=== PATIENT | female | born 1945 | race Caucasian/White ===

== ENCOUNTER → 2023-01-20 | Outpatient (CLI) | payer MEDICARE, OTHER, SELFPAY ==
--- NOTE | 2023-01-20 16:30 | RAD_ITS ---
STUDY: X-RAY - ABDOMEN/PELVIS REASON FOR EXAM: Female, 77 years old. ABD PAIN TECHNIQUE: 3 views COMPARISON: None. FINDINGS: Normal visualized lung bases. There is an unremarkable bowel gas pattern. There is no demonstrated free abdominal air. The visualized liver, spleen and kidneys are grossly normal in size and morphology. Postop changes in the right upper quadrant. Lumbar spine demonstrates minor levoscoliosis and degenerative change. Right hip prosthesis noted in situ. RAD/Abd Inc Decub and/or Erect IMPRESSION: Nonspecific examination of the abdomen and pelvis. Electronically Signed: León Christianson MD at 18:34 EDT ,
[2023-01-20 17:02] LABS: Absolute Lymphocyte Count 1.27 X10^3/uL (0.83-4.51); Absolute Neutrophil Count 4.9 X10^3/uL (2.0-7.7); Basophil# 0.03 X10^3/uL; Basophil% 0.4 % (0-1); Eosinophil# 0.17 X10^3/uL; Eosinophils% 2.4 % (0-5); Hematocrit 46.4 % (37-47); Hemoglobin 14.3 g/dL (12.0-15.0); Lymphocyte # 1.27 X10^3/ul (0.83-4.51); Lymphocyte % 18.2 % (19-41); Mean Corp Hgb Conc 30.8 g/dL (32-36); Mean Corpuscular Hgb 29.1 pg (27.0-32.0); Mean Corpuscular Volume 94.3 fL (81-99); Mean Platelet Vol. 10.7 fl (6.2-12.0); Monocyte# 0.63 X10^3/uL; NRBC Flagged by Analyzer 0 % (0-5); Neutrophil # 4.87 X10^3/uL (2.7-7.7); Neutrophil % 69.7 % (47-70); Platelet Count 255 K/mm3 (150-450); RBC Distribution Width CV 13.2 % (11.6-14.6); RBC Distribution Width SD 46.3 fl (35.1-43.9); Red Blood Count 4.92 M/mm3 (4.2-5.4)
[2023-01-20 17:26] LABS: ALB/GLOB Ratio 0.9 RATIO (0.9-2.4); AST(SGOT) 20 U/L (15-37); Alanine Aminotransfer ALT/SGPT 30 U/L (13-56); Albumin, Serum 3.5 g/dL (3.2-5.0); Alkaline Phosphatase 84 U/L (45-117); Anion Gap 3 (5-15); BUN 16 mg/dL (7-18); BUN/Creat Ratio 26.1 RATIO (10-20); Calcium,Total 9.9 mg/dL (8.5-10.1); Chloride 105 mmol/L (98-107); Creatinine, Serum 0.61 mg/dL (0.55-1.02); EST Glomerular Filtration Rate 100 mL/min (>60); Est Glom Filt Rate - Afr Amer 122 mL/min (>60); Globulin 3.7 g/dL (2.2-4.2); Glucose 98 mg/dL (74-106); Potassium 4.2 mmol/L (3.5-5.1); Protein, Total 7.2 g/dL (6.4-8.2); Sodium Level 138 mmol/L (136-145); Thyroid Stim Hormone (TSH) 1.81 uIU/mL (0.358-3.74)
[2023-01-20 17:55] LABS: Hepatitis C Antibody Non-Reactive (Nonreactive); Vitamin D,25 Hydroxy 51.9 ng/mL
== END | disposition home or self-care (01) ==
PROVIDERS: PCP Family Medicine Geriatric Medicine; Visit Provider Family Medicine Geriatric Medicine
DX: Z00.00 Encounter for general adult medical examination without abnormal findings (principal); I10 Essential (primary) hypertension; E78.5 Hyperlipidemia, unspecified; E55.9 Vitamin D deficiency, unspecified; Z13.89 Encounter for screening for other disorder
CPT/HCPCS: 36415; 74019; 80053; 82306; 84443; 85025; 86803

== ENCOUNTER → 2023-02-10 | Outpatient (CLI) | payer MEDICARE, OTHER, SELFPAY ==
[2023-02-10 13:12] VITALS: PULSE 104; PULSE 106; PULSE 107; PULSE 110; PULSE 96; PULSE 98; O2SAT 95; O2SAT 96; O2SAT 97; O2SAT 98
--- NOTE | 2023-02-11 05:46 | PCM.PSN.6M ---
PSN 6 Minute Walk Test 6 Minute Walk Test 6 Minute Walk Test: 6 Minute Walk Test PSN:6-Minute Walk Test Start: 02/10/23 13:12 Freq: Status: Active Protocol: [id number].6MINW Document 02/10/23 13:12 [facility] (Rec: 02/10/23 13:14 [facility] Desktop) 6 Minute Walk Test Date Performed 02/10/23 Time Performed 12:30 Height 5 ft 6 in Weight: 71.668 kg Weight in Pounds 158.[address]: Colten Vizcaino Assistive device used: None Pre-test Oxygen Delivery Method Room Air Pulse Ox 96 Pulse Rate (60-100) 98 Dyspnea Nano Scale (0-10) 0 Exertion Nano Scale (6-20) 6 1st minute Oxygen Delivery Method Room Air Pulse Ox 96 Pulse Rate (60-100) 104 H 2nd minute Oxygen Delivery Method Room Air Pulse Ox 96 Pulse Rate (60-100) 106 H 3rd minute Oxygen Delivery Method Room Air Pulse Ox 95 Pulse Rate (60-100) 107 H 4th minute Oxygen Delivery Method Room Air Pulse Ox 96 Pulse Rate (60-100) 110 H 5th minute Oxygen Delivery Method Room Air Pulse Ox 97 Pulse Rate (60-100) 110 H 6th minute Oxygen Delivery Method Room Air Pulse Ox 98 Pulse Rate (60-100) 110 H Dyspnea Nano Scale (0-10) 2 Exertion Nano Scale (6-20) 13 Post-test Oxygen Delivery Method Room Air Pulse Ox 98 Pulse Rate (60-100) 96 Full Laps Walked 18 Partial Lap, Number of Tiles Walked 32 Total Distance Walked (ft) 1094 Interpretation Interpretation: The patient was able to ambulate 1094 feet over the course of 6 minutes on room air with no assist devices or breaks. The patient experienced no significant desaturation, but did have tachycardia as high as 110 bpm. These findings are consistent with a cardiovascular limitation exercise tolerance. Recommendations Recommendations: No supplemental oxygen is indicated at this time.
== END | disposition home or self-care (01) ==
LOC: PSN 12:15
PROVIDERS: PCP Family Medicine Geriatric Medicine; Referring Provider Internal Medicine Critical Care Medicine; Visit Provider Internal Medicine Critical Care Medicine
DX: R06.02 Shortness of breath (principal)
CPT/HCPCS: 94618

== ENCOUNTER → 2023-02-11 | Outpatient (CLI) | payer MEDICARE, OTHER, SELFPAY ==
--- NOTE | 2023-02-12 05:32 | PFTCOMP ---
COMPLETE PULMONARY FUNCTION TEST INTERPRETATION Brief HPI: Patient is a 77-year-old female, currently under the care of Dr. Vizcaino, who presents to [facility] for complete pulmonary function tests secondary to diagnosis of dyspnea. Respiratory therapist reports good effort and reproducible results. Interpretation: Forced expiration spirometry shows no large airways obstructive ventilatory defect with an FEV1 of 120% predicted. There is some improvement in FEV1 by 260 cc (11%), but technically no significant bronchodilator response by strict ATS criteria. Spirograms are of good quality and plateau slowly, indicating slowly emptying areas of the lungs. The respiratory flow volume loop shows decreased expiratory flow rates at high lung volumes consistent with small airways obstruction. Lung volumes by body plethysmography show a normal total lung capacity at 5.2 L, 99% predicted. All other lung volumes are within normal limits. Diffusion capacity by carbon monoxide is normal at 86% predicted. The airway resistance is normal. No previous pulmonary function tests were available for review. Impression: These pulmonary function tests are technically within normal limits, but there is a possibility that bronchodilators may be helpful
== END | disposition home or self-care (01) ==
LOC: PSN 12:39
PROVIDERS: PCP Family Medicine Geriatric Medicine; Referring Provider Internal Medicine Critical Care Medicine; Visit Provider Internal Medicine Critical Care Medicine
DX: R06.02 Shortness of breath (principal)
CPT/HCPCS: 94060; 94726; 94729

== ENCOUNTER → 2023-02-12 | Outpatient (CLI) | payer MEDICARE, OTHER, SELFPAY ==
--- NOTE | 2023-02-12 11:06 | MRI_ITS ---
STUDY: BILATERAL BREAST MR WITHOUT AND WITH CONTRAST REASON FOR EXAM: Female, 77 years old. History of right breast cancer inferiorly. Follow-up. TECHNIQUE: Multi-sequence multi-echo imaging of both breasts was performed with a dedicated breast coil. T1-weighted and T2-weighted images were performed before the administration of contrast. T1-weighted images were also performed after the intravenous administration of 15ml o Clariscan. COMPARISON: Bilateral mammogram dated November 21, 2021, prior MRI with contrast dated January 24, 2022. FINDINGS: RIGHT BREAST: Scattered fibroglandular densities with minimal background enhancement. Decreased size of the breast with postsurgical changes. No abnormal enhancing masses or areas of non-mass enhancement in the right breast. LEFT BREAST: Scattered fibroglandular densities with minimal background enhancement. Decreased size of the breast with postsurgical changes. No abnormal enhancing masses or areas of non-mass enhancement in the right breast. No enlarged or abnormal lymph nodes. No abnormality in the visualized regions of the chest or liver. MRI/Breast Bilateral W/O and W IMPRESSION: Postsurgical changes of the right breast. No other abnormality present. Follow-up screening mammogram in one year recommended. CATEGORY: BIRADS Category 2: Benign. A letter regarding these results will be sent to the patient by the facility within 30 days. Electronically Signed: Giacomo Vanessa MD at 12:45 EDT ,
== END | disposition home or self-care (01) ==
LOC: MRI 10:55
PROVIDERS: PCP Family Medicine Geriatric Medicine; Referring Provider Student in an Organized Health Care Education/Training Program; Visit Provider Student in an Organized Health Care Education/Training Program
DX: C50.911 Malignant neoplasm of unspecified site of right female breast (principal)
CPT/HCPCS: 77049; A9575; A4216; C8908

== ENCOUNTER → 2023-02-16 | Outpatient (CLI) | payer MEDICARE, OTHER, SELFPAY ==
--- NOTE | 2023-02-16 07:28 | ECHOD_ITS ---
Reason For Study: CHEST PAIN Procedure This was a 2D Doppler, Color Flow transthoracic echocardiogram. Myocardial strain analysis was performed in this exam to aid in the assessment of cardiac function. Exam performed in department. Left Ventricle Normal LV size. Left ventricular systolic function is normal. The estimated ejection fraction is 60 %. Stage 1 diastolic dysfunction. No regional wall motion abnormalities noted. Right Ventricle Normal RV size. Normal systolic function. Atria Normal left atrium. Normal right atrium. Mitral Valve Normal mitral valve. Tricuspid Valve Normal tricuspid valve. Mild tricuspid valve insufficiency. Pulmonary artery systolic pressure is 24 mmHg. Aortic Valve Trisinus/trileaflet aortic valve. Pulmonic Valve Normal pulmonic valve. Great Vessels Normal aortic root. Pericardium/Pleural No pericardial effusion. MMode/2D Measurements & Calculations LVIDd: 4.7 cm IVSd: 1.0 cm Ao root diam: 3.7 cm LVIDs: 3.4 cm LVPWd: 0.84 cm RVDd: 2.4 cm FS: 26.4 % LAV(MOD-bp): 47.7 ml LA A4 area: 16.7 cm2 LA dimension(2D): 3.8 cm LAV(MOD-bp) Indexed: 26.5 ml/m2 LAV(MOD-sp2): 47.5 ml LAV(MOD-sp4): 47.5 ml TAPSE: 2.0 cm RA A4 area: 11.6 cm2 Time Measurements MV dec time: 0.25 sec Doppler Measurements & Calculations MV E max aurelio: 61.3 cm/sec Lat Peak E' Aurelio: 7.3 cm/sec Med Peak E' Aurelio: 7.0 cm/sec MV A max aurelio: 91.4 cm/sec E/E' lat: 8.4 E/E' med: 8.7 MV E/A: 0.67 MV V2 max: 106.2 cm/sec MV dec slope: 246.8 cm/sec2 Ao V2 max: 134.6 cm/sec MV max P.5 mmHg Ao max P.3 mmHg MV V2 mean: 55.8 cm/sec Ao V2 mean: 96.3 cm/sec MV mean P.4 mmHg Ao mean P.3 mmHg MV V2 VTI: 19.0 cm Ao V2 VTI: 33.4 cm AV (velocity ratio): 0.72 LV V1 max: 114.2 cm/sec MR max aurelio: 596.8 cm/sec PA V2 max: 87.5 cm/sec LV V1 max P.2 mmHg MR max P.5 mmHg PA V2 mean: 61.4 cm/sec LV V1 mean P.0 mmHg MR mean aurelio: 496.7 cm/sec LV V1 mean: 82.0 cm/sec MR mean P.5 mmHg LV V1 VTI: 24.1 cm MR VTI: 201.2 cm TR max aurelio: 220.5 cm/sec TR max P.5 mmHg ECHO/Echo Complete Interpretation Summary Normal LV size. Left ventricular systolic function is normal. The estimated ejection fraction is 60 %. Stage 1 diastolic dysfunction. The global longitudinal strain is mildly abnormal. The global longitudinal stra in = -15.6% (abnormal). Ordering Physician: Brandon Meza Referring Physician: Craig Ventura Chi Performed By: Joyce Baeza, RDCS, RVT
--- NOTE | 2023-02-16 14:06 | STRESSREP ---
Stress Test Report Exercise myocardial perfusion stress test. 77-year-old lady with a history of chest pain Stress protocol: Resting EKG demonstrates normal sinus rhythm with a rate of 71 bpm resting blood pressure is 132/80 mmHg. The patient exercised according to the regular Dean protocol for a total duration of 4 minutes and 25 seconds attaining a maximum heart rate of 141 bpm which was 98% of maximum predicted heart rate; the maximum workload was 7 metabolic equivalents. At rest there were no ST or T wave changes noted to suggest ischemia and at peak exercise upsloping ST changes only were noted which did not meet the criteria for ischemia. No clinical angina was noted the test was terminated due to the target heart rate being achieved/fatigue. The peak blood pressure was 198/100 mmHg. Rate-pressure product was 17,500. Myocardial perfusion protocol. 10.0 mCi of technetium 99m sestamibi was injected at rest. The patient exercised according to regular Dean protocol for total duration of 4 minutes and 25 seconds and at peak exercise 35 mCi of technetium 99m sestamibi was injected stress images were obtained stress and rest images were reconstructed in comparing the short axis vertical long and horizontal long axis. Gated images were also obtained. Perfusion SPECT analysis: Review of the stress images demonstrate normal uptake of tracer noted in all areas of the myocardium. The resting images similarly demonstrate normal uptake of tracer noted in all areas of the myocardium. No areas of reversibility are noted to suggest ischemia no previous infarct was noted. Gated SPECT analysis: The gated ejection fraction is 71%. Conclusion: Normal exercise myocardial perfusion stress test at a moderate workload Preserved ejection fraction.
== END | disposition home or self-care (01) ==
LOC: CVS 07:27
PROVIDERS: PCP Family Medicine Geriatric Medicine; Referring Provider Internal Medicine Cardiovascular Disease; Visit Provider Internal Medicine Cardiovascular Disease
DX: R07.9 Chest pain, unspecified (principal)
CPT/HCPCS: 78452; 93017; 93306; A9500; A4216

== ENCOUNTER → 2023-06-02 | Outpatient (CLI) | payer MEDICARE, SELFPAY ==
[2023-06-02 14:42] LABS: Absolute Lymphocyte Count 0.93 X10^3/uL (0.83-4.51); Absolute Neutrophil Count 5.5 X10^3/uL (2.0-7.7); Basophil# 0.03 X10^3/uL; Basophil% 0.4 % (0-1); Eosinophil# 0.09 X10^3/uL; Eosinophils% 1.3 % (0-5); Hematocrit 45.7 % (37-47); Hemoglobin 13.9 g/dL (12.0-15.0); Lymphocyte # 0.93 X10^3/ul (0.83-4.51); Lymphocyte % 13.2 % (19-41); Mean Corp Hgb Conc 30.4 g/dL (32-36); Mean Corpuscular Hgb 28.3 pg (27.0-32.0); Mean Corpuscular Volume 92.9 fL (81-99); Mean Platelet Vol. 10.7 fl (6.2-12.0); Monocyte# 0.47 X10^3/uL; Monocyte% 6.7 % (0-10); NRBC Flagged by Analyzer 0 % (0-5); Neutrophil # 5.49 X10^3/uL (2.7-7.7); Neutrophil % 78.3 % (47-70); Platelet Count 223 K/mm3 (150-450); Red Blood Count 4.92 M/mm3 (4.2-5.4)
[2023-06-02 14:56] LABS: Vitamin D,25 Hydroxy 33.6 ng/mL
[2023-06-02 14:57] LABS: AST(SGOT) 20 U/L (15-37); Alanine Aminotransfer ALT/SGPT 12 U/L (13-56); Albumin, Serum 3.4 g/dL (3.2-5.0); Alkaline Phosphatase 77 U/L (45-117); Anion Gap 3 (5-15); BUN 20 mg/dL (7-18); BUN/Creat Ratio 29.9 RATIO (10-20); Calcium,Total 10.1 mg/dL (8.5-10.1); Chloride 110 mmol/L (98-107); Creatinine, Serum 0.67 mg/dL (0.55-1.02); EST Glomerular Filtration Rate 91 mL/min (>60); Est Glom Filt Rate - Afr Amer 110 mL/min (>60); Globulin 3.5 g/dL (2.2-4.2); Glucose 115 mg/dL (74-106); Potassium 4.3 mmol/L (3.5-5.1); Protein, Total 6.9 g/dL (6.4-8.2); Sodium Level 144 mmol/L (136-145); Thyroid Stim Hormone (TSH) 1.25 uIU/mL (0.358-3.74)
--- OUTSIDE RECORDS SUMMARY | 2023-06-02 17:27 | XMS RPT_ITS | CCD ---
Author Name Unknown Address [address] [place] [address] Organization [facility] Care Team Providers Care Bolt Cutter Name Role Phone Antoine Nichols Unavailable Ciara Nava Admitting Unavailable Ciara Nava Attending Unavailable Antoine Nichols Primary Care Provider [phone] CIARA NAVA Admitting Unavaila ble MITCHELL ALCALA Attending Unavailable CIARA NAVA Referring Unavaila ble ANTOINE NICHOLS Primary Care Unavailable CIARA NAVA Admitting Unavaila ble LINDA JORGE Attending Unavailable CIARA NAVA Referring Unavaila ble ANTOINE NICHOLS Primary Care Unavailable CIARA NAVA Admitting Unavaila ble LINDA JORGE Attending Unavailable CIARA NAVA Referring Unavaila ble ANTOINE NICHOLS Primary Care Unavailable CIARA NAVA Admitting Unavaila ble NITHYA PEREZ Attending Unavailable CIARA NAVA Referring Unavaila ble ANTOINE NICHOLS Primary Care Unavailable AUDI LUEVANO Attending Unavailable ANTOIEN NICHOLS Primary Care Unavailable AUDI LUEVANO Attending Unavailable ANTOINE NICHOLS Primary Care Unavailable AUDI LUEVANO Admitting Unavailable AUDI LUEVANO Referring Unavailable ANTOINE NICHOLS Primary Care Unavailable AUDI LUEVANO Attending Unavailable AUDI LUEVANO Referring Unavailable AUDI LUEVANO Admitting Unavailable ANTOINE NICHOLS Primary Care Unavailable NICOLE YANG Attending Unavailable ANTOINE NICHOLS Primary Care Unavailable AUDI LUEVANO Attending Unavailable ANTOINE NICHOLS Primary Care Unavailable NicholsAntoine baxter Unavailable Unavailable Nichols, Antoine O Unavailable Unavailable Becerra, Aasef G Unavailable Unavailable NicholsKp baxterer Unavailable Unavailable Jennifer Garduno Unavailable Unavailable Antoine Nichols Unavailable Unavailable Antoine Nichols Primary Care Provider Laureen MIMS, Jennifer Unavailable UnavailAntoine Oro MD Unavailable Unavailable Nichols, Antoine O Unavailable Unavailable Becerra, Aasef G Unavailable Unavailable NicholsKp ortizer O Unavailable Unavailable Unavailable Altagracia Torres Attending UnavailAltagracia Johnson Referring Unavailabl e Jessica, Dr. Antoine Tijerina Primary Care Unavailab Altagracia Miles Attending Unavailabl e Jessica, Dr. Antoine Tijerina Primary Care Unavailab Altagracia Miles Attending Unavailabl e Jessica, Dr. Antoine Tijerina Primary Care Unavailab Altagracia Miles Attending Unavailabl e Jessica, Dr. Antoine Tijerina Primary Care Unavailab le Jessica, Dr. Antoine Tijerina Attending Unavailab le Jessica, Dr. Antoine Tijerina Referring Unavailab le Jessica, Dr. Antoine Tijerina Primary Care Unavailab le Vasko, Dr. Berta Cassidy Attending Unavaila ble Jessica, Dr. Antoine Tijerina Primary Care Unavailab le Jessica, Dr. Antoine Tijerina Primary Care Unavailab le Hamad, Dr. Butler Admitting Unavailable Hamad, Dr. Butler Attending Unavailable Sheryl Fabian Referring Unavailable Antoine Nichols Primary Care Unavailable Altagracia Torres Attending UnavailAntoine Oro Referring Unavailable Antoine Nichols Primary Care Unavailable Antoine Nichols Referring Unavailable Antoine Nichols Primary Care Unavailable Antoine Nichols Attending Unavailable Antoine Nichols Primary Care Unavailable Antoine Nichols Attending Unavailable Antoine Nichols Referring Unavailable Antoine Nichols Primary Care Unavailable Antoine Nichols Attending Unavailable Antoine Nichols Referring Unavailable Antoine Nichols Primary Care Unavailable Altagracia Torres Attending Unavailabl Antoine Booth Referring Unavailable Dr. Antoine iNchols Primary Care Unavailab Sheryl Valdez Attending Unavailable Sheryl Fabian Attending Unavailable Dr. Antoine Nichols Primary Care Unavailab Sheryl Valdez Admitting Unavailable Sheryl Fabian Attending Unavailable Sheryl Fabian Referring Unavailable Dr. Antoine Nichols Primary Care Unavailab trenton Nichols, Dr. Antoine Tijerina Primary Care Unavailab Sheryl Valdez Attending Unavailable Allergies Allergy Classification Reported Allergen(s) Allergy Type Date of Onset Reaction(s) Facility Serotonin Reuptake Inhibitors (SSRIs) (3 sources) Escitalopram; Translations: [Lexapro] Drug Allergy [id number] Work Phone: (20 sources) escitalopram; Translations: [ESCITALOPRAM] Drug Allergy 6 Other (See Comments) [facility] Work Phone: (4 sources) Escitalopram Drug Allergy [facility] Work Phone: Medications Current Medications Medication Drug Class(es) Dates Sig (Normalized) Sig (Original) calcium carbonate 1500 mg / cholecalciferol 200 unt oral tablet (7 sources) Vitamin D take 1 tablet by mouth once daily calcium carbonate-vitamin D3 600 mg(1,500mg) -200 unit per tablet Take 1 tablet by mouth daily. 0 Active gabapentin 300 mg oral capsule (2 sources) Anti-epileptic Agent Start: 12-30-2018 take 1 capsule by mouth twice daily gabapentin (NEURONTIN) 300 MG capsule Take 300 mg by mouth 2 (two) times a day . 1 12/30/2018 Active Lactobacillus Combination No.11 15 Billion Cell Sprinkle Capsule (1 source) take 1 capsule by mouth once daily lactobacillus combo no.11 15 billion cell CpSP Take 1 capsule by mouth daily. Active lactobacillus combo no.11 15 billion cell CpSP (6 sources) take 1 capsule by mouth once daily lactobacillus combo no.11 15 billion cell CpSP Take 1 capsule by mouth daily. 0 Active tamoxifen 20 mg oral tablet (7 sources) Estrogen Agonist/Antagon ist Start: 02-09-2017 tamoxifen (NOLVADEX) 20 MG tablet therapeutic multivitamin (THERAGRAN) tablet (6 sources) take 1 tablet by mouth once daily therapeutic multivitamin (THERAGRAN) tablet Take 1 tablet by mouth daily. 0 Active Therapeutic Multivitamin Tablet (1 source) take 1 tablet by mouth once daily therapeutic multivitamin (THERAGRAN) tablet Take 1 tablet by mouth daily. Active Completed/Discontinued Medications Medication Drug Class(es) Dates Sig (Normalized) Sig (Original) acetaminophen 500 mg oral tablet (20 sources) Start: 06-27-2019 take 2 tablets by mouth three times daily as needed Acetaminophen 500 MG Oral Tablet TAKE 2 TABLET 3 times daily Quantity: 0 Refills: 0 Ordered: 27-Jun-2019 DO Start : 27-Jun-2019 Active PRN acetaminophen 325 mg / oxyCODONE hydrochloride 5 mg oral tablet (1 source) Opioid Agonist Start: 10-11-2015 End: 03-26-2017 take 1-2 tablets by mouth every four hours as needed for pain oxyCODONE-acetamino phen (ROXICET) 5-325 mg per tablet Take 1-2 tablets by mouth every four hours as needed for pain. 50 tablet 0 10/11/2015 03/26/2017 Discontinued [id number] 200 actuat albuterol 0.09 mg/actuat metered dose inhaler (2 sources) beta2-Adrenergic Agonist Start: 03-24-2022 take 2 puff(s) by inhalation four times daily as needed for wheezing Albuterol Sulfate HFA 108 (90 Base) MCG/ACT Inhalation Aerosol Solution INHALE 2 PUFFS 4 times daily as needed for wheezing or shortness of brath Quantity: 1 Refills: 2 Ordered: 24-Mar-2022 Antoine Nichols MD Start : 24-Mar-2022 Active whtever brand or generic covered One Daily Multivitamin Women TABS (2 sources) Vitamin C One Daily Multivitamin Women TABS Refills: 0 Active Problems Active Problems Problem Classification Problem Date Documented Date Episodic/Chronic Anxiety disorders (20 sources) Anxiety state; Translations: [Anxiety state, unspecified] Onset: 09-25-2015 09-25-2015 Chronic Cancer of breast (20 sources) Malignant tumor of breast ; 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] Onset: 01-29-2022 Chronic Cancer of breast (20 sources) History of malignant neoplasm of breast; Translations: [Personal history of malignant neoplasm of breast] Episodic Nonmalignant breast conditions (2 sources) Unspecified lump in the right breast, lower inner quadrant; Translations: [Unspecified benign mammary dysplasia of right breast] Onset: 01-24-2022 Episodic Osteoarthritis (14 sources) Osteoarthritis of hip; Translations: [Osteoarthritis of knee] Onset: 03-02-2015 03-02-2015 Chronic Osteoarthritis (5 sources) Osteoarthritis of right hip joint; Translations: [Osteoarthritis of right knee joint] Onset: 03-02-2015 03-02-2015 Osteoporosis (20 sources) Senile osteoporosis; Translations: [Primary osteoporosis] Onset: 01-22-2012 07-27-2015 Chronic Other aftercare (20 sources) Patient encounter status; Translations: [Long-term (current) use of other medications] Episodic Other and ill-defined heart disease (10 sources) Left ventricular hypertrophy; Translations: [Cardiomegaly] Onset: 06-25-2015 06-25-2015 Chronic Other and ill-defined heart disease (20 sources) Cardiomegaly; Translations: [Cardiomegaly] Onset: 09-25-2015 09-25-2015 Chronic Other complications of ; puerperium affecting management of mother (20 sources) Deliveries by ; Translations: [ delivery, without mention of indication, unspecified as to episode of care or not applicable] Episodic Past or Other Problems Problem Classification Problem Date Documented Da te Episodic/Chronic Diverticulosis and diverticulitis (20 sources) Diverticulitis of large intestine; Translations: [Diverticulitis of colon (without mention of hemorrhage)] Onset: 6 Resolved: 2 07-27-2015 Chronic Genitourinary symptoms and ill-defined conditions (20 sources) Urinary incontinence; Translations: [Urge incontinence of urine] Resolved: 2 Chronic Nonspecific chest pain (20 sources) Central chest pain; Translations: [Chest pain, unspecified] Resolved: 1 Episodic Other aftercare (20 sources) Follow-up status; Translations: [Unspecified follow-up examination] Resolved: 2 Episodic Other aftercare (1 source) Other alf (current) drug therapy; Translations: [Other alf (current) drug therapy] Onset: 2 Episodic Other bone disease and musculoskeletal deformities (1 source) Other specified disorders of bone density and structure, left ankle and foot; Translations: [Oth disrd of bone density and structure, left ankle and foot] Onset: 2 Episodic Other connective tissue disease (20 sources) Calcaneal spur; Translations: [Calcaneal spur] Resolved: 2 Episodic Other connective tissue disease (20 sources) Plantar fasciitis; Translations: [Plantar fascial fibromatosis] Resolved: 2 Episodic Other connective tissue disease (1 source) Pain in left foot; Translations: [Pain in left foot] Onset: 2 Episodic Other connective tissue disease (4 sources) Tendinitis of left rotator cuff; Translations: [Tendinitis of left rotator cuff] Other gastrointestinal disorders (17 sources) H/O: gastrointestinal disease; Translations: [Personal history of other diseases of digestive system] Resolved: 2 Episodic Other lower respiratory disease (9 sources) Dyspnea; Translations: [Dyspnea] Onset: 6 06-25-2015 Episodic Other nutritional; endocrine; and metabolic disorders (10 sources) Body mass index 25-29 - overweight; Translations: [Body Mass Index 27.0-27.9, adult] Resolved: 1 Episodic Other screening for suspected conditions (not mental disorders or infectious disease) (20 sources) Cancer cervix - screening done; Translations: [Patient encounter status] Onset: 2 Episodic Residual codes; unclassified (20 sources) Chronic pain; Translations: [Other chronic pain] Resolved: 2 Chronic Residual codes; unclassified (20 sources) Abnormal radionuclide scan; Translations: [Nonspecific abnormal results of other specified function study] Resolved: 0 Episodic Residual codes; unclassified (17 sources) H/O: urinary disease; Translations: [Personal history of other specified urinary system disorders] Resolved: 2 Episodic Residual codes; unclassified (2 sources) Estrogen receptor positive status [ER+]; Translations: [ESTROGEN RECEPTOR POSITIVE STATUS] Onset: 2 Episodic Unclassified (6 sources) Patient encounter status; Translations: [Medication management] Unclassified (4 sources) 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; Translations: [Chronic hip pain after total replacement of right hip joint] Unclassified (1 source) History of clinical finding in subject; Translations: [History of menopause] Unclassified (1 source) Cough, unspecified; Translations: [Cough, unspecified] Onset: 2 NEGATED: Highlighted row has not occurred!Residual codes; unclassified (20 sources) Disease Episodic Results Test Name Value Interpretation Reference Range Facil ity Vital Signs Date Time Vital Sign Value Performing Clinician Faci lity 03-24-2022 13:34-0500 Body height 167.64 cm Antoine Nan Babcocker Work Phone: [facility] [employer] Work Phone: 03-24-2022 13:34-0500 Body mass index (BMI) [Ratio] 26.31 kg/m2 Antoine Babcocker Work Phone: [facility] Work Phone: 03-24-2022 13:34-0500 Body surface area Derived from formula 1.83 m2 Antoine Nan Nichols Work Phone: [facility] [employer] Work Phone: 03-24-2022 13:34-0500 Body weight 73.94 kg Antoine Babcocker Work Phone: [facility] Work Phone: 03-24-2022 13:34-0500 Diastolic blood pressure 86 mm[Hg] Antoine Babcocker Work Phone: [facility] Work Phone: 03-24-2022 13:34-0500 Heart rate 80 /min Antoine Nan GalindoNichols Work Phone: [facility] [employer] Work Phone: 03-24-2022 13:34-0500 SaO2% (BldA) [Mass fraction] 92 % Antoine Nan GalindoNichols Work Phone: [facility] Work Phone: 03-24-2022 13:34-0500 Systolic blood pressure 128 mm[Hg] Antoine O Nichols Work Phone: [facility] Work Phone: 02-11-2022 13:21-0400 Body height 167.64 cm Antoine O Nichols Work Phone: [facility] Work Phone: 02-11-2022 13:21-0400 Body mass index (BMI) [Ratio] 25.66 kg/m2 Antoine O Nichols Work Phone: [facility] Work Phone: 02-11-2022 13:21-0400 Body surface area Derived from formula 1.81 m2 Antoine O Nichols Work Phone: [facility] Work Phone: 02-11-2022 13:21-0400 Body weight 72.12 kg Antoine O Nichols Work Phone: [facility] Work Phone: 02-11-2022 13:21-0400 Diastolic blood pressure 86 mm[Hg] Antoine O Nichols Work Phone: [facility] Work Phone: 02-11-2022 13:21-0400 Heart rate 77 /min Antoine O Nichols Work Phone: [facility] Work Phone: 02-11-2022 13:21-0400 Systolic blood pressure 138 mm[Hg] Antoine O Nichols Work Phone: [facility] Work Phone: 11-29-2021 10:55-0400 Body height 167.64 cm Antoine O Nichols Work Phone: [facility] Work Phone: 11-29-2021 10:55-0400 Body mass index (BMI) [Ratio] 25.72 kg/m2 Antoine O Nichols Work Phone: [facility] Work Phone: 11-29-2021 10:55-0400 Body surface area Derived from formula 1.82 m2 Antoine O Nichols Work Phone: -[facility] Work Phone: 11-29-2021 10:55-0400 Body weight 72.29 kg Antoine O Nichols Work Phone: -[facility] Work Phone: 11-29-2021 10:55-0400 Diastolic blood pressure 92 mm[Hg] Antoine O Nichols Work Phone: -[facility] Work Phone: 11-29-2021 10:55-0400 Heart rate 68 /min Antoine O Nichols Work Phone: -[facility] Work Phone: 11-29-2021 10:55-0400 Systolic blood pressure 142 mm[Hg] Antoine O Nichols Work Phone: -[facility] Work Phone: 11-21-2021 13:19-0400 Body height 165.1 cm Antoine O Nichols Work Phone: -[facility] Work Phone: 11-21-2021 13:19-0400 Body mass index (BMI) [Ratio] 27.21 kg/m2 Antoine O Nichols Work Phone: -[facility] Work Phone: 11-21-2021 13:19-0400 Body surface area Derived from formula 1.82 m2 Antoine O Nichols Work Phone: -[facility] Work Phone: 11-21-2021 13:19-0400 Body weight 74.16 kg Antoine O Nichols Work Phone: [facility] Work Phone: 11-21-2021 13:19-0400 Diastolic blood pressure 80 mm[Hg] Antoine O Nichols Work Phone: [facility] Work Phone: 11-21-2021 13:19-0400 Heart rate 57 /min Antoine O Nichols Work Phone: [facility] Work Phone: 11-21-2021 13:19-0400 Systolic blood pressure 122 mm[Hg] Antoine O Nichols Work Phone: [facility] Work Phone: 08-21-2021 08:28-0400 Body height 165.1 cm Antoine O Nichols Work Phone: [facility] Work Phone: 08-21-2021 08:28-0400 Body mass index (BMI) [Ratio] 26.46 kg/m2 Antoine O Nichols Work Phone: [facility] Work Phone: 08-21-2021 08:28-0400 Body surface area Derived from formula 1.79 m2 Antoine O Nichols Work Phone: [facility] Work Phone: 08-21-2021 08:28-0400 Body weight 72.12 kg Antoine O Nichols Work Phone: [facility] Work Phone: 08-21-2021 08:28-0400 Diastolic blood pressure 78 mm[Hg] Antoine O Nichols Work Phone: [facility] Work Phone: 08-21-2021 08:28-0400 Heart rate 68 /min Antoine O Nichols Work Phone: [facility] Work Phone: 08-21-2021 08:28-0400 Systolic blood pressure 122 mm[Hg] Antoine O Nichols Work Phone: [facility] Work Phone: 05-21-2021 13:15-0500 Body height 165.1 cm Antoine O Nichols Work Phone: [facility] Work Phone: 05-21-2021 13:15-0500 Body mass index (BMI) [Ratio] 26.79 kg/m2 Antoine O Nichols Work Phone: [facility] Work Phone: 05-21-2021 13:15-0500 Body surface area Derived from formula 1.8 m2 Antoine O Nichols Work Phone: [facility] Work Phone: 05-21-2021 13:15-0500 Body weight 73.03 kg Antoine O Nichols Work Phone: [facility] Work Phone: 05-21-2021 13:15-0500 Diastolic blood pressure 72 mm[Hg] Antoine O Nichols Work Phone: [facility] Work Phone: 05-21-2021 13:15-0500 Heart rate 72 /min Antoine O Nichols Work Phone: [facility] Work Phone: 05-21-2021 13:15-0500 Systolic blood pressure 128 mm[Hg] Antoine O Nichols Work Phone: [facility] Work Phone: 12-21-2020 11:59-0400 Diastolic blood pressure 89 mm[Hg] Antoine O Nichols Work Phone: [facility] Work Phone: 12-21-2020 11:59-0400 Systolic blood pressure 127 mm[Hg] Antoine O Nichols Work Phone: [facility] Work Phone: 12-21-2020 11:40-0400 Body height 165.1 cm Antoine O Nichols Work Phone: [facility] Work Phone: 12-21-2020 11:40-0400 Body mass index (BMI) [Ratio] 26.46 kg/m2 Antoine O Nichols Work Phone: [email or web address] Work Phone: 12-21-2020 11:40-0400 Body surface area Derived from formula 1.79 m2 Antoine O Nichols Work Phone: [facility] Work Phone: 12-21-2020 11:40-0400 Body weight 72.12 kg Anotine O Nichols Work Phone: [facility] Work Phone: 12-21-2020 11:40-0400 Diastolic blood pressure 82 mm[Hg] Antoine O Nichols Work Phone: [facility] Work Phone: 12-21-2020 11:40-0400 Heart rate 68 /min Antoine O Nichols Work Phone: [facility] Work Phone: 12-21-2020 11:40-0400 Systolic blood pressure 131 mm[Hg] Antoine O Nichols Work Phone: [facility] Work Phone: 11-12-2020 13:12-0400 Body height 165.1 cm Antoine O Nichols Work Phone: [facility] Work Phone: 11-12-2020 13:12-0400 Body mass index (BMI) [Ratio] 26.79 kg/m2 Antoine Babcocker Work Phone: [facility] Work Phone: 11-12-2020 13:12-0400 Body surface area Derived from formula 1.8 m2 Antoine Babcocker Work Phone: [facility] Work Phone: 11-12-2020 13:12-0400 Body weight 73.03 kg Antoine Babcocker Work Phone: [facility] Work Phone: 11-12-2020 13:12-0400 Diastolic blood pressure 76 mm[Hg] Antoine Galindoyder Work Phone: [facility] Work Phone: 11-12-2020 13:12-0400 Heart rate 74 /min Antoine Babcocker Work Phone: [facility] Work Phone: 11-12-2020 13:12-0400 SaO2% (BldA) [Mass fraction] 96 % Antoine Babcocker Work Phone: [facility] Work Phone: 11-12-2020 13:12-0400 Systolic blood pressure 106 mm[Hg] Antoine Babcocker Work Phone: [facility] Work Phone: 05-14-2020 17:41-0500 BMI (Body Mass Index) 26.96 kg/m2 Jennifer Garduno [facility] Work Phone: 05-14-2020 17:41-0500 Body weight 73.48 kg Jennifer Garduno [facility] Work Phone: 05-14-2020 17:41-0500 BP Diastolic 80 mm[Hg] Jennifer Garduno [facility] Work Phone: Encounters Encounter Date Encounter Type Care Provider Facility Start: 04-03-[address] Antoine Nichols Facility:[id number] Start: 03-27-2022 Postop follow up vis it related to original px Antoine Nichols Work Phone: [facility] Work Phone: Start: 03-27-2022 ambulatory Sheryl Fabian Facility :[id number] Start: 03-25-2022 PFT, Provider: FLORIDALMA MCFARLANE PFT ROOM,[place] [address], Status: Pen, Time: 12:00 PM Antoine Nichols Work Phone: [facility] Work Phone: Start: 03-25-[address] Antoine Nichols Facility:[id number] Start: 03-24-2022 Office outpatient vi sit 15 minutes Antoine Nichols Work Phone: [facility] Work Phone: Start: 03-24-2022 ambulatory Antoine Nichols Facil ity:[id number] Start: 03-20-2022 Chart Update Antoine Nichols Work Phone: [facility] Work Phone: Start: 03-05-2022 End: 03-05-2022 ambulatory Sheryl Fabian Facility:[id number] Start: 02-21-[address] Antoine Nichols Facility:[id number] Start: 02-21-2022 Encounter for preprocedural cardiovascular examination [facility] Start: 02-21-2022 Encounter for preprocedural laboratory examination [facility] Start: 02-18-2022 AUDIT Antoine Nichols Work Phone: [facility] Work Phone: Start: 02-13-2022 NPV, Provider: Sheryl Fabian, Status: Pen, Time: 3:00 PM Antoine Nichols Work Phone: [facility] Work Phone: Start: 02-13-[address] Antoine Nichols Facility:[id number] Start: 02-13-2022 Office consultation new/estab patient 80 min Antoine Nichols [facility] Work Phone: Start: 02-12-2022 ambulatory Altagracia Lim cility:[id number] Start: 02-11-2022 ambulatory Antoine Nichols Facil ity:[id number] Start: 02-11-2022 Office outpatient vi sit 15 minutes Antoine Nichols Work Phone: [facility] Work Phone: Start: 02-04-2022 ambulatory Antoine Nichols Facil ity:[id number] Start: 01-29-2022 ambulatory Altagracia Lim cility:[id number] Start: 01-24-2022 Chart Update Antoine Nichols Work Phone: [facility] Work Phone: Start: 01-24-2022 ambulatory Altagracia Lim cility:[id number] Start: 12-12-2021 AUDIT Antoine Nichols Work Phone: [facility] Work Phone: Start: 11-29-2021 Office outpatient vi sit 15 minutes Antoine Nichols Work Phone: [facility] Work Phone: Start: 11-29-2021 Patient encounter procedure Antoine Nichols Work Phone: [facility] Work Phone: Start: 11-29-2021 ambulatory Antoine Nichols Facil ity:[id number] Start: 11-24-2021 Chart Update Antoine Nichols Work Phone: [facility] Work Phone: Start: 11-21-2021 ambulatory Antoine Nichols Facil ity:[id number] Start: 11-21-2021 ambulatory Altagracia Lim cility:[id number] Start: 11-18-2021 Chart Update Antoine Nichols Work Phone: [facility] Work Phone: Start: 08-21-2021 Office outpatient vi sit 25 minutes Antoine Nan Nichols Work Phone: [facility] Work Phone: Start: 08-21-2021 ambulatory Antoine Nichols Facil ity:[id number] Start: 05-27-[address] Berta Hunter Facility:[id number] Start: 05-21-2021 Office outpatient vi sit 25 minutes Antoine Nan Nichols Work Phone: [facility] Work Phone: Start: 12-21-2020 Patient encounter procedure Antoine Nichols Work Phone: [facility] Work Phone: Start: 11-21-2020 Chart Update Antoine Nan Nichols Work Phone: [facility] Work Phone: Start: 11-12-2020 Office outpatient vi sit 25 minutes Antoine Nichols Work Phone: [facility] Work Phone: Start: 05-26-2020 End: 05-26-2020 Orders Only Mitchell Calzada Work Phone: [facility] Start: 05-14-2020 Patient encounter procedure Jennifer Garduno [facility] Work Phone: Start: 01-19-2020 Patient encounter procedure Jennifer Garduno [facility] Work Phone: Start: 12-15-2019 Patient encounter procedure Jennifer Garduno [facility] Work Phone: Start: 12-12-2019 Patient encounter procedure Jennifer Garduno [facility] Work Phone: Start: 12-07-2019 Patient encounter procedure Jennifer Garduno [facility] Work Phone: Start: 11-25-2019 Patient encounter procedure Jennifer Garduno [facility] Work Phone: Start: 11-17-2019 Patient encounter procedure Jennifer Garduno [facility] Work Phone: Start: 11-08-2019 Patient encounter procedure Jennifer Garduno [facility] Work Phone: Start: 11-02-2019 Patient encounter procedure Jennifer Garduno [facility] Work Phone: Start: 10-20-2019 Patient encounter procedure Jennifer Garduno [facility] Work Phone: Start: 06-27-2019 Patient encounter procedure Antoine Babcocker [facility] Work Phone: Start: 05-10-2019 Patient encounter procedure Antoine Nichols [facility] Work Phone: Start: 03-30-2019 Patient encounter procedure Antoine Nichols [facility] Work Phone: Start: 02-07-2019 Patient encounter procedure Antoine Nichols [facility] Work Phone: Start: 01-26-2019 End: 01-26-2019 Patient encounter procedure AUDI LUEVANO [facility] Start: 01-26-2019 End: 01-26-2019 Office outpatient visit 10 minutes Audi Luevano Work Phone: [facility] Procedures Date Procedure Procedure Detail Performing Clinician Start: 03-05-2022 Partial mastectomy Thanh r Nan Nichols Work Phone: Plan of Treatment Date Care Activity Detail Author Start: 11-28-2022 FUV, Provider: Altagracia Torres, Status: Pen, Time: 10:00 AM FUV, Provider: Altagracia Torres, Status: Pen, Time: 10:00 AM [facility] Work Phone: Start: 05-27-2022 EPV, Provider: Antoine Nichols, Status: Pen, Time: 1:00 PM EPV, Provider: Antoine Nichols, Status: Pen, Time: 1:00 PM [facility] Work Phone: Start: 03-27-2022 FUV, Provider: Sheryl Fabian, Status: Pen, Time: 1:30 PM FUV, Provider: Sheryl Fabian, Status: Pen, Time: 1:30 PM [facility] Work Phone: Start: 03-24-2022 EPVSICK, Provider: Antoine Nichols, Status: Pen, Time: 1:30 PM EPVSICK, Provider: Antoine Nichols, Status: Pen, Time: 1:30 PM [facility] Work Phone: Start: 03-20-2022 FUV, Provider: Sheryl Fabian, Status: Pen, Time: 1:00 PM FUV, Provider: Sheryl Fabian, Status: Pen, Time: 1:00 PM [facility] Work Phone: Start: 03-05-2022 [facility], Provider: Sheryl Fabian, Status: Pen, Time: 9:30 AM [facility], Provider: Sheryl Fabian, Status: Pen, Time: 9:30 AM [facility] Work Phone: Start: 03-05-2022 [facility], Provider: Sheryl Fabian, Status: Pen, Time: 7:30 AM [facility], Provider: Sheryl Fabian, Status: Pen, Time: 7:30 AM [facility] Work Phone: Start: 11-29-2021 FUV, Provider: Altagracia Torres, Status: Pen, Time: 10:30 AM FUV, Provider: Altagracia Torres, Status: Pen, Time: 10:30 AM [facility] Work Phone: Start: 11-21-2021 EPV, Provider: Antoine Nichols, Status: Pen, Time: 1:00 PM EPV, Provider: Antoine Nichols, Status: Pen, Time: 1:00 PM [facility] Work Phone: Start: 05-21-2021 EPV, Provider: Antoine Nichols, Status: Pen, Time: 1:00 PM EPV, Provider: Antoine Nichols, Status: Pen, Time: 1:00 PM [facility] Work Phone: Start: 03-12-2021 FUV, Provider: Altagracia Torres, Status: Pen, Time: 10:00 AM FUV, Provider: Altagracia Torres, Status: Pen, Time: 10:00 AM [facility] Work Phone: Start: 11-27-2020 FUV, Provider: Altagracia Torres, Status: Pen, Time: 1:30 PM FUV, Provider: Altagracia Torres, Status: Pen, Time: 1:30 PM [facility] Work Phone: Start: 12-20-2019 Influenza vaccinatio n given Sequential Influenza Vaccine (#1) [facility] Start: 12-19-2018 Influenza vaccinatio n given SEQUENTIAL INFLUENZA VACCINE (#1) [facility] Start: 07-09-2018 End: 07-09-2018 Treatment 07/09/2018 Treatment Rehabilitation Caira Nava DPM [address] [place] [address] [phone] Nithya Perez [facility] Start: 07-07-2018 End: 07-07-2018 Treatment 07/07/2018 Treatment Rehabilitation Ciara Nava DPM [address] [place] [address] [phone] Nithya Perez [facility] Start: 07-05-2018 End: 07-05-2018 Treatment 07/05/2018 Treatment Rehabilitation Ciara Nava DPM [address] [place] [address] [phone] Linda Jorge, PT [facility] Start: 07-02-2018 End: 07-02-2018 Treatment 07/02/2018 Treatment Rehabilitation Ciara Nava, DPM [address] [place] [address] [phone] Mitchell Alcala PTA [facility] Start: 06-29-2018 End: 06-29-2018 Treatment 06/29/2018 Treatment Rehabilitation Ciara Nava, DPM [address] [place] [place] [address] [phone] Linda Jorge, PT [facility] Start: 06-28-2018 End: 06-28-2018 Treatment 06/28/2018 Treatment Rehabilitation Ciara Nava, DPM [address] [place] [address] [phone] Mitchell Alcala PTA [facility] Start: 12-19-2017 Influenza vaccinatio n given SEQUENTIAL INFLUENZA VACCINE (#1) [facility] Start: 12-30-2016 Pneumococcal vaccination PNEUMOCOCCAL VACCINE AGE 65+ (2 of 2 - PPSV23) [facility] Work Phone: Start: 12-19-2016 Influenza vaccination SEQUENTI AL INFLUENZA VACCINE (#1) [facility] Work Phone: Start: 2010 Fall risk assessment Nemesio Lim ll Risk Assessment [facility] Start: 2010 Pneumococcal vaccination PNEUMOCOCCAL VACCINE AGE 65+ (1 of 2 - PCV13) [facility] Start: 2005 Zoster vaccine hzv l zaheer for subcutaneous use ZOSTER VACCINE [facility] Work Phone: Start: 08-30-1995 Administration of herpes zoster vaccine ZOSTER VACCINES (1 of 2) [facility] Start: 08-30-1995 Screening for malign ant neoplasm of colon [facility] Start: 08-30-1963 Hepatitis C antibody , confirmatory test Hepatitis C Screening [facility] Start: 1961 COVID-19 Vaccine (1 of 2) COVID-19 Vaccine (1 of 2) [facility] Start: 1957 Adolescent depressio n screening assessment Depression Screening (PHQ9) [facility] Start: 1948 History and physical examination, annual for health maintenance Wellness Visit [facility] Start: 1945 Depression screening using PHQ-9 (Patient Health Questionnaire 9) score DEPRESSION SCREENING (PHQ9) [facility] Start: 1945 Fall risk assessment Falls Risk Asse ssment [facility] Start: 1945 Hepatitis C antibody , confirmatory test HEPATITIS C SCREENING [facility] Start: 1945 Physical therapy management PT Plan of Care [facility] Start: 1945 Protein mass conc [facility] Start: 1945 Screening for malign ant neoplasm of colon Colorectal Cancer Screening: Colonoscopy [facility] Start: 1945 Screening mammography Mammogram O [facility] Start: 1945 HEPATITIS C SCREENING HEPATITIS C SC REENING [facility] Work Phone: Start: 1945 Screening colonoscopy COLONOSCOPY O [facility] Work Phone: Start: 1945 End: 1945 Screening for osteoporosis DEXA SCAN [facility] Work Phone: Start: 1945 End: 1945 Tetanus vaccination [facility] Work Phone: XR Hip Right 2-3 Vie ws (Routine) [facility] Work Phone: NEGATED: Highlighted row has been ruled out! Planned Goals not documented [facility] Work Phone: Immunizations Immunization Date Immunization Notes Care Provider [facility] 01-27-2022 Fluzone High-Dose Quadrivalent 0.7 ML Intramuscular Suspension Prefilled Syringe Antoine Nichols Work Phone: [facility] Work Phone: Payers Date Payer Category Payer Unknown [id number] 2014 Unknown [employer] [place] [place] [employer] xxxxxxx 2014-Present xxxxxxx [id number] 2014 Unknown [employer] [employer] [place] [id number] 2014-Present [id number] 2010 Medicare [id number] 2010 Medicare MEDICARE MEDICAR E PART A & B xxxxxxxxxxx 2010-Present [place] xxxxxxxxxxx [id number] 2010 Medicare [id number] 2010 Medicare MEDICARE MEDICAR E PART A & [place] [id number] 2010-Present [place] [id number] 1945 Unknown [id number] 2.16.840.1.112758.3.579.2. 1945 Unknown [id number] 2.16.840.1.791263.3.579.2. 1945 Unknown [id number] 2.16.840.1.559590.3.579.2. 1945 Unknown [id number] 2.16.840.1.022021.3.579.2. 1945 Unknown [id number] 2.16.840.1.597789.3.579.2. 1945 Unknown [id number] 2.16.840.1.791647.3.579.2. 1945 Unknown [id number] 2.16.840.1.803277.3.579.2. 1945 Unknown [id number] 2.16.840.1.298668.3.579.2.903 1945 Unknown [id number] 2.16.840.1.352603.3.579.2.903 1945 Unknown [id number] 2.16.840.1.093523.3.579.2.903 1945 Unknown [id number] 2.16.840.1.388217.3.579.2.106 9 1945 Unknown [id number] 2.16.840.1.660940.3.579.2.106 9 1945 Unknown [id number] 2.16.840.1.417413.3.579.2.106 9 1945 Unknown [id number] 2.16840.1.344060.3.579.2.106 9 1945 Unknown [id number] 2.16.840.1.833076.3.579.2.106 9 1945 Unknown [id number] 2.16.840.1.055702.3.579.2.106 9 1945 Unknown [id number] 2.16840.1.002195.3.579.2.106 9 1945 Unknown [id number] 2.16840.1.993900.3.579.2.356 1945 Unknown [id number] 2.16.840.1.561150.3.579.2.356 1945 Unknown [id number] 2.16.840.1.603941.3.579.2.356 1945 Unknown [id number] 2.16.840.1.236753.3.579.2.356 1945 Unknown [id number] 2.16.840.1.341059.3.579.2.356 1945 Unknown [id number] 2.16.840.1.908295.3.579.2.356 1945 Unknown [id number] 2.16.840.1.856613.3.579.2.106 9 1945 Unknown [id number] 2.16.840.1.399691.3.579.2.106 9 1945 Unknown [id number] 2.16.840.1.762516.3.579.2.106 9 1945 Unknown [id number] 2.16.840.1.320398.3.579.2.106 9 Unknown Social History Date Type Detail Facility Start: 03-26-2017 End: 01-26-2019 Tobacco smoking status WYIS Never smoker [facility] Work Phone: Sex Assigned At Not on file [facility] Work Phone: Start: 01-26-2019 Tobacco use and exposure Never used [facility] Start: 01-26-2019 Alcohol intake Current drinke r of alcohol (finding) [facility] Drinks beer Drinks beer [facility] Work Phone: NEGATED: Highlighted row - - [facility] Work Phone: Functional Status Date Assessment Result Facility NEGATED: Highlighted row Functional performance Functional status health issues are not documented [facility] Work Phone: Mental Status Date Assessment Result Facility NEGATED: Highlighted row Cognitive function [Interpretation] Cognitive status health issues are not documented [facility] Work Phone: Clinical Notes 11-14-2019 to 04-03-2022 Note Date & Type Note Facility 04-03-2022 Note Clinic Note: Education Assessment: Learning BarriersNo barriers TaughtPatient Nursing Note: Nursing Notept set up for a dexa scan 04/11 at [facility]- instructed on prep. referral to Radiation at [facility]- they will call pt to schedule. rtc for f/u after radiation is complete 05/16 at 10am Electronic Signatures: Yaquelin Morrison (UMANG) (Signed 03-Apr-2022 15:30) Authored: Education Assessment, Nursing Note Last Updated: 03-Apr-2022 15:30 by Yaquelin Morrison (RN) [facility] 03-31-2022 Note CHELA quan presented at Breast Tumor Board Conference Conference date: 27-Mar-2022 Presenting Provider(s): Dr. Sheryl Fabian Present at Conference: Medical Oncology, Radiation Oncology, Surgical Oncology and Pathology Reviewed Conference Review Type: Treatment Planning Impression Right breast biopsy (grade 1-2) Jan 2022. Mammaprint low risk luminal type A. S/p right breast partial mastectomy. 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 Path stage: pT1c pNX cM0. Recommendations Hormonal: Aromatase Inhibitor Radiation therapy: Postop Radiation (consider) Referrals Med Onc (Dr. Luis) Cancer Staging: Breast AJCC Edition: 7th (AJCC), Diagnosis Date: 27-Dec-2015, 0- RIGHT LCIS, Tis N0 M0 Disclaimer [facility] tumor board recommendations represent the consensus opinion of physicians present at a weekly patient care conference. The treating SCC physician is not always present, and many of the physicians formulating the recommendation have not personally seen or examined the patient under discussion. It is understood that the treating SCC physician considers the expertise of the Tumor Board Recommendation in formulating his/her plan for the patient. However, in many situations, based on individualized patient considerations, a different plan is determined by the treating physician to be the optimal medical management. Electronic Signatures: Queenie Howard (PT REG) (Signed 31-Mar-2022 13:28) Authored: Impression, Recommendations, Note, Cancer Staging, Disclaimer Last Updated: 31-Mar-2022 13:28 by Queenie Howard (PT REG) [facility] 03-24-2022 History of Present illness Narrative 1 year of shortness of breathReported to Dr Torres and breast cancer doctor when she had surgeryNoted wheezing and given a nebulizer treatment.Clifford better even the next morning.Was also given an incentive spirometerShe is noting wheezingGets coughing spells.Has no SN, RN, PND.Some thickness in the throat.She has not had a recent breathing testShe had CBC a couple years ago with normal differentialAnxiety is doing better as she gets over the shock of the cancer. She is needing another RX for now.I have personally reviewed the patients OARRS report. This report is filed in the EHR. I have considered the risks of abuse, addiction and diversion. I believe it is clinically appropriate to continue to prescribe this medication. -[facility] Work Phone: 03-05-2022 Note PROCEDURE DETAILS Preoperative Diagnosis: Malignant neoplasm of lower-inner quadrant of right female breast, C50.311 Postoperative Diagnosis: Malignant neoplasm of lower-inner quadrant of right female breast, C50.311 Surgeon: Sheryl Fabian Resident/Fellow/Other Sorting Grapple Operator: Mitchell Alfaro Procedure: 1. PARTIAL MASTECTOMY: RIGHT BREAST Anesthesia: No anesthesiologist associated with this case Estimated Blood Loss: 2ml Findings: 1. mass and biopsy clip present on specimen xray Operative Report: The patient was identified by name and date and transported to the operative suite and placed supine on the OR table. A sign-in was performed verifying patient identity, procedure and laterality. One dose of preoperative antibiotics was given. After induction of anesthesia, the right breast and axilla were prepped and draped in the usual sterile fashion. The mass was palpated along the medial IMF and the skin was marked. Just prior to incision, a time-out was performed confirming patient identity, procedure and laterality. An elliptical incision encompassing overlying skin was made, and flaps were raised in the direction of the targeted lesion. The target lesion was then circumferentially dissected using electrocautery. Once the specimen was completely excised, it was marked for orientation using a silk suture- short suture superior, long lateral and passed off the field. Specimen radiograph was performed confirming the presence of the targeted lesion and biopsy clip. Four additional cavity margins were taken: superior, inferior, medial, lateral with black ink denoting the new margin. The posterior extent of dissection did include pectoralis fascia. Clips were placed to denote the area of resection. Next, meticulous hemostasis was achieved. Deeper breast tissue reapproximated with 2-0 vicyrl. The dermis was closed with 3-0 Vicryl suture and the skin was closed with a running 4-0 Monocryl. Benzoin and steri-strips were used as dressing. The patient was then awoken from anesthesia and transported to the PACU in satisfactory condition. SPECIMENS: 1. Right partial mastectomy: short suture superior, long lateral 2. New superior margin: ink alberto new margin 3. New inferior margin: ink alberto new margin 4. New medial margin: ink alberto new margin 5. New lateral margin: ink alberto new margin Attestation: Note Completion: Attending AttestationI performed the procedure without a resident Electronic Signatures: Sheryl Fabian DO (Signed 05-Mar-2022 10:56) Authored: Post-Operative Note, Chart Review, Note Completion Last Updated: 05-Mar-2022 10:56 by Sheryl Fabian () [facility] 03-05-2022 Note History & Physical R eviewed: I have reviewed the History and Physical dated: 13-Feb-2022 History and Physical reviewed and relevant findings noted. Patient examined to review pertinent physical findings.: No significant changes Home Medications Reviewed: no changes noted Allergies Reviewed: no changes noted ERAS (Enhanced Recovery After Surgery): ERAS Patient: no Consent: COVID-19 Consent: COVID-19 Risk ConsentSurgeon has reviewed lyn risks related to the risk of ashly COVID-19 and if they contract COVID-19 what the risks are. Electronic Signatures: Sheryl Fabian) (Signed 05-Mar-2022 09:13) Authored: History & Physical Reviewed, ERAS, Consent, Note Completion Last Updated: 05-Mar-2022 09:13 by Sheryl Fabian () [facility] 11-18-2021 History of Present illness Narrative CHELA ROJAS is a 76 year female who presents today at the request of Altagracia Torres for newly diagnosed right breast cancer.Family history of breast cancer, personal history of biopsy with atypia being followed with enhanced screening.Mammogram in November. MRI breast 01/24/2022 with a suspicious right breast mass inferior medial measuring 1.5cm. no axillary adenopathy. 2nd look U/S and biopsy recommended. right U/S biopsy 5:00 7cmFN IDC g1-2 ER 95% MD 95% HER2-. Of note, biopsy clip and mass not visualized on post biopsy mammogram due to location of mass along IMF.She denies any additional breast masses, skin thickening, erythema, nipple retraction or nipple discharge.Prior breast history includes:- breast biopsy: prior right breast excisional biopsy with atypia- breast surgery: right breast exicisonal biopsy- breast cancer: noLast mammogram: November 2021 benignMenarche: 11AFLB: 27Menopause: 51HRT: noFamily history: mother with breast cancer at 75. sister with breast cancer at 79. No genetics. [facility] [employer] Work Phone: 11-18-2021 History of Present illness Narrative CHELA ROJAS is a 76 year female who presents today at the request of Altagracia Torres for newly diagnosed right breast cancer.Family history of breast cancer, personal history of biopsy with atypia being followed with enhanced screening.Mammogram in November. MRI breast 01/24/2022 with a suspicious right breast mass inferior medial measuring 1.5cm. no axillary adenopathy. 2nd look U/S and biopsy recommended. right U/S biopsy 5:00 7cmFN IDC g1-2 ER 95% MD 95% HER2-. Of note, biopsy clip and mass not visualized on post biopsy mammogram due to location of mass along IMF.She denies any additional breast masses, skin thickening, erythema, nipple retraction or nipple discharge.Prior breast history includes:- breast biopsy: prior right breast excisional biopsy with atypia- breast surgery: right breast exicisonal biopsy- breast cancer: noLast mammogram: November 2021 benignMenarche: 11AFLB: 27Menopause: 51HRT: noFamily history: mother with breast cancer at 75. sister with breast cancer at 79. No genetics. [facility] [employer] Work Phone: 11-18-2021 History of Present illness Narrative CHELA ROJAS is a 76 year female who presents today at the request of Altagracia Torres for newly diagnosed right breast cancer.Family history of breast cancer, personal history of biopsy with atypia being followed with enhanced screening.Mammogram in November. MRI breast 01/24/2022 with a suspicious right breast mass inferior medial measuring 1.5cm. no axillary adenopathy. 2nd look U/S and biopsy recommended. right U/S biopsy 5:00 7cmFN IDC g1-2 ER 95% MD 95% HER2-. Of note, biopsy clip and mass not visualized on post biopsy mammogram due to location of mass along IMF.She denies any additional breast masses, skin thickening, erythema, nipple retraction or nipple discharge.Prior breast history includes:- breast biopsy: prior right breast excisional biopsy with atypia- breast surgery: right breast exicisonal biopsy- breast cancer: noLast mammogram: November 2021 benignMenarche: 11AFLB: 27Menopause: 51HRT: noFamily history: mother with breast cancer at 75. sister with breast cancer at 79. No genetics. [employer] Work Phone: 11-18-2021 History of Present illness Narrative CHELA ROJAS is a 76 year female who presents today at the request of Altagracia Torres for newly diagnosed right breast cancer.Family history of breast cancer, personal history of biopsy with atypia being followed with enhanced screening.Mammogram in November. MRI breast 01/24/2022 with a suspicious right breast mass inferior medial measuring 1.5cm. no axillary adenopathy. 2nd look U/S and biopsy recommended. right U/S biopsy 5:00 7cmFN IDC g1-2 ER 95% MD 95% HER2-. Of note, biopsy clip and mass not visualized on post biopsy mammogram due to location of mass along IMF.03/05/2022 right partial mastectomy tumor 1.6cm, margins negative (>2mm).She denies any additional breast masses, skin thickening, erythema, nipple retraction or nipple discharge.Prior breast history includes:- breast biopsy: prior right breast excisional biopsy with atypia- breast surgery: right breast exicisonal biopsy- breast cancer: noLast mammogram: November 2021 benignMenarche: 11AFLB: 27Menopause: 51HRT: noFamily history: mother with breast cancer at 75. sister with breast cancer at 79. No genetics. [employer] Work Phone: 11-19-2019 History of Present illness Narrative Age-related osteoporosis - she is on vitamin D in winter with calcium , BD in November, was a bit worse and FRAX was 18 and 6%. Declined BonivaAnxiety state - some marital issues last year settled. Trazodone helps with rest, sadness and lack of motivation she had last year[facility]. Clifford actually to be precancer. Mammogram in 11/19/20 was good. No hormonal therapy at present. No lumpsCardiac hypertrophy - she is on metoprolol for this at 25 tid. Tried off of it in 2019. Some fluttering so went to tid. To ER on October 2019 with chest pain, sweating and nausea. Subsequent stress test normal. Since that spell no recurrence. Still has the fluttering.Essential tremor - She was recommended to go back on primidone but had the bad dreams. Discussed Botox. Not really planning to do that. She would prefer to just live with it for now. No change with Toprol tid. OK to write and eat. Has voice tremor.Heel spur and plantar fasciitis and cervical spondylosis. Heel is resolved. That is better but has the pain in distal foot so had an injection by Dr Reardon. Has had PT for this which helped the ankle tightness. Getting burning in the legs Getting puffy ankles. No sweaty feet. Has low back pain into the thighs. Keeps awake at hs. Uses Biofreeze and Hemp. She is holding on further injections in the feet or back. XRay of neck with arthritis. Stretching. Has been to Dr Nava. Will send to [place].Irritable bowel syndrome - has been managed with diet and stress reduction. This may be the pain that she felt was diverticulitisRight hip pain - has had Bone scan suggesting possible loosening. But Dr Luevano felt tendonitis. That is doing better but flares at times.CRPS/ Peripheral neuropathy/lumbar spondylosis - feels like it is related to her low back burning and pinching. Stretching helps. Tingling in left arm for about 3 weeks and still better today. Feet burn all the time. Walking barefoot feels goodStenosis of cervix - needed pap in OR and fine. No bleeding so no further paps needed.Swallowing disorder - about the same. Takes small fiber and water. No better with expectorant. Sips water. A lot of thick mucus.Thyroid nodule - no temp intolerance, constipation, hair loss, fatigue TSH 4.26 last yearBladder spasms - saw Dr Delonte Shukla. Considered a medication and just observing. Did not feel a cystocele. Occasional leakageMammogram 11/19/20DEXA 11/17/19 -Colonoscopy 07/01/18 [facility] Work Phone: 11-19-2019 History of Present illness Narrative Age-related osteoporosis - she is on vitamin D in winter with calcium , BD in November, was a bit worse and FRAX was 18 and 6%. Declined BonivaAnxiety state - some marital issues last year settled. Trazodone helps with rest, sadness and lack of motivation she had last year. Effexor at bid. but feels like she tries to control the tremor and will lock up, drop things. The two issues seem to feed each other. Has done some Yoga. Will work on progressive relaxation.Breast cancer - has been JOSE RAMON since 2015. Clifford actually to be precancer. Mammogram in 11/19/20 was good. No hormonal therapy at present. No lumpsCardiac hypertrophy - she is on metoprolol for this at 25 tid. Tried off of it in 2019. Some fluttering so went to tid. To ER on October 2019 with chest pain, sweating and nausea. Subsequent stress test normal. Since that spell no recurrence. Still has the fluttering on occasionEssential tremor - She was recommended to go back on primidone but had the bad dreams. Discussed Botox. Not really planning to do that. She would prefer to just live with it for now. No change with Toprol tid. OK to write and eat. Has voice tremor. See discussion above about locking up. Has to work to talk clearly.Heel spur and plantar fasciitis and cervical spondylosis. Heel is resolved. That is better but has the pain in distal foot so had an injection by Dr Reardon. Has had PT for this which helped the ankle tightness. Getting burning in the left leg. Getting puffy ankles less. No sweaty feet. Has low back pain into the thighs. Keeps awake at hs. Uses Biofreeze and Hemp. She is holding on further injections in the feet or back. XRay of neck with arthritis. Stretching. Has been to Dr. Keys and wearing inserts.Irritable bowel syndrome - has been managed with diet and stress reduction. This may be the pain that she felt was diverticulitisRight hip pain - has had Bone scan suggesting possible loosening. But Dr Luevano felt tendonitis. That is doing better but flares at times.CRPS/ Peripheral neuropathy/lumbar spondylosis - feels like it is related to her low back burning and pinching. Stretching helps. Tingling in left arm for about 3 weeks and still better today. Feet burn all the time. Walking barefoot feels goodStenosis of cervix - needed pap in OR and fine. No bleeding so no further paps needed.Swallowing disorder - about the same. Takes small fiber and water. No better with expectorant. Sips water. A lot of thick mucus.Thyroid nodule - no temp intolerance, constipation, hair loss, fatigue TSH 4.26 last yearBladder spasms - saw Dr Delonte Shukla. Considered a medication and just observing. Did not feel a cystocele. Occasional leakageMammogram 11/19/20DEXA 11/17/19 -Colonoscopy 07/01/18 [facility] Work Phone: 11-14-2019 History of Present illness Narrative Age-related osteoporosis - she is on vitamin D in winter with calcium , BD in 2019 was a bit worse and FRAX was 18 and 6%. Declined BonivaAnxiety state - some marital issues last year settled. Trazodone helps with rest, sadness and lack of motivation she had last year. [facility]. Clifford actually to be precancer. Mammogram in October 2019 and due in November. . 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 Tried off of it last year. Some fluttering so went to tid. To ER on October 2019 with chest pain, sweating and nausea. Subsequent stress test normal. Since that spell no recurrence. Still has the fluttering.Diverticulitis large intestine - intermittent RLQ pain. No blood or melena. Scope in June 2018.Essential tremor - She was recommended to go back on primidone but had the bad dreams. Discussed Botox. Not really planning to do that. She would prefer to just live with it for now. No change with Toprol tid. OK to write and eat. Has voice tremor.Heel spur and plantar fasciitis and cervical spondylosis. That is better but has the pain in distal foot so had an injection by Dr Reardon. Has had PT for this which helped the ankle tightness. Getting burning in the legs .Getting puffy ankles. No sweaty feet. Has low back pain into the thighs. Keeps awake at hs. Uses Biofreeze. She is holding on further injections in the feet or back. XRay of neck with arthritis. StretchingIrritable bowel syndrome - has been managed with diet and stress reduction. This may be the pain that she felt was diverticulitisRight hip pain - has had Bone scan suggesting possible loosening. But Dr Luevano felt tendonitis. That is doing betterCRPS/ Peripheral neuropathy - feels like it is related to her low back burning and pinching. Stretching helps. Tingling in left arm for about 3 weeks and some better today. Feet burn all the time. Walking barefoot feels goodStenosis of cervix - needed pap in OR and fineSwallowing disorder - about the same. Takes small fiber and water. No better with expectorant. Sips water. A lot of thick mucus.Thyroid nodule - no temp intolerance, constipation, hair loss, fatigue TSH 4.26 last yearBladder spasms - saw Dr Delonte Shukla. Considered a medication and just observing. Did not feel a cystocele.Had visceral hemorrhage in left eye a couple weeks ago.Mammogram 11/17/19 - orderedDEXA 11/17/19 -Colonoscopy 07/01/18 -[facility] Work Phone: History of Present illness Narrative The patient is being seen for the subsequent annual wellness visit.Past Medical, Surgical and Family History: reviewed and updated in chart.Medications and Supplements: Medications and supplements, including calcium and vitamins reviewed and updated in chart.No, the patient is not using opioids.Patient Self Assessment of Health Status: excellent.Tobacco use: Non-User The patient has never smoked cigarettes.Alcohol use: The patient reports drinking 2 drinks per month.Illicit drug use: Non-UserCurrent diet: well balanced diet, Heart Healthy Diet, does consume adequate fluids and does consume caffeine.Exercise Frequency: infrequently.Depression/Suicide Screening: .During the past 2 weeks, the patient has not felt down, depressed or hopeless.During the past 2 weeks, the patient has not felt little interest or pleasure in doing things.Hearing Impairment: none.Cognitive Impairment: No cognitive impairment observed.Bathing: performs independently.Dressing: performs independently.Walking: performs independently.Toileting: performs independently.Feeding: performs independently.Personal Hygiene: performs independently.Managing Finances: performs independently.Shopping: performs independently.Managing Medications: performs independently.Housework / Basic Home Maintenance: performs independently.Handling Transportation: performs independently.Preparing Meals: performs independently.Using the Telephone/ Communication Devices: performs independently.Falls Risk Screening:. CHELA has not fallen in the last 6 months.Home safety risk factors: none.Patient presents to the clinic today for Annual Medicare Wellness Visit and has the following concern(s): None.She is feeling well in her usual state health. Denies recent illnesses. No change in interval history since last office visit. She reports eating healthy well-balanced diet and doing strengthening exercises. She takes her medications as prescribed. She is independent in her IADLs and ADLs. -[facility] Work Phone: [facility] Work Phone: Assessments Diagnosis Status post total hip replac ement, right - Primary Diagnosis Plantar fasciitis of left foot Diagnosis Plantar fasciitis of left foot Diagnosis Plantar fasciitis of left foot Diagnosis Plantar fasciitis of left foot Diagnosis Pain of right hip joint- Primary Advance Directives No Advanced Directives Records FoundDocuments on File Type Date Recorded Patient Microstrategy Developer Expl anation Advance Directives and Patricia Schaeffer 06/22/2018 1:23 PM Summary Purpose Family History No Family History Records Found aunt Name Dates Details Family history of malignant neoplasm of female breast(V16.3, Z80.3) Status:Active Mother Name Dates Details Family history of malignant neoplasm of female breast(V16.3, Z80.3) Status:Active Father Name Dates Details Family history of depression (V17.0, Z81.8) Status:Active Sister Name Dates Details Family history of malignant neoplasm of breast(V16.3, Z80.3) Status:Active Family history of malignant neoplasm of female breast(V16.3, Z80.3) Status:Active aunt Name Dates Details Family history of malignant neoplasm of female breast(V16.3, Z80.3) Status:Active Mother Name Dates Details Family history of malignant neoplasm of female breast(V16.3, Z80.3) Status:Active Father Name Dates Details Family history of depression (V17.0, Z81.8) Status:Active Sister Name Dates Details Family history of malignant neoplasm of female breast(V16.3, Z80.3) Status:Active Family history of malignant neoplasm of breast(V16.3, Z80.3) Status:Active aunt Name Dates Details Family history of malignant neoplasm of female breast(V16.3, Z80.3) Status:Active Mother Name Dates Details Family history of malignant neoplasm of female breast(V16.3, Z80.3) Status:Active Father Name Dates Details Family history of depression (V17.0, Z81.8) Status:Active Sister Name Dates Details Family history of malignant neoplasm of female breast(V16.3, Z80.3) Status:Active Family history of malignant neoplasm of breast(V16.3, Z80.3) Status:Active aunt Name Dates Details Family history of malignant neoplasm of female breast(V16.3, Z80.3) Status:Active Mother Name Dates Details Family history of malignant neoplasm of female breast(V16.3, Z80.3) Status:Active Father Name Dates Details Family history of depression (V17.0, Z81.8) Status:Active Sister Name Dates Details Family history of malignant neoplasm of female breast(V16.3, Z80.3) Status:Active Family history of malignant neoplasm of breast(V16.3, Z80.3) Status:Active aunt Name Dates Details Family history of malignant neoplasm of female breast(V16.3, Z80.3) Status:Active Mother Name Dates Details Family history of malignant neoplasm of female breast(V16.3, Z80.3) Status:Active Father Name Dates Details Family history of depression (V17.0, Z81.8) Status:Active Sister Name Dates Details Family history of malignant neoplasm of female breast(V16.3, Z80.3) Status:Active Family history of malignant neoplasm of breast(V16.3, Z80.3) Status:Active Unknown Family Member Name Dates Details Family history of malignant neoplasm of female breast: Mother, Sister, Aunt(V16.3, Z80.3) Status:Active Family history of depression : Father(V17.0, Z81.8) Status:Active Family history of malignant neoplasm of breast: Sister(V16.3, Z80.3) Status:Active Unknown Family Member Name Dates Details Family history of malignant neoplasm of female breast: Mother, Sister, Aunt(V16.3, Z80.3) Status:Active Family history of depression : Father(V17.0, Z81.8) Status:Active Family history of malignant neoplasm of breast: Sister(V16.3, Z80.3) Status:Active Unknown Family Member Name Dates Details Family history of malignant neoplasm of female breast: Mother, Sister, Aunt(V16.3, Z80.3) Status:Active Family history of depression : Father(V17.0, Z81.8) Status:Active Family history of malignant neoplasm of breast: Sister(V16.3, Z80.3) Status:Active Unknown Family Member Name Dates Details Family history of malignant neoplasm of female breast: Mother, Sister, Aunt(V16.3, Z80.3) Status:Active Family history of depression : Father(V17.0, Z81.8) Status:Active Family history of malignant neoplasm of breast: Sister(V16.3, Z80.3) Status:Active Unknown Family Member Name Dates Details Family history of depression : Father(V17.0, Z81.8) Status:Active Family history of malignant neoplasm of breast: Sister(V16.3, Z80.3) Status:Active Family history of malignant neoplasm of female breast: Mother, Sister, Aunt(V16.3, Z80.3) Status:Active Unknown Family Member Name Dates Details Family history of malignant neoplasm of female breast: Mother, Sister, Aunt(V16.3, Z80.3) Status:Active Family history of depression : Father(V17.0, Z81.8) Status:Active Family history of malignant neoplasm of breast: Sister(V16.3, Z80.3) Status:Active Unknown Family Member Name Dates Details Family history of malignant neoplasm of female breast: Mother, Sister, Aunt(V16.3, Z80.3) Status:Active Family history of depression : Father(V17.0, Z81.8) Status:Active Family history of malignant neoplasm of breast: Sister(V16.3, Z80.3) Status:Active Unknown Family Member Name Dates Details Family history of malignant neoplasm of female breast: Mother, Sister, Aunt(V16.3, Z80.3) Status:Active Family history of depression : Father(V17.0, Z81.8) Status:Active Family history of malignant neoplasm of breast: Sister(V16.3, Z80.3) Status:Active Unknown Family Member Name Dates Details Family history of malignant neoplasm of breast: Sister(V16.3, Z80.3) Status:Active Family history of depression : Father(V17.0, Z81.8) Status:Active Family history of malignant neoplasm of female breast: Mother, Sister, Aunt(V16.3, Z80.3) Status:Active Unknown Family Member Name Dates Details Family history of malignant neoplasm of female breast: Mother, Sister, Aunt(V16.3, Z80.3) Status:Active Family history of depression : Father(V17.0, Z81.8) Status:Active Family history of malignant neoplasm of breast: Sister(V16.3, Z80.3) Status:Active Unknown Family Member Name Dates Details Family history of malignant neoplasm of female breast: Mother, Sister, Aunt(V16.3, Z80.3) Status:Active Family history of depression : Father(V17.0, Z81.8) Status:Active Family history of malignant neoplasm of breast: Sister(V16.3, Z80.3) Status:Active Unknown Family Member Name Dates Details Family history of malignant neoplasm of breast: Sister(V16.3, Z80.3) Status:Active Family history of depression : Father(V17.0, Z81.8) Status:Active Family history of malignant neoplasm of female breast: Mother, Sister, Aunt(V16.3, Z80.3) Status:Active Unknown Family Member Name Dates Details Family history of malignant neoplasm of female breast: Mother, Sister, Aunt(V16.3, Z80.3) Status:Active Family history of depression : Father(V17.0, Z81.8) Status:Active Family history of malignant neoplasm of breast: Sister(V16.3, Z80.3) Status:Active Unknown Family Member Name Dates Details Family history of malignant neoplasm of female breast: Mother, Sister, Aunt(V16.3, Z80.3) Status:Active Family history of depression : Father(V17.0, Z81.8) Status:Active Family history of malignant neoplasm of breast: Sister(V16.3, Z80.3) Status:Active Unknown Family Member Name Dates Details Family history of malignant neoplasm of female breast: Mother, Sister, Aunt(V16.3, Z80.3) Status:Active Family history of depression : Father(V17.0, Z81.8) Status:Active Family history of malignant neoplasm of breast: Sister(V16.3, Z80.3) Status:Active Unknown Family Member Name Dates Details Family history of malignant neoplasm of female breast: Mother, Sister, Aunt(V16.3, Z80.3) Status:Active Family history of depression : Father(V17.0, Z81.8) Status:Active Family history of malignant neoplasm of breast: Sister(V16.3, Z80.3) Status:Active Unknown Family Member Name Dates Details Family history of malignant neoplasm of female breast: Mother, Sister, Aunt(V16.3, Z80.3) Status:Active Family history of depression : Father(V17.0, Z81.8) Status:Active Family history of malignant neoplasm of breast: Sister(V16.3, Z80.3) Status:Active Unknown Family Member Name Dates Details Family history of malignant neoplasm of female breast: Mother, Sister, Aunt(V16.3, Z80.3) Status:Active Family history of depression : Father(V17.0, Z81.8) Status:Active Family history of malignant neoplasm of breast: Sister(V16.3, Z80.3) Status:Active Unknown Family Member Name Dates Details Family history of malignant neoplasm of breast: Sister(V16.3, Z80.3) Status:Active Family history of depression : Father(V17.0, Z81.8) Status:Active Family history of malignant neoplasm of female breast: Mother, Sister, Aunt(V16.3, Z80.3) Status:Active Unknown Family Member Name Dates Details Family history of malignant neoplasm of female breast: Mother, Sister, Aunt(V16.3, Z80.3) Status:Active Family history of depression : Father(V17.0, Z81.8) Status:Active Family history of malignant neoplasm of breast: Sister(V16.3, Z80.3) Status:Active History of Present Illness * Linda Jorge, PT - 06/28/2018 9:20 AM EDT Goals added from evaluation. in this encounter* Mitchell Alcala, MODESTA - 06/28/2018 1:00 PM EDT [facility] OUTPATIENT REHABILITATION DAILY TREATMENT NOTE Today's Date 06/28/2018 Patient Name: Chela Rojas Date of : 1945 Current Visit #: 4 Authorized Visits: 9 Case Name: Therapy Plantar Fasciitis of L Foot History: Pre-Treatment Pain Scale: 0 Symptoms: stabilized Functional Diagnosis: SNOMED CT(R) 1. Plantar fasciitis of left foot PLANTAR FASCIITIS OF LEFT FOOT Clinical Information: Subjective: Pt reports not a lot of changes to pain and ROM, states she feels she hit the wall . Pt requested Ultra sound per M.D. Order, Objective Pt completed ex log, non-pitting edema noted to lateral foot . Added US to decrease inflammation and increase ROM. Treatments: Physical Therapy Exercise Log - 06/28/18 1308 Therapeutic Exercise (27455) Intervention Towel stretch - sitting Parameters 3' Intervention [place] grain picker Parameters x1 (entire bowl) Intervention towel scrunches Parameters x20 Intervention Doming Parameters 2x10 Intervention Leans - standing- incline board - 3 way Parameters 10 x6 ea direction Intervention STM to Heel and Gastroc region Additional Exercises Add more exercises? Yes Ultrasound Intervention US to Lateral Heel / Dorsal and side of 5th metatarsals Parameter 1mhz, 100% , 1.0 w/cm2 PT Treatment Times Therex Total Time 32 Modalities Total Time 8 Direct Treatment Time 40 Total Treatment Time 43 Goals: Physical Therapy Ortho Goals: 1. Patient reports their primary goal is to be able to get her ankle back to normal. 2. Patient will safely, correctly, and independently demonstrate the ability to perform a progressive HEP to achieve maximal rehabilitation potential and prevent this condition from recurring. 3. Patient will demonstrate .5cm decrease in swelling in order to be able to put on her shoes and walk around the house with 0-3/10 pain. 4. Patient will demonstrate 5/5 hip flexion strength in order to be able to walk for 1 hour with minimal pain. 5. Patient will demonstrate 5/5 ankle DF ROM in order to be able to negotiate a flight of stairs. Patient Education: Verbal HEP with patient demonstrated understanding. Post-Treatment Pain Scale: 0 Assessment: Patient had an expected response to treatment. Skilled Intervention demonstrated by modifications of treatment per exercise log including decreased load and safety interventions per exercise log. Progress towards goals as expected. Plan for Next Visit: Treatment Visit with focus on degreesed inflammation and stretching for improved Passive and AROM Mitchell Alcala PTA STATE LICENSE, [id number] in this encounter* Linda Jorge, PT - 06/29/2018 1:00 PM EDT [facility] OUTPATIENT REHABILITATION DAILY TREATMENT NOTE Today's Date 06/29/2018 Patient Name: Chela Rojas Date of : 1945 Current Visit #: 2 Authorized Visits: 9 Case Name: Therapy Plantar Fasciitis of L Foot History: Pre-Treatment Pain Scale: 4 Symptoms: gradually improved Functional Diagnosis: No diagnosis found. Clinical Information: Subjective: Patient reports she has decreased swelling this morning after having US completed yesterday. Patient reports she feels like she actually has an ankle. Patient reports her ankle is feelinga little more limber and loose overall today. Objective Treatments: Physical Therapy Exercise Log - 06/29/18 1306 Therapeutic Exercise (94193) Intervention Towel stretch - sitting Parameters 4x30 Intervention [place] grain picker Parameters x1 (entire bowl) Intervention towel scrunches Parameters x20 Intervention Doming Parameters 2x10 Intervention Incline Board Stretch Parameters 10 x6 Intervention Standing Leans Forward Parameters x12 Additional Exercises Add more exercises? Yes Ultrasound Intervention US to Lateral Heel / Dorsal and side of 5th metatarsals Parameter 1mhz, 100% , 1.0 w/cm2 8' ; 4' on plantar fascia with same parameters PT Treatment Times Therex Total Time 33 Modalities Total Time 12 Direct Treatment Time 45 Total Treatment Time 45 Goals: Physical Therapy Ortho Goals: 1. Patient reports their primary goal is to be able to get her ankle back to normal. 2. Patient will safely, correctly, and independently demonstrate the ability to perform a progressive HEP to achieve maximal rehabilitation potential and prevent this condition from recurring. 3. Patient will demonstrate .5cm decrease in swelling in order to be able to put on her shoes and walk around the house with 0-3/10 pain. 4. Patient will demonstrate 5/5 hip flexion strength in order to be able to walk for 1 hour with minimal pain. 5. Patient will demonstrate 5/5 ankle DF ROM in order to be able to negotiate a flight of stairs. Patient Education: Quality of movement and Community [employer] with patient verbalized understanding. Post-Treatment Pain Scale: 3 Assessment: Patient had an expected response to treatment. Patient demonstrates decreased R ankle swelling that is contributing to increased ankle mobility and improved gait. Skilled Intervention demonstrated by modifications of treatment per exercise log including increased load, increased mobility, assessment of patient's response and modalities as indicated and safety interventions per exercise log. Progress towards goals as expected. Plan for Next Visit: Treatment Visit with focus on increasing ankle ROM and strength as able. Linda Jorge PT State License, [id number] in this encounter* Linda Jorge, DELORIS - 07/05/2018 1:00 PM EDT [facility] OUTPATIENT REHABILITATION DAILY TREATMENT NOTE Today's Date 07/05/2018 Patient Name: Chela Rojas Date of : 1945 Current Visit #: 6 Authorized Visits: 9 Case Name: Therapy Plantar Fasciitis of L Foot History: Pre-Treatment Pain Scale: 1 Symptoms: rapidly improved Functional Diagnosis: No diagnosis found. Clinical Information: Subjective: Patient reports she had a very good weekend and made it through most of the weekend without noticing her foot or having any pain. Patient reports she has been able to move her foot arounda little more and has noticed less stiffness overall. Patient reports she is able to walk without agimp now. Objective Treatments: Physical Therapy Exercise Log - 07/05/18 1797 Therapeutic Exercise (07963) Intervention [place] grain picker x1 (entire bowl) Parameters Incline Board Stretch 10 x 10 Additional Exercises Add more exercises? Yes Ultrasound Intervention US to Lateral Heel / Dorsal and side of 5th metatarsals Parameter 1mhz, 100% , 1.0 w/cm2 8' ; 6' on plantar fascia with same parameters PT Treatment Times Therex Total Time 15 Modalities Total Time 14 Direct Treatment Time 29 Total Treatment Time 35 Goals: Physical Therapy Ortho Goals: 1. Patient reports their primary goal is to be able to get her ankle back to normal. 2. Patient will safely, correctly, and independently demonstrate the ability to perform a progressive HEP to achieve maximal rehabilitation potential and prevent this condition from recurring. 3. Patient will demonstrate .5cm decrease in swelling in order to be able to put on her shoes and walk around the house with 0-3/10 pain. 4. Patient will demonstrate 5/5 hip flexion strength in order to be able to walk for 1 hour with minimal pain. 5. Patient will demonstrate 5/5 ankle DF ROM in order to be able to negotiate a flight of stairs. IE date: 06/22/2018 Progress report due: 07-19-18 Recert due: visit # 9 Patient Education: Quality of movement and Verbal HEP with patient verbalized understanding. Post-Treatment Pain Scale: 0 Assessment: Patient had an expected response to treatment. Patient continues to demonstrate increased plantar fascia mobility That is contributing to her decreased pain and improved normalization of gait. Skilled Intervention demonstrated by modifications of treatment per exercise log including increased load, assessment of patient's response and modalities as indicated and safety interventions per exercise log. Progress towards goals as expected. Plan for Next Visit: Treatment Visit with focus on ankle stabilization and strength. Linda Jorge PT State License, [id number] in this encounter* Nithya Perez, DEPUTY COURT CLERK - 07/09/2018 1:00 PM EDT [facility] OUTPATIENT REHABILITATION DAILY TREATMENT NOTE Today's Date 07/09/2018 Patient Name: Chela Rojas Date of : 1945 Current Visit #: 5 Authorized Visits: 9 Case Name: Therapy Plantar Fasciitis of L Foot History: Pre-Treatment Pain Scale: 2 Symptoms: gradually improved Functional Diagnosis: SNOMED CT(R) 1. Plantar fasciitis of left foot PLANTAR FASCIITIS OF LEFT FOOT Clinical Information: Subjective: Reports she walked around [place] yesterday and had some discomfort after that but rolled it out after she got home and the pain went away. Objective Reviewed HEP and goals. Pt. Met all goals. Treatments: Physical Therapy Exercise Log - 07/09/18 1428 Therapeutic Exercise (22651) Intervention Towel stretch - sitting Parameters 4x30 Intervention [place] grain picker x1 (entire bowl) Intervention towel scrunches Parameters x20 Intervention Doming Parameters 2x10 Parameters supine clamshells GTB 2 x 10 Intervention mini ssquats 2 x 10 Parameters tandem balance 30 x 2 each Intervention single leg balance 30 x 2 each Parameters supine bridges with GTB 2 x 10 PT Treatment Times Therex Total Time 35 Direct Treatment Time 35 Total Treatment Time 35 Goals: Physical Therapy Ortho Goals: 1. Patient reports their primary goal is to be able to get her ankle back to normal. 2. Patient will safely, correctly, and independently demonstrate the ability to perform a progressive HEP to achieve maximal rehabilitation potential and prevent this condition from recurring. 3. Patient will demonstrate .5cm decrease in swelling in order to be able to put on her shoes and walk around the house with 0-3/10 pain. 4. Patient will demonstrate 5/5 hip flexion strength in order to be able to walk for 1 hour with minimal pain. 5. Patient will demonstrate 5/5 ankle DF ROM in order to be able to negotiate a flight of stairs. IE date: 06/22/2018 Progress report due: 07-19-18 Recert due: visit # 9 Patient Education: Quality of movement and Written HEP with patient demonstrated understanding. Post-Treatment Pain Scale: 0 Assessment: Patient had an expected response to treatment. Skilled Intervention demonstrated by modifications of treatment per exercise log including increased load and safety interventions per exercise log. Progress towards goals exceeding expectations. Plan for Next Visit: Discharge Nithya Perez PTA STATE LICENSE, [id number] in this encounter* Audi Luevano MD - 01/26/2019 1:40 PM EDT Dictation on: 01/26/2019 1:43 PM by: AUDI LUEVANO [[id number]] documented in this encounter Reason for Referral Status Reason Specialty Diagnoses / Procedures Referred By Contact Referred To Contact Authorized Physical Therapy / Rehabilitation Diagnoses Plantar fasciitis of left foot Ciara Nava, GRACIELA [address] [place] [address] Chief Complaint medckMedicare wellness annual exam subsequentmedckmedcknewly diagnosed right breast cancernewly diagnosed right breast cancernewly diagnosed right breast cancerbreathing issuepost op Additional Source Comments INFORMATION SOURCE (unrecogn ized section and content) DATE CREATED AUTHOR AUTHOR'S ORGANIZ ATION 07/15/2018 [facility] DATE CREATED AUTHOR AUTHOR'S ORGANIZ ATION 01/19/2019 [facility] DATE CREATED AUTHOR AUTHOR'S ORGANIZ ATION 01/26/2019 [facility] DATE CREATED AUTHOR AUTHOR'S ORGANIZ ATION 03/28/2022 [facility] DATE CREATED AUTHOR AUTHOR'S ORGANIZ ATION 04/10/2022 [facility] DATE CREATED AUTHOR AUTHOR'S ORGANIZ ATION 05/27/2022 [facility] DATE CREATED AUTHOR AUTHOR'S ORGANIZ ATION 07/23/2022 [facility] [place] Reason for Visit (unrecogniz ed section and content) Status Reason Specialty Diagnoses / Procedures Referred By Contact Referred To Contact Authorized Physical Therapy / Rehabilitation Diagnoses Plantar fasciitis of left foot Ciara Nava, GRACIELA [address] [place] [address] Reason Comments Physical Therapy Status Reason Specialty Diagnoses / Procedures Referred By Contact Referred To Contact Authorized Physical Therapy / Rehabilitation Diagnoses Plantar fasciitis of left foot Ciara Nava, GRACIELA [address] [place] [address] Reason Comments Results review labs & bone s can FOR RECORDS PERTAINING TO PATIENTS WHO ARE OR HAVE BEEN ENROLLED IN A CHEMICAL DEPENDENCY/SUBSTANCEABUSE PROGRAM, SOME INFORMATION MAY BE OMITTED. This clinical summary was aggregated from multiple sources. Caution should be exercised in using it in the provision of clinical care. This summary normalizes information from multiple sources, and as a consequence, information in this document may materially change the coding, format and clinical context of patient data. In addition, data may be omitted in some cases. CLINICAL DECISIONS SHOULD BE BASED ON THE PRIMARY CLINICAL RECORDS. [facility]. provides no warranty or guarantee of the accuracy or completeness of information in this document.
== END | disposition home or self-care (01) ==
LOC: LAB.FUTURE 13:37 → POLAB3 13:38
PROVIDERS: PCP Family Medicine Geriatric Medicine; Visit Provider Family Medicine Geriatric Medicine
DX: I10 Essential (primary) hypertension (principal); E55.9 Vitamin D deficiency, unspecified
CPT/HCPCS: 36415; 80053; 82306; 84443; 85025

== ENCOUNTER → 2023-07-20 | Outpatient (CLI) | payer MEDICARE, SELFPAY ==
--- NOTE | 2023-07-20 12:52 | BI_ITS ---
MAMMOGRAPHY - BILATERAL SCREENING REASON FOR EXAM: Female, 77 years old. Routine annual screening examination. PERTINENT HISTORY: Personal history of breast cancer. Prior right lumpectomy with radiation treatment. Remote right excisional breast biopsies. Sister with breast cancer. Mother with breast cancer. TECHNIQUE: Digital bilateral breast meghann (3D mammographic acquisition) in the CC and MLO projections. 2-D mediolateral oblique (MLO) and craniocaudad (CC) views of both breasts were obtained. CAD: Full Field Digital Mammography with Computer Added Detection was performed. COMPARISON: Comparison is made with prior study dated November 21, 2021. FINDINGS: Breast Composition: There are scattered areas of fibroglandular density. There are no dominant masses or suspicious calcifications. The patient is status post lumpectomy in the deep upper central portion of the right breast with resultant breast deformity. This is unchanged. No other significant abnormalities are identified. There has been no significant change since the prior study. BI/SCRN MAMM (CAD)W/MEGHANN BILAT IMPRESSION: Stable bilateral screening mammogram. Yearly follow-up mammogram recommended. (A) ASSESSMENT CATEGORY: BIRADS Category 2: Benign. A letter regarding these results will be sent to the patient by the facility within 30 days. Approximately 10% of breast cancers are not detected by mammography. A normal mammogram should not delay biopsy of a clinically suspicious abnormality. [id number] Electronically Signed: Reid Chu MD at 9:44 EDT ,
== END | disposition home or self-care (01) ==
LOC: OPBI 12:52
PROVIDERS: PCP Family Medicine Geriatric Medicine; Referring Provider Internal Medicine Hematology & Oncology; Visit Provider Internal Medicine Hematology & Oncology
DX: Z12.31 Encounter for screening mammogram for malignant neoplasm of breast (principal); Z85.3 Personal history of malignant neoplasm of breast; Z80.3 Family history of malignant neoplasm of breast
CPT/HCPCS: 77063; 77067

== ENCOUNTER → 2023-08-25 | Outpatient (CLI) | payer MEDICARE, SELFPAY ==
[2023-08-25 15:13] LABS: Absolute Lymphocyte Count 1.19 X10^3/uL (0.83-4.51); Absolute Neutrophil Count 4.6 X10^3/uL (2.0-7.7); Basophil# 0.03 X10^3/uL; Basophil% 0.5 % (0-1); Eosinophil# 0.22 X10^3/uL; Eosinophils% 3.3 % (0-5); Hematocrit 47.2 % (37-47); Hemoglobin 14.8 g/dL (12.0-15.0); Lymphocyte # 1.19 X10^3/ul (0.83-4.51); Lymphocyte % 17.9 % (19-41); Mean Corp Hgb Conc 31.4 g/dL (32-36); Mean Corpuscular Hgb 28.7 pg (27.0-32.0); Mean Corpuscular Volume 91.7 fL (81-99); Mean Platelet Vol. 10.8 fl (6.2-12.0); Monocyte# 0.61 X10^3/uL; Monocyte% 9.2 % (0-10); NRBC Flagged by Analyzer 0 % (0-5); Neutrophil # 4.56 X10^3/uL (2.7-7.7); Neutrophil % 68.8 % (47-70); Platelet Count 240 K/mm3 (150-450); RBC Distribution Width CV 13.3 % (11.6-14.6); RBC Distribution Width SD 45.2 fl (35.1-43.9); Red Blood Count 5.15 M/mm3 (4.2-5.4); White Blood Count 6.6 K/mm3 (4.4-11.0)
[2023-08-25 15:34] LABS: Vitamin D,25 Hydroxy 35.9 ng/mL
[2023-08-25 15:43] LABS: AST(SGOT) 23 U/L (15-37); Alanine Aminotransfer ALT/SGPT 16 U/L (13-56); Albumin, Serum 3.5 g/dL (3.2-5.0); Alkaline Phosphatase 82 U/L (45-117); Anion Gap 5 (5-15); BUN 16 mg/dL (7-18); BUN/Creat Ratio 21.5 RATIO (10-20); Calcium,Total 9.9 mg/dL (8.5-10.1); Chloride 108 mmol/L (98-107); Creatinine, Serum 0.74 mg/dL (0.55-1.02); EST Glomerular Filtration Rate 80 mL/min (>60); Est Glom Filt Rate - Afr Amer 97 mL/min (>60); Globulin 3.5 g/dL (2.2-4.2); Glucose 120 mg/dL (74-106); Potassium 4.2 mmol/L (3.5-5.1); Sodium Level 140 mmol/L (136-145); Thyroid Stim Hormone (TSH) 2.34 uIU/mL (0.358-3.74)
== END | disposition home or self-care (01) ==
PROVIDERS: PCP Family Medicine Geriatric Medicine; Referring Provider Family Medicine Geriatric Medicine; Visit Provider Family Medicine Geriatric Medicine
DX: I10 Essential (primary) hypertension (principal); E55.9 Vitamin D deficiency, unspecified
CPT/HCPCS: 36415; 80053; 82306; 84443; 85025

== ENCOUNTER → 2023-11-16 | Outpatient (CLI) | payer MEDICARE, SELFPAY ==
[2023-11-16 14:15] LABS: Absolute Lymphocyte Count 1.24 X10^3/uL (0.83-4.51); Absolute Neutrophil Count 3.6 X10^3/uL (2.0-7.7); Basophil# 0.03 X10^3/uL; Basophil% 0.5 % (0-1); Eosinophil# 0.12 X10^3/uL; Eosinophils% 2.2 % (0-5); Hemoglobin 14.8 g/dL (12.0-15.0); Lymphocyte # 1.24 X10^3/ul (0.83-4.51); Lymphocyte % 22.3 % (19-41); Mean Corp Hgb Conc 31.5 g/dL (32-36); Mean Corpuscular Hgb 28.4 pg (27.0-32.0); Mean Corpuscular Volume 90.2 fL (81-99); Mean Platelet Vol. 10.7 fl (6.2-12.0); Monocyte# 0.56 X10^3/uL; Monocyte% 10.1 % (0-10); NRBC Flagged by Analyzer 0 % (0-5); Neutrophil # 3.58 X10^3/uL (2.7-7.7); Neutrophil % 64.5 % (47-70); Platelet Count 244 K/mm3 (150-450); RBC Distribution Width CV 13.4 % (11.6-14.6); RBC Distribution Width SD 44.7 fl (35.1-43.9); Red Blood Count 5.21 M/mm3 (4.2-5.4); White Blood Count 5.6 K/mm3 (4.4-11.0)
[2023-11-16 14:43] LABS: Vitamin D,25 Hydroxy 42.2 ng/mL
[2023-11-16 14:50] LABS: ALB/GLOB Ratio 0.9 RATIO (0.9-2.4); AST(SGOT) 21 U/L (15-37); Alanine Aminotransfer ALT/SGPT 17 U/L (13-56); Albumin, Serum 3.4 g/dL (3.2-5.0); Alkaline Phosphatase 78 U/L (45-117); Anion Gap 3 (5-15); BUN 20 mg/dL (7-18); BUN/Creat Ratio 28.2 RATIO (10-20); Calcium,Total 9.9 mg/dL (8.5-10.1); Chloride 110 mmol/L (98-107); Creatinine, Serum 0.71 mg/dL (0.55-1.02); EST Glomerular Filtration Rate 85 mL/min (>60); Est Glom Filt Rate - Afr Amer 102 mL/min (>60); Globulin 3.9 g/dL (2.2-4.2); Glucose 104 mg/dL (74-106); Potassium 4.2 mmol/L (3.5-5.1); Protein, Total 7.3 g/dL (6.4-8.2); Sodium Level 141 mmol/L (136-145); Thyroid Stim Hormone (TSH) 1.95 uIU/mL (0.358-3.74)
== END | disposition home or self-care (01) ==
LOC: POLAB3 12:56
PROVIDERS: PCP Family Medicine Geriatric Medicine; Visit Provider Family Medicine Geriatric Medicine
DX: I10 Essential (primary) hypertension (principal); E55.9 Vitamin D deficiency, unspecified
CPT/HCPCS: 36415; 80053; 82306; 84443; 85025

== ENCOUNTER → 2024-02-02 | Outpatient (CLI) | payer MEDICARE, SELFPAY ==
--- NOTE | 2024-02-02 12:11 | RAD_ITS ---
INDICATION: LOW BACK PAIN EXAMINATION/TECHNIQUE: X-RAY - XR Spine Lumbar Min 4 Views COMPARISON: None. FINDINGS: VERTEBRAE: Preserved vertebral body height. No fracture. No spondylolisthesis. Preservation of the normal lumbar lordosis. Severe multilevel facet arthropathy. DISCS: Severe multilevel degenerative disc disease and spondylosis. INCLUDED ABDOMEN: Included bowel gas pattern is non-obstructive. RAD/L/S Spine Min 4 Views IMPRESSION: No evidence of lumbar spinal fracture or spondylolisthesis. Severe multilevel degenerative disc disease and spondylosis. Electronically Signed: Shawn Johnson MD at 18:20 EDT ,
[2024-02-02 14:02] LABS: Absolute Lymphocyte Count 0.86 X10^3/uL (0.83-4.51); Absolute Neutrophil Count 7.2 X10^3/uL (2.0-7.7); Basophil# 0.03 X10^3/uL; Basophil% 0.3 % (0-1); Eosinophil# 0.07 X10^3/uL; Eosinophils% 0.8 % (0-5); Hematocrit 46.7 % (37-47); Hemoglobin 14.5 g/dL (12.0-15.0); Lymphocyte # 0.86 X10^3/ul (0.83-4.51); Lymphocyte % 9.9 % (19-41); Mean Corpuscular Hgb 28.5 pg (27.0-32.0); Mean Corpuscular Volume 91.7 fL (81-99); Monocyte# 0.48 X10^3/uL; Monocyte% 5.5 % (0-10); NRBC Flagged by Analyzer 0 % (0-5); Neutrophil # 7.22 X10^3/uL (2.7-7.7); Neutrophil % 83.2 % (47-70); Platelet Count 252 K/mm3 (150-450); RBC Distribution Width CV 13.8 % (11.6-14.6); RBC Distribution Width SD 46.6 fl (35.1-43.9); Red Blood Count 5.09 M/mm3 (4.2-5.4); White Blood Count 8.7 K/mm3 (4.4-11.0)
[2024-02-02 14:45] LABS: ALB/GLOB Ratio 1.3 RATIO (0.9-2.4); AST(SGOT) 14 U/L (15-37); Alanine Aminotransfer ALT/SGPT 31 U/L (13-56); Albumin, Serum 3.9 g/dL (3.2-5.0); Alkaline Phosphatase 72 U/L (45-117); Anion Gap 4 (5-15); BUN 20 mg/dL (7-18); BUN/Creat Ratio 29.8 RATIO (10-20); Calcium,Total 10.3 mg/dL (8.5-10.1); Chloride 106 mmol/L (98-107); Creatinine, Serum 0.67 mg/dL (0.55-1.02); EST Glomerular Filtration Rate 90 mL/min (>60); Est Glom Filt Rate - Afr Amer 109 mL/min (>60); Globulin 3.1 g/dL (2.2-4.2); Glucose 125 mg/dL (74-106); Potassium 4.3 mmol/L (3.5-5.1); Sodium Level 140 mmol/L (136-145)
== END | disposition home or self-care (01) ==
PROVIDERS: PCP Family Medicine Geriatric Medicine; Referring Provider Family Medicine Geriatric Medicine; Visit Provider Family Medicine Geriatric Medicine
DX: M54.50 Low back pain, unspecified (principal); I10 Essential (primary) hypertension; E55.9 Vitamin D deficiency, unspecified
CPT/HCPCS: 36415; 72110; 80053; 82306; 84443; 85025

== ENCOUNTER → 2024-02-16 | Outpatient (CLI) | payer MEDICARE, SELFPAY ==
--- NOTE | 2024-02-16 12:47 | MRI_ITS ---
STUDY: BILATERAL BREAST MR WITHOUT AND WITH CONTRAST REASON FOR EXAM: Female, 78 years old. History of right breast cancer status post right lumpectomy with radiation therapy.. Remote right excisional breast biopsies. Sister and mother with a history of breast cancer, therefore high risk. TECHNIQUE: Multi-sequence multi-echo imaging of both breasts was performed with a dedicated breast coil. T1-weighted and T2-weighted images were performed before the administration of contrast. T1-weighted images were also performed after the intravenous administration of 15 cc of Clariscan contrast. COMPARISON: Prior mammograms dated July 20, 2023, bilateral breast MRI without and with contrast dated February 12, 2023 FINDINGS: RIGHT BREAST: Scattered fibroglandular densities with minimal background enhancement. Decreased size of the breast with postsurgical changes. No abnormal enhancing masses or areas of non-mass enhancement in the right breast. LEFT BREAST: Scattered fibroglandular densities with minimal background enhancement. Decreased size of the breast with postsurgical changes. No abnormal enhancing masses or areas of non-mass enhancement in the right breast. No enlarged or abnormal lymph nodes. No abnormality in the visualized regions of the chest or liver. MRI/Breast Bilateral W/O and W IMPRESSION: Postsurgical changes in the right breast. No other abnormalities present. Follow-up mammogram in one year would be appropriate. CATEGORY: BIRADS Category 2: Benign. A letter regarding these results will be sent to the patient by the facility within 30 days. Electronically Signed: Giacomo Vanessa MD at 21:13 EDT ,
--- OUTSIDE RECORDS SUMMARY | 2024-02-16 18:15 | XMS RPT_ITS | CCD ---
Author Organization [facility] ion [facility] Care Team Providers Care [employer] Information Clerk Name Role Phone Raheem Nichols Unavailable [phone] Amos Nava Admitting Unavailable Amos Nava Attending Unavailable Raheem Nichols Primary Care Provider AUDI RENNER Attending Unavailable RAHEEM NICHOLS Primary Care Unavailable AUDI RENNER Attending Unavailable RAHEEM NICHOLS Primary Care Unavailable AUDI RENNER Admitting Unavailable AUDI RENNER Referring Unavailable RAHEEM NICHOLS Primary Care Unavailable AUDI RENNER Attending Unavailable AUDI RENNER Referring Unavailable AUDI RENNER Admitting Unavailable RAHEEM NICHOLS Primary Care Unavailable NICOLE YANG Attending Unavailable RAHEEM NICHOLS Primary Care Unavailable AUDI RENNER Attending Unavailable RAHEEM NICHOLS Primary Care Unavailable Nichols, Raheem Unavailable Unavailable Nichols, Raheem O Unavailable Unavailable Ingrid Becerra G Unavailable Unavailable Nichols, Raheem Unavailable Unavailable Jennifer Garduno Unavailable Unavailable Kp Nicholser Unavailable Unavailable Raheem Nichols Primary Care Provider [phone] Jennifer Garduno PA-C Unavailable UnavailRaheem Oro MD Unavailable Unavailable Nichols, Raheem O Unavailable Unavailable Stephen Becerraef G Unavailable Unavailable Nichols Raheem O Unavailable Unavailable Unavailable Altagracia Arellano Attending UnavailAltagracia Johnson Referring UnavailDr. Raheem Oro Primary Care Unavailab Altagracia Miles Attending Unavailabl e Jessica, Dr. Raheem Tijerina Primary Care Unavailab le ArellanoAltagracia Falk Attending Unavailabl e Nichols, Dr. Raheem Tijerina Primary Care Unavailab le ArellanoAltagracia butt Attending Unavailabl e Jessica, Dr. Raheem Tijerina Primary Care Unavailab le Nichols, Dr. Raheem Tijerina Attending Unavailab le Nichols, Dr. Raheem Tijerina Referring Unavailab le Nichols, Dr. Raheem Tijerina Primary Care Unavailab le Vasko, Dr. Berta Cassidy Attending Unavaila ble Nichols, Dr. Raheem Tijerina Primary Care Unavailab le Nichols, Dr. Raheem Tijerina Primary Care Unavailab le Hamad, Dr. Butler Admitting Unavailable Hamad, Dr. Butler Attending Unavailable Sheryl Ingram Referring Unavailable Raheem Nichols Primary Care Unavailable Altagracia Arellano Attending UnavailRaheem Oro Referring Unavailable Raheem Nichols Primary Care Unavailable Raheem Nichols Referring Unavailable Raheem Nichols Primary Care Unavailable Raheem Nichols Attending Unavailable Rhaeem Nichols Primary Care Unavailable Raheem Nichols Attending Unavailable Raheem Nichols Referring Unavailable Raheem Nichols Primary Care Unavailable Raheem Nichols Attending Unavailable Raheem Nichols Referring Unavailable Raheem Nichols Primary Care Unavailable Altagracia Arellano Attending Unavailbetzaida e Raheem Nichols Referring Unavailable Jessica, Dr. Raheem Tijerina Primary Care Unavailab Sheryl Valdez Attending Unavailable Sheryl Ingram Attending Unavailable Jessica, Dr. Raheem Tijerina Primary Care Unavailab Sheryl Valdez Admitting Unavailable Sheryl Ingram Attending Unavailable Sheryl Ingram Referring Unavailable Jessica, Dr. Raheem Tijerina Primary Care Unavailab trenton Nichols, Dr. Raheem Tijerina Primary Care Unavailab Sheryl Valdez Attending Unavailable AUDI PARIS JR. Attending Unava ilable RAHEEM NICHOLS Primary Care Unavailable Allergies Allergy Classification Reported Allergen(s) Allergy Type Date of Onset Reaction(s) Facility Serotonin Reuptake Inhibitors (SSRIs) (3 sources) Escitalopram; Translations: [Lexapro] Drug Allergy [id number] Work Phone: (20 sources) escitalopram; Translations: [Unknown] Drug Allergy 6 Other (See Comments) [facility] Work Phone: (4 sources) Escitalopram Drug Allergy [facility] Work Phone: Medications Current Medications Medication Drug [...] pain. 50 tablet 0 10/11/2015 03/26/2017 Discontinued [id number] 200 actuat albuterol 0.09 mg/actuat metered dose inhaler (2 sources) beta2-Adrenergic Agonist Start: 03-24-2022 take 2 puff(s) by inhalation four times daily as needed for wheezing Albuterol Sulfate HFA 108 (90 Base) MCG/ACT Inhalation Aerosol Solution INHALE 2 PUFFS 4 times daily as needed for wheezing or shortness of brath Quantity: 1 Refills: 2 Ordered: 24-Mar-2022 Raheem Nichols MD Start : 24-Mar-2022 Active whtever brand or generic covered One Daily Multivitamin Women TABS (2 sources) Vitamin C One Daily Multivitamin Women TABS Refills: 0 Active One Daily Multiv itamin Women TABS Refills: 0 DO Active aspirin 325 mg oral tablet (1 source) Nonsteroidal Anti-inflammatory Drug End: 03-26-2017 take 1 tablet by mouth twice daily aspirin 325 MG buffered tablet Take 325 mg by mouth 2 (two) times a day. 03/26/2017 Discontinued Calcium (20 sources) Phosphate Binder, Calcium Calcium TABS Take 1 tablet daily Quantity: 0 Refills: 0 Ordered: 21-Dec-2020 DO Active Calcium TABS Leon ntity: 0 Refills: 0 Ordered: 07-Dec-2019 DO Active Calcium TABS Ref ills: 0 Active Calcium TABS Ref ills: 0 DO Active cholecalciferol 0.075 mg ora l tablet (20 sources) Vitamin D take 1 tablet by mouth once daily Vitamin D3 75 MCG (3000 UT) Oral Tablet Take 1 tablet daily Quantity: 0 Refills: 0 Ordered: 07-Dec-2019 DO Active take 1 tablet by mouth once lenard y cholecalciferol, vitamin D3, 1,000 unit tablet Take 1,000 Units by mouth daily. 0 Active docosahexaenoic acid 120 mg / eicosapentaenoic acid 180 mg oral capsule (9 sources) take 1 capsule by mo uth once daily Fish Oil 1000 MG Oral Capsule TAKE 1 CAPSULE Daily Quantity: 0 Refills: 0 Ordered: 24-Mar-2022 DO Active Fish Oil 1000 MG Oral Capsule Quantity: 0 Refills: 0 Ordered: 11-Feb-2022 DO Active LORazepam 0.5 mg oral tablet (5 sources) Benzodiazepine Start: 02-18-2022 take 1 tablet by mouth once daily as needed LORazepam 0.5 MG Oral Tablet TAKE 1 TABLET Daily prn Quantity: 30 Refills: 0 Ordered: 24-Mar-2022 Raheem Nichols MD Start : 18-Feb-2022 Active Start: 02-18-2022 take 1 tablet by dahiana th three times daily as needed LORazepam 0.5 MG Oral Tablet TAKE 1 TABLET 3 times daily PRN anxeity Quantity: 20 Refills: 0 Ordered: 18-Feb-2022 Raheem Nichols MD Start : 18-Feb-[address] for 6 hours after taking medication. melatonin 10 mg oral capsule (3 sources) take 1 capsule by mouth at bedtime Melatonin 10 MG Oral Capsule TAKE 1 CAPSULE Bedtime Refills: 0 DO Active meloxicam 15 mg oral tablet (1 source) Nonsteroidal Anti-inflammatory Drug Start: 06-27-2019 take 1 tablet by mouth once daily Meloxicam 15 MG Oral Tablet Take 1 tablet daily Quantity: 15 Refills: 1 Raheem Nichols Start : 27-Jun-2019 Active Start: 06-27-2019 take 1 tablet by dahiana th once daily Meloxicam 15 MG Oral Tablet Take 1 tablet daily Quantity: 15 Refills: 1 Raheem Nichols Start : 27-Jun-2019 Active 24 hr metoprolol succinate 25 mg extended release oral tablet (20 sources) beta-Adrenergic Josefa Start: 02-09-2015 take 1 tablet by mouth three times daily Metoprolol Succinate ER 25 MG Oral Tablet Extended Release 24 Hour TAKE 1 TABLET 3 times daily Quantity: 270 Refills: 3 Ordered: 21-May-2021 Raheem Nichols MD Start : 27-Apr-2018 Active One Daily Multivitamin Women TABS (20 sources) One Daily Multivitamin Women TABS TAKE 1 TABLET DAILY. Quantity: 0 Refills: 0 Ordered: 21-Dec-2020 DO Active One Daily Multiv itamin Women TABS Quantity: 0 Refills: 0 Ordered: 07-Dec-2019 DO Active tiZANidine 4 mg oral tablet (3 sources) Central alpha-2 Adrenergic Agonist Start: 01-19-2020 End: 11-12-2020 take 0.5-1 tablets by mouth every eight hours as needed for muscle spasms tiZANidine HCl - 4 MG Oral Tablet Take 0.5-1 tabs Q8 hrs PRN muscle spasms Quantity: 30 Refills: 0 Ordered: 19-Jan-2020 Jennifer Garduno PA-C Start : 19-Jan-2020 End : 12-Nov-2020 Complete traMADol hydrochloride 50 mg oral tablet (1 source) Opioid Agonist Start: 10-03-2015 End: 03-26-2017 take 2 tablets by mouth every six hours as needed for pain traMADol (ULTRAM) 50 mg tablet 2 TABLETS BY MOUTH EVERY 6 HOURS NEEDED FOR MILD TO MODERATE PAIN 0 10/03/2015 03/26/2017 Discontinued traZODone hydrochloride 50 mg oral tablet (20 sources) Serotonin Reuptake Inhibitor Start: 07-18-2019 take 1 tablet by mouth at bedtime traZODone HCl - 50 MG Oral Tablet TAKE 1 TABLET Bedtime Quantity: 90 Refills: 3 Ordered: 21-Nov-2021 Raheem Nichols MD Start : 18-Jul-2019 Active 24 hr venlafaxine 75 mg extended release oral capsule (20 sources) Serotonin and Norepinephrine Reuptake Inhibitor Start: 04-27-2018 take 1 capsule by mouth twice daily Venlafaxine HCl ER 75 MG Oral Capsule Extended Release 24 Hour Take 1 capsule twice daily Quantity: 180 Refills: 3 Ordered: 21-May-2021 Raheem Nichols MD Start : 27-Apr-2018 Active Start: 01-30-2015 take 1 capsule by mo [facility] once daily at mealtime Venlafaxine HCl ER 75 MG Oral Capsule Extended Release 24 Hour TAKE 1 CAPSULE ONCE DAILY WITH FOOD. Quantity: 90 Refills: 1 Raheem Nichols Start : 27-Apr-2018 Active Problems Active Problems Problem Classification Problem Date Documented Da te Episodic/Chronic Anxiety disorders (20 sources) Anxiety state; [...] episode of care or not applicable] Episodic Comment on above: 06/1973; 40 WEEKS; MA LE; 8LBS8; 39 WEEKS; MALE; 8LBS4/1978; 39 WEEKS; 8LBS; Other connective tissue disease (10 sources) History of total hip arthroplasty; Translations: [Status post total hip replacement, right] Onset: 11-13-2015 11-13-2015 Chronic Other connective tissue disease (1 source) Presence of unspecified artificial hip joint; Translations: [Presence of unspecified artificial hip joint] Onset: 03-05-2022 Chronic Other connective tissue disease (3 sources) Plantar fascial fibromatosis; Translations: [Plantar fasciitis of left foot] Episodic Other connective tissue disease (20 sources) Tendinitis of left rotator cuff; Translations: [Disorders of bursae and tendons in shoulder region, unspecified] Episodic Other connective tissue disease (4 sources) Plantar fasciitis of left foot; Translations: [Plantar fasciitis of left foot] Onset: 07-09-2018 07-09-2018 Other diseases of bladder and urethra (20 sources) Overactive bladder; Translations: [Overactive bladder] Onset: 03-05-2022 Chronic Other endocrine disorders (1 source) Menarche; Translations: [History of Menarche] Chronic Other female genital disorders (20 sources) Stenosis of cervix; Translations: [Stricture and stenosis of cervix] Episodic Other gastrointestinal disorders (20 sources) Irritable bowel syndrome; Translations: [Irritable bowel syndrome] Chronic Other gastrointestinal disorders (1 source) Irritable bowel syndrome without diarrhea; Translations: [Irritable bowel syndrome without diarrhea] Onset: 02-21-2022 Chronic Other gastrointestinal disorders (20 sources) Dysphagia; Translations: [Dysphagia, unspecified] Onset: 07-27-2015 07-27-2015 Episodic Other gastrointestinal disorders (20 sources) Personal history of other diseases of the digestive system; Translations: [History of irritable bowel syndrome] Episodic Other gastrointestinal disorders (5 sources) Chronic constipation; Translations: [Constipation, unspecified] Episodic Other hereditary and degenerative nervous system conditions (20 sources) Essential tremor; Translations: [Essential and other specified forms of tremor] Chronic Other hereditary and degenerative nervous system conditions (1 source) Essential tremor; Translations: [Essential tremor] Onset: 02-21-2022 Chronic Other lower respiratory disease (9 sources) Cough; Translations: [Cough] Episodic Other lower respiratory disease (2 sources) Wheezing; Translations: [Wheezing] Episodic Other lower respiratory disease (1 source) Wheezing; Translations: [Wheezing] Onset: 03-25-2022 Episodic Other nervous system disorders (11 sources) Complex regional pain syndrome; Translations: [Mononeuritis of unspecified site] Chronic Other nervous system disorders (20 sources) Peripheral nerve disease ; Translations: [Unspecified hereditary and idiopathic peripheral neuropathy] Chronic Other nervous system disorders (20 sources) Entrapment neuropathy of lower limb; Translations: [Lesion of lateral popliteal nerve] Chronic Other nervous system disorders (1 source) Chronic pain syndrome; Translations: [Chronic pain syndrome] Onset: 02-21-2022 Chronic Other non-traumatic joint disorders (20 sources) Shoulder pain; Translations: [Pain in joint, shoulder region] Episodic Other non-traumatic joint disorders (9 sources) Chronic ankle pain; Translations: [Pain in joint, ankle and foot] Episodic Other non-traumatic joint disorders (20 sources) 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; Translations: [Pain in joint, pelvic region and thigh] Episodic Other non-traumatic joint disorders (1 source) Pain in right hip joint; Translations: [Pain of right hip joint] Other nutritional; endocrine; and metabolic disorders (4 sources) Body mass index 25-29 - overweight; Translations: [Body mass index (BMI) of 27.0 to 27.9 in adult] Chronic Other nutritional; endocrine; and metabolic disorders (20 sources) Overweight in adulthood with body mass index of 25 or more but less than 30; Translations: [Overweight] Resolved: 11-12-2020 Episodic Other skin disorders (20 sources) H/O: skin disorder; Translations: [Personal history of diseases of skin and subcutaneous tissue] Episodic Residual codes; unclassified (20 sources) Past history of procedure; Translations: [Other specified personal history presenting hazards to health] Resolved: 10-13-2019 Episodic Comment on above: 11/11/2017; ; Residual codes; unclassified (20 sources) History of clinical finding in subject; Translations: [Asymptomatic postmenopausal status (age-related) (natural)] Episodic Comment on above: 1996; Residual codes; unclassified (13 sources) At risk of breast cancer; Translations: [Other specified conditions influencing health status] Episodic Residual codes; unclassified (3 sources) Other specified personal risk factors, not elsewhere classified; Translations: [Oth personal risk factors, not elsewhere classified] Onset: 01-24-2022 Episodic Spondylosis; intervertebral disc disorders; other back problems (20 sources) Cervical spondylosis without myelopathy; Translations: [Lumbar spondylosis] Onset: 03-05-2022 Chronic Thyroid disorders (20 sources) Thyroid nodule; Translations: [Nontoxic uninodular goiter] Onset: 07-27-2015 07-27-2015 Chronic Unclassified (3 sources) Cough, unspecified; Translations: [Cough, unspecified] Onset: 02-12-2022 Unclassified (1 source) [place] [facility] Physician Contact Required; Translations: [[place] LAB Physician Contact Required] Onset: 12-31-2023 Past or Other Problems Problem Classification Problem [...] 2 Episodic Other aftercare (1 source) Other termite control representative (current) drug therapy; Translations: [Other termite control representative (current) drug therapy] Onset: 2 Episodic Other [...] Cough, unspecified; Translations: [Cough, unspecified] Onset: 2 Unclassified (1 source) [place] [facility] Physician Contact Required; Translations: [[place] [facility] Physician Contact Required] Onset: 4 NEGATED: Highlighted row has not occurred!Residual codes; unclassified (20 sources) Disease Episodic Results Test Name Value Interpretation Reference Range Facility TISSUE EXAMon 12-30-2023 TISSUE EXAM Surgical Pathology R eport Case: [id number] Authorizing Provider: Audi Paris Collected: 12/30/2023 01:45 PM MD Lizeth Ordering Location: [facility] Received: 12/31/2023 09:30 AM Pathologist: Miah Perera DO Specimen: Hand, Right, Excision right palm A. Skin, Right Palm, excision: Lobular capillary hemangioma (Pyogenic granuloma). ? Pyogenic granuloma; throbbing and stinging A. Received in formalin, designated R palm , is 1 white-jay fragment(s) of skin measuring 1.5 x 1.0 x 0.6 cm. Margins inked black. The skin contains a brown, slightly indented, bumpy, ulcerated lesion measuring 0.7 cm in greatest dimension. Serially sectioned and totally submitted in 1 cassette(s). KD Gross examination performed at: [facility] - [address] [place] [address] Microscopic examination is performed. Normal [facility] Comment on above: Performed By: #### [id number] #### LAB [address] [place], [place] [address] Ismael Preciado M.D. [id number] Phone Note - Heme Onc-TRANSF ER OF CAREon 05-26-2022 Phone Note - Heme Onc-TRANSFER OF CARE Phone Call Information: Patient Demographics: Name: CHELA ROJAS Date: 1945 Address: [address] [place] [address] Date and Time: 26-May-2022 Caller Information: call from Call From: patient Primary Phone Number: [phone] Reason for Call: Reason for CallTRANSFER OF CARE Team Communication: Team Communications: Pt called to cancel her upcoming appt with dr luis. pt wants to keep all her care in one place. She is getting radiation at [facility] will continue her f/u's there. Dr Luis notified Yaquelin Morrison 05/26/2022 15:44 Outpatient Medication Profile: * Patient Currently Takes Medications as of 03-Apr-2022 14:38 documented in Structured Notes Metoprolol Succinate ER 25 mg oral tablet, extended release: 1 tab(s) orally 3 times a day venlafaxine 75 mg oral capsule, extended release: 1 cap(s) orally 2 times a day traZODone 50 mg oral tablet: orally once a day (at bedtime) Daily Multi oral tablet: 1 tab(s) orally once a day Fish Oil 1000 mg oral capsule: 1 cap(s) orally once a day Vitamin D2 50 mcg (2000 intl units) oral capsule: 1 cap(s) orally once a day Allergies: Lexapro: Unknown Lab Results: Results CBC date/time WBC HGB HCT PLT Neut 21-Feb-2022 14:22 7.2 14.9 48.2(H) 229 N/A BMP date/time NA K CL CO2 BUN CREAT 21-Feb-2022 14:22 140 4.4 103 N/A 15 0.71 LDH date/time LDH 24-Oct-2019 11:35 N/A Electronic Signatures: Yaquelin Morrison (RN) (Signed 26-May-2022 15:44) Authored: Phone Call Information, Outpatient Medication Profile, Allergies, Results Last Updated: 26-May-2022 15:44 by Yaquelin Morrison (RN) [facility] AMB - Narrative Note-Distres s Screen Follow Upon 04-04-2022 AMB - Narrative Note-Distress Screen Follow Up Discipline and Description: Discipline: Distress Screen Follow Up Description: Social Work Note 04/04/2022 SW left a vm for patient to explain social work services to her. She was encouraged to contact this database report writer so resources can be discussed. RN made a referral to [facility]. TIARA will remain available to assist patient. Rhoda Nguyễn MSW, SNOW FENCE ERECTOR doc halo/vocera Electronic Signatures: Rhoda Nguyễn (TIARA) (Signed 04-Apr-2022 15:56) Authored: Discipline and Description Last Updated: 04-Apr-2022 15:56 by Rhoda Nguyễn) [facility] AMB - Narrative Note-Distres s Screen Follow Upon 04-03-2022 AMB - Narrative Note-Distress Screen Follow Up Discipline and Description: Discipline: Distress Screen Follow Up Topic: scored a 8 Description: pts concerns were discussed with dr luis at todays visit. referral to [facility] Send Note Using Auto Fax: Note Recipients: Electronic Signatures: Yaquelin Morrison) (Signed 03-Apr-2022 15:03) Authored: Discipline and Description, To Send Document via Auto Fax Last Updated: 03-Apr-2022 15:03 by Yaquelin Morrison (UMANG) [facility] Note - Heme Onc-New V shivam 04-03-2022 Clinic Note - Heme Onc-New Visit Patient Visit Information: Visit Type: New Visit Cancer History: Breast AJCC Edition: 7th (AJCC), Diagnosis Date: 27-Dec-2015, 0- RIGHT LCIS, Tis N0 M0 Breast AJCC Edition: 8th (AJCC), Diagnosis Date: Feb 2022, Stage(no match), pT1c pNX cM0 G2 History of Present Illness: ID Statement: CHELA ROJAS is a 76 year old Female Chief Complaint: Evaluation for breast cancer Interval History: Referred by Dr. Ingram Reason for referral: Evaluation for breast cancer HPI 76 year old woman with hx of high risk breast lesion of the right breast (LCIS) diagnosed via biopsy in 2016 s/p 3 years of chemopreventative Tamoxifen stopped at the end of 2017 secondary to endometrial changes that was biopsy negative, referred to evaluate for newly diagnosed IDC of the right breast she had her screening MMG on 11/21/21 which was read as benign cat 2 but because of high risk history Dr. Arellano ordered an MRI done on 01/24/22 that showed a 1.5 x 1.1 cm rim enhancing mass in the infero medial aspect at post depth this lead to a second look US and biopsy done on 01/29/22 that showed IDC , grade 1-2 , ER positive (>95%), FL positive (>95%) and Her 2 negative she had surgery with right partial mastectomy on 03/05/[address] Ingram, axillary staging omitted, final pathology came back at pT1cNx (1.6 cm mass, IDC, grade 2) she did not feel any lumps or masses she has good energy and is active no problems with eating or drinking good bowel movements now, but at times has diarrhea from IBS bone density scan October 2017 had osteoporosis but she never took pills or injections to treat healed well from surgery and no redness or discharge she has palpitations for which she takes metoprolol she is on Effexor 75 mg twice a day for anxiety age of menarche: 12 yo age of menopause 52 yo PAST MEDICAL HISTORY: Anxiety LCIS IBS peripheral neuropathy 3 Sections Tonsillectomy, tubal ligation, hip replacement benign breast lesion removed 45 yrs ago SOCIAL HISTORY: no smoking hx moderate alcohol, once a week approximately she has 3 children, 2 sons and one daughter 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 REVIEW OF SYSTEMS: Pertinent finding as per the history above. There are no additional specific symptoms pertaining to eyes, ENT, hematologic, lymphatic, neurological, psychiatric, cardiac, pulmonary, GI, , endocrine, rheumatic, dermatological, or musculoskeletal systems. All other systems have been reviewed and generally negative and noncontributory. PHYSICAL EXAMINATION: GENERAL: Age-appropriate, in no acute discomfort. VITAL SIGNS: Reviewed in the EMR a HEENT: Normocephalic and atraumatic. Mucous membranes are moist. No oral lesions. NECK: Supple without lymphadenopathy. No thyromegaly or bruits. CHEST: Clear to auscultation bilaterally. HEART: Regular in rate and rhythm. No gallop, rub, or murmur. ABDOMEN: Soft, nontender, and nondistended. No hepatosplenomegaly. EXTREMITIES: No cyanosis, clubbing, or edema. NEUROLOGICAL: Alert, awake, and oriented. No gross focal deficit. LYMPHATICS: No significant lymphadenopathy. BREAST: nipples inverted b/l, right breast s/p lumpectomy , scar on inf aspect clean, no tenderness LAB DATA: Latest labs were reviewed in the EMR and from the outside sources. Allergies and Intolerances: Allergies: Lexapro: Drug, Unknown, Active Outpatient Medication Profile: * No Current Medications as of 05-Mar-2022 10:50 documented in Structured Notes hydrocodone-acetaminophen 5 mg-325 mg oral tablet: 1 tab(s) orally every 6 hours, As Needed -Pain - , Start Date: 05-Mar-2022 Metoprolol Succinate ER 25 mg oral tablet, extended release: 1 tab(s) orally 3 times a day venlafaxine 75 mg oral capsule, extended release: 1 cap(s) orally 2 times a day traZODone 50 mg oral tablet: orally once a day (at bedtime) Daily Multi oral tablet: 1 tab(s) orally once a day Fish Oil 1000 mg oral capsule: 1 cap(s) orally once a day Vitamin D2 50 mcg (2000 intl units) oral capsule: 1 cap(s) orally once a day Medical History: Anxiety: ICD-10: F41.9, Status: Active Thyroid nodule: ICD-10: E04.1, Status: Active Peripheral neuropathy: ICD-10: G62.9, Status: Active OAB (overactive bladder): ICD-10: N32.81, Status: Active Lumbar spondylosis: ICD-10: M47.816, Status: Active Breast cancer: ICD-10: C50.919, Status: Active Tremor: ICD-10: R25.1, Status: Active Encounter for medication management: ICD-10: Z79.899, Status: Active Cardiac hypertrophy: ICD-10: I51.7, Status: Active History of thyroid nodule: ICD-10: Z86.39, Status: Active Osteoarthritis of multiple joints, unspecified osteoarthritis type: ICD-10: M15.9, Status: Active Osteopor (more content not included)... Normal [facility] Note - Intakeon 04-03 Clinic Note - Intake Patient Visit Information: Visit TypeNew Visit, malignant neoplasm of lower-inner quadrant of right female breast Source of Informationpatient Accompanied byspouse Vital Signs: Temp (degrees C)36.3 degrees C Temperatureskin Heart Rate (beats/min)81 beats per minute Respiration (breaths/min)16 breath per minute BP Systolic (mm Hg)Image has been removed. 169 mmHg BP Diastolic (mm Hg)89 mmHg BP Mean (mm Hg)Image has been removed. 115 mmHg Height in cm167.8 centimeter(s) Heightstanding Weight in kg73.6 kilogram(s) Weightstanding BMI (kg/m2)26.1 kg/M2 BSA (m2)1.85 M2 SpO2 (%)93 % SpO2 Patient Onroom air Pain Screening: Patient States Painno (0) Allergies: Lexapro: Drug, Unknown, Active Outpatient Medication Profile: * Patient Currently Takes Medications as of 03-Apr-2022 14:38 documented in Structured Notes Metoprolol Succinate ER 25 mg oral tablet, extended release: Last Dose Taken: , 1 tab(s) orally 3 times a day venlafaxine 75 mg oral capsule, extended release: Last Dose Taken: , 1 cap(s) orally 2 times a day traZODone 50 mg oral tablet: Last Dose Taken: , orally once a day (at bedtime) Daily Multi oral tablet: Last Dose Taken: , 1 tab(s) orally once a day Fish Oil 1000 mg oral capsule: Last Dose Taken: , 1 cap(s) orally once a day Vitamin D2 50 mcg (2000 intl units) oral capsule: Last Dose Taken: , 1 cap(s) orally once a day Notification: NotificationsAnnual Screens Due Dates Advanced Directives: Mar 05, 2023 Has Living Will: did not bring Has POA: did not bring Family Violence: Mar 05, 2023 Depression (Due every 6 months for ONC only; all others use Annual date): September 01, 2022 Substance Use - Alcohol: Mar 05, 2023 Substance Use - Drugs: Mar 05, 2023 Nutrition: Mar 05, 2023 Learning: Mar 05, 2023 Travel History: COVID-19 Screening Completedno exposure or symptoms Travel or ExposureNO travel to International locations in the past 30 days Falls: Have you fallen in the last 6 monthsno Do you have a fear of fallingno Do you feel you need assistanceno Is the patient using an assistive deviceno Not a falls riskimplement environmental risk factors interventions Electronic Signatures: Ana Cristina Prasad (REBEKA II) (Signed 03-Apr-2022 14:39) Authored: Patient Visit Information, Vital Signs, Allergies, Outpatient Medication Profile, Notification, Travel History, Falls Last Updated: 03-Apr-2022 14:39 by Ana Cristina Prasad (REBEKA II) [facility] Post Op (Breast Surgery)on 05-28-2021 Post Op (Breast Surgery) *Diagnoses/Problems Assessed Malignant neoplasm of lower-inner quadrant of right breast of female, estrogen receptor positive (174.3,V86.0) (C50.311,Z17.0) *Orders Malignant neoplasm of lower-inner quadrant of right breast of female, estrogen receptor positive Medical Oncology Referral Evaluation and Treatment Evaluate AND Treat adjuvant endocrine tx pT1cN0 right breast cancer ER/FL + Her2- low risk luminal A Status: Hold For - Scheduling,Retrospective Authorization Requested for: [id number] Ordered;For: Malignant neoplasm of lower-inner quadrant of right breast of female, estrogen receptor positive; Ordered By: Sheryl Ingram Performed: Due: 25Jun2022; Last Updated By: Sarahi Babin; 03/27/2022 1:19:41 PM *Patient Discussion/Summary We reviewed the pathology results from surgery. The cancer has been excised to negative margins with negative lymph nodes. Her surgical treatment is complete. I will refer to med/onc and rad/onc for recommendations for adjuvant treatment. Chlea lives in the [facility] and will see Dr. Luis. Will be due for mammogram in November. She can follow with me for same day imaging or in [place] with Dr. Luis whichever she prefers. given location of her tumor and difficulty to visualize on mammogram she will need clinical breast exams in addition to imaging as part of surveillance. Provider Impressions 1. right breast IDC g1-2 ER 95% FL 95% HER2- at 5:00 7cmFN measuring 1.6cm on final pathology s/p right partial mastectomy -[id number] stage Ia *Chief Complaint post op History of Present IllnessCHELA ROJAS is a 76 year female who presents today at the request of Altagracia Arellano for newly diagnosed right breast cancer. Family history of breast cancer, personal history of biopsy with atypia being followed with enhanced screening. Mammogram in November. MRI breast 01/24/2022 with a suspicious right breast mass inferior medial measuring 1.5cm. no axillary adenopathy. 2nd look U/S and biopsy recommended. right U/S biopsy 5:00 7cmFN IDC g1-2 ER 95% FL 95% HER2-. Of note, biopsy clip and mass not visualized on post biopsy mammogram due to location of mass along IMF. 03/05/2022 right partial mastectomy tumor 1.6cm, margins negative (>2mm). She denies any additional breast masses, skin thickening, erythema, nipple retraction or nipple discharge. Prior breast history includes: - breast biopsy: prior right breast excisional biopsy with atypia - breast surgery: right breast exicisonal biopsy - breast cancer: no Last mammogram: November 2021 benign Menarche: 11 AFLB: 27 Menopause: 51 HRT: no Family history: mother with breast cancer at 75. sister with breast cancer at 79. No genetics. Review of Systems Constitutional symptoms: Denies generalized fatigue. Denies weight change, fevers/chills, difficulty sleeping Eyes: Denies double vision, glaucoma, cataracts. Ear/nose/throat/mouth: Denies hearing changes, sore throat, sinus problems. Cardiovascular: No chest pain. Denies irregular heartbeat. Denies ankle swelling. Respiratory: No wheezing, cough, or shortness of breath. Gastrointestinal: No abdominal pain, No nausea/vomiting. No indigestion/heartburn. No change in bowel habits. No constipation or diarrhea. Genitourinary: No urinary incontinence. No urinary frequency. No painful urination. Musculoskeletal: No bone pain, no muscle pain, no joint pain. Integumentary: No rash. No masses. No changes in moles. No easy bruising. Neurological: No headaches. No tremors. No numbness/tingling. Psychiatric: No anxiety. No depression. Endocrine: No excessive thirst. Not too hot or too cold. Not tired or fatigued. Hematological/lymphatic: No swollen glands or blood clotting problems. No bruising. 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) Essential tremor (333.1) (G25.0) Irritable bowel syndrome (564.1) (K58.9) Left shoulder pain (719.41) (M25.512) 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 Normal [facility] 12-05-2022 Follow-up visit Diagnoses/Problems Encounter for preventive health examination (V70.0) (Z00.00) Wheezing (786.07) (R06.2) Orders Anxiety state Renew: LORazepam 0.5 MG Oral Tablet (Ativan); TAKE 1 TABLET Daily prn Wheezing Start: Albuterol Sulfate HFA 108 (90 Base) MCG/ACT Inhalation Aerosol Solution; INHALE 2 PUFFS 4 times daily as needed for wheezing or shortness of brath Complete PFT w/o ABG; Status:Hold For - Scheduling; Requested for:[id number]; Patient Discussion/Summary Likely asthma mild persistent Incentive spirometry PFT Albuterol HFA Chief Complaint breathing issue History of Present Illness1 year of shortness of breath Reported to Dr Arellano and breast cancer doctor when she had surgery Noted wheezing and given a nebulizer treatment. [place] better even the next morning. Was also given an incentive spirometer She is noting wheezing Gets coughing spells. Has no SN, RN, PND. Some thickness in the throat. She has not had a recent breathing test She had CBC a couple years ago with normal differential Anxiety is doing better as she gets over the shock of the cancer. She is needing another RX for now. I have personally reviewed the patients OARRS report. This report is filed in the EHR. I have considered the risks of abuse, addiction and diversion. I believe it is clinically appropriate to continue to prescribe this medication. 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) Essential tremor (333.1) (G25.0) Irritable bowel syndrome (564.1) (K58.9) Left shoulder pain (719.41) (M25.512) 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) Lumbar spondylosis (721.3) (M47.816) Malignant neoplasm of lower-inner quadrant of right breast of female, estrogen receptor positive (174.3,V86.0) (C50.311,Z17.0) Medicare annual wellness visit, subsequent (V70.0) (Z00.00) Medication management (V58.69) (Z79.899) Overactive bladder (596.51) (N32.81) Overweight with body mass index (BMI) of 27 to 27.9 in adult (278.02,V85.23) (E66.3,Z68.27) Peripheral neuropathy (356.9) (G62.9) Personal history of breast cancer (V10.3) (Z85.3) 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 myelopathy (721.0) (M47.812) Stenosis of cervix (622.4) (N88.2) Swallowing disorder (787.20) (R13.10) Tendinitis of left rotator cuff (726.10) (M75.82) Thyroid nodule (241.0) (E04.1) Past Medical History History of Abnormal radionuclide bone scan (794.9) (R94.8) Resolved Date: 10 May 2019 History of Body mass index (BMI) of 27.0 to 27.9 in adult (V85.23) (Z68.27) Resolved Date: 12 Nov 2020 History of Chest pain, central (786.50) (R07.9) Resolved Date: 12 Nov 2020 History of Delivery by section (669.70) 06/1973; 40 WEEKS; MALE; 8LBS 11/1975; 39 WEEKS; MALE; 8LBS 07/1978; 39 WEEKS; 8LBS History of Diverticulitis large intestine (562.11) (K57.32) Resolved Date: 21 May 2021 History of Encounter for follow-up examination after completed treatment for conditions other than malignant neoplasm (V67.9) (Z09) Resolved Date: 21 May 2021 History of Heel spur (726.73) (M77.30) Resolved Date: 21 May 2021 History of bone density study (V15.89) (Z92.89) 11/11/2017 History of chronic constipation (V12.79) (Z87.19) Resolved Date: 21 May 2021 History of IBS (V12.79) (Z87.19) 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.2) History of menopause (V49.81) (Z78.0) 1997 History of screening mammography (V15.89) (Z92.89) Resolved Date: 13 Oct 2019 11/17/2019 11/15/2018 History of urinary incontinence (V13.09) (Z87.898) Resolved Date: 21 May 2021 History of Medicare annual wellness visit, initial (V70.0) (Z00.00) Resolved Date: 21 May 2021 History of Menarche (V21.8) AGE 12 History of Other chronic pain (338.29) (G89.29) Resolved Date: 21 May 2021 History of Pap test, as part of routine gynecological examination (V76.2) (Z01.419) 11/02/2017; WNL History of Plantar fasciitis (728.71) (M72.2) Resolved Date: 21 Nov 2021 Stenosis of cervix (622.4) (N88.2) History of DAWSON (stress urinary incontinence, female) (625.6) (N39.3) Resolved Date: 21 May 2021 History of Urge incontinence of urine (788.31) (N39.41) Resolved Date: 21 May 2021 Surgical History History of Appendectomy History of section History of Colonoscopy History of Exploratory laparoscopy History of Hip replacement History of Hysteroscopy History of Incisional biopsy of breast History of Mastectomy partial right ventura (more content not included)... Normal [employer] Tobacco Screening.on 022 Fall risk assessment a) No falls within the last year -[facility] Work Phone: Tobacco use status CP b) No UNI5-[facility] Work Phone: No Panel Informationon 03-05 Normal [facility] Work Phone: [facility] Work Phone: Order Reconciliationon 03-05 Order Reconciliation Page 1 Discharge Reconciliation Document Reconciliation Type: Discharge requested on behalf of Sheryl Ingram (Physician) done by Sheryl Ingram (DO) Discharge - Reconciliation: 05-Mar-2022 10:50 by: Sheryl Ingram (DO) Discharge - Reconciliation: 05-Mar-2022 10:50 by: Sheryl Ingram (DO) Home Medications EnteredHOME MEDICATIONS AT DISCHARGE DateReconciliation Comment/ Additional Information Daily Multi oral tablet 1 tab(s) orally once a day 21-Feb-2022 13:38 Daily Multi oral tablet 1 tab(s) orally once a day 21-Feb-2022 13:38 Daily Multi oral tablet is continued as Daily Multi oral tablet Fish Oil 1000 mg oral capsule 1 cap(s) orally once a day 21-Feb-2022 13:38 Fish Oil 1000 mg oral capsule 1 cap(s) orally once a day 21-Feb-2022 13:38 Fish Oil 1000 mg oral capsule is continued as Fish Oil 1000 mg oral capsule Metoprolol Succinate ER 25 mg oral tablet, extended release 1 tab(s) orally 3 times a day 23-Nov-2019 07:48 Metoprolol Succinate ER 25 mg oral tablet, extended release 1 tab(s) orally 3 times a day 23-Nov-2019 07:48 Metoprolol Succinate ER 25 mg oral tablet, extended release is continued as Metoprolol Succinate ER 25 mg oral tablet, extended release traZODone 50 mg oral tablet orally once a day (at bedtime) 21-Feb-2022 13:37 traZODone 50 mg oral tablet orally once a day (at bedtime) 21-Feb-2022 13:37 traZODone 50 mg oral tablet is continued as traZODone 50 mg oral tablet venlafaxine 75 mg oral capsule, extended release 1 cap(s) orally 2 times a day 21-Feb-2022 13:37 venlafaxine 75 mg oral capsule, extended release 1 cap(s) orally 2 times a day 21-Feb-2022 13:37 venlafaxine 75 mg oral capsule, extended release is continued as venlafaxine 75 mg oral capsule, extended release Vitamin D2 50 mcg (2000 intl units) oral capsule 1 cap(s) orally once a day 21-Feb-2022 13:39 Vitamin D2 50 mcg (2000 intl units) oral capsule 1 cap(s) orally once a day 21-Feb-2022 13:39 Vitamin D2 50 mcg (2000 intl units) oral capsule is continued as Vitamin D2 50 mcg (2000 intl units) oral capsule Current OrdersDateHOME MEDICATIONS AT DISCHARGE DateReconciliation Comment/ Additional Information Albuterol 2.5 mg/ 3 mL Nebulizer Soln (PROVENTIL)DOSE = 3 mL Inhalation Once via Nebulizer, PRN Wheezing (PACU)Clinician Notes: Anali-operative order ONLY 05-Mar-2022 10:39 Albuterol 2.5 mg/ 3 mL Nebulizer Soln is not required hydrALAZINE (APRESOLINE) Injectable DOSE = 5 mg IntraVenous Push Every 30 Minutes, PRN for SPB>180 and HR<60.Clinician Notes: Anali-operative order ONLY 05-Mar-2022 10:39 hydrALAZINE (APRESOLINE) Injectable is not required HYDROcodone 5 mg - Acetaminophen 325 mg TabletDOSE = 1 tablet(s) Oral Every 4 Hours, PRN Pain - Mod (4-6) (PACU) when able to take OralClinician Notes: Anali-operative order ONLY 05-Mar-2022 10:39 hydrocodone-acetaminophen 5 mg-325 mg oral tablet 1 tab(s) orally every 6 hours, As Needed -Pain - 05-Mar-2022 10:49 Prescription is created for hydrocodone-acetaminophen 5 mg-325 mg oral tablet HYDROmorphone Injectable (DILAUDID)DOSE = 0.25 mg IntraVenous Push Every 5 Minutes, PRN Pain - Mod (4-6) (PACU)Clinician Notes: Anali-operative order ONLYMax total of 4 mg regardless of dose. 05-Mar-2022 10:39 HYDROmorphone Injectable is not required HYDROmorphone Injectable (DILAUDID)DOSE = 0.5 mg IntraVenous Push Every 5 Minutes, PRN Pain - Severe (7-10) (PACU)Clinician Notes: Anali-operative order ONLYMax total of 4 mg regardless of dose. 05-Mar-2022 10:39 HYDROmorphone Injectable is not required Labetalol Injectable (TRANDATE)DOSE = 5 mg IntraVenous Push Once, PRN For SBP>180, DBP>100, HR>60Clinician Notes: Anali-operative order ONLY 05-Mar-2022 10:39 Labetalol Injectable is not required Lactated Ringers Infusion IV Bag Volume = 1,000 mL Run at: 100 mL/hr IntraVenous Clinician Notes: Anali-operative order ONLY 05-Mar-2022 10:39 Lactated Ringers Infusion is not required Midazolam Injectable (VERSED)DOSE = 1 mg IntraVenous Push Once, PRN AnxietyClinician Notes: Anali-operative order ONLY 05-Mar-2022 10:39 Midazolam Injectable is not required Ondansetron Injectable (ZOFRAN)DOSE = 4 mg IntraVenous Push Once, PRN PONV, first lineClinician Notes: Anali-operative order ONLY 05-Mar-2022 10:39 Ondansetron Injectable is not required Promethazine IV Piggy Back in Sodium Chloride 0.9% 50 mL (PHENERGAN)DOSE = 6.25 mg Once, PRN persistent PONV if first line ineffectiveRecommended Infusion Time: 15 minute(s)Clinician Notes: Anali-operative order ONLY 05-Mar-2022 10:39 Promethazine IV Piggy Back is not required Racemic EPINEPHrine 2.25% Nebulizer Solution DOSE = 0.5 mL Inhalation Every 4 Hours via Nebulizer, PRN Stridor (PACU)Clinician Notes: Anali-operative order ONLY 05-Mar-2022 10:39 Racemic EPINEPHrine 2.25% Nebulizer Solution is not required Home Medications Added During Discharge Reconc (more content not included)... Normal [facility] Patient Profile - Preop v3on 03-05-2022 Patient Profile - Preop v3 Patient Profile - Preop: Initial Info: Patient DemographicsName: CHELA ROJAS Date: 1945 Address: [address] [place] [address], [id number] Primary Phone [phone] Instructions Givenappropriate clothing, bring glasses/contacts case, bring list of medications, bring responsible adult as the bottom hoop driver (procedure may be cancelled if no bottom hoop driver), center location, insurance information, remove jewerly/piercings Prep Instructions Reviewedn/a How to be AddressedSHARON Spoken Language PreferredEnglish Source of Informationpatient; family Stated Reason for AdmissionBREAST CANCER.rt partial mastectomy Primary Contact Name and Numberjames [phone] Limitations on Visitors/Phone Callsnone Medications Brought to Hospitalno General Health: Weight in kg72.8 kilogram(s) Weight in ivy924.4 pound(s) Weight Methodactual (measured) Scale Typechair Height in feet5 feet Height in inches6.97 inch(es) Height in cm170.1 centimeter(s) Height Methodstated BMI (kg/m2)25.16 square meter Patient or Family Member Reaction to Anesthesiano previous reaction Blood Avoidance/Restrictionsnon e Previous Transfusion Reactionnot applicable Health Mgmt: [facility] Barriers to Managing Healthnone Relationship/Environ: Lives Withspouse; adult child(wally) Living Arrangementshouse Resource/Environmental Concernsnone [place] Anticipated at Transitionnone Tobacco Use: Tobacco Useno Pre-op Checklist: Arrival [id number] Procedure Typert partial mastectomy NPOyes Last Food [id number] 18:30 Last Clear Fluid [id number] 05:15 ID Band On Patientpatient ID (name), allergy Consent Signedyes H&P Completeyes Anesthesia Assessment Completedyes EKG Performednot ordered Chest X-Ray Performednot ordered Type and Screen Resultedn/a HCG Urine TestN/A Chlorhexadine Bath Givencompleted morning of surgery Nasal Antiseptic Appliednot applicable Soap and Water Bath the Night Before Surgeryyes Hair Washed with Shampooyes Surgical Site Infection Preventionyes Pain Scales and Managementyes Additional Information: Information Review: Allergies, Home Meds and Significant Events have been Reviewed and Verified with Patient/Familyyes Allergy, Intolerance, Adverse Event: Allergies: Lexapro: Drug, Unknown, Active Electronic Signatures: Helga England) (Signed 05-Mar-2022 08:51) Authored: Initial Info, General Health, Health Mgmt, Relationship/Environ, Tobacco Use, Pre-op Checklist, Additional Information Last Updated: 05-Mar-2022 08:51 by Helga England (RN) [facility] RAD BREAST EXAM SPECIMENon 1 05-05-2021 RAD BREAST EXAM SPECIMEN Patient Name: CHELA ROJAS STUDY: RAD BREAST EXAM SPECIMEN; 03/05/2022 10:24 am ACCESSION NUMBER(S): [id number] ORDERING CLINICIAN: SHERYL INGRAM INDICATION: Right breast mass localization. FINDINGS: The specimen radiograph demonstrates the mass of concern and associated biopsy marker in the tissues. IMPRESSION: Status post surgical excision of Right breast mass localization. I personally reviewed the images/study and I agree with the findings as stated by executive vice president of sales Wu Bejarano MD. Electronically signed by: ZACHERY BURGOS MD [facility] Surgical Pathology Depar tmenton 03-05-2022 [facility] Surgical Pathology Department Name CHELA ROJAS Pathologist: ALEXIS RUCKER MD Date of Procedure: 03/05/2022 Date Received: 03/05/2022 Date Reported 03/20/2022 Submitting Physician: SHERYL INGRAM DO Location: [facility] Copy To/Referring/Attending: SHERYL INGRAM, Other External # FINAL DIAGNOSIS A. RIGHT PARTIAL MASTECTOMY, SHORT STITCH-SUPERIOR, LONG STITCH-LATERAL: -- INVASIVE DUCTAL CARCINOMA, SEE SYNOPTIC REPORT. B. ADDITIONAL RIGHT BREAST TISSUE, SUPERIOR MARGIN; INK GONZALEZ NEW MARGIN: -- NEGATIVE FOR CARCINOMA. C. ADDITIONAL RIGHT BREAST TISSUE, INFERIOR MARGIN; INK GONZALEZ NEW MARGIN: -- NEGATIVE FOR CARCINOMA. D. ADDITIONAL RIGHT BREAST TISSUE, MEDIAL MARGIN; INK GONZALEZ NEW MARGIN: -- NEGATIVE FOR CARCINOMA. E. ADDITIONAL RIGHT BREAST TISSUE, LATERAL MARGIN; INK GONZALEZ NEW MARGIN: -- NEGATIVE FOR CARCINOMA. CASE SUMMARY REPORT Invasive Breast Cancer Staging According to [place] Joint Committee on Cancer Staging Manual 8th Edition Macroscopic: Specimen: Partial Breast Procedure: Excision with wire-guided or Magseed localization Lymph Node Sampling: No lymph nodes present Specimen Integrity: Multiple designated specimens Specimen Laterality: Right Specimen Size: Greatest dimension 4.2 cm, Additional dimensions 4.0 x 2.9 cm Tumor Site: Not specified Tumor Size: Greatest dimension 1.6 cm Macroscopic and Microscopic Extent of Tumor: Tumor focality: Single focus of invasive carcinoma Skin: Invasive carcinoma does not invade into dermis or epidermis Nipple: Nipple is not present Skeletal muscle: Skeletal muscle present and free of carcinoma Histologic Type: Invasive ductal carcinoma Histologic grade: [place] Histologic Score: Tubule Formation: Minimal less than 10 % (score = 3) Nuclear pleomorphism: Moderate increase in size (score = 2) Mitotic count: 0 to 5 mitoses per 10 HPF (score = 1) Total [place] Score: Grade II: 6 - 7 points Lymphatic Vessel invasion: Absent Ductal Carcinoma In Situ: Present Nuclear Grade: Intermediate Architectural patterns: Cribriform Necrosis: Present, focal Extensive Intraductal Component (EIC): Absent Lobular Carcinoma in Situ: Absent Microcalcifications: Present in DCIS Margins: Invasive Carcinoma: Negative Specify: All margins 2 mm or greater Ductal Carcinoma In situ: Negative Specify: All margins 2 mm or greater Extent of Invasion: TNM descriptors: None Primary Tumor (pT): pT1c: Tumor more than 1.0 cm but not more than 2.0 cm in greatest dimension Lymph nodes: Number Examined: 0 Regional Lymph Nodes (pN): pN: Not removed for pathologic study Distant metastasis (pM): pM: Unknown Estrogen Receptor: See prior report: [id number], positive >95% Progesterone Receptor: See prior report: [id number], positive >95% HER2: See prior report: [id number], negative Biopsy site change: Yes [facility] Breast: Invasive Additional Testing: Tumor Block: A4 [id number] Electronically Signed Out By ALEXIS RUCKER MD/DEMI By the signature on this report, the individual or group listed as making the Final Interpretation/Diagnosis certifies that they have reviewed this case. Diagnostic interpretation performed at [facility] [id number] [facility] System [facility] [address] Clinical History: Right partial mastectomy, C50.311 A) Ischemic Time: 10:10, Formalin Time: 11:00 B) Ischemic Time: 10:15, Formalin Time: 10:27 C) Ischemic Time: 10:16, Formalin Time: 10:27 D) Ischemic Time: 10:17, Formalin Time: 10:28 E) Ischemic Time: 10:16, Formalin Time: 10:28 Specimens Submitted As: A: RIGHT PARTIAL MASTECTOMY, SHORT STITCH-SUPERIOR, LONG STITCH-LATERAL B: ADDITIONAL RIGHT BREAST TISSUE, SUPERIOR MARGIN; INK GONZALEZ NEW MARGIN C: ADDITIONAL RIGHT BREAST TISSUE, INFERIOR MARGIN; INK GONZALEZ NEW MARGIN D: ADDITIONAL RIGHT BREAST TISSUE, MEDIAL MARGIN; INK GONZALEZ NEW MARGIN E: ADDITIONAL RIGHT BREAST TISSUE, LATERAL MARGIN; INK GONZALEZ NEW MARGIN Gross Description: A: Received in formalin, labeled with the patient?s name and hospital number is an irregular segment of yellow lobulated fibrofatty tissue, 4.2 (medial-lateral) x 4.0 (superior-inferior) x 2.9 (anterior-posterior) cm. A 4.0 x 0.9 cm skin ellipse is present.The specimen is oriented with a short superior and a long lateral stitch. A localizing needle is not identified. The specimen is inked in the following manner: anterior green, posterior black, superior red, inferior blue, medial yellow, and lateral orange. The specimen is serially sectioned from medial to lateral. The cut surface reveals a well-defined yellow-jay firm mass, 1.6 x 1.3 x 1.1 cm. The lesion is 0.2 cm from the anterior margin and nearest skin 0.4 cm from the posterior margin, 0.9 cm from the superior margin, 1.0 cm from the inferior margin, 1.8 cm from the lateral margin, and 1.1 cm from the medial margin. The mass is located in slices 4-8. A gel capsule (more content not included)... Normal [facility] Comment on above: Performed By: #### U HCS #### [facility] Surgical Pathology Department [id number] [facility] [address] BASIC METABOLIC PANELon 11-0 Anion gap [Moles/Vol] 7 mmol/L Low 10 - 20 [facility] Comment on above: Performed By: #### B MP #### [facility] [id number] [place] [id number] Calcium [Mass/Vol] 9.9 mg/dL Normal 8.6 - 10.3 [facility] Comment on above: Performed By: #### B MP #### [facility] [address] [place] [address] Chloride [Moles/Vol] 103 mmol/L Normal 98 - 107 [facility] Comment on above: Performed By: #### B MP #### [address] [address] Creatinine [Mass/Vol] 0.71 mg/dL Normal 0.50 - 1.05 [facility] Comment on above: Performed By: #### B MP #### [address] [address] GFR/1.73 sq M.predicted among non-blacks MDRD (S/P/Bld) [Vol rate/Area] 88 mL/min/{1.73_m2} Normal >90 [facility] Comment on above: Result Comment: CALC ULATIONS OF ESTIMATED GFR ARE PERFORMED USING THE 2020 CKD-EPI STUDY REFIT EQUATION WITHOUT THE RACE VARIABLE FOR THE IDMS-TRACEABLE CREATININE METHODS. https://jasn.asnjournals.org/content/early/ASN.1288693 988 Performed By: #### B MP #### [address] [address] Glucose [Mass/Vol] 76 mg/dL Normal 74 - 99 [facility] Comment on above: Performed By: #### B MP #### [address] [address] HCO3 (Bld) [Moles/Vol] 34 mmol/L High 21 - 32 [facility] Comment on above: Performed By: #### B MP #### [address] [address] Potassium [Moles/Vol] 4.4 mmol/L Normal 3.5 - 5.3 [facility] Comment on above: Performed By: #### B MP #### [address] [address] Sodium [Moles/Vol] 140 mmol/L Normal 136 - 145 [facility] Comment on above: Performed By: #### B MP #### [address] [address] Urea nitrogen [Mass/Vol] 15 mg/dL Normal 6 - 23 [facility] Comment on above: Performed By: #### B MP #### [address] [address] CBCon 02-21-2022 Erythrocyte distribution width (RBC) [Ratio] 13.2 % Normal 11.5 - 14.5 [facility] Comment on above: Performed By: #### C BC #### [address] [address] Hematocrit (Bld) [Volume fraction] 48.2 % High 36.0 - 46.0 [facility] Comment on above: Performed By: #### C BC #### [address] [address] Hemoglobin (Bld) [Mass/Vol] 14.9 g/dL Normal 12.0 - 16.0 [facility] Comment on above: Performed By: #### C BC #### [address] [address] MCHC (RBC) [Mass/Vol] 30.9 g/dL Low 32.0 - 36.0 [facility] Comment on above: Performed By: #### C BC #### [address] [address] MCV (RBC) [Entitic vol] 93 fL Normal 80 - 100 [facility] Comment on above: Performed By: #### C BC #### [address] [address] NUCLEATED RBC 0.0 /100 WBC Normal 0.0 - 0.0 [facility] Comment on above: Performed By: #### C BC #### [address] [address] Platelets (Bld) [#/Vol] 229 10*3/uL Normal 150 - 450 [facility] Comment on above: Performed By: #### C BC #### [address] [address] RBC 5.19 x10E12/L Normal 4.00 - 5.20 [facility] Comment on above: Performed By: #### C BC #### [facility] [address] [facility] [place] [address] WBC (Bld) [#/Vol] 7.2 10*3/uL Normal 4.4 - 11.3 [facility] Comment on above: Performed By: #### C BC #### [facility] [address] [facility] [place] [address] Electrocardiogram 12 Leadon 02-21-2022 Electrocardiogram 12 Lead Ventricular Rate 65 Atrial Rate 65 P-R Interval 140 QRS Duration 82 Q-T Interval 402 QTC Calculation(Bazett) 418 P [place] -10 R [place] -20 T [place] -4 QRS Count 10 Q Onset 216 P Onset 146 P Offset 182 T Offset 417 QTC Fredericia 412 Diagnosis Class Borderline Normal Diagnosis Normal sinus rhythm Leftward axis Otherwise normal ECG No previous ECGs available Confirmed by Akbar Monique ([id number]) on 02/26/2022 8:37:29 PM Normal [facility] Laboratory - Chemistry and C hemistry - challengeon 02-21-2022 Anion gap [Moles/Vol] 7 mmol/L below low threshold 10 - 20 [facility] Work Phone: Calcium [Mass/Vol] 9.9 mg/dL 8.6 - 10.3 [facility] Work Phone: Chloride [Moles/Vol] 103 mmol/L 98 - 107 [facility] Work Phone: CO2 [Moles/Vol] 34 mmol/L above high threshold 21 - 32 [facility] Work Phone: Creatinine [Mass/Vol] 0.71 mg/dL See Below [facility] Work Phone: Comment on above: Reference Range: 0.5 0 - 1.05 Glucose [Mass/Vol] 76 mg/dL 74 - 99 [facility] Work Phone: Potassium [Moles/Vol] 4.4 mmol/L 3.5 - 5.3 [facility] Work Phone: [phone] Sodium [Moles/Vol] 140 mmol/L 136 - 145 [facility] Work Phone: Urea nitrogen [Mass/Vol] 15 mg/dL 6 - 23 [facility] Work Phone: Laboratory - Hematology and Cell countson 02-21-2022 Erythrocyte distribution width (RBC) [Ratio] 13.2 % See Below [facility] Work Phone: Comment on above: Reference Range: 11. 5 - 14.5 Hematocrit (Bld) [Volume fraction] 48.2 % above high threshold See Below [facility] Work Phone: Comment on above: Reference Range: 36. 0 - 46.0 Hemoglobin (Bld) [Mass/Vol] 14.9 g/dL See Below [facility] Work Phone: Comment on above: Reference Range: 12. 0 - 16.0 MCHC (RBC) [Mass/Vol] 30.9 g/dL below low threshold See Below [facility] Work Phone: Comment on above: Reference Range: 32. 0 - 36.0 MCV (RBC) [Entitic vol] 93 fL 80 - 100 [facility] Work Phone: Platelets (Bld) [#/Vol] 229 10*3/uL 150 - 450 [facility] Work Phone: RBC (Bld) [#/Vol] 5.19 {x10E12/L} See Below [facility] Work Phone: Comment on above: Reference Range: 4.0 0 - 5.20 WBC (Bld) [#/Vol] 7.2 10*3/uL 4.4 - 11.3 [facility] Work Phone: No Panel Informationon 02-21 88 {mL/min/1.73m2} >90 [facility] Work Phone: Comment on above: CALCULATIONS OF RESHMA MATED GFR ARE PERFORMED USING THE 2020 CKD-EPI STUDY REFIT EQUATION WITHOUT THE RACE VARIABLE FOR THE IDMS-TRACEABLE CREATININE METHODS.https://jasn.asnjournals.org/content//ASN .8363735419 0.0 {/100_WBC} 0.0 - 0.0 [facility] Work Phone: [email or web address]?RetrieveTestByDateTime ?QmyisrfKH=[id number]&Date =07-29-2021&Time=13%3a42% 3a45%3a00&TestType=ECG&Si te=12&OutputType=PDF&Ext= PDF [facility] Work Phone: Normal sinus rhythm [facility] Work Phone: Borderline Normal [facility] Work Phone: [phone] [facility] Work Phone: [phone] [facility] Work Phone: [phone] [facility] Work Phone: [phone] [facility] Work Phone: [phone] [facility] Work Phone: 10 1 [facility] Work Phone: -[phone] 1 [facility] Work Phone: -20 1 [facility] Work Phone: -10 1 [facility] Work Phone: [phone] [facility] Work Phone: [phone] [facility] Work Phone: [phone] Maria Luz [facility] Work Phone: [phone] Maria Luz [facility] [employer] Work Phone: [phone] [facility] Work Phone: Initial Visit (Breast Surger y)on 02-13-2022 Initial Visit (Breast Surgery) No report was sent [facility] Initial Visit (Breast Surgery) Diagnoses/Problems Assessed Malignant neoplasm of lower-inner quadrant of right breast of female, estrogen receptor positive (174.3,V86.0) (C50.311,Z17.0) Patient Discussion/Summary Discussed the pathology and treatment options with the patient and family. First, we discussed surgical options: breast conservation vs mastectomy. Breast conservation involves removal of the tumor with a rim of normal breast tissue called a margin. BCT is often done in conjunction with radiation to decrease risk of recurrence. Mastectomy involves removal of all breast tissue. When mastectomy is recommended, referral to a plastic surgeon for reconstruction is recommended. Given the small size of her cancer, she would be an excellent candidate for breast conservation. We then discussed the role of axillary staging. We discussed sentinel lymph node biopsy, indications for axillary node dissection and risks and benefits of each procedure. We discussed Choosing Wisely guideline which recommend omission of routine axillary staging for small, HR+ breast cancers in women >70. Chela agrees to omit axillary staging. Next, we discussed adjuvant therapies to surgery. Radiation is usually recommended when BCT is performed. Women 70 or greater with early stage hormone receptor positive cancer may be able to omit radiation. Radiation is recommended after mastectomy for tumors larger than 5cm, positive lymph nodes, or positive margins. The need for chemotherapy will be based on surgical pathology and will be decided by the medical oncologist. The medical oncologist is also responsible for prescribing endocrine therapy for hormone receptor positive tumors. She has a low risk Mammaprint and therefore chemotherapy will not be needed. Chela is scheduled for right partial mastectomy on 03/05/2022. Risks, benefits, alternatives and perioperative expectations were discussed prior to agreeing to proceed with surgery. Provider Impressions 1. right breast IDC g1-2 ER 95% FL 95% HER2- at 5:00 7cmFN measuring 1.5cm -[id number] stage Ia Chief Complaint newly diagnosed right breast cancer History of Present IllnessCHELA ROJAS is a 76 year female who presents today at the request of Altagracia Arellaon for newly diagnosed right breast cancer. Family history of breast cancer, personal history of biopsy with atypia being followed with enhanced screening. Mammogram in November. MRI breast 01/24/2022 with a suspicious right breast mass inferior medial measuring 1.5cm. no axillary adenopathy. 2nd look U/S and biopsy recommended. right U/S biopsy 5:00 7cmFN IDC g1-2 ER 95% FL 95% HER2-. Of note, biopsy clip and mass not visualized on post biopsy mammogram due to location of mass along IMF. She denies any additional breast masses, skin thickening, erythema, nipple retraction or nipple discharge. Prior breast history includes: - breast biopsy: prior right breast excisional biopsy with atypia - breast surgery: right breast exicisonal biopsy - breast cancer: no Last mammogram: November 2021 benign Menarche: 11 AFLB: 27 Menopause: 51 HRT: no Family history: mother with breast cancer at 75. sister with breast cancer at 79. No genetics. Review of Systems Constitutional symptoms: Denies generalized fatigue. Denies weight change, fevers/chills, difficulty sleeping Eyes: Denies double vision, glaucoma, cataracts. Ear/nose/throat/mouth: Denies hearing changes, sore throat, sinus problems. Cardiovascular: No chest pain. Denies irregular heartbeat. Denies ankle swelling. Respiratory: No wheezing, cough, or shortness of breath. Gastrointestinal: No abdominal pain, No nausea/vomiting. No indigestion/heartburn. No change in bowel habits. No constipation or diarrhea. Genitourinary: No urinary incontinence. No urinary frequency. No painful urination. Musculoskeletal: No bone pain, no muscle pain, no joint pain. Integumentary: No rash. No masses. No changes in moles. No easy bruising. Neurological: No headaches. No tremors. No numbness/tingling. Psychiatric: No anxiety. No depression. Endocrine: No excessive thirst. Not too hot or too cold. Not tired or fatigued. Hematological/lymphatic: No swollen glands or blood clotting problems. No bruising. 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 Normal [facility] CHEST 2 VIEW PA AND LATon CHEST 2 VIEW PA AND LAT Patient Name: CHELA ROJAS STUDY: CHEST 2 VIEW PA AND LAT; 02/12/2022 12:27 pm INDICATION: cough R05.9: Cough in adult patient. COMPARISON: 10/24/2019 ACCESSION NUMBER(S): [id number] ORDERING CLINICIAN: FINDINGS: There is no focal lung consolidation or effusion. There is no edema. The cardiac silhouette is within normal limits for size. IMPRESSION: No acute cardiopulmonary process. Electronically signed by: LISANDRO WATKINS MD [facility] Radiologyon 02-12-2022 XR Chest 2 Views Normal [facility] Work Phone: Follow Up (General Surgery)o n 02-11-2022 Follow Up (General Surgery) Diagnoses/Problems Breast cancer (174.9) (C50.919) Cough in adult patient (786.2) (R05.9) Orders Breast cancer Breast Surgery Referral Evaluation and Treatment Evaluate AND Treat Status: Hold For - Scheduling,Retrospective Authorization Requested for: 11Feb2022 Ordered;For: Breast cancer; Ordered By: Altagracia Arellano Performed: Due: 12May2022; Last Updated By: Grace Blackwell; 02/11/2022 1:55:03 PM Cough in adult patient Xray Chest 2 View PA + Lateral; Status:Hold For - Scheduling,Retrospective Authorization; Requested for:11Feb2022; Perform: Radiology Services Imaging; Due:12May2022; Last Updated By:Grace Blackwell; 02/11/2022 2:15:36 PM;Ordered; For:Cough in adult patient; Ordered By:Altagracia Arellano; Radiologist to Determine Optimal Study : Y What are the patient's signs and symptoms? : cough Provider Impressions I reassured her I do not think the cough is related to metastatic disease but we will do a chest x-ray with consideration for inhalers if needed. I did discuss with her the fact that I will be going off on medical within the next few weeks and I do not wish to embark upon treating her for cancer if I will not be here for her. She understands. We did discuss the alternatives of partial mastectomy, for which this would actually be nice with the inframammary incision with postoperative radiation as well as sentinel node biopsy at the time of surgery. I explained chemotherapy would be predicated by her lymph node status as well as the final pathology. We did discuss the fact she could opt for mastectomy with or without reconstruction and that there are different manners of doing this including tissue transfers or implants. The patient does not think she would really be interested in reconstructive surgery. She was not necessarily interested in traveling for the radiation but I think she would prefer that to her mastectomy. We did discuss with the family history and her LCIS that she would need to be watched very closely. We discussed the fact there is no survival benefit with mastectomy. We will refer her onto a breast surgeon within the system and try and meet her needs as far as traveling. She understands this would be most likely at [place] which would give her more reconstructive options or to see Dr. Sheryl Ingram up at [facility]. As stated above she is not really interested in reconstruction but we will wait wait to hear her determination and make appropriate referral. Chief Complaint Pt here for test results. MRI 01/24/2022 cat 4. Core needle bx 01/29/2022. Pt's mother and sister had breast cancer. History of Present IllnessPatient returns after having an MRI which showed an abnormality and undergoing second look ultrasound with core biopsy. She is here to discuss all the results. She is complaining of a concerning cough. Patient initially underwent breast biopsy of the right breast in 2016 for a core biopsy which showed ADH. Final pathology did show some LCIS. She saw Dr. Sandy Zaidi and was initially put on tamoxifen but had some endometrial changes and this was stopped. Since then she has been returning for her mammograms and breast self exams. Most recent mammogram was read as negative and she did not feel a mass. Given her history of LCIS as well as her family history with her mother and sister having breast cancer we decided to get a full MRI. This showed a lesion along her inframammary ridge in the right breast more medially. She underwent core biopsy which came back with invasive ductal carcinoma that was ER/FL positive HER2 negative. Review of Systems Constitutional: Denies fever, chills, sweats,weight changes Cardiovascular: Denies chest pain or palpitations Respiratory: Denies SOB or cough Gastrointestinal: Denies change in bowel habits, abdominal pain or blood in the stool Genitourinary: Denies dysuria or frequency Musculoskeletal: Denies weakness or swelling Integumentary: Active Problems Age-related osteoporosis without fracture (733.01) (M81.8) Anxiety state (300.00) (F41.1) At high risk for breast cancer (V49.89) (Z91.89) Breast cancer (174.9) (C50.919) Cardiac hypertrophy (429.3) (I51.7) Chronic hip pain after total replacement of right hip joint (719.45,338.29,V43.64) (M25.551,G89.29,Z96.641) Dense breast tissue (793.82) (R92.2) Encounter for screening mammogram for breast cancer (V76.12) (Z12.31) 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 Normal [employer] Tobacco Screening.on 022 Fall risk assessment a) No falls within the last year [facility] Work Phone: Tobacco use status [facility] b) No [facility] Work Phone: CLIP IMAGING DURING BREAST B IOPSYon 01-29-2022 CLIP IMAGING DURING BREAST BIOPSY Addendum Begins Patient Name: CHELA ROJAS ADDENDUM: Final pathology returned as: Invasive ductal carcinoma, grade 1 These results are concordant with mammographic and ultrasonographic findings. Appropriate action should be taken. Electronically signed by: YAW JI MD Addendum Ends Patient Name: CHELA ROJAS STUDY: ULTRASOUND GUIDED BREAST BIOPSY WITH CLIP; CLIP IMAGING DURING BREAST BIOPSY; 01/29/2022 11:51 am; 01/29/2022 12:15 pm INDICATION: R breast lump D05.01: Lobular carcinoma in situ (LCIS) of right breast; R BREAST LUMP. ACCESSION NUMBER(S): [id number]; [id number] ORDERING CLINICIAN: ALTAGRACIA ARELLANO FINDINGS: PREPROCEDURAL CONSULTATION: The procedure was explained to the patient including the risks, benefits, and alternatives. Medications were discussed, including any prior use of blood thinning medications by the patient. Patient allergies were reviewed. The risks, including but not limited to infection and bleeding, were reviewed by the performing physician and the patient agreed to undergo the procedure. Prior to the procedure, an audible timeout was done to verify patient identification, site and type of procedure. Dr. Ji, a radiology nurse and an medical technologist microbiology were present. PROCEDURE: Rescanning of the right breast redemonstrated the mass of concern in the 5 o'clock position, 7cm from the nipple. The right breast was marked under ultrasound guidance and cleansed. 8 mL of 1% lidocaine was injected subcutaneously and then into the deeper tissues surrounding the mass. A small incision was made. 5 tissue core specimens were then obtained with a 10 gauge vacuum assisted biopsy needle with minimal bleeding (estimated blood loss less than 10 mL). A Hydromark tissue marker was then placed into the biopsy site. Hemostasis was achieved with manual compression. The patient tolerated the procedure without difficulty. The postbiopsy mammogram failed to demonstrate either the mass or the clip, despite multiple attempts to included within the imaged. The patient experienced no complications during the procedure. Home-going/follow-up instructions were reviewed with the patient before she left the department. IMPRESSION: Status post ultrasound guided core needle biopsy of a right breast mass followed by tissue marker placement. Pathology is pending. POST PROCEDURE MAMMOGRAM FOR MARKER PLACEMENT. Electronically signed by: YAW JI MD [facility] No Panel Informationon 01-29 Please click on the link to view the study images [facility] Work Phone: [facility] Work Phone: [facility] Work Phone: [facility] Work Phone: [facility] Surgical Pathology Depar tmenton 01-29-2022 [facility] Surgical Pathology Department Name CHELA ROJAS Pathologist: CANDIDO RUIZ MD Date of Procedure: 01/29/2022 Date Received: 01/29/2022 Date Reported 02/04/2022 Submitting Physician: ALTAGRACIA ARELLANO MD Location: [facility] Other External # Procedures/Addenda Present FINAL DIAGNOSIS A. RIGHT BREAST MASS, ULTRASOUND GUIDED CORE NEEDLE BIOPSY: -- INVASIVE DUCTAL CARCINOMA, GRADE 1-2, SEE NOTE. Note: Immunostains for p63 and [facility] show absent myoepithelial cell layer supporting the diagnosis. In this limited sample, the invasive carcinoma measures up to 1.0 cm in greatest dimension. ER, FL and HER2 will be reported in an addendum. Interpretation performed at: [facility] [place] [facility] [address] [place], [place] [address] Electronically Signed Out By CANDIDO RUIZ MD/DANDRE By the signature on this report, the individual or group listed as making the Final Interpretation/Diagnosis certifies that they have reviewed this case. Diagnostic interpretation performed at [facility] [address] [facility]. [place] [id number] Addendum/Procedures: Special Oncology Report Date Ordered: 02/04/2022 Status: Signed Out Date Complete: 02/04/2022 Date Reported: 02/04/2022 Addendum Diagnosis Surgical/Block Number: [id number] Specimen Site: Right breast mass Specimen Type: Core Needle Biopsy Time of Specimen Removal: 11:13 Time Placed in 10% NBF : 11:14 Duration of Fixation : 6-72 hours INTERPRETATION: ESTROGEN RECEPTOR (CLONE SP1): POSITIVE Percentage with Nuclear Staining: >95% Intensity of Staining: Strong PROGESTERONE RECEPTOR (CLONE 1E2): POSITIVE Percentage with Nuclear Staining: >95% Intensity of Staining: Moderate to Strong HER2 (CLONE 4B5): NEGATIVE (1+) COMMENT: Due to absence of normal breast parenchyma, NO internal positive staining control was identified. External control tissue stains appropriately. This specimen has been sent for the [employer] MammaPrint assay. Results will be reported in a separate addendum. RANGES FOR INTERPRETATION: For ER/FL: Ranges for interpretation: Invasive carcinoma cells exhibiting greater than or equal to 10% nuclear staining are considered POSITIVE. Invasive carcinoma cells exhibiting less than 10%, but greater than or equal to 1% are considered LOW POSITIVE. Invasive carcinoma cells exhibiting less than 1% staining are considered NEGATIVE. (Reference: Arch Pathol Lab Med. doi:10.5858/arpa. [id number]) The stated steroid receptor activity was derived from rabbit monoclonal antibody staining on formalin fixed, paraffin embedded specimens, unless otherwise noted. The method employed was a standard peroxidase labeled polymer detection system. Each assay is performed using appropriate positive and negative internal controls. For HER2: Ranges for interpretation: POSITIVE (3+): greater than or equal to 10% tumor cells with intense and uniform staining; EQUIVOCAL (2+): weak to moderate complete immunoreactivity in >10% of tumor cells or circumferential intense staining in less than or equal to 10% of cells; and NEGATIVE (1+): Faint weak immunoreactivity in >10% of tumor cells, but only a portion of the membrane is positive; NEGATIVE (0): No immunoreactivity or immunoreactivity in less than or equal to 10% of tumor cells. All tests are performed using a [place] [employer] HER-2/gus (4B5) rabbit monoclonal primary antibody on formalin fixed, paraffin embedded tissue, unless otherwise noted. Only invasive carcinoma is evaluated using the ASCO/CAP scoring system (Arch Pathol Lab Med 2018; 142: 0313-4688) unless otherwise specified. External cell culture and tissue controls stain appropriately. Electronically Signed Out By CANDIDO RUIZ MD/DANDRE By the signature on this report, the individual or group listed as making the Final Interpretation/Diagnosis certifies that they have reviewed this case. Addendum signed out at [facility] [address] [employer]. [facility] [address]. Special Oncology Report With Image Date Ordered: 02/11/2022 Status: Signed Out Date Complete: 02/11/2022 Date Reported: 02/11/2022 Addendum Diagnosis A complete MammaPrint test result issued by [employer]([place], [place]) is on file in the Department of Anatomic Pathology at [facility] [place]. MAMMAPRINT SUMMARY OF RESULTS: LOW RISK MAMMAPRINT INDEX: +0.227 BLUEPRINT SUBTYPE: Luminal A-Type Addendum Comment Archival material from this surgical specimen has been reviewed by the pathologist in order to determine the most appropriate tumor tissue for further molecular testing. The identification and selection of this tumor tissue is critical to the success of subsequent molecular testing and analysis. Electronically Signed Out By CANDIDO ANDERSON (more content not included)... Normal [facility] Comment on above: Performed By: #### U [facility] #### [facility] Surgical Pathology Department [address] [facility] [address] ULTRASOUND GUIDED BREAST BIO PSY WITH CLIPon 01-29-2022 ULTRASOUND GUIDED BREAST BIOPSY WITH CLIP Addendum Begins Patient Name: CHELA ROJAS ADDENDUM: Final pathology returned as: Invasive ductal carcinoma, grade 1 These results are concordant with mammographic and ultrasonographic findings. Appropriate action should be taken. Electronically signed by: YAW JI MD Addendum Ends Patient Name: CHELA ROJAS STUDY: ULTRASOUND GUIDED BREAST BIOPSY WITH CLIP; CLIP IMAGING DURING BREAST BIOPSY; 01/29/2022 11:51 am; 01/29/2022 12:15 pm INDICATION: R breast lump D05.01: Lobular carcinoma in situ (LCIS) of right breast; R BREAST LUMP. ACCESSION NUMBER(S): [id number]; [id number] ORDERING CLINICIAN: ALTAGRACIA ARELLANO FINDINGS: PREPROCEDURAL CONSULTATION: The procedure was explained to the patient including the risks, benefits, and alternatives. Medications were discussed, including any prior use of blood thinning medications by the patient. Patient allergies were reviewed. The risks, including but not limited to infection and bleeding, were reviewed by the performing physician and the patient agreed to undergo the procedure. Prior to the procedure, an audible timeout was done to verify patient identification, site and type of procedure. Dr. Ji, a radiology nurse and an medical technologist microbiology were present. PROCEDURE: Rescanning of the right breast redemonstrated the mass of concern in the 5 o'clock position, 7cm from the nipple. The right breast was marked under ultrasound guidance and cleansed. 8 mL of 1% lidocaine was injected subcutaneously and then into the deeper tissues surrounding the mass. A small incision was made. 5 tissue core specimens were then obtained with a 10 gauge vacuum assisted biopsy needle with minimal bleeding (estimated blood loss less than 10 mL). A Hydromark tissue marker was then placed into the biopsy site. Hemostasis was achieved with manual compression. The patient tolerated the procedure without difficulty. The postbiopsy mammogram failed to demonstrate either the mass or the clip, despite multiple attempts to included within the imaged. The patient experienced no complications during the procedure. Home-going/follow-up instructions were reviewed with the patient before she left the department. IMPRESSION: Status post ultrasound guided core needle biopsy of a right breast mass followed by tissue marker placement. Pathology is pending. POST PROCEDURE MAMMOGRAM FOR MARKER PLACEMENT. Electronically signed by: YAW JI MD [facility] Ultrasound Limited [place] 01-29-2022 MG Breast Screening Please click on the link to view the study images Normal [facility] Work Phone: BR MRI BREAST BILATERAL WITH CONTRAST FULL PROTOCOLon 01-24-2022 BR MRI BREAST BILATERAL WITH CONTRAST FULL PROTOCOL Patient Name: CHELA ROJAS STUDY: MRI BREAST BILATERAL WITH CONTRAST FULL PROTOCOL; 01/24/2022 2:10 pm ACCESSION NUMBER(S): [id number] ORDERING CLINICIAN: ALTAGRACIA ARELLANO INDICATION: Right breast biopsy for ADH COMPARISON: Mammogram 11/21/2021. TECHNIQUE: Using a dedicated breast coil, STIR axial and T1-weighted fat saturation axial images of the breasts were obtained, the latter both before and after intravenous administration of Gadolinium DTPA. On an independent workstation, 3-D images were formulated using [employer] including time enhancement curves, subtraction images and MIP images. Intravenous contrast: 7 milliliter of GADAVIST FINDINGS: There is symmetric minimal bilateral background enhancement. There is scattered fibroglandular tissue. RIGHT BREAST: A rim enhancing mass is seen in the inferior medial aspect at posterior depth (slice 91/128). It measures 1.5 x 1.1 cm. The rim enhancement is also bright on the STIR images. Several signal voids are seen in the central superior aspect corresponding to surgical clips. No axillary or internal mammary lymphadenopathy is appreciated. LEFT BREAST: No suspicious mass or nonmass enhancement is identified. No axillary or internal mammary lymphadenopathy is appreciated. NON-BREAST FINDINGS: None. IMPRESSION: Rim enhancing right breast mass. Recommendations are a second-look ultrasound and possible biopsy. A pre-procedure form has been completed. No MRI evidence of malignancy in the left breast. BI-RADS CATEGORY: Category: 4 - Suspicious. Recommendation: Biopsy Recommended. Electronically signed by: SHMUEL EUCEDA MD [facility] MRI Breast Bilateral with co ntrast full protocolon 01-24-2022 MRI Breast Bilateral with contrast full protocol Normal [facility] Work Phone: Follow Up (General Surgery)o n 11-29-2021 Follow Up (General Surgery) Diagnoses/Problems At high risk for breast cancer (V49.89) (Z91.89) Encounter for screening mammogram for breast cancer (V76.12) (Z12.31) Orders At high risk for breast cancer Follow-up visit in 1 year Outpatient Follow-up Status: Hold For - Scheduling Requested for: [id number] Ordered Stat;For: At high risk for breast cancer; Ordered By: Altagracia Arellano Performed: Due: 18Mar2022 Encounter for screening mammogram for breast cancer Mamm - Screening Mammogram w/ Tomosynthesis; Status:Active; Requested for:[id number]; Perform: Radiology Services Imaging;Ordered; For:Encounter for screening mammogram for breast cancer; Ordered By:Altagracia Arellano; Radiologist to Determine Optimal Study : Y What are the patient's signs and symptoms ? : Annual Screening Mammogram Provider Impressions We discussed the importance of continued breast self-exam. She will call if there is a change, otherwise we will see her back in 1 years time after mammogram. Her Tyver of course is very high. But with a high risk lesion I think it would be prudent to do a breast MRI and she agrees. She will simply call for the results but understands if something abnormal is found further work-up could be required. Chief Complaint Breast exam,mammo 11/21/2021 cat 2. Denies nipple discharge, breast pain or lumps, Performs SBE at home. Pt's mother and sister had breast cancer. Pt has hx of LCIS in 2015. Pt last saw Dr. Zaidi 03/28/2019. History of Present IllnessPatient returns for breast exam and mammogram follow-up. She denies any change in her breast self-exam. She has a personal history of LCIS and her mother and sister both had breast cancer. Review of Systems Constitutional: Denies fever, chills, sweats,weight changes Cardiovascular: Denies chest pain or palpitations Respiratory: Denies SOB or cough Gastrointestinal: Denies change in bowel habits, abdominal pain or blood in the stool Genitourinary: Denies dysuria or frequency Musculoskeletal: Denies weakness or swelling Integumentary: *Active Problems Age-related osteoporosis without fracture (733.01) (M81.8) Anxiety state (300.00) (F41.1) Cardiac hypertrophy (429.3) (I51.7) Chronic hip pain after total replacement of right hip joint (719.45,338.29,V43.64) (M25.551,G89.29,Z96.641) Encounter for screening mammogram for breast cancer (V76.12) (Z12.31) 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) Essential tremor (333.1) (G25.0) Irritable bowel syndrome (564.1) (K58.9) Left shoulder pain (719.41) (M25.512) Lumbar spondylosis (721.3) (M47.816) Medicare annual wellness visit, subsequent (V70.0) (Z00.00) Medication management (V58.69) (Z79.899) Overactive bladder (596.51) (N32.81) Overweight with body mass index (BMI) of 27 to 27.9 in adult (278.02,V85.23) (E66.3,Z68.27) Peripheral neuropathy (356.9) (G62.9) 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 myelopathy (721.0) (M47.812) Stenosis of cervix (622.4) (N88.2) Swallowing disorder (787.20) (R13.10) Tendinitis of left rotator cuff (726.10) (M75.82) Thyroid nodule (241.0) (E04.1) Breast cancer (174.9) (C50.919) Past Medical History History of Abnormal radionuclide bone scan (794.9) (R94.8) Resolved Date: 10 May 2019 History of Body mass index (BMI) of 27.0 to 27.9 in adult (V85.23) (Z68.27) Resolved Date: 12 Nov 2020 History of Chest pain, central (786.50) (R07.9) Resolved Date: 12 Nov 2020 History of Delivery by section (669.70) 06/1973; 40 WEEKS; MALE; 8LBS 11/1975; 39 WEEKS; MALE; 8LBS 07/1978; 39 WEEKS; 8LBS History of Diverticulitis large intestine (562.11) (K57.32) Resolved Date: 21 May 2021 History of Encounter for follow-up examination after completed treatment for conditions other than malignant neoplasm (V67.9) (Z09) Resolved Date: 21 May 2021 History of Heel spur (726.73) (M77.30) Resolved Date: 21 May 2021 History of bone density study (V15.89) (Z92.89) 11/11/2017 History of chronic constipation (V12.79) (Z87.19) Resolved Date: 21 May 2021 History of IBS (V12.79) (Z87.19) 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.2) History of menopause (V49.81) (Z78.0) 1997 History of screening mammography (V15.89) (Z92.89) Resolved Date: 13 Oct 2019 11/17/2019 11/15/2018 History of urinary incontinence (V13.09) (Z87.898) Resolved Date: 21 May 2021 History of Medicare annual wellness visit, initial (V70.0) (Z00.00) Resolved Date: 21 May 2021 History of Menarche (V21.8) AGE 12 History of Other chronic pain (338.29) (G89.29) Resolved Date: 21 May 2021 History of Pap test, as part of routine gynecological examination (V76.2) (Z01.419) 11/02/2017; WNL History of Plantar fasciitis (728.71) (M72.2) Resolved Date: 21 Nov 2021 Stenosis of cervix (622.4) (N88.2) History of DAWSON (stress urinary incontinence, female) (625.6) (N39.3) Resolved Date: 21 May 2021 History of Urge incontinence of urine (788.31) (N39.41) Resolved Date: 21 May 2021 Surgical History (more content not included)... Normal [facility] Tobacco Screening.on 022 Fall risk assessment a) No falls within the last year [facility] Work Phone: Tobacco use status CP b) No [facility] Work Phone: Mamm - Screening Mammogram w / Tomosynthesison 11-21-2021 MG Breast Screening Normal [facility] Work Phone: Office Visit (Family Lana jones)on 11-21-2021 Follow-up visit Diagnoses/Problems Overweight with body mass index (BMI) of 27 to 27.9 in adult (278.02,V85.23) (E66.3,Z68.27) Breast cancer (174.9) (C50.919) Anxiety state (300.00) (F41.1) Age-related osteoporosis without fracture (733.01) (M81.8) Cardiac hypertrophy (429.3) (I51.7) History of Plantar fasciitis (728.71) (M72.2) Essential tremor (333.1) (G25.0) Peripheral neuropathy (356.9) (G62.9) Chronic hip pain after total replacement of right hip joint (719.45,338.29,V43.64) (M25.551,G89.29,Z96.641) Swallowing disorder (787.20) (R13.10) Overactive bladder (596.51) (N32.81) Irritable bowel syndrome (564.1) (K58.9) 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 myelopathy (721.0) (M47.812) Thyroid nodule (241.0) (E04.1) Medication management (V58.69) (Z79.899) Orders Anxiety state Renew: traZODone HCl - 50 MG Oral Tablet; TAKE 1 TABLET Bedtime Medication management Follow-up visit in 6 months Outpatient Follow-up Status: Hold For - Scheduling Requested for: [id number] Chief Complaint 6 mth ov, wants to discuss tapering off venlafaxine History of Present Illness Age-related osteoporosis - she is on vitamin D in winter with calcium , BD in November, was a bit worse and FRAX was 18 and 6%. Declined Boniva Anxiety state - some marital issues last year settled. Trazodone helps with rest, sadness and lack of motivation she had last year. Effexor at bid and wonders if she needs it. Will try qd. Feels like if she tries to control the tremor and will lock up, drop things. The two issues seem to feed each other. She has found that being physical helps if doing productive work. Breast cancer - has been JOSE RAMON since 2016. [place] actually to be precancer. Mammogram in 11/21/21 pending. No hormonal therapy at present. No lumps Cardiac hypertrophy - she is on metoprolol for this at 25 tid. Tried off of it in 2019. Some fluttering so went to tid. To ER on October 2019 with chest pain, sweating and nausea. Subsequent stress test normal. Since that spell no recurrence. Still has the fluttering on occasion Essential tremor - She was recommended to go back on primidone but had the bad dreams. Discussed Botox. Not really planning to do that. She would prefer to just live with it for now. No change with Toprol tid. OK to write and eat. Has voice tremor. See discussion above about locking up. Has to work to talk clearly. Heel spur and plantar fasciitis and cervical spondylosis. [...] Has been to Dr. Keys and wearing inserts. Irritable bowel syndrome - has been managed with diet and stress reduction. This may be the pain that she felt was diverticulitis Right hip pain - has had Bone scan suggesting possible loosening. But Dr Renner felt tendonitis. That is doing better but flares at times. CRPS/ Peripheral neuropathy/lumbar spondylosis - feels like it is related to her low back burning and pinching. Stretching helps. Feet burn all the time. Walking barefoot feels good Stenosis of cervix - needed pap in OR and fine. No bleeding so no further paps needed. Swallowing disorder - about the same. Takes small fiber and water. No better with expectorant. Sips water. A lot of thick mucus. Thyroid nodule - no temp intolerance, constipation, hair loss, fatigue TSH 5.54 with normal FT4 Bladder spasms - saw Dr Delonte Shukla. Considered a medication and just observing. Did not feel a cystocele. Occasional leakage Mammogram 11/21/21 DEXA 11/17/19 - see above. 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) Essential tremor (333.1) (G25.0) Irritable bowel syndrome (564.1) (K58.9) Left shoulder pain (719.41) (M25.512) Lumbar spondylosis (721.3) (M47.816) Medicare annual wellness visit, subsequent (V70.0) (Z00.00) Medication management (V58.69) (Z79.899) Overactive bladder (596.51) (N32.81) Peripheral neuropathy (356.9) (G62.9) 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 myelopathy (721.0) (M47.812) Stenosis of cervix (622.4) (N88.2) Swallowing disorder (787.20) (R13.10) Tendinitis of left rotator cuff (726.10) (M75.82) Thyroid nodule (241.0) (E04.1) Past Medical History History of Abnormal radionuclide bone scan (794.9) (R94.8) Resolved Date: 10 May 2019 Histo (more content not included)... Normal [facility] Tobacco Screening.on 022 Tobacco use status CPHS b) No [facility] Work Phone: BASIC METABOLIC PANELon 08-0 Anion gap [Moles/Vol] 9 mmol/L Low 10 - 20 [facility] Comment on above: Performed By: #### B MP #### [address] [address] Calcium [Mass/Vol] 9.6 mg/dL Normal 8.6 - 10.3 [facility] Comment on above: Performed By: #### B MP #### [address] [address] Chloride [Moles/Vol] 107 mmol/L Normal 98 - 107 [facility] Comment on above: Performed By: #### B MP #### [address] [address] Creatinine [Mass/Vol] 0.80 mg/dL Normal 0.50 - 1.05 [facility] Comment on above: Performed By: #### B MP #### [address] [address] GFR/1.73 sq M.predicted among non-blacks MDRD (S/P/Bld) [Vol rate/Area] 76 mL/min/{1.73_m2} Normal >90 [facility] Comment on above: Result Comment: CALC ULATIONS OF ESTIMATED GFR ARE PERFORMED USING THE 2020 CKD-EPI STUDY REFIT EQUATION WITHOUT THE RACE VARIABLE FOR THE IDMS-TRACEABLE CREATININE METHODS. https://jasn.asnjournals.org/content/early/ASN.3231625 988 Performed By: #### B MP #### [address] [address] Glucose [Mass/Vol] 104 mg/dL High 74 - 99 [facility] Comment on above: Performed By: #### B MP #### [address] [address] HCO3 (Bld) [Moles/Vol] 29 mmol/L Normal 21 - 32 [facility] Comment on above: Performed By: #### B MP #### [address] [address] Potassium [Moles/Vol] 4.6 mmol/L Normal 3.5 - 5.3 [facility] Comment on above: Result Comment: MILD HEMOLYSIS DETECTED. The result may be falsely elevated due to hemolysis or other interferents. Clinical correlation is recommended. Repeat testing may be considered. Performed By: #### B MP #### [address] [address] Sodium [Moles/Vol] 140 mmol/L Normal 136 - 145 [facility] Comment on above: Performed By: #### B MP #### [address] [address] Urea nitrogen [Mass/Vol] 13 mg/dL Normal 6 - 23 [facility] Comment on above: Performed By: #### B MP #### [address] [address] Laboratory - Chemistry and C hemistry - challengeon 11-18-2021 Anion gap [Moles/Vol] 9 mmol/L below low threshold 10 - 20 [facility] Work Phone: Calcium [Mass/Vol] 9.6 mg/dL 8.6 - 10.3 [facility] Work Phone: Chloride [Moles/Vol] 107 mmol/L 98 - 107 [facility] Work Phone: CO2 [Moles/Vol] 29 mmol/L 21 - 32 [facility] Work Phone: Creatinine [Mass/Vol] 0.80 mg/dL See Below [facility] Work Phone: Comment on above: Reference Range: 0.5 0 - 1.05 Glucose [Mass/Vol] 104 mg/dL above high threshold 74 - 99 [facility] Work Phone: Potassium [Moles/Vol] 4.6 mmol/L 3.5 - 5.3 [facility] Work Phone: Comment on above: MILD HEMOLYSIS DETEC HERNAN. The result may be falsely elevated due tohemolysis or other interferents. Clinical correlation is recommended.Repeat testing may be considered. Sodium [Moles/Vol] 140 mmol/L 136 - 145 [facility] Work Phone: TSH Qn 5.54 m[IU]/L above high threshold See Below [facility] Work Phone: Comment on above: Reference Range: 0.4 4 - 3.98 TSH testing is performed using different testing methodology at [facility] than at other [facility]. Direct result comparisons should only be made within the same method. Urea nitrogen [Mass/Vol] 13 mg/dL 6 - 23 [facility] Work Phone: No Panel Informationon 11-18 76 {mL/min/1.73m2} >90 [facility] Work Phone: Comment on above: CALCULATIONS OF RESHMA MATED GFR ARE PERFORMED USING THE 2020 CKD-EPI STUDY REFIT EQUATION WITHOUT THE RACE VARIABLE FOR THE IDMS-TRACEABLE CREATININE METHODS.https://jasn.asnjournals.org/content/early/ASN .0858938494 T4 - Free Thyroxine, Serumon 11-18-2021 Free T4 [Mass/Vol] 0.73 ng/dL See Below [facility] Work Phone: Comment on above: Reference Range: 0.6 1 - 1.12 Thyroxine Free testing is performed using different testing methodology at [facility] than at other [facility]. Direct result comparisons should only be made within the same method.. Biotin can cause falsely elevated free T4 results. Patients taking a Biotin dose of up to 10 mg/day should refrain from taking Biotin for 24 hours before sample collection. Patient taking a Biotin dose of >10 mg/day should consult with their physician or the laboratory before the blood draw. THYROXINE,FREEon 11-18-2021 THYROXINE,FREE 0.73 ng/dL Normal 0.61 - 1.12 [facility] [place] Comment on above: Result Comment: Thyr oxine Free testing is performed using different testing methodology at [facility] than at other [facility]. Direct result comparisons should only be made within the same method. . Biotin can cause falsely elevated free T4 results. Patients taking a Biotin dose of up to 10 mg/day should refrain from taking Biotin for 24 hours before sample collection. Patient taking a Biotin dose of >10 mg/day should consult with their physician or the laboratory before the blood draw. Performed By: #### T 4FRE #### [address] [address] TSH WITH REFLEX TO FREE T4 I F ABNORMALon 11-18-2021 TSH Qn 5.54 m[IU]/L High 0.44 - 3.98 [facility] Comment on above: Result Comment: TSH testing is performed using different testing methodology at [facility] (Former[facility]) than at other [facility]. Direct result comparisons should only be made within the same method. Performed By: #### T HYDS #### [address] [address] VITAMIN B12on 11-18-2021 Cobalamin (Vitamin B12) [Mass/Vol] 234 pg/mL Normal 211 - 911 [facility] Comment on above: Performed By: #### V TB12 #### [address] [address] Vitamin B12, Serumon 022 Cobalamin (Vitamin B12) [Mass/Vol] 234 pg/mL 211 - 911 [facility] Work Phone: Office Visiton 08-21-2021 Follow-up visit Chief Complaint medck History of Present IllnessAge-related osteoporosis - she is on vitamin D in winter with calcium , BD in November, was a bit worse and FRAX was 18 and 6%. Declined Boniva Anxiety state - some marital issues last year settled. Trazodone helps with rest, sadness and lack of motivation she had last year. Effexor at bid. but feels like she tries to control the tremor and will lock up, drop things. The two issues seem to feed each other. Has done some Yoga. Will work on progressive relaxation. Breast cancer - has been JOSE RAMON since 2016. [place] actually to be precancer. Mammogram in 11/19/20 was good. No hormonal therapy at present. No lumps Cardiac hypertrophy - she is on metoprolol for this at 25 tid. Tried off of it in 2019. Some fluttering so went to tid. To ER on October 2019 with chest pain, sweating and nausea. Subsequent stress test normal. Since that spell no recurrence. Still has the fluttering on occasion Essential tremor - She was recommended to go back on primidone but had the bad dreams. Discussed Botox. Not really planning to do that. She would prefer to just live with it for now. No change with Toprol tid. OK to write and eat. Has voice tremor. See discussion above about locking up. Has to work to talk clearly. Heel spur and plantar fasciitis and cervical spondylosis. [...] Has been to Dr. Keys and wearing inserts. Irritable bowel syndrome - has been managed with diet and stress reduction. This may be the pain that she felt was diverticulitis Right hip pain - has had Bone scan suggesting possible loosening. But Dr Renner felt tendonitis. That is doing better but flares at times. CRPS/ Peripheral neuropathy/lumbar spondylosis - feels like it is related to her low back burning and pinching. Stretching helps. Tingling in left arm for about 3 weeks and still better today. Feet burn all the time. Walking barefoot feels good Stenosis of cervix - needed pap in OR and fine. No bleeding so no further paps needed. Swallowing disorder - about the same. Takes small fiber and water. No better with expectorant. Sips water. A lot of thick mucus. Thyroid nodule - no temp intolerance, constipation, hair loss, fatigue TSH 4.26 last year Bladder spasms - saw Dr Delonte Shukla. Considered a medication and just observing. Did not feel a cystocele. Occasional leakage Mammogram 11/19/20 DEXA 11/17/19 - Colonoscopy 07/01/18 Active Problems Age-related osteoporosis without fracture (733.01) (M81.8) Anxiety state (300.00) (F41.1) Breast cancer (174.9) (C50.919) Cardiac hypertrophy (429.3) (I51.7) Chronic hip pain after total replacement of right hip joint (719.45,338.29,V43.64) (M25.551,G89.29,Z96.641) Chronic pain of left ankle (719.47,338.29) (M25.572,G89.29) Complex regional pain syndrome (355.9) Encounter for screening mammogram for breast cancer (V76.12) (Z12.31) 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) Essential tremor (333.1) (G25.0) Irritable bowel syndrome (564.1) (K58.9) Left shoulder pain (719.41) (M25.512) Lumbar spondylosis (721.3) (M47.816) Medicare annual wellness visit, subsequent (V70.0) (Z00.00) Medication management (V58.69) (Z79.899) Overactive bladder (596.51) (N32.81) Overweight with body mass index (BMI) of 26 to 26.9 in adult (278.02,V85.22) (E66.3,Z68.26) Peripheral neuropathy (356.9) (G62.9) Personal history of breast cancer (V10.3) (Z85.3) 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 myelopathy (721.0) (M47.812) Stenosis of cervix (622.4) (N88.2) Swallowing disorder (787.20) (R13.10) Tendinitis of left rotator cuff (726.10) (M75.82) Thyroid nodule (241.0) (E04.1) Past Medical History History of Abnormal radionuclide bone scan (794.9) (R94.8) Resolved Date: 10 May 2019 History of Body mass index (BMI) of 27.0 to 27.9 in adult (V85.23) (Z68.27) Resolved Date: 12 Nov 2020 History of Chest pain, central (786.50) (R07.9) Resolved Date: 12 Nov 2020 History of Delivery by section (669.70) 06/1973; 40 WEEKS; MALE; 8LBS 11/1975; 39 WEEKS; MALE; 8LBS 07/1978; 39 WEEKS; 8LBS History of Diverticulitis large intestine (562.11) (K57.32) Resolved Date: 21 May 2021 History of Encounter for follow-up examination after completed treatment for conditions other than malignant neoplasm (V67.9) (Z09) Resolved Date: 21 May 2021 History of Heel spur (726.73) (M77.30) Resolved Date: 21 May 2021 History of bone density study (V15.89) (Z92.89) 11/11/2017 History of chronic constipation (V12.79) (Z87.19) Resolved Date: 21 May 2021 History of IBS (V12.79) (Z87.19) History (more content not included)... Normal [facility] Tobacco Screening.on 022 Fall risk assessment a) No falls within the last year [facility] Work Phone: Tobacco use status CPHS b) No [facility] Work Phone: FOOT COMPLETE, MIN 3 VIEWSon 05-27-2021 FOOT COMPLETE, MIN 3 VIEWS Patient Name: CHELA ROJAS STUDY: FOOT; COMPLETE, MIN 3 VIEWS; 05/27/2021 12:11 pm INDICATION: foot pain. COMPARISON: None. ACCESSION NUMBER(S): [id number] ORDERING CLINICIAN: BERTA HEREDIA TECHNIQUE: 3 radiographs of the left foot are performed. FINDINGS: The osseous structures are diffusely and severely demineralized. There are mild osteoarthritic changes at the 1st MTP joint and multiple IP joints. There are no bone erosions. There is no sign of acute fracture or dislocation. There is no bone destruction or aggressive periosteal reaction. No lytic or blastic lesion is identified. There is a small plantar calcaneal spur. IMPRESSION: Severe osteopenia. Mild changes of osteoarthritis at the forefoot. No sign of acute osseous abnormality. Electronically signed by: ELVA EDUARDO MD [facility] Office Visiton 05-21-2021 Follow-up visit Diagnoses/Problems Cardiac hypertrophy (429.3) (I51.7) Anxiety state (300.00) (F41.1) Overweight with body mass index (BMI) of 26 to 26.9 in adult (278.02,V85.22) (E66.3,Z68.26) Age-related osteoporosis without fracture (733.01) (M81.8) Essential tremor (333.1) (G25.0) History of Heel spur (726.73) (M77.30) Chronic pain of left ankle (719.47,338.29) (M25.572,G89.29) 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 myelopathy (721.0) (M47.812) Irritable bowel syndrome (564.1) (K58.9) Stenosis of cervix (622.4) (N88.2) Complex regional pain syndrome (355.9) Swallowing disorder (787.20) (R13.10) Thyroid nodule (241.0) (E04.1) Overactive bladder (596.51) (N32.81) Chronic hip pain after total replacement of right hip joint (719.45,338.29,V43.64) (M25.551,G89.29,Z96.641) Breast cancer (174.9) (C50.919) Lumbar spondylosis (721.3) (M47.816) Peripheral neuropathy (356.9) (G62.9) Medication management (V58.69) (Z79.899) Orders Anxiety state Renew: Venlafaxine HCl ER 75 MG Oral Capsule Extended Release 24 Hour; Take 1 capsule twice daily Cardiac hypertrophy Renew: Metoprolol Succinate ER 25 MG Oral Tablet Extended Release 24 Hour; TAKE 1 TABLET 3 times daily Chronic pain of left ankle Podiatry Referral Evaluation and Treatment Evaluate AND Treat Status: Hold For - Scheduling Requested for: 21May2021 Essential tremor Basic Metabolic Panel; Status:Active; Requested for:18Nov2021; Vitamin B12, Serum; Status:Active; Requested for:18Nov2021; Medication management Follow-up visit in 6 months Outpatient Follow-up Status: Hold For - Scheduling Requested for: 21May2021 Thyroid nodule TSH WITH REFLEX TO FREE T4 IF ABNORMAL; Status:Active; Requested for:18Nov2021; Chief Complaint medck History of Present IllnessAge-related osteoporosis - she is on vitamin D in winter with calcium , BD in November, was a bit worse and FRAX was 18 and 6%. Declined Boniva Anxiety state - some marital issues last year settled. Trazodone helps with rest, sadness and lack of motivation she had last year. Effexor at bid Breast cancer - has been JOSE RAMON since 2016. [place] actually to be precancer. Mammogram in 11/19/20 was good. No hormonal therapy at present. No lumps Cardiac hypertrophy - she is on metoprolol for this at 25 tid. Tried off of it in 2019. Some fluttering so went to tid. To ER on October 2019 with chest pain, sweating and nausea. Subsequent stress test normal. Since that spell no recurrence. Still has the fluttering. Essential tremor - She was recommended to go back on primidone but had the bad dreams. Discussed Botox. Not really planning to do that. She would prefer to just live with it for now. No change with Toprol tid. OK to write and eat. Has voice tremor. Heel spur and plantar fasciitis and cervical spondylosis. [...] been to Dr Nava. Will send to [place]. Irritable bowel syndrome - has been managed with diet and stress reduction. This may be the pain that she felt was diverticulitis Right hip pain - has had Bone scan suggesting possible loosening. But Dr Renner felt tendonitis. That is doing better but flares at times. CRPS/ Peripheral neuropathy/lumbar spondylosis - feels like it is related to her low back burning and pinching. Stretching helps. Tingling in left arm for about 3 weeks and still better today. Feet burn all the time. Walking barefoot feels good Stenosis of cervix - needed pap in OR and fine. No bleeding so no further paps needed. Swallowing disorder - about the same. Takes small fiber and water. No better with expectorant. Sips water. A lot of thick mucus. Thyroid nodule - no temp intolerance, constipation, hair loss, fatigue TSH 4.26 last year Bladder spasms - saw Dr Delonte Shukla. Considered a medication and just observing. Did not feel a cystocele. 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 Normal [facility] Tobacco Screening.on 022 Adult depression screening assessment No [facility] Work Phone: Fall risk assessment a) No falls within the last year [facility] Work Phone: Tobacco use status CPHS b) No [facility] Work Phone: Laboratory - Chemistry and C hemistry - challengeon 12-21-2020 Anion gap [Moles/Vol] 8 mmol/L below low threshold 10 - 20 [facility] Work Phone: Calcium [Mass/Vol] 9.3 mg/dL 8.6 - 10.3 [facility] Work Phone: Chloride [Moles/Vol] 107 mmol/L 98 - 107 [facility] Work Phone: CO2 [Moles/Vol] 30 mmol/L 21 - 32 [facility] Work Phone: Creatinine [Mass/Vol] 0.58 mg/dL See Below [facility] Work Phone: Comment on above: Reference Range: 0.5 0 - 1.05 Glucose [Mass/Vol] 93 mg/dL 74 - 99 [facility] Work Phone: Potassium [Moles/Vol] 4.0 mmol/L 3.5 - 5.3 [facility] Work Phone: Sodium [Moles/Vol] 141 mmol/L 136 - 145 [facility] Work Phone: TSH Qn 2.66 m[IU]/L See Below [facility] Work Phone: Comment on above: Reference Range: 0.4 4 - 3.98 TSH testing is performed using different testing methodology at [facility] ([facility] than at other [facility]. Direct result comparisons should only be made within the same method. Urea nitrogen [Mass/Vol] 12 mg/dL 6 - 23 [facility] Work Phone: No Panel Informationon 12-21 >60 >60 [facility] Work Phone: Comment on above: CALCULATIONS OF RESHMA MATED GFR ARE PERFORMED USING THE MDRD STUDY EQUATION FOR THE IDMS-TRACEABLE CREATININE METHODS. CLIN CHEM 2007;53:766-72 Tobacco Screening.on 021 Fall risk assessment b) One or more fall s in the last year [facility] Work Phone: Tobacco use status CPHS b) No [facility] Work Phone: Mamm - Screening Mammogram w / Tomosynthesison 11-19-2020 MG Breast Screening Normal [facility] Work Phone: Tobacco Screening.on Fall risk assessment b) One or more fall s in the last year [facility] Work Phone: Tobacco use status CPHS b) No [facility] Work Phone: Otheron 10-12-2019 XR Ankle 3 views Interpreted by: ELLIE ALBERT10/12/19 15:13MRN: [id number] Name: CHELA ROJAS STUDY:ANKLE, COMPLETE, MIN 3 VIEWS; Left; 10/12/2019 11:25 am INDICATION:pain. COMPARISON:None. ORDERING CLINICIAN:RAHEEM NICHOLS FINDINGS:LEFT ANKLE-AP, LATERAL AND OBLIQUE VIEWSThe lateral and medial malleoli are intact. The ankle mortise isnormal in width. A calcaneal spur is present. IMPRESSION:No acute disease. Electronically signed by: TENA ALBERT 10/12/19 15:13 Normal [facility] Work Phone: Auto Diffon 01-17-2019 Basophils (Bld) [#/Vol] 0.0 E3/mcL Normal 0.0-0.2 [facility] Comment on above: Order Comment: Order Added by Discern Expert. Performed By: #### 2 [id number] ####[address] [place] [address] Basophils/100 WBC (Bld) 0.8 % Normal 0.0-2.0 [facility] Comment on above: Order Comment: Order Added by Discern Expert. Performed By: #### 2 [id number] ####[address] [place] [address] Eos Absolute 0.3 E3/mcL Normal 0.0-0.7 [facility] Comment on above: Order Comment: Order Added by Discern Expert. Performed By: #### 2 [id number] ####[address] [place] [address] Eosinophils/100 WBC (Bld) 5.3 % Normal 0.0-11.0 [facility] Comment on above: Order Comment: Order Added by Discern Expert. Performed By: #### 2 [id number] ####[address] [place] [address] Lymphocytes (Bld) [#/Vol] 1.3 E3/mcL Normal 1.2-3.4 [facility] Comment on above: Order Comment: Order Added by Discern Expert. Performed By: #### 2 171614 ####[address] [place] [address] Lymphocytes/100 WBC (Bld) 22.4 % Normal 20.0-55.0 [facility] Comment on above: Order Comment: Order Added by Discern Expert. Performed By: #### 2 [id number] ####[address] [place] [address] [place] Absolute 0.4 E3/mcL Normal 0.0-0.7 [facility] Comment on above: Order Comment: Order Added by Discern Expert. Performed By: #### 2 [id number] ####[address] [place] [address] Monocytes/100 WBC (Bld) 6.1 % Normal 0.0-10.0 [facility] Comment on above: Order Comment: Order Added by Discern Expert. Performed By: #### 2 [id number] ####[address] [place] [address] Neutro Absolute 3.7 E3/mcL Normal 1.4-6.5 [facility] Comment on above: Order Comment: Order Added by Discern Expert. Performed By: #### 2 912062 ####[address] [place] [address] Neutro Auto 65.4 % Normal 37.0-75.0 [facility] Comment on above: Order Comment: Order Added by Discern Expert. Performed By: #### 2 535269 ####[address] [place] [address] CBC w/ Auto Diffon 9 Erythrocyte distribution width (RBC) [Ratio] 14.4 % Normal 11.5-14.5 [facility] Comment on above: Performed By: #### 2 [id number] #### [address] [place] [address] Hematocrit (Bld) [Volume fraction] 44.8 % Normal 36.0-48.0 [facility] Comment on above: Performed By: #### 2 639377 #### [address] [place] [address] Hemoglobin (Bld) [Mass/Vol] 14.7 g/dL Normal 12.0-16.0 [facility] Comment on above: Performed By: #### 2 [id number] #### [address] [place] [address] MCH (RBC) [Entitic mass] 29.3 pg Normal 27.0-31.0 [facility] Comment on above: Performed By: #### 2 525777 #### [address] [place] [address] MCHC (RBC) [Mass/Vol] 32.7 g/dL Low 33.0-37.0 [facility] Comment on above: Performed By: #### 2 [id number] #### [address] [place] [address] MCV (RBC) [Entitic vol] 89.6 fL Normal 78.0-100.0 [facility] Comment on above: Performed By: #### 2 [id number] #### [address] [place] [address] Platelet mean volume (Bld) [Entitic vol] 8.9 fL Normal 7.4-11.0 [facility] Comment on above: Performed By: #### 2 716996 #### [address] [place] [address] Platelets (Bld) [#/Vol] 232 E3/mcL Normal 130-400 [facility] Comment on above: Performed By: #### 2 [id number] #### [address] [place] [address] RBC (Bld) [#/Vol] 5.00 E6/mcL Normal 3.90-5.40 [facility] Comment on above: Performed By: #### 2 962626 #### [address] [place] [address] WBC (Bld) [#/Vol] 5.7 E3/mcL Normal 3.6-11.0 [facility] Comment on above: Performed By: #### 2 [id number] #### [address] [place] [address] CRPon 01-17-2019 CRP [Mass/Vol] 0.23 mg/dL Normal 0.00-1.00 [facility] Comment on above: Performed By: #### 2 [id number] ####[address] [place] [address] Sed Rate Automatedon 019 Sed Rate Automated 24 mm/hr Normal [facility] Comment on above: Result Comment: AGE- SPECIFIC REFERENCE RANGES FOR SEDIMENTATION RATE AUTOMATED REFERENCE RANGE - MM/HR AGE MEN WOMEN 0-2 0-2 - PUBERTY 3-13 3-13 PUBERTY - 50 YRS 0-15 0-20 > 50 YRS 0-20 0-30 Performed By: #### 1 [id number] ####TIO Hematology Manual [address] [place] [address] MphH2usk 12-30-2018 HbA1c (Bld) [Mass fraction] 5.5 % Normal 4.0-6.3 [facility] Comment on above: Performed By: #### 3 [id number] #### TIO Chemistry Manual [address] [place] [address] Vit B12on 12-30-2018 Cobalamin (Vitamin B12) [Mass/Vol] 267 pg/mL Normal 180-914 [facility] Comment on above: Performed By: #### 2 [id number] #### T[address] Rem[address] [place] [address] XR HIP RIGHT 2-3 VIEWS (ROUT INE)on 12-28-2018 XR HIP RIGHT 2-3 VIEWS (ROUTINE) EXAMINATION: XR HIP RIGHT 2-3 VIEWS (ROUTINE) HISTORY: ORDERING SYSTEM PROVIDED HISTORY: Status post hip replacement, TECHNOLOGIST PROVIDED HISTORY: Illness/Other Reason for exam: POST-OP F/U R HIP TENDERNESS Cancer History: U Surgery, RadiationHistory: U Encounter Type: Subsequent/Follow-up Additional signs and symptoms: POST-OP F/U R HIP TENDERNESS ORDERING SYSTEM PROVIDED DIAGNOSIS CODES: Z96.649 Status post hip replacement COMPARISON: 03/25/2016 FINDINGS: Right hip arthroplasty is noted. Prosthetic femoral head is seated in the prosthetic acetabulum. No loosening is noted. No fracture is noted. Surrounding soft tissues are unremarkable. IMPRESSION: Right hip arthroplasty noted with no loosening or acute bony abnormality. Workstation ID: [id number] Dictated by: JOSE DANIEL VASQUEZ on ThuJan 12, 2019 2:43:03 PM EDT Transcribed by: JOSE DANIEL VASQUEZ on ThuJan 12, 2019 2:43:03 PM EDT Finalized by: JOSE DANIEL VASQUEZ on ThuJan 12, 2019 2:43:03 PM EDT Normal [facility] Comment on above: Order Comment: Injur y/Trauma or Illness?:Illness/Other How long have you had these symptoms (acute/chronic)?:Unknown Reason for exam?:POST-OP F/U R HIP TENDERNESS History of cancer?:U Surgeries, chemotherapy, or radiation?:U Type of Exam?:Subsequent/Follow-up Additional signs and symptoms?:POST-OP F/U R HIP TENDERNESS MA Mamm Screen w/CAD if perf and 3D Bilon 11-16-2018 Bilirubin.direct [Mass/Vol] Exam Date/Time: 11/15/2018 11:46 EDT Reason for Exam: SCREENING 3 D;Screening Report STUDY: Digital mammography screening with brien; 11/15/2018 11:46 am ACCESSION NUMBER(S): [id number] ORDERING CLINICIAN: Altagracia Arellano INDICATION: Screening. COMPARISON: Comparison is made to prior digital mammograms dated11/11/2017 and 11/10/2016 FINDINGS: CC and MLO 2D digital mammograms and digital breast tomosynthesis images were obtained of the bilateral breasts. 3-D volume images were reconstructed in 4 views at an independent workstation as 1 mm slices through the breasts in both the CC and MLO projections. There are areas of scattered fibroglandular tissue. Mild architectural distortion with associated surgical clips seen in the posterior 11-12:00 position of the right breast, unchanged from prior studies. Several small well-defined rounded masses are seen bilaterally, similar to the prior studies. No discrete mass or focal asymmetry is identified. No suspicious microcalcifications or new foci of architectural distortion are seen. There has been no significant change. This study was interpreted with CAD. IMPRESSION: No mammographic evidence of malignancy. BI-RADS CATEGORY: Category: 2 - Benign Finding. Recommendation: Normal Interval Follow-up, Over Age 40. Recall Interval: 12 Months. Breast Density: Scattered Fibroglandular Density. FINAL REPORT Dictated: 11/16/2018 8:10 am Yaw Ji MD Signed (Electronic Signature): 11/16/2018 8:10 am Signed by: Yaw Ji MD Technologist: LAUREL Assessment: BI-RADS Category 2-Benign finding Recommendation: Normal interval follow-up Normal [facility] XR FOOT LEFT 2 VIEWSon 03-16 XR FOOT LEFT 2 VIEWS 2 views left foot r eveal small calcaneal spur toward the plantar fascia and no other abnormalities Dictated by: AUDI RENNER on ThuMar 16, 2018 5:10:31 PM EST Transcribed by: AUDI RENNER on ThuMar 16, 2018 5:10:31 PM EST Finalized by: AUDI RENNER on ThuMar 16, 2018 5:10:31 PM EST Normal [facility] Auto Diffon 03-09-2018 Basophils (Bld) [#/Vol] 0.1 E3/mcL Normal 0.0-0.2 [facility] Comment on above: Order Comment: Order Added by Discern Expert. Performed By: #### 2 [id number] #### [address] [place] [address] Basophils/100 WBC (Bld) 1.0 % Normal 0.0-2.0 [facility] Comment on above: Order Comment: Order Added by Discern Expert. Performed By: #### 2 [id number] #### [address] [place] [address] Eos Absolute 0.2 E3/mcL Normal 0.0-0.7 [facility] Comment on above: Order Comment: Order Added by Discern Expert. Performed By: #### 2 639144 #### [address] [place] [address] Eosinophils/100 WBC (Bld) 3.7 % Normal 0.0-11.0 [facility] Comment on above: Order Comment: Order Added by Discern Expert. Performed By: #### 2 763169 #### [address] [place] [address] Lymphocytes (Bld) [#/Vol] 1.6 E3/mcL Normal 1.2-3.4 [facility] Comment on above: Order Comment: Order Added by Discern Expert. Performed By: #### 2 467266 #### [address] [place] [address] Lymphocytes/100 WBC (Bld) 25.6 % Normal 20.0-55.0 [facility] Comment on above: Order Comment: Order Added by Discern Expert. Performed By: #### 2 [id number] #### [address] [place] [address] [place] Absolute 0.6 E3/mcL Normal 0.0-0.7 [facility] Comment on above: Order Comment: Order Added by Discern Expert. Performed By: #### 2 [id number] #### [address] [place] [address] Monocytes/100 WBC (Bld) 9.5 % Normal 0.0-10.0 [facility] Comment on above: Order Comment: Order Added by Discern Expert. Performed By: #### 2 [id number] #### [address] [place] [address] Neutro Absolute 3.9 E3/mcL Normal 1.4-6.5 [facility] Comment on above: Order Comment: Order Added by Discern Expert. Performed By: #### 2 [id number] #### [employer] [address] [place] [address] 23692 Neutro Auto 60.2 % Normal 37.0-75.0 [facility] Comment on above: Order Comment: Order Added by Discern Expert. Performed By: #### 2 [id number] #### [employer] [address] [place] [address] 64181 BMPon 03-09-2018 Anion gap [Moles/Vol] 7 mmol/L Low 02-06 [facility] Comment on above: Performed By: #### 2 [id number] #### [employer] [address] [place] [address] 11894 Calcium [Mass/Vol] 9.4 mg/dL Normal 8.6-10.3 [facility] Comment on above: Performed By: #### 2 [id number] #### [employer] [address] [place] [address] 34718 Chloride [Moles/Vol] 105 mmol/L Normal 98-107 [facility] Comment on above: Performed By: #### 2 [id number] #### [employer] [address] [place] [address] 73635 CO2 [Moles/Vol] 31.0 mmol/L Normal 21.0-32.0 [facility] Comment on above: Performed By: #### 2 [id number] #### [employer] [address] [place] [address] 73479 Creatinine [Mass/Vol] 0.7 mg/dL Normal 0.5-1.1 [facility] Comment on above: Performed By: #### 2 [id number] #### [employer] [address] [place] [address] 39090 Glucose [Mass/Vol] 95 mg/dL Normal 70-99 [facility] Comment on above: Performed By: #### 2 [id number] #### [employer] [address] [place] [address] 87553 Potassium [Moles/Vol] 4.2 mmol/L Normal 3.5-5.3 [facility] Comment on above: Performed By: #### 2 [id number] #### [employer] [address] [place] [address] 99138 Sodium [Moles/Vol] 139 mmol/L Normal 136-145 [facility] Comment on above: Performed By: #### 2 [id number] #### [employer] [address] [place] [address] 17751 Urea nitrogen [Mass/Vol] 14 mg/dL Normal 6-23 [facility] Comment on above: Performed By: #### 2 [id number] #### [employer] [address] [place] [address] 69288 Urea nitrogen/Creatinine [Mass ratio] 20.0 ratio Normal 5.4-30.0 [facility] Comment on above: Performed By: #### 2 [id number] #### [employer] [address] [place] [address] 56075 CBC w/ Auto Diffon 8 Erythrocyte distribution width (RBC) [Ratio] 14.0 % Normal 11.5-14.5 [facility] Comment on above: Performed By: #### 2 [id number] #### [employer] [address] [place] [address] Hematocrit (Bld) [Volume fraction] 45.1 % Normal 36.0-48.0 [facility] Comment on above: Performed By: #### 2 [id number] #### [employer] [address] [place] [address] Hemoglobin (Bld) [Mass/Vol] 14.5 g/dL Normal 12.0-16.0 [facility] Comment on above: Performed By: #### 2 [id number] #### [employer] [address] [place] [address] MCH (RBC) [Entitic mass] 29.6 pg Normal 27.0-31.0 [facility] Comment on above: Performed By: #### 2 [id number] #### [employer] [address] [place] [address] MCHC (RBC) [Mass/Vol] 32.3 g/dL Low 33.0-37.0 [facility] Comment on above: Performed By: #### 2 [id number] #### [employer] [address] [place] [address] MCV (RBC) [Entitic vol] 91.6 fL Normal 78.0-100.0 [facility] Comment on above: Performed By: #### 2 [id number] #### [employer] [address] [place] [address] Platelet mean volume (Bld) [Entitic vol] 9.0 fL Normal 7.4-11.0 [facility] Comment on above: Performed By: #### 2 [id number] #### [employer] [address] [place] [address] Platelets (Bld) [#/Vol] 242 E3/mcL Normal 130-400 [facility] Comment on above: Performed By: #### 2 [id number] #### [employer] [address] [place] [address] RBC (Bld) [#/Vol] 4.92 E6/mcL Normal 3.90-5.40 [facility] Comment on above: Performed By: #### 2 [id number] #### [employer] [address] [place] [address] WBC (Bld) [#/Vol] 6.4 E3/mcL Normal 3.6-11.0 [facility] Comment on above: Performed By: #### 2 [id number] #### [employer] [address] [place] [address] eGFRon 03-09-2018 GFR/1.73 sq M predicted among non-blacks MDRD (S/P/Bld) [Vol rate/Area] mL/min/{1.73_m2} Normal [facility] Comment on above: Order Comment: Order added by Discern Expert. Performed By: #### 1 [id number] #### [facility] [employer] [facility] [place] [address] US Pelvis Non-OB Completeon 03-01-2018 US Pelvis Non-OB Complete Exam Date/Time: 03/01/2018 11:38 EST Reason for Exam: THICKENED ENDOMETRIUM;Other (please specify) Report STUDY: US Pelvis Non-OB Complete; US Transvaginal Non-OB 03/01/2018 11:38 am INDICATION: 72 y/o F with Other (please specify). COMPARISON: None. ACCESSION NUMBER(S): [id number]; [id number] ORDERING CLINICIAN: Cory Rosen TECHNIQUE: Routine ultrasound of the pelvis was performed. Evaluation of the female pelvis was performed by transabdominal and transvaginal approach. Static images were obtained for remote interpretation. FINDINGS: The uterus measures 13 x 5 x 6 cm. A 2.9 x 2.9 x 3.5 cm intramural fibroid at the posterior body of the uterus. Thick endometrial stripe with cystic changes measuring up to 1 cm. The right ovary is not visualized. The left ovary is not visualized. No adnexal mass. No free fluid in the pelvis. IMPRESSION: Thick endometrial stripe with cystic changes measuring up to 1 cm, could be related to endometrial hyperplasia, endometrial polyp or endometrial carcinoma. Consider tissue sampling. FINAL REPORT Dictated: 03/01/2018 4:03 pm Cora Keene MD Signed (Electronic Signature): 03/01/2018 4:03 pm Signed by: Cora Keene MD Technologist: DUSTIN [facility] US Transvaginal Non-OBon US Transvaginal Non-OB Exam Date/Time: 03/01/2018 11:38 EST Reason for Exam: THICKENED ENDOMETRIUM;Other (please specify) Report STUDY: US Pelvis Non-OB Complete; US Transvaginal Non-OB 03/01/2018 11:38 am INDICATION: 72 y/o F with Other (please specify). COMPARISON: None. ACCESSION NUMBER(S): [id number]; [id number] ORDERING CLINICIAN: Cory Rosen TECHNIQUE: Routine ultrasound of the pelvis was performed. Evaluation of the female pelvis was performed by transabdominal and transvaginal approach. Static images were obtained for remote interpretation. FINDINGS: The uterus measures 13 x 5 x 6 cm. A 2.9 x 2.9 x 3.5 cm intramural fibroid at the posterior body of the uterus. Thick endometrial stripe with cystic changes measuring up to 1 cm. The right ovary is not visualized. The left ovary is not visualized. No adnexal mass. No free fluid in the pelvis. IMPRESSION: Thick endometrial stripe with cystic changes measuring up to 1 cm, could be related to endometrial hyperplasia, endometrial polyp or endometrial carcinoma. Consider tissue sampling. FINAL REPORT Dictated: 03/01/2018 4:03 pm Cora Keene MD Signed (Electronic Signature): 03/01/2018 4:03 pm Signed by: Cora Keene MD Technologist: DUSTIN [facility] Vital Signs Date Time Vital Sign Value Performing Clinician Andrzej ibrahim 03-24-2022 13:34-0500 Body height 167.64 cm Raheem Nichols Work Phone: [facility] Work Phone: 03-24-2022 13:34-0500 Body mass index (BMI) [Ratio] 26.31 kg/m2 Raheem Nichols Work Phone: [facility] Work Phone: 03-24-2022 13:34-0500 Body surface area Derived from formula 1.83 m2 Raheem Nichols Work Phone: [facility] Work Phone: 03-24-2022 13:34-0500 Body weight 73.94 kg Raheem O Nichols Work Phone: [facility] Work Phone: 03-24-2022 13:34-0500 Diastolic blood pressure 86 mm[Hg] Raheem O Nichols Work Phone: [facility] Work Phone: 03-24-2022 13:34-0500 Heart rate 80 /min Raheem O Nichols Work Phone: [facility] Work Phone: 03-24-2022 13:34-0500 SaO2% (BldA) [Mass fraction] 92 % Raheem O Nichols Work Phone: [facility] Work Phone: 03-24-2022 13:34-0500 Systolic blood pressure 128 mm[Hg] Raheem O Nichols Work Phone: [facility] Work Phone: 02-11-2022 13:21-0400 Body height 167.64 cm Raheem O Nichols Work Phone: [facility] Work Phone: 02-11-2022 13:21-0400 Body mass index (BMI) [Ratio] 25.66 kg/m2 Raheem O Nichols Work Phone: [facility] Work Phone: 02-11-2022 13:21-0400 Body surface area Derived from formula 1.81 m2 Raheem O Nichols Work Phone: [facility] Work Phone: 02-11-2022 13:21-0400 Body weight 72.12 kg Raheem O Nichols Work Phone: [facility] Work Phone: 02-11-2022 13:21-0400 Diastolic blood pressure 86 mm[Hg] Raheem O Nichols Work Phone: [facility] Work Phone: 02-11-2022 13:21-0400 Heart rate 77 /min Raheem O Nichols Work Phone: [facility] Work Phone: 02-11-2022 13:21-0400 Systolic blood pressure 138 mm[Hg] Raheem O Nichols Work Phone: [facility] Work Phone: 11-29-2021 10:55-0400 Body height 167.64 cm Raheem O Nichols Work Phone: [facility] Work Phone: 11-29-2021 10:55-0400 Body mass index (BMI) [Ratio] 25.72 kg/m2 Raheem O Nichols Work Phone: [facility] Work Phone: 11-29-2021 10:55-0400 Body surface area Derived from formula 1.82 m2 Raheem O Nichols Work Phone: [facility] Work Phone: 11-29-2021 10:55-0400 Body weight 72.29 kg Raheem O Nichols Work Phone: [facility] Work Phone: 11-29-2021 10:55-0400 Diastolic blood pressure 92 mm[Hg] Raheem O Nichols Work Phone: [facility] Work Phone: 11-29-2021 10:55-0400 Heart rate 68 /min Raheem O Nichols Work Phone: [facility] Work Phone: 11-29-2021 10:55-0400 Systolic blood pressure 142 mm[Hg] Raheem O Nichols Work Phone: [facility] Work Phone: 11-21-2021 13:19-0400 Body height 165.1 cm Raheem O Nichols Work Phone: [facility] Work Phone: 11-21-2021 13:19-0400 Body mass index (BMI) [Ratio] 27.21 kg/m2 Raheem O Nichols Work Phone: [facility] Work Phone: 11-21-2021 13:19-0400 Body surface area Derived from formula 1.82 m2 Raheem O Nichols Work Phone: [facility] Work Phone: 11-21-2021 13:19-0400 Body weight 74.16 kg Raheem O Nichols Work Phone: [facility] Work Phone: 11-21-2021 13:19-0400 Diastolic blood pressure 80 mm[Hg] Raheem O Nicohls Work Phone: [facility] Work Phone: 11-21-2021 13:19-0400 Heart rate 57 /min Raheem O Nichols Work Phone: [facility] Work Phone: 11-21-2021 13:19-0400 Systolic blood pressure 122 mm[Hg] Raheem O Nichols Work Phone: [facility] Work Phone: 08-21-2021 08:28-0400 Body height 165.1 cm Raheem O Nichols Work Phone: [facility] Work Phone: 08-21-2021 08:28-0400 Body mass index (BMI) [Ratio] 26.46 kg/m2 Raheem O Nichols Work Phone: [facility] Work Phone: 08-21-2021 08:28-0400 Body surface area Derived from formula 1.79 m2 Raheem O Nichols [facility] Work Phone: 08-21-2021 08:28-0400 Body weight 72.12 kg Raheem O Nichols Work Phone: [facility] Work Phone: 08-21-2021 08:28-0400 Diastolic blood pressure 78 mm[Hg] Raheem O Nichols Work Phone: [facility] Work Phone: 08-21-2021 08:28-0400 Heart rate 68 /min Raheem O Nichols Work Phone: [facility] Work Phone: 08-21-2021 08:28-0400 Systolic blood pressure 122 mm[Hg] Raheem O Nichols Work Phone: [facility] Work Phone: 05-21-2021 13:15-0500 Body height 165.1 cm Raheem O Nichols Work Phone: [facility] Work Phone: 05-21-2021 13:15-0500 Body mass index (BMI) [Ratio] 26.79 kg/m2 Raheem O Nichols Work Phone: [facility] Work Phone: 05-21-2021 13:15-0500 Body surface area Derived from formula 1.8 m2 Raheem O Nichols Work Phone: [facility] Work Phone: 05-21-2021 13:15-0500 Body weight 73.03 kg Raheem O Nichols Work Phone: [facility] Work Phone: 05-21-2021 13:15-0500 Diastolic blood pressure 72 mm[Hg] Raheem O Nichols Work Phone: [facility] Work Phone: 05-21-2021 13:15-0500 Heart rate 72 /min Raheem O Nichols Work Phone: [facility] Work Phone: 05-21-2021 13:15-0500 Systolic blood pressure 128 mm[Hg] Raheem O Nichols Work Phone: [facility] Work Phone: 12-21-2020 11:59-0400 Diastolic blood pressure 89 mm[Hg] Raheem O Nichols Work Phone: [facility] Work Phone: 12-21-2020 11:59-0400 Systolic blood pressure 127 mm[Hg] Raheem O Nichols Work Phone: [facility] Work Phone: 12-21-2020 11:40-0400 Body height 165.1 cm Raheem O Nichols Work Phone: [facility] Work Phone: 12-21-2020 11:40-0400 Body mass index (BMI) [Ratio] 26.46 kg/m2 Raheem O Nichols Work Phone: [facility] Work Phone: 12-21-2020 11:40-0400 Body surface area Derived from formula 1.79 m2 Raheem O Nichols Work Phone: [facility] Work Phone: 12-21-2020 11:40-0400 Body weight 72.12 kg Raheem O Nichols Work Phone: [facility] Work Phone: 12-21-2020 11:40-0400 Diastolic blood pressure 82 mm[Hg] Raheem O Nichols Work Phone: [facility] Work Phone: 12-21-2020 11:40-0400 Heart rate 68 /min Raheem O Nichols Work Phone: [facility] Work Phone: 12-21-2020 11:40-0400 Systolic blood pressure 131 mm[Hg] Raheem O Nichols Work Phone: [facility] Work Phone: 11-12-2020 13:12-0400 Body height 165.1 cm Raheem O Nichols Work Phone: [facility] Work Phone: 11-12-2020 13:12-0400 Body mass index (BMI) [Ratio] 26.79 kg/m2 Raheem O Nichols Work Phone: [facility] Work Phone: 11-12-2020 13:12-0400 Body surface area Derived from formula 1.8 m2 Raheem O Nichols Work Phone: [facility] Work Phone: 11-12-2020 13:12-0400 Body weight 73.03 kg Raheem O Nichols Work Phone: [facility] Work Phone: 11-12-2020 13:12-0400 Diastolic blood pressure 76 mm[Hg] Raheem O Nichols Work Phone: [facility] Work Phone: 11-12-2020 13:12-0400 Heart rate 74 /min Raheem O Nichols Work Phone: [facility] Work Phone: 11-12-2020 13:12-0400 SaO2% (BldA) [Mass fraction] 96 % Raheem Nichols Work Phone: [facility] Work Phone: 11-12-2020 13:12-0400 Systolic blood pressure 106 mm[Hg] Raheem Nichols Work Phone: [facility] Work Phone: 05-14-2020 17:41-0500 BMI (Body Mass Index) 26.96 kg/m2 Jennifer [facility] Work Phone: 05-14-2020 17:41-0500 Body weight 73.48 kg Jennifer [facility] Work Phone: 05-14-2020 17:41-0500 BP Diastolic 80 mm[Hg] Jennifer [facility] Work Phone: Comment on above: Location: [facility]; 05-14-2020 17:41-0500 BP Systolic 130 mm[Hg] Jennifer [facility] Work Phone: Comment on above: Location: [facility]; 05-14-2020 17:41-0500 BSA (Body Surface Area) 1.81 m2 Jennifer [facility] Work Phone: 05-14-2020 17:41-0500 Height 165.1 cm Jennifer [facility] Work Phone: 05-14-2020 17:41-0500 Pulse (Heart Rate) 80 /min Jennifer [facility] Work Phone: 06-27-2019 12:22-0400 BMI (Body Mass Index) 27.79 kg/m2 Raheem Nichols [facility] Work Phone: 06-27-2019 12:22-0400 Body weight 75.75 kg Raheem Nichols [facility] Work Phone: 06-27-2019 12:22-0400 BP Diastolic 72 mm[Hg] Raheem Nichols [facility] Work Phone: Comment on above: Location: [facility]; 06-27-2019 12:22-0400 BP Systolic 124 mm[Hg] Raheem Nichols [facility] Work Phone: Comment on above: Location: [facility]; 06-27-2019 12:22-0400 BSA (Body Surface Area) 1.83 m2 Raheem Babcocker [facility] Work Phone: 06-27-2019 12:22-0400 Height 165.1 cm Raheem Babcocker [facility] Work Phone: 06-27-2019 12:22-0400 Pulse (Heart Rate) 72 /min Raheem Babcocker [facility] Work Phone: Encounters Encounter Date Encounter Type Care Provider Facility Start: 12-31-2023 End: 12-31-2023 ambulatory AUDI PARIS [facility] Start: 04-03-[address] Raheem Nichols Facility:[id number] Start: 03-27-2022 Postop follow up vis it related to original px [facility]heem Nichols [facility] Work Phone: Start: 03-27-2022 ambulatory Sheryl Ingram Facility :[id number] Start: 03-25-2022 PFT, Provider: FLORIDALMA MCFARLANE PFT ROOM,[place] [address], Status: Pen, Time: 12:00 PM Raheem Nichols Work Phone: [facility] Work Phone: Start: 03-25-[address] Raheem Nichols Facility:[id number] Start: 03-24-2022 Office outpatient vi sit 15 minutes Raheem Nichols Work Phone: [facility] Work Phone: Start: 03-24-2022 ambulatory Raheem Nichols Facil ity:[id number] Start: 03-20-2022 Chart Update [facility] Nichols [facility] Work Phone: Start: 03-05-2022 End: 03-05-2022 ambulatory Sheryl Ingram Facility:[id number] Start: 02-21-[address] Raheem Nichols Facility:[id number] Start: 02-21-2022 Encounter for preprocedural cardiovascular examination [facility] [place] [place] Start: 02-21-2022 Encounter for preprocedural laboratory examination [facility] [place] [place] Start: 02-18-2022 AUDIT Raheem Nichols Work Phone: [facility] Work Phone: Start: 02-13-2022 NPV, Provider: Sheryl Ingram, Status: Pen, Time: 3:00 PM Raheem Nichols Work Phone: [facility] Work Phone: Start: 02-13-[address] Raheem Nichols Facility:[id number] Start: 02-13-2022 Office consultation new/estab patient 80 min [facility]heem Nichols [facility] Work Phone: Start: 02-12-2022 ambulatory Altagracia Lim cility:[id number] Start: 02-11-2022 ambulatory Raheem Nichols Facil ity:[id number] Start: 02-11-2022 Office outpatient vi sit 15 minutes Raheem Nichols Work Phone: [facility] Work Phone: Start: 02-04-2022 ambulatory Raheem Nichols [facility]il ity:[facility] Start: 01-29-2022 ambulatory Altagracia Soha Lim cility:[id number] Start: 01-24-2022 Chart Update Raheem Nan Nichols Work Phone: [facility] Work Phone: Start: 01-24-2022 ambulatory Altagracia Lim cility:[id number] Start: 12-12-2021 AUDIT Raheem Nan Nichols Work Phone: [facility] Work Phone: Start: 11-29-2021 Office outpatient vi sit 15 minutes Raheem Nan Nichols Work Phone: [facility] Work Phone: Start: 11-29-2021 Patient encounter procedure Raheem Nichols Work Phone: [facility] Work Phone: Start: 11-29-2021 ambulatory Raheem Nichols Facil ity:[id number] Start: 11-24-2021 Chart Update Raheem Nan Nichols Work Phone: [facility] Work Phone: Start: 11-21-2021 ambulatory Raheem Nichols Facil ity:[id number] Start: 11-21-2021 ambulatory Altagracia Lim cility:[id number] Start: 11-18-2021 Chart Update Raheem Nan Nichols Work Phone: [facility] Work Phone: Start: 08-21-2021 Office outpatient vi sit 25 minutes Raheem Nichols Work Phone: [facility] Work Phone: Start: 08-21-2021 ambulatory Raheem Nichols Facil ity:[id number] Start: 05-27-[address] Berta Hunter Facility:[id number] Start: 05-21-2021 Office outpatient vi sit 25 minutes Raheem Nichols Work Phone: [facility] Work Phone: Start: 12-21-2020 Patient encounter procedure Raheem Nichols Work Phone: [facility] Work Phone: Start: 11-21-2020 Chart Update Raheem Nichols Work Phone: [facility] Work Phone: Start: 11-12-2020 Office outpatient vi sit 25 minutes Raheem Nichols Work Phone: [facility] Work Phone: Start: 05-26-2020 End: 05-26-2020 Orders Only Yadi Calzada Work Phone: [facility] Start: 05-14-2020 Patient encounter procedure Jennifer Garduno [facility] Work Phone: Start: 01-19-2020 Patient encounter procedure Jennifer [facility] Work Phone: Start: 12-15-2019 Patient encounter procedure Jennifer [facility] Work Phone: Start: 12-12-2019 Patient encounter procedure Jennifer [facility] Work Phone: Start: 12-07-2019 Patient encounter procedure Jennifer [facility] Work Phone: Start: 11-25-2019 Patient encounter procedure Jennifer [facility] Work Phone: Start: 11-17-2019 Patient encounter procedure Jenniferverenice Garduno [facility] Work Phone: Start: 11-08-2019 Patient encounter procedure Jennifer [facility] Work Phone: Start: 11-02-2019 Patient encounter procedure Jennifer [facility] Work Phone: Start: 10-20-2019 Patient encounter procedure Jennifer [facility] Work Phone: Start: 06-27-2019 Patient encounter procedure Raheem Nichols [facility] Work Phone: Start: 05-10-2019 Patient encounter procedure Raheem Nichols [facility] Work Phone: Start: 03-30-2019 Patient encounter procedure Raheem Nichols [facility] Work Phone: Start: 02-07-2019 Patient encounter procedure Raheem Nichols [facility] Work Phone: Start: 01-26-2019 End: 01-26-2019 Patient encounter procedure AUDI RENNER [facility] Start: 01-26-2019 End: 01-26-2019 Office outpatient visit 10 minutes Audi Renner Work Phone: [facility] Comment on above: Pain of right hip william int (Primary Dx) Start: 01-12-2019 End: 01-16-2019 Patient encounter procedure AUDI RENNER [facility] Start: 12-28-2018 End: 12-28-2018 Patient encounter procedure AUDI RENNER [facility] Start: 07-09-2018 End: 07-09-2018 Patient encounter procedure Amos Nava Work Phone: [facility] Comment on above: Plantar fasciitis of left foot Start: 07-05-2018 End: 07-05-2018 Patient encounter procedure Amos Nava Work Phone: [facility] Comment on above: Plantar fasciitis of left foot Start: 06-29-2018 End: 06-29-2018 Patient encounter procedure Amos Nava Work Phone: [facility] Comment on above: Plantar fasciitis of left foot Start: 06-28-2018 End: 06-28-2018 Documentation procedure Linda Amaris [facility] Start: 06-28-2018 End: 06-28-2018 Patient encounter procedure Amos Nava Work Phone: [facility] Comment on above: Plantar fasciitis of left foot Start: 06-25-2018 Patient encounter procedure Amos Nava Facility:[facility] Start: 06-23-2018 End: 06-23-2018 Patient encounter procedure Amos Nava Work Phone: [facility] Start: 03-16-2018 End: 03-16-2018 Patient encounter procedure AUDI RENNER [facility] Start: 03-26-2017 Office outpatient vi sit 10 minutes Audi Rennre Work Phone: [facility] Cancer cervix - scre ening done Jennifer Garduno PA-C [facility] Work Phone: Comment on above: 11/02/2017; WNL; Encounter for gynecological examination (general) (routine) without abnormal findings Raheem Nichols Work Phone: [facility] Work Phone: Comment on above: 11/02/2017; WNL; Menarche Jennifer Garduno PA-C [facility] Work Phone: Comment on above: AGE 12; Patient encounter procedure Jennifer Garduno PA-C [facility] Work Phone: End: 05-21-2021 Patient encounter procedure Raheem Nichols Work Phone: [facility] Work Phone: Procedures Date Procedure Procedure Detail Performing Clinician Start: 03-05-2022 Partial mastectomy Thanh Nichols Work Phone: Comment on above: right breast; Start: 11-23-2019 Nerve block anesthesia Raheem Nichols Work Phone: Comment on above: Left sural nerve blo ck 60% RELIEF; Start: 05-10-2019 Assay of thyroid stimulating hormone tsh Raheem Nichols Start: 05-10-2019 CBC W Auto Different ial panel - Blood Raheem Nichols Start: 05-10-2019 Comprehensive metabo lic 2000 panel Raheem Nichols Start: 07-01-2018 Colonoscopy Raheem ortiz Work Phone: Appendectomy Raheem Nichols Bilateral tubal ligation Kp Nichols section Raheem Ceron r Colonoscopy Raheem Nichols End: 07-01-2018 Colonoscopy Jennifer Garduno Hysteroscopy Raheem Nichols Incisional biopsy of breast Raheem Nichols Work Phone: Laparoscopy Raheem Nichols End: 11-23-2019 Nerve block anesthesia Jennifer Garduno Prosthetic arthropla sty of the hip Raheem Nichols Tonsillectomy Raheem Nichols Total replacement of hip Kp Nichols Work Phone: Plan of Treatment Date Care Activity Detail Author Start: 11-28-2022 FUV, Provider: Altagracia Arellano, Status: Pen, Time: 10:00 AM FUV, Provider: Altagracia Arellano, Status: Pen, Time: 10:00 AM [facility] Work Phone: Start: 05-27-2022 EPV, Provider: Raheem Nichols, Status: Pen, Time: 1:00 PM EPV, Provider: Raheem Nichols, Status: Pen, Time: 1:00 PM [facility] Surgical [facility] Work Phone: Start: 03-27-2022 FUV, Provider: Sheryl Ingram, Status: Pen, Time: 1:30 PM FUV, Provider: Sheryl Ingram, Status: Pen, Time: 1:30 PM [facility] Work Phone: Start: 03-24-2022 EPVSICK, Provider: Raheem Nichols, Status: Pen, Time: 1:30 PM EPVSICK, Provider: Raheem Nichols, Status: Pen, Time: 1:30 PM [facility] Work Phone: Start: 03-20-2022 FUV, Provider: Sheryl Ingram, Status: Pen, Time: 1:00 PM FUV, Provider: Sheryl Ingram, Status: Pen, Time: 1:00 PM [facility] Work Phone: Start: [facility]: Sheryl Ingram, Status: Pen, Time: 9:30 AM [facility], Provider: Sheryl Ingram, Status: Pen, Time: 9:30 AM [facility] Work Phone: Start: 03-05-2022 [facility], Provider: Sheryl Ingram, Status: Pen, Time: 7:30 AM [facility], Provider: Shreyl Ingram, Status: Pen, Time: 7:30 AM [facility] Work Phone: Start: 11-29-2021 FUV, Provider: Altagracia Arellano, Status: Pen, Time: 10:30 AM FUV, Provider: Altagracia Arellano, Status: Pen, Time: 10:30 AM [facility] Work Phone: Start: 11-21-2021 EPV, Provider: Raheem Nichols, Status: Pen, Time: 1:00 PM EPV, Provider: Raheem Nichols, Status: Pen, Time: 1:00 PM [facility] Work Phone: Start: 05-21-2021 EPV, Provider: Raheem Nichols, Status: Pen, Time: 1:00 PM EPV, Provider: Raheem Nichols, Status: Pen, Time: 1:00 PM [facility] Work Phone: Start: 03-12-2021 FUV, Provider: Altagracia Arellano, Status: Pen, Time: 10:00 AM FUV, Provider: Altagracia Arellano, Status: Pen, Time: 10:00 AM [facility] Work Phone: Start: 11-27-2020 FUV, Provider: Altagracia Arellano, Status: Pen, Time: 1:30 PM FUV, Provider: Altagracia Arellano, Status: Pen, Time: 1:30 PM [facility] Work Phone: Start: 12-20-2019 Influenza vaccinatio n given Sequential Influenza Vaccine (#1) [facility] Start: 12-19-2018 Influenza vaccinatio n given SEQUENTIAL INFLUENZA VACCINE (#1) [facility] Start: 07-09-2018 End: 07-09-2018 Treatment 07/09/2018 Treatment Rehabilitation Amos Nava DPM [address] [place] [address] [phone] Nith[facility] Perez [facility] Start: 07-07-2018 End: 07-07-2018 Treatment 07/07/2018 Treatment Rehabilitation Nava, Amosmiah Wilkes, DPM [address] [place] [address] [phone] Nithya Perez [facility] Start: 07-05-2018 End: 07-05-2018 Treatment 07/05/2018 Treatment Rehabilitation Nava, Amosmiah Wilkes, DPM [address] [place] [address] [phone] [facility] Start: 07-02-2018 End: 07-02-2018 Treatment 07/02/2018 Treatment Rehabilitation Amos Nava, LORAM [address] [place] [address] [phone] Yadi Hallman [facility] Start: 06-29-2018 End: 06-29-2018 Treatment 06/29/2018 Treatment Rehabilitation NavaAmos, DPM [address] [place] [address] [phone] Linda Glez, [facility] Start: 06-28-2018 End: 06-28-2018 Treatment 06/28/2018 Treatment Rehabilitation NavaAmos Chung, DPM [address] [place] [address] [phone] Yadi Hallman [facility] Start: 12-19-2017 Influenza vaccinatio n given SEQUENTIAL INFLUENZA VACCINE (#1) [facility] Start: 12-30-2016 Pneumococcal vaccination PNEUMOCOCCAL VACCINE AGE 65+ (2 of 2 - PPSV23) [facility] Work Phone: Start: 12-19-2016 Influenza vaccination SEQUENTI AL INFLUENZA VACCINE (#1) [facility] Work Phone: Start: 2010 Fall risk assessment Steadi Fa ll Risk Assessment [facility] Start: 2010 Pneumococcal vaccination PNEUMOCOCCAL VACCINE AGE 65+ (1 of 2 - PCV13) [facility] Start: 2005 Zoster vaccine hzv l zaheer for subcutaneous use ZOSTER VACCINE [facility] Work Phone: Start: 08-30-1995 Administration of herpes zoster vaccine ZOSTER VACCINES (1 of 2) [facility] Start: 08-30-1995 Screening for malign ant neoplasm of colon [facility] Start: 08-30-1963 Hepatitis C antibody , confirmatory test Hepatitis C Screening [facility] Start: 1961 COVID-19 Vaccine (1 of 2) COVID-19 Vaccine (1 of 2) [facility] Start: 1957 Adolescent depressio n screening assessment Depression Screening (PHQ9) [facility] Start: 1948 History and physical examination, annual for health maintenance Wellness Visit [facility] Start: 1945 Depression screening using PHQ-9 (Patient Health Questionnaire 9) score DEPRESSION SCREENING (PHQ9) [facility] Start: 1945 Fall risk assessment Falls Risk Asse ssment [facility] Start: 1945 Hepatitis C antibody , confirmatory test HEPATITIS C SCREENING [facility] Start: 1945 Physical therapy management PT Plan of Care [facility] Start: 1945 Protein mass conc [facility] Start: 1945 Screening for malign ant neoplasm of colon Colorectal Cancer Screening: Colonoscopy [facility] Start: 1945 Screening mammography Mammogram [facility] Start: 1945 HEPATITIS C SCREENING HEPATITIS C SC REENING [facility] Work Phone: Start: 1945 Screening colonoscopy COLONOSCOPY [facility] Work Phone: Start: 1945 End: 1945 Screening for osteoporosis DEXA SCAN [facility] Work Phone: Start: 1945 End: 1945 Tetanus vaccination [facility] Work Phone: XR Hip Right 2-3 Vie ws (Routine) [facility] Work Phone: NEGATED: Highlighted row has been ruled out! Planned Goals not documented [facility] Work Phone: Immunizations Immunization Date Immunization Notes Care Provider Raphael disla 01-27-2022 Fluzone High-Dose Quadrivalent 0.7 ML Intramuscular Suspension Prefilled Syringe Raheem O Nichols Work Phone: [facility] Work Phone: Comment on above: Series: 03-01-2021 Moderna COVID-19 Vac cine 100 MCG/0.5ML Intramuscular Suspension Raheem O Nichols Work Phone: [facility] Work Phone: 01-25-2021 Fluzone High-Dose Quadrivalent 0.7 ML Intramuscular Suspension Prefilled Syringe Raheem O Nichols Work Phone: [facility] Work Phone: 01-25-2021 influenza, seasonal, injectable Raheem O Nichols Work Phone: [facility] Work Phone: Comment on above: Series: 07-13-2020 Moderna COVID-19 Vac cine 100 MCG/0.5ML Intramuscular Suspension Raheem O Nichols Work Phone: [facility] Work Phone: 06-15-2020 Moderna COVID-19 Vac cine 100 MCG/0.5ML Intramuscular Suspension Raheem O Nichols Work Phone: [facility] Work Phone: 05-04-2020 zoster vaccine, live Jennifer Garduno [facility] Work Phone: Comment on above: Series: 01-20-2020 Fluad Quadrivalent 0 .5 ML Intramuscular Prefilled Syringe Raheem O Nichols Work Phone: [facility] Work Phone: 01-20-2020 influenza, high dose seasonal, preservative-free Jennifer Garduno [facility] Work Phone: Comment on above: Series: 01-20-2020 zoster vaccine recombinant Raheem Nichols Work Phone: [facility] Work Phone: 01-20-2020 influenza, seasonal, injectable Jenniferverenice Garduno [facility] Work Phone: 01-30-2019 Seasonal trivalent influenza vaccine, adjuvanted, preservative free Raheem Nichols Work Phone: [facility] Work Phone: 01-18-2019 influenza, high dose seasonal, preservative-free Raheem Nichols [facility] Work Phone: Comment on above: Series: 04-27-2018 pneumococcal conjuga te vaccine, 13 valent; Translations: [PCV 13, pneumococcal conjugate vaccine, 13 valent] Raheem Nichols [facility] Work Phone: Comment on above: Series: 01-21-2018 influenza virus vacc ine, unspecified formulation; Translations: [influenza virus vaccine, unspecified formulation] Raheem Nichols [facility] Work Phone: Comment on above: Series: 01-25-2017 influenza, high dose seasonal, preservative-free Raheem Nichols Work Phone: [facility] Work Phone: 01-21-2015 influenza, high dose seasonal, preservative-free Raheem Nichols Work Phone: [facility] Work Phone: 09-14-2013 measles, mumps and rubella virus vaccine Raheem Nichols Work Phone: [facility] Work Phone: 02-18-2011 zoster vaccine, live Raheem Nichols [facility] Work Phone: Comment on above: Series: 02-13-2011 pneumococcal polysaccharide vaccine, 23 valent Raheem Nichols -[facility] Work Phone: Comment on above: Series: Payers Date Payer Category Payer Medicare [id number] 2014 Unknown [employer] [employer] [place] [employer] xxxxxxx 2014-Present xxxxxxx [id number] 2014 Unknown [place] [employer] [place] [id number] 2014-Present [id number]. [id number] 2014 Unknown [id number] [id number] 2010 Medicare [id number] [id number] 2010 Medicare MEDICARE MEDICAR E PART A & B xxxxxxxxxxx 2010-Present [place] xxxxxxxxxxx [id number] 2010 Medicare MEDICARE MEDICAR E PART A & B [id number] 2010-Present [place] [id number]. [id number] 2010 Medicare [id number] 1945 Unknown [id number] 2.16.840.1.498197.3.579.2.903 1945 Unknown [id number] 2.16.840.1.070373.3.579.2.903 1945 Unknown [id number] 2.16.840.1.803493.3.579.2.903 1945 Unknown [id number] 2.16.840.1.671757.3.579.2.903 1945 Unknown [id number] 2.16.840.1.732999.3.579.2. 1945 Unknown [id number] 2.16.840.1.618826.3.579.2. 1945 Unknown [id number] 2.16.840.1.159357.3.579.2.1068 1945 Unknown [id number] 2.16.840.1.307770.3.579.2.1068 1945 Unknown [id number] 2.16.840.1.991859.3.579.2.1068 1945 Unknown [id number] 2.16.840.1.170291.3.579.2.1068 1945 Unknown [id number] 2.16840.1.442079.3.579.2.1068 1945 Unknown [id number] 2.16.840.1.606559.3.579.2.1068 1945 Unknown [id number] 2.16840.1.067294.3.579.2.1068 1945 Unknown [id number] 2.16840.1.767263.3.579.2. 1945 Unknown [id number] 2.840.1.710161.3.579.2. 1945 Unknown [id number] 2.16840.1.798541.3.579.2. 1945 Unknown [id number] 2.16.840.1.580289.3.579.2. 1945 Unknown [id number] 2.16.840.1.259897.3.579.2. 1945 Unknown [id number] 2.16840.1.260300.3.579.2. 1945 Unknown [id number] 2.16.840.1.962441.3.579.2.1068 1945 Unknown [id number] 2.16.840.1.462911.3.579.2.1068 1945 Unknown [id number] 2.16.840.1.441955.3.579.2.1068 1945 Unknown [id number] 2.16.840.1.574226.3.579.2.1068 1945 Unknown [id number] 2.16.840.1.633892.3.579.2.903 Unknown Social History Date Type Detail Facility Start: 03-26-2017 End: 01-26-2019 Tobacco smoking status MSIS Never smoker [facility] Work Phone: Sex Assigned At Not on file [facility] Work Phone: Start: 01-26-2019 Tobacco use and exposure Never used [facility] Start: 01-26-2019 Alcohol intake Current drinke r of alcohol (finding) [facility] Drinks beer Drinks beer [facility] Work Phone: NEGATED: Highlighted row - - [facility] Work Phone: Functional Status Date Assessment Result Facility NEGATED: Highlighted row Functional performance Functional status health issues are not documented Disease [facility] Work Phone: Mental Status Date Assessment Result Facility NEGATED: Highlighted row Cognitive function [Interpretation] Cognitive status health issues are not documented Disease [facility] Work Phone: Clinical Notes 11-14-2019 to 04-03-2022 Note Date & Type Note Facility 04-03-2022 Note Clinic Note: Education Assessment: Learning BarriersNo barriers TaughtPatient Nursing Note: Nursing Notept set up for a dexa scan 04/[address] [facility]- instructed on prep. referral to Radiation at [facility]- they will call pt to schedule. rtc for f/u after radiation is complete 05/16 at 10am Electronic Signatures: Yaquelin Morrison (UMANG) (Signed 03-Apr-2022 15:30) Authored: Education Assessment, Nursing Note Last Updated: 03-Apr-2022 15:30 by Yaquelin Morrison (RN) [facility] 03-31-2022 Note CHELA quan presented at Breast Tumor Board Conference Conference date: 27-Mar-2022 Presenting Provider(s): Dr. Sheryl Ingram Present at Conference: Medical Oncology, Radiation Oncology, Surgical Oncology and Pathology Reviewed Conference Review Type: Treatment Planning Impression Right breast biopsy (grade 1-2) Jan 2022. Mammaprint low risk luminal type A. S/p right breast partial mastectomy. 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 Path stage: pT1c pNX cM0. Recommendations Hormonal: Aromatase Inhibitor Radiation therapy: Postop Radiation (consider) Referrals Med Onc (Dr. Luis) Cancer Staging: Breast AJCC Edition: 7th (AJCC), Diagnosis Date: 27-Dec-2015, 0- RIGHT LCIS, Tis N0 M0 Disclaimer [facility] tumor board recommendations represent the consensus opinion [...] 31-Mar-2022 13:28 by Queenie Howard (PT REG) [facility] 03-24-2022 History of Present illness Narrative 1 year of shortness of breathReported to Dr Arellano and breast cancer doctor when she had surgeryNoted wheezing and given a nebulizer treatment.[place] better even the next morning.Was also given [...] appropriate to continue to prescribe this medication. -[facility] Work Phone: 03-05-2022 Note PROCEDURE DETAILS Preoperative Diagnosis: Malignant neoplasm of lower-inner quadrant of right female breast, C50.311 Postoperative Diagnosis: Malignant neoplasm of lower-inner quadrant of right female breast, C50.311 Surgeon: Sheryl Ingram Resident/Fellow/Other Lifeguard: Yadi Alfaro Procedure: 1. PARTIAL MASTECTOMY: RIGHT BREAST [...] long lateral 2. New superior margin: ink gonzalez new margin 3. New inferior margin: ink gonzalez new margin 4. New medial margin: ink gonzalez new margin 5. New lateral margin: ink gonzalez new margin Attestation: Note Completion: Attending AttestationI performed the procedure without a resident Electronic Signatures: Sheryl Ingram DO (Signed 05-Mar-2022 10:56) Authored: Post-Operative Note, Chart Review, Note Completion Last Updated: 05-Mar-2022 10:56 by Sheryl Ingram () [facility] 03-05-2022 Note History & [...] what the risks are. Electronic Signatures: Sheryl Ingram) (Signed 05-Mar-2022 09:13) Authored: History & Physical Reviewed, ERAS, Consent, Note Completion Last Updated: 05-Mar-2022 09:13 by Sehryl Ingram () [facility] 11-18-2021 History of Present illness Narrative CHELA ROJAS is a 76 year female who presents today at the request of Altagracia Arellano for newly diagnosed right breast cancer.Family history of breast cancer, personal history of biopsy with atypia being followed with enhanced screening.Mammogram in November. MRI breast 01/24/2022 with a suspicious right breast mass inferior medial measuring 1.5cm. no axillary adenopathy. 2nd look U/S and biopsy recommended. right U/S biopsy 5:00 7cmFN IDC g1-2 ER 95% FL 95% HER2-. Of note, biopsy clip and [...] with breast cancer at 79. No genetics. [facility] Work Phone: 11-18-2021 History of Present illness Narrative CHELA ROJAS is a 76 year female who presents today at the request of Altagracia Arellano for newly diagnosed right breast cancer.Family history of breast cancer, personal history of biopsy with atypia being followed with enhanced screening.Mammogram in November. MRI breast 01/24/2022 with a suspicious right breast mass inferior medial measuring 1.5cm. no axillary adenopathy. 2nd look U/S and biopsy recommended. right U/S biopsy 5:00 7cmFN IDC g1-2 ER 95% FL 95% HER2-. Of note, biopsy clip and [...] with breast cancer at 79. No genetics. [facility] [employer] Work Phone: 11-18-2021 History of Present illness Narrative CHELA ROJAS is a 76 year female who presents today at the request of Altagracia Arellano for newly diagnosed right breast cancer.Family history of breast cancer, personal history of biopsy with atypia being followed with enhanced screening.Mammogram in November. MRI breast 01/24/2022 with a suspicious right breast mass inferior medial measuring 1.5cm. no axillary adenopathy. 2nd look U/S and biopsy recommended. right U/S biopsy 5:00 7cmFN IDC g1-2 ER 95% FL 95% HER2-. Of note, biopsy clip and [...] with breast cancer at 79. No genetics. [employer] Work Phone: 11-18-2021 History of Present illness Narrative CHELA ROJAS is a 76 year female who presents today at the request of Altagracia Arellano for newly diagnosed right breast cancer.Family history of breast cancer, personal history of biopsy with atypia being followed with enhanced screening.Mammogram in November. MRI breast 01/24/2022 with a suspicious right breast mass inferior medial measuring 1.5cm. no axillary adenopathy. 2nd look U/S and biopsy recommended. right U/S biopsy 5:00 7cmFN IDC g1-2 ER 95% FL 95% HER2-. Of note, biopsy clip and [...] with breast cancer at 79. No genetics. [employer] Work Phone: 11-19-2019 History of Present illness Narrative Age-related osteoporosis - she is on vitamin D in winter with calcium , BD in November, was a bit worse and FRAX was 18 and 6%. Declined BonivaAnxiety state - some marital issues last year settled. Trazodone helps with rest, sadness and lack of motivation she had last year. Effexor at [facility] cancer - has been JOSE RAMON since 2016. [place] actually to be precancer. Mammogram in 11/19/20 [...] been to Dr Nava. Will send to [place].Irritable bowel syndrome - has been managed with diet and stress reduction. This may be the pain that she felt was diverticulitisRight hip pain - has had Bone scan suggesting possible loosening. But Dr Renner felt tendonitis. That is doing better but [...] cystocele. Occasional leakageMammogram 11/19/20DEXA 11/17/19 -Colonoscopy 07/01/18 [facility] Work Phone: 11-19-2019 History of Present [...] - has been JOSE RAMON since 2015. [place] actually to be precancer. Mammogram in 11/19/20 [...] Bone scan suggesting possible loosening. But Dr Renner felt tendonitis. That is doing better but [...] cystocele. Occasional leakageMammogram 11/19/20DEXA 11/17/19 -Colonoscopy 07/01/18 [facility] Work Phone: 11-14-2019 History of Present illness Narrative Age-related osteoporosis - she is on vitamin D in winter with calcium , BD in 2019 was a bit worse and FRAX was 18 and 6%. Declined BonivaAnxiety state - some marital issues last year settled. Trazodone helps with rest, sadness and lack of motivation she had last year. . [facility] been [facility] since 2016. [place] actually to be precancer. Mammogram in October [...] Bone scan suggesting possible loosening. But Dr Renner felt tendonitis. That is doing betterCRPS/ Peripheral [...] ago.Mammogram 11/17/19 - orderedDEXA 11/17/19 -Colonoscopy 07/01/18 -[facility] Work Phone: History of Present illness [...] is independent in her IADLs and ADLs. 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 in this encounter* Latoya Hallmanissa, MODESTA - 06/28/2018 1:00 PM EDT [facility] DAILY TREATMENT NOTE Today's Date [...] Treatments: Physical Therapy Exercise Log - 06/28/18 1302 Therapeutic Exercise (88516) Intervention Towel stretch - sitting Parameters 3' Intervention [place] corn picker Parameters x1 (entire bowl) Intervention towel [...] and stretching for improved Passive and AROM Yadi Hallman PTA STATE LICENSE, [id number] in this encounter* Linda Glez, PT - 06/29/2018 1:00 PM EDT [facility] DAILY TREATMENT NOTE Today's Date [...] Exercise Log - 06/29/18 1306 Therapeutic Exercise (86205) Intervention Towel stretch - sitting Parameters 4x30 Intervention [place] corn picker Parameters x1 (entire bowl) Intervention towel [...] ankle ROM and strength as able. Linda Glez PT State License, [id number] in this encounter* Linda Glez, DELORIS - 07/05/2018 1:00 PM EDT [facility] DAILY TREATMENT NOTE Today's Date [...] Treatments: Physical Therapy Exercise Log - 07/05/18 7450 Therapeutic Exercise (29382) Intervention [place] corn picker x1 (entire bowl) Parameters Incline Board [...] focus on ankle stabilization and strength. Linda Glez, DELORIS State License, [id number] in this encounter* DeorodneyNithya, AUTOMOBILE DESIGNER - 07/09/2018 1:00 PM EDT [facility] DAILY TREATMENT NOTE Today's Date 07/09/2018 Patient Name: Chela Rojas Date of : 1945 Current Visit #: 5 Authorized Visits: 9 Case Name: Therapy Plantar Fasciitis of L Foot History: Pre-Treatment Pain Scale: 2 Symptoms: gradually improved Functional Diagnosis: SNOMED CT(R) 1. Plantar fasciitis of left foot PLANTAR FASCIITIS OF LEFT FOOT Clinical Information: Subjective: [facility] and [facility] some discomfort after that but rolled it out after she got home and the pain went away. Objective Reviewed HEP and goals. Pt. Met all goals. Treatments: Physical Therapy Exercise Log - 07/09/18 1428 Therapeutic Exercise (98070) Intervention Towel stretch - sitting Parameters 4x30 Intervention [place] corn picker x1 (entire bowl) Intervention towel scrunches [...] Visit: Discharge Nithya Perez PTA STATE LICENSE, [id number] in this encounter* Audi Renner MD - 01/26/2019 1:40 PM EDT Dictation on: 01/26/2019 1:43 PM by: AUDI RENNER [[id number]] documented in this encounter Reason for Referral Status Reason Specialty Diagnoses / Procedures Referred By Contact Referred To Contact Authorized Physical Therapy / Rehabilitation Diagnoses Plantar fasciitis of left foot Amos Nava GRACIELA Wilkes [address] [place] [address] Chief Complaint medckMedicare wellness annual exam subsequentmedckmedcknewly diagnosed right breast cancernewly diagnosed right breast cancernewly diagnosed right breast cancerbreathing issuepost op Additional Source Comments INFORMATION SOURCE (unrecogn ized section and content) DATE CREATED AUTHOR 06/27/2018 [facility] DATE CREATED AUTHOR AUTHOR'S ORGANIZ ATION 01/19/[address] [facility] DATE CREATED AUTHOR AUTHOR'S ORGANIZ ATION 01/26/2019 [facility] DATE CREATED AUTHOR AUTHOR'S ORGANIZ ATION 03/28/2022 [employer] DATE CREATED AUTHOR AUTHOR'S ORGANIZ ATION 04/10/2022 [facility] DATE CREATED AUTHOR AUTHOR'S ORGANIZ ATION 05/27/2022 [facility] DATE CREATED AUTHOR AUTHOR'S ORGANIZ ATION 07/23/2022 [facility] DATE CREATED AUTHOR AUTHOR'S ORGANIZ ATION 01/02/2024 [facility] Reason for Visit (unrecogniz ed section and content) Reason Comments Physical Therapy Status Reason Specialty Diagnoses / Procedures Referred By Contact Referred To Contact Authorized Physical Therapy / Rehabilitation Diagnoses Plantar fasciitis of left foot Amos Nava DPM [address] [place] [address] Reason Comments Physical Therapy Status Reason Specialty Diagnoses / Procedures Referred By Contact Referred To Contact Authorized Physical Therapy / Rehabilitation Diagnoses Plantar fasciitis of left foot Amos Nava DPM [address] [place] [address] Reason Comments Results review labs & bone [...] BE BASED ON THE PRIMARY CLINICAL RECORDS. [facility] [employer] [facility]. provides no warranty or guarantee of the accuracy or completeness of information in this document.
== END | disposition home or self-care (01) ==
PROVIDERS: PCP Family Medicine Geriatric Medicine; Referring Provider Internal Medicine Hematology & Oncology; Visit Provider Internal Medicine Hematology & Oncology
DX: C50.911 Malignant neoplasm of unspecified site of right female breast (principal)
CPT/HCPCS: 77049; A9575; A4216; C8908

== ENCOUNTER → 2024-05-10 | Outpatient (CLI) | payer MEDICARE, SELFPAY ==
--- NOTE | 2024-05-10 12:53 | BD_ITS ---
STUDY: DUAL ENERGY X-RAY ABSORPTIOMETRY / DXA REASON FOR EXAM: Female, 78 years old. Osteoporosis TECHNIQUE: Bone Mineral Density (BMD) measurements of lumbar spine and left hip were obtained. COMPARISON: None. FINDINGS: Lumbar Spine (L1-L4): g/cm2 (0.811) / T-score (-1.9) / Z-score (0.7) Findings are suggestive of osteopenia with a moderate fracture risk. Left Femur Total: g/cm2 (0.710) / T-score (-1.9) / Z-score (0.1) Left Femoral Neck: g/cm2 (0.607) / T-score (-2.2) / Z-score (0.1) . BD/Dexa Bone Density Study IMPRESSION: The patient is considered osteopenic as outlined below according to World Jj Organization (WHO) criteria with a high fracture risk. Reference Information: The T-score is the number of standard deviations above or below the standard which is normal for young adults at their peak bone mineral density. The World Health Organization (WHO) interprets the T-scores as follows: Above -1 Normal bone density Between -1 and -2.5 Osteopenia Equal to / or below -2.5 Osteoporosis As a practical clinical guideline, osteopenia may be graded as follows: Mild -1 through -1.5 Moderate -1.6 through -2.0 Severe -2.1 through -2.4 The Z-score is the number of standard deviations above or below age-matched controls. A Z-score of less than -1.5 would be considered abnormal. References: 1. NIH Osteoporosis and Related Bone Diseases www osteo.org 2. International Society for Clinical Densitometry www iscd.org 3. National Osteoporosis Foundation www nof.org Electronically Signed: Reid Chu MD at 14:12 EST ,
== END | disposition home or self-care (01) ==
LOC: OPBD 12:47
PROVIDERS: PCP Family Medicine Geriatric Medicine; Referring Provider Nurse Practitioner Family; Visit Provider Nurse Practitioner Family
DX: M81.0 Age-related osteoporosis without current pathological fracture (principal); Z79.811 Long term (current) use of aromatase inhibitors
CPT/HCPCS: 77080

== ENCOUNTER → 2024-06-13 | Outpatient (CLI) | payer MEDICARE, SELFPAY ==
--- NOTE | 2024-06-13 10:50 | MRI_ITS ---
PROCEDURE: MRI lumbar spine without IV contrast REASON FOR EXAM: Pain, radiculopathy TECHNIQUE: Multisequence multiplanar MR images of the lumbar spine were obtained without the administration of intravenous contrast. Imaging sequences were performed to best display suspected pathology. COMPARISON: None. FINDINGS: Vertebral body heights are within normal limits. Negative for fracture or marrow replacement. Mild levoscoliosis. Moderate multilevel degenerative disc disease. Conus medullaris is intact and terminates at L1. Moderate paraspinal muscle atrophy. L1-2: Minimal posterior disc bulge. Mild bilateral facet arthrosis. No significant spinal stenosis. Mild bilateral foraminal narrowing. L2-3: Minimal posterior disc bulge. Mild bilateral facet arthrosis. No significant spinal stenosis. Mild bilateral foraminal narrowing. L3-4: Minimal posterior disc bulge. Moderate bilateral facet arthrosis and ligamentum flavum hypertrophy. No significant spinal stenosis. Mild/moderate bilateral foraminal narrowing. L4-5: Posterior disc bulge with small superimposed right central disc protrusion and annular fissure. Moderate bilateral facet arthrosis and ligamentum flavum hypertrophy. Moderate spinal stenosis. Mild bilateral foraminal narrowing. L5-S1: Minimal posterior disc bulge. Moderate bilateral facet arthrosis. Mild circumferential spinal stenosis. Mild left foraminal narrowing. MRI/Spine Lumbar (Routine) IMPRESSION: 1. Acquired moderate spinal stenosis at L4-5 as above. 2. Acquired mild to mild/moderate multilevel foraminal narrowing. Reading Location: [facility]
== END | disposition home or self-care (01) ==
LOC: MRI 11:55
PROVIDERS: PCP Family Medicine Geriatric Medicine; Referring Provider Family Medicine Geriatric Medicine; Visit Provider Family Medicine Geriatric Medicine
DX: M54.50 Low back pain, unspecified (principal)
CPT/HCPCS: 72148

== ENCOUNTER → 2024-07-20 | Outpatient (CLI) | payer MEDICARE, SELFPAY ==
--- NOTE | 2024-07-20 13:57 | BI_ITS ---
EXAM: SCRN MAMM (CAD)W/MEGHANN BILAT DATE: 07/20/2024 CLINICAL HISTORY: F, Age 78 y/o , ANNUAL SCREENING History of breast cancer. Sister with breast cancer. Mother with breast cancer. TECHNIQUE: Bilateral screening digital breast tomosynthesis with 2D and 3D images. Computer aided detection. COMPARISON: Prior exam(s) dated July 20, 2023.. FINDINGS: TISSUE DENSITY: The breast tissue is composed of scattered area of fibroglandular density. Bilateral Breast Mammographic Findings: No significant masses, calcifications or other abnormalities are identified. Once again, the patient is status post lumpectomy in the deep upper lateral aspect of the right breast. Postoperative scarring. BI/SCRN MAMM (CAD)W/MEGHANN BILAT IMPRESSION: Right Breast: BIRADS 2 BENIGN FINDING. Left Breast: BIRADS 2 BENIGN FINDING. OVERALL FINAL ASSESSMENT: BIRADS 2 BENIGN FINDING RECOMMENDATION: Routine annual follow-up in 1 Year A letter with findings and recommendations will be mailed to the patient. Reading Location: [place] [id number]
== END | disposition home or self-care (01) ==
LOC: OPBI 13:56
PROVIDERS: PCP Family Medicine Geriatric Medicine; Referring Provider Internal Medicine Hematology & Oncology; Visit Provider Internal Medicine Hematology & Oncology
DX: Z12.31 Encounter for screening mammogram for malignant neoplasm of breast (principal)
CPT/HCPCS: 77063; 77067

== ENCOUNTER → 2024-07-26 | Outpatient (CLI) | payer MEDICARE, SELFPAY ==
[2024-07-26 16:31] LABS: Absolute Lymphocyte Count 1.47 X10^3/uL (0.83-4.51); Absolute Neutrophil Count 3.9 X10^3/uL (2.0-7.7); Basophil# 0.02 X10^3/uL; Basophil% 0.3 % (0-1); Eosinophil# 0.15 X10^3/uL; Eosinophils% 2.4 % (0-5); Hematocrit 47.1 % (37-47); Lymphocyte # 1.47 X10^3/ul (0.83-4.51); Lymphocyte % 23.4 % (19-41); Mean Corp Hgb Conc 31.8 g/dL (32-36); Mean Corpuscular Hgb 29.1 pg (27.0-32.0); Mean Corpuscular Volume 91.5 fL (81-99); Mean Platelet Vol. 10.6 fl (6.2-12.0); Monocyte# 0.69 X10^3/uL; NRBC Flagged by Analyzer 0 % (0-5); Neutrophil # 3.94 X10^3/uL (2.7-7.7); Neutrophil % 62.6 % (47-70); Platelet Count 266 K/mm3 (150-450); RBC Distribution Width CV 14.3 % (11.6-14.6); RBC Distribution Width SD 48.6 fl (35.1-43.9); Red Blood Count 5.15 M/mm3 (4.2-5.4); White Blood Count 6.3 K/mm3 (4.4-11.0)
[2024-07-26 17:27] LABS: ALB/GLOB Ratio 1.8 RATIO (0.9-2.4); AST(SGOT) 24 U/L (<=31); Alanine Aminotransfer ALT/SGPT 6 U/L (<=34); Albumin, Serum 3.8 g/dL (3.4-4.8); Alkaline Phosphatase 78 U/L (35-104); Anion Gap 11 (5-15); BUN 14 mg/dL (4-19); BUN/Creat Ratio 21.1 RATIO (10-20); Calcium,Total 10.2 mg/dL (7.6-11.0); Carbon Dioxide 25.8 mmol/L (21.0-32.0); Chloride 104 mmol/L (98-108); Creatinine, Serum 0.66 mg/dL (0.70-1.20); EST Glomerular Filtration Rate 90 (>60); Globulin 2.2 g/dL (2.2-4.2); Glucose 102 mg/dL (70-99); Potassium 4.5 mmol/L (3.3-5.1); Sodium Level 141 mmol/L (133-145); Total Bilirubin 0.19 mg/dL (0.00-1.30); Vitamin D,25 Hydroxy 30.5 ng/mL (30-100)
== END | disposition home or self-care (01) ==
LOC: LAB 15:33
PROVIDERS: PCP Family Medicine Geriatric Medicine; Referring Provider Family Medicine Geriatric Medicine; Visit Provider Family Medicine Geriatric Medicine
DX: I10 Essential (primary) hypertension (principal); E55.9 Vitamin D deficiency, unspecified
CPT/HCPCS: 36415; 80053; 82306; 84443; 85025

== ENCOUNTER → 2025-01-25 | Outpatient (CLI) | payer MEDICARE, SELFPAY ==
[2025-01-25 14:09] LABS: Hematocrit 45.7 % (37-47); Hemoglobin 14.9 g/dL (12.0-15.0); Immature Granulocytes Count 0.020 X10^3/uL (0.0-0.0); Mean Corp Hgb Conc 32.6 g/dL (32-36); Mean Corpuscular Volume 90.1 fL (81-99); Mean Platelet Vol. 10.6 fl (6.2-12.0); NRBC Flagged by Analyzer 0 % (0-5); Platelet Count 229 K/mm3 (150-450); RBC Distribution Width CV 13.9 % (11.6-14.6); RBC Distribution Width SD 46.4 fl (35.1-43.9); Red Blood Count 5.07 M/mm3 (4.2-5.4); White Blood Count 7.3 K/mm3 (4.4-11.0)
[2025-01-25 14:52] LABS: AST(SGOT) 24 U/L (<=31); Alanine Aminotransfer ALT/SGPT 21 U/L (<=34); Albumin, Serum 4.1 g/dL (3.4-4.8); Alkaline Phosphatase 72 U/L (35-104); Anion Gap 9 (5-15); BUN 15 mg/dL (4-19); BUN/Creat Ratio 24.0 RATIO (10-20); Calcium,Total 10.0 mg/dL (7.6-11.0); Carbon Dioxide 25.7 mmol/L (21.0-32.0); Chloride 105 mmol/L (98-108); Globulin 2.6 g/dL (2.2-4.2); Glucose 125 mg/dL (70-99); Potassium 4.2 mmol/L (3.3-5.1); Vitamin D,25 Hydroxy 29.2 ng/mL (30-100)
[2025-01-25 21:48] LABS: Xtra Tube Kwok EXTRA TUBE
== END | disposition home or self-care (01) ==
LOC: POLAB3 13:47
PROVIDERS: PCP Family Medicine Geriatric Medicine; Visit Provider Family Medicine Geriatric Medicine
DX: I10 Essential (primary) hypertension (principal); E55.9 Vitamin D deficiency, unspecified
CPT/HCPCS: 36415; 80053; 82306; 84443; 85025

== ENCOUNTER → 2025-01-30 | Outpatient (CLI) | payer MEDICARE, SELFPAY ==
--- NOTE | 2025-01-30 14:05 | RAD_ITS ---
PROCEDURE: SHOULDER MIN 2 VIEWS 01/30/2025 REASON FOR EXAM: SHOULDER PAIN TECHNIQUE: Procedure Code: RADSH Modality: DX Procedure: SHOULDER MIN 2 VIEWS COMPARISON: None RAD/Shoulder min 2 Views IMPRESSION: No acute fracture or dislocations. Moderate degenerative changes of the left sh oulder. No acute soft tissue abnormalities. No radiographic foreign body. Reading Location: [id number]
== END | disposition home or self-care (01) ==
LOC: RAD 13:58
PROVIDERS: PCP Family Medicine Geriatric Medicine; Referring Provider Anesthesiology; Visit Provider Anesthesiology
DX: M25.512 Pain in left shoulder (principal)
CPT/HCPCS: 73030

== ENCOUNTER → 2025-02-20 | Outpatient (CLI) | payer MEDICARE, SELFPAY ==
--- NOTE | 2025-02-20 11:01 | MRI_ITS ---
PROCEDURE: MRI/Breast Bilateral W/O and W
== END | disposition home or self-care (01) ==
LOC: OPMRI 11:00
PROVIDERS: PCP Family Medicine Geriatric Medicine; Referring Provider Internal Medicine Hematology & Oncology; Visit Provider Internal Medicine Hematology & Oncology
DX: C50.311 Malignant neoplasm of lower-inner quadrant of right female breast (principal); Z17.0 Estrogen receptor positive status [ER+]
CPT/HCPCS: 77049; A9575; A4216; C8908

== ENCOUNTER → 2025-03-28 | Outpatient (CLI) | payer MEDICARE, SELFPAY ==
[2025-03-28 16:12] LABS: Hematocrit 46.9 % (37-47); Hemoglobin 15.0 g/dL (12.0-15.0); Immature Granulocytes Count 0.030 X10^3/uL (0.0-0.0); Mean Corp Hgb Conc 32.0 g/dL (32-36); Mean Corpuscular Volume 90.5 fL (81-99); Mean Platelet Vol. 11.0 fl (6.2-12.0); NRBC Flagged by Analyzer 0 % (0-5); Platelet Count 237 K/mm3 (150-450); RBC Distribution Width CV 13.8 % (11.6-14.6); RBC Distribution Width SD 46.4 fl (35.1-43.9); Red Blood Count 5.18 M/mm3 (4.2-5.4); White Blood Count 8.2 K/mm3 (4.4-11.0)
[2025-03-28 17:23] LABS: Anion Gap 10 (5-15); BUN 18 mg/dL (4-19); BUN/Creat Ratio 16.6 RATIO (10-20); Calcium,Total 9.9 mg/dL (7.6-11.0); Carbon Dioxide 24.6 mmol/L (21.0-32.0); Chloride 106 mmol/L (98-108); Glucose 106 mg/dL (70-99); Potassium 4.3 mmol/L (3.3-5.1); Pro- Brain NATRIURETIC PEPTIDE 60 pg/mL (<=1800)
--- OUTSIDE RECORDS SUMMARY | 2025-03-28 18:45 | XMS RPT_ITS | CCD ---
Author Organization [facility] ion [facility] Care Team Providers Care System Auditor Name Role Phone Raheem Nichols Unavailable Amos Nava Admitting Unavailable Amos Nava Attending [...] Raheem Unavailable Unavailable Jennifer Garduno Unavailable Unavailable Jessica Raheem Unavailable Unavailable Raheem Nichols Primary Care Provider Jennifer Garduno PA-C Unavailable UnavailRaheem Oro MD Unavailable Unavailable Nichols, Raheem O Unavailable Unavailable Stephen Becerraef G Unavailable Unavailable Nichols, Raheem O Unavailable Unavailable Unavailable Altagracia Arellano Attending UnavailAltagracia Johnson Referring UnavailDr. Raheem Oro Primary Care Unavailab le Arellano, Altagracia Hoyos Attending Unavailabl e Nichols, Dr. Raheem Tijerina Primary Care Unavailab le Arellano, Altagracia Hoyos Attending Unavailabl e Jessica, Dr. Raheem Tijerina Primary Care Unavailab le Arellano, Altagracia Hoyos Attending Unavailabl e Nichols, Dr. Raheem Tijerina [...] Referring Unavailable Raheem Nichols Primary Care Unavailable ArellanoAltagracia Falk Attending Unavailabl e Raheem Nichols Referring Unavailable NicholsRaheem hernandez Primary Care Unavailable NicholsRaheem hernandez Referring Unavailable NicholsRaheem hernandez Primary Care Unavailable NicholsRaheem ortiz Attending Unavailable NicholsRaheem hernandez Primary Care Unavailable NicholsRaheem hernandez Attending Unavailable NicholsRaheem hernandez Referring Unavailable NicholsRaheem hernandez Primary Care Unavailable NicholsRaheem hernandez Attending Unavailable NicholsRaheem hernandez Referring Unavailable NicholsRaheem hernandez Primary Care Unavailable Altagracia Arellano Attending Unavailabl e Raheem Nichols Referring Unavailable Nichols, Dr. Raheem Tijerina Primary Care Unavailab Sheryl Valdez Attending Unavailable Sheryl Ingram Attending Unavailable Jessica, Dr. Raheem Tijerina Primary Care Unavailab Sheryl Valdez Admitting Unavailable Sheryl Ingram Attending Unavailable Sheryl Ingram Referring Unavailable Jessica, Dr. Raheem Tijerina Primary Care Unavailab le Jessica, Dr. Raheem Tijerina Primary Care Unavailab Sheryl Valdez Attending Unavailable Dr. Evgeny Garg Attending Provider Radha Chance Attending Provider Unavailable Melquiades, Dr. Rosa Attending Provider Dr. Brandon Meza Attending Provider Lorenzo, Dr. Craig Hebert Primary Care Provider Dr. Shelley Arnett Referring Provider Dr. Colten Vasquez Attending Provider 1([facility])[phone] Craig Ventura Chi Referring Provider Dr. Colten Vasquez Referring Provider 1([facility])[phone] Colten Vasquez Other Provider Dr. Dean Donovan Attending Provider 1([facility])[phone] Roof PREPARED FOODS TEAM LEADER, PREPARED FOODS TEAM LEADER-C Len Fontanez Attending Provider 1([facility])[phone] Lorenzo, Dr. Craig Hebert Primary Care Provider 1([facility])[phone] Dr. Colten Vasquez Referring Provider 1([facility])[phone] Colten Vasquez Other Provider Dr. Dean Donovan Attending Provider 1([facility])[phone] Brandon Meza Attending Provider 1([facility])[phone] Roof PREPARED FOODS TEAM LEADER, PREPARED FOODS TEAM LEADER-C Len Fontanez Attending Provider Lorenzo, Dr. Craig Hebert Referring Provider Cabrera PREPARED FOODS TEAM LEADER, PREPARED FOODS TEAM LEADER-C Jemima Attending Provider Dr. Evgeny Garg Attending Provider Roof PREPARED FOODS TEAM LEADER, PREPARED FOODS TEAM LEADER-C Len Fontanez Referring Provider Hai PREPARED FOODS TEAM LEADER, PREPARED FOODS TEAM LEADER-C Daisy Attending Provider Hai PREPARED FOODS TEAM LEADER, PREPARED FOODS TEAM LEADER-C Daisy Attending Provider Lorenzo, Dr. Craig Hebert Primary Care Provider Lorenzo, Dr. Craig Hebert Referring Provider Dr. Evgeny Garg Attending Provider Dr. Shelley Arnett Attending Provider Raheem Nichols MD Primary Care Provider NITHYA HUYNH Attending Unavailable RAHEEM NICHOLS Primary Care Unavailable LORENZO, CRAIG HEBERT Referring Unavailable LORENZO, CRAIG CHI Admitting Unavailable NITHYA HUYNH Attending Unavailable NICHOLSRAHEEM Primary Care Unavailable LORENZO, CRAIG CHI Referring Unavailable LORENZO, CRAIG CHI Admitting Unavailable NITHYA HUYNH Attending Unavailable NICHOLSRAHEEM Primary Care Unavailable LORENZO, CRAIG CHI Referring Unavailable LORENZO, CRAIG CHI Admitting Unavailable NICHOLS, RAHEEM TIJERINA Primary Care Unavailable KATHRYN ALEXIS Attending Unavailable LORENZO, CRAIG CHI Referring Unavailable LORENZO, CRAIG CHI Admitting Unavailable NICHOLS, RAHEEM BYRON Primary Care Unavailable RADHA PATEL Attending Unavailable LORENZO, CRAIG CHI Admitting Unavailable LORENZO, CRAIG CHI Referring Unavailable NICHOLS, RAHEEM TIJERINA Primary Care Unavailable AUDI PARIS JR. Attending Unava ilable LORENZO, CRAIG CHI Referring Unavailable NICHOLS, RAHEEM TIJERINA Primary Care Unavailable RADHA PATEL Attending Unavailable LORENZO, CRAIG CHI Admitting Unavailable NICHOLS, RAHEEM TIJERINA Primary Care Unavailable RADHA PATEL Attending Unavailable LORENZO, CRAIG CHI Referring Unavailable LORENZO, CRAIG CHI Admitting Unavailable RADHA PATEL Attending Unavailable NICHOLSRAHEEM Primary Care Unavailable LORENZO, CRAIG CHI Referring Unavailable LORENZO, CRAIG CHI Admitting Unavailable RADHA PATEL Attending Unavailable NICHOLSRAHEEM HERNANDEZ Primary Care Unavailable LORENZO, CRAIG CHI Referring Unavailable LORENZO, CRAIG CHI Admitting Unavailable LUIS CARLOS CUEVA Attending Unavailab le LORENZO, CRAIG CHI Primary Care Unavailable Lorenzo Dr. Craig SANTIAGO Chi Primary Care Provider Dr. Craig Ventura MD, Chi Referring Provider Hai PREPARED FOODS TEAM LEADER-C, Daisy Attending Provider Hai PREPARED FOODS TEAM LEADER-C, Daisy Referring Provider Dr. Craig Ventura MD, Chi Attending Provider Dr. Shelley Arnett MD Attending Provider Dr. Evgeny Garg DO Referring Provider Dr. Craig Ventura MD, Chi Primary Care Provider Dr. Craig Ventura MD, Chi Referring Provider Hai PREPARED FOODS TEAM LEADER-C, Daisy Attending Provider Hai PREPARED FOODS TEAM LEADER-C, Daisy Referring Provider Lorenzo SANTIAGO, Dr. Craig Hebert Attending Provider Melquiades SANTIAGO, Dr. Rosa Attending Provider Dr. Evgeny Garg DO Referring Provider Melquiades SANTIAGO, Dr. Rosa Referring Provider Lorenzo SANTIAGO, Dr. Craig Hebert Primary Care Provider Hai PREPARED FOODS TEAM LEADER-C, Daisy Attending Provider Lorenzo SANTIAGO, Dr. Craig Hebert Referring Provider Lorenzo SANTIAGO, [facility] Primary Care Provider FASCIONE, AMARILIS M Referring Unavailable LORENZO, CRAIG-CHI Primary Care Unavailable FASCIONE, AMARILIS M Referring Unavailable LORENZO, CRAIG-CHI Primary Care Unavailable FASCIONE, AMARILIS M Admitting Unavailable FASCIONE, AMARILIS M Attending Unavailable LORENZO, CRAIG-CHI Primary Care Unavailable Lorenzo , Dr. Craig Hebert Primary Care Provider Dr. Evgeny Garg DO Attending Provider Jef Hill Attending Unavailable Jef Hill Referring Unavailable Lorenzo, Craig Chi Primary Care Unavailable Isckarus Mansour Referring Unavailable IsckarusShelley Attending Unavailable Lorenzo, Craig Chi Primary Care Unavailable Lorenzo, Craig Chi Primary Care Unavailable Hai PREPARED FOODS TEAM LEADER, Daisy Attending Unavailable Hai PREPARED FOODS TEAM LEADER, Daisy Referring Unavailable Lorenzo, Craig Chi Primary Care Unavailable Lorenzo, Craig Chi Attending Unavailable Lorenzo, Craig Chi Referring Unavailable IsckarusShelley Attending Unavailable Lorenzo, Craig Chi Primary Care Unavailable Lorenzo, Craig Chi Referring Unavailable Lorenzo, Craig Chi Primary Care Unavailable ForestEvgeny saleem Attending Unavailable Lorenzo, Craig Chi Referring Unavailable Lorenzo, Craig Chi Primary Care Unavailable Isckarus, Mansour Attending Unavailable Lorenzo, Craig Chi Referring Unavailable ForestEvgeny saleem Attending Unavailable Lorenzo, Craig Chi Primary Care Unavailable Isckarus Mansour Attending Unavailable Lorenoz, Craig Chi Referring Unavailable Lorenzo, Craig Chi Primary Care Unavailable Lorenzo, Craig Chi Primary Care Unavailable Hai PREPARED FOODS TEAM LEADER, Daisy Attending Unavailable Lorenzo, Craig Chi Referring Unavailable Lorenzo, Craig Chi Primary Care Unavailable IscyamiletusShelley Referring Unavailable IsckarusShelley Attending Unavailable Lorenzo, Craig Chi Primary Care Unavailable Lorenzo, Craig Chi Attending Unavailable Lorenzo, Craig Chi Referring Unavailable IsckarusSamaraour Attending Unavailable Lorenzo, Craig Chi Primary Care Unavailable Evgeny Garg Referring Unavailable Lorenzo, Craig Chi Attending Unavailable Lorenzo, Craig Chi Primary Care Unavailable Allergies Allergy Classification Reported Allergen(s) Allergy Type Date of Onset Reaction(s) Facility Serotonin Reuptake Inhibitors (SSRIs) (3 sources) Escitalopram; Translations: [Lexapro] Drug Allergy [facility] Work Phone: (20 sources) escitalopram; Translations: [Unknown] Drug Allergy 6 Other (See Comments) [facility] Work Phone: Comment on above: CAUSED DIZZINESS AND LOST HEARING. (4 sources) Escitalopram Drug Allergy [facility] Work Phone: (3 sources) Escitalopram; Translations: [ESCITALOPRAM OXALATE] Drug Allergy 3 Unknown [facility] (1 source) Escitalopram Drug Allergy 5 [facility] Repository Medications Current Medications Medication Drug Class(es) Dates Sig (Normalized) Sig (Original) apixaban 5 mg oral tablet (10 sources) Factor Xa Inhibitor Start: 03-31-2023 End: 01-11-2024 take 1 tablet by mouth twice daily Apixaban (Eliquis) 5 mg tablet Active 5 mg PO TWICE A DAY 180 January 11, 2024 1:18pm biotin 1 mg chewable tablet (4 sources) Start: 11-09-2023 take 1 tablet by mouth once daily Biotin 1,000 mcg tablet,chewable Active 1000 ug PO DAILY November 09, 2023 12:00am calcium carbonate 1500 mg / cholecalciferol 200 unt oral tablet (7 sources) Vitamin D take 1 tablet by mouth once daily calcium carbonate-vitamin D3 600 mg(1,500mg) -200 unit per tablet Take 1 tablet by mouth daily. 0 Active cholecalciferol 0.075 mg oral tablet (20 sources) Vitamin D Start: 04-04-2022 take 1 tablet by mouth once daily Cholecalciferol (Vitamin D3) 75 mcg (3,000 unit) tablet Active 75 ug PO DAILY April 04, 2022 1:00am take 1 tablet by mouth once lenard y Vitamin D3 75 MCG (3000 UT) Oral Tablet Take 1 tablet daily Quantity: 0 Refills: 0 Ordered: 07-Dec-2019 DO Active take 1 tablet by mouth once lenard y cholecalciferol, vitamin D3, 1,000 unit tablet Take 1,000 Units by mouth daily. 0 Active Collagen (4 sources) Start: 12-29-2023 take 2500 mg by mout h once daily collagen + c Active 2500 mg PO .qd December 29, 2023 12:00am Start: 12-29-2023 take 2500 mg by mouth once jordy ly collagen + c Active 2500 mg PO .qd December 28, 2023 11:00pm ergocalciferol 0.05 mg oral capsule (2 sources) Provitamin D2 Compound take 1 capsule by mouth once daily ergocalciferol (Vitamin D-2) 50 MCG (2000 UT) capsule capsule Take 1 capsule (50 mcg) by mouth once daily. Active Lactobacillus Combination No.11 15 Billion Cell Sprinkle Capsule (1 source) take 1 capsule by mouth once daily lactobacillus combo no.11 15 billion cell CpSP Take 1 capsule by mouth daily. Active lactobacillus combo no.11 15 billion cell CpSP (6 sources) take 1 capsule by mouth once daily lactobacillus combo no.11 15 billion cell CpSP Take 1 capsule by mouth daily. 0 Active melatonin 10 mg oral capsule (7 sources) Start: 06-13-19 take 1 capsule by mouth at bedtime as needed Melatonin 10 mg capsule Active 10 mg PO BEDTIME as needed June 13, 2024 1:00am take 1 capsule by mouth at bedti me Melatonin 10 MG Oral Capsule TAKE 1 CAPSULE Bedtime Refills: 0 DO Active 24 hr metoprolol succinate 25 mg extended release oral tablet (20 sources) beta-Adrenergic Josefa Start: 01-12-2023 take 1 tablet by mouth once daily Metoprolol Succinate 25 mg tablet extended release 24 hr Active 25 mg PO DAILY January 12, 2023 2:11pm Start: 04-04-2022 End: 06-26-2022 take 1 tablet by mouth twice daily Metoprolol Succinate 25 mg tablet extended release 24 hr Discontinued 25 mg PO TWICE A DAY April 04, 2022 1:00am June 26, 2022 4:44pm Start: 02-09-2015 End: 01-12-2023 take 1 tablet by mouth three times daily Metoprolol Succinate 25 mg tablet extended release 24 hr Discontinued 25 mg PO THREE TIMES A DAY June 26, 2022 4:44pm January 12, 2023 2:13pm ucfwtsdnlhhe-Us-fzwk-mineral s (Tab-A-Michael Womens) 27-0.4 mg tablet (2 sources) take 1 tablet by mouth once daily dxsrrdjdrvce-Hw-pvbc-minerals (Tab-A-Michael Womens) 27-0.4 mg tablet Take 1 tablet by mouth once daily. Active omega-3 fatty acids-fish oil (Fish OiL) 340-1,000 mg capsule (2 sources) take 1 capsule by mouth once daily omega-3 fatty acids-fish oil (Fish OiL) 340-1,000 mg capsule Take 1 capsule by mouth once daily. Active tamoxifen 20 mg oral tablet (7 sources) Estrogen Agonist/Antagon ist S t a r t : 1 0 - 2 3 - 2 0 1 7 tamoxifen (NOLVADEX) 20 MG tablet therapeutic multivitamin (THERAGRAN) tablet (6 sources) take 1 tablet by mouth once daily therapeutic multivitamin (THERAGRAN) tablet Take 1 tablet by mouth daily. 0 Active Therapeutic Multivitamin Tab let (1 source) take 1 tablet by mouth once daily therapeutic multivitamin (THERAGRAN) tablet Take 1 tablet by mouth daily. Active 5 ml zoledronic acid 0.8 mg/ ml injection (4 sources) Bisphosphonate S t a r t : 0 7 - 2 2 - 2 0 2 4 Zoledronic Acid 4 mg/5 mL solution Active mg .Route November 09, 2023 12:00am INFUSION 2x / YEAR Completed/Discontinued Medications Medication Drug Class(es) Dates Sig (Normalized) Sig (Original) acetaminophen 500 mg oral tablet (20 sources) Start: 12-08-2022 End: 03-30-2023 take 2 tablets by mouth three times daily as needed Acetaminophen 500 mg tablet Discontinued 1000 mg PO THREE TIMES A DAY as needed December 08, 2022 12:00am March 30, 2023 3:02pm Start: 12-08-2022 End: 03-30-2023 take 1000 mg by mouth three times daily Acetaminophen Discontinued 1000 MG PO THREE TIMES A DAY December 08, 2022 12:00am March 30, 2023 3:02pm Start: 06-27-2019 take 1 tablet by dahiana th three times daily as needed acetaminophen (Tylenol) 500 mg tablet Take 1 tablet (500 mg) by mouth 3 times a day as needed. 06/27/2019 Active Start: 06-27-2019 take 2 tablets by mo uth three times daily as needed Acetaminophen 500 MG Oral Tablet TAKE 2 TABLET 3 times daily Quantity: 0 Refills: 0 Ordered: 27-Jun-2019 DO Start : 27-Jun-2019 Active PRN Acetaminophen (Tylenol Extra Strength) 500 mg powder in packet (10 sources) Start: 04-04-2022 End: 12-08-2022 take 500 mg by mouth every six hours as needed Acetaminophen (Tylenol Extra Strength) 500 mg powder in packet Discontinued 500 mg PO EVERY 6 HOURS as needed April 04, 2022 1:00am December 08, 2022 11:46am Start: 04-04-2022 End: 12-08-2022 take 500 mg by mouth every six hours as needed Acetaminophen (Tylenol Extra Strength) 500 mg powder in packet Discontinued 500 mg PO EVERY 6 HOURS as needed April 04, 2022 12:00am December 08, 2022 10:46am Start: 04-04-2022 End: 12-08-2022 take 500 mg by mouth every six hours Acetaminophen (Tylenol Extra Strength) 500 mg powder in packet Discontinued 500 MG PO EVERY 6 HOURS April 04, 2022 12:00am December 08, 2022 10:46am Start: 04-04-2022 End: 12-08-2022 take 500 mg by mouth every six hours Acetaminophen (Tylenol Extra Strength) 500 mg powder in packet Discontinued 500 MG PO EVERY 6 HOURS April 04, 2022 1:00am December 08, 2022 11:46am acetaminophen 325 mg / oxyCODONE hydrochloride 5 mg oral tablet (1 source) Opioid Agonist Start: 10-11-2015 End: 03-26-2017 take 1-2 tablets by mouth every four hours as needed for pain oxyCODONE-acetaminophen (ROXICET) 5-325 mg per tablet Take 1-2 tablets by mouth every four hours as needed for pain. 50 tablet 0 10/11/2015 03/26/2017 Discontinued [id number] 200 actuat albuterol 0.09 mg/actuat metered dose inhaler (14 sources) beta2-Adrene rgic Agonist Start: 12-08-2022 End: 03-30-2023 Albuterol Sulfate 90 mcg/actuation HFA aerosol inhaler Discontinued 2 NMA INHALATION 4 TIMES DAILY as needed December 08, 2022 12:00am March 30, 2023 3:02pm Start: 12-08-2022 End: 03-30-2023 take 1 puff(s) by inhalation four times daily Albuterol Sulfate Discontinued 2 PUFF INHALATION 4 TIMES DAILY December 08, 2022 12:00am March 30, 2023 3:02pm Start: 03-24-2022 take 2 puff(s) by in halation four times daily as needed albuterol 90 mcg/actuation inhaler Inhale 2 puffs 4 times a day as needed. 03/24/2022 Active anastrozole 1 mg oral tablet (20 sources) Aromatase Inhibitor Start: 07-07-2022 End: 03-28-2024 take 1 tablet by mouth once daily Anastrozole 1 mg tablet Discontinued 1 mg PO DAILY July 09, 2023 1:09pm December 29, 2023 3:07pm One Daily Multivitamin Women TABS (2 sources) [...] Calcium TABS Ref ills: 0 DO Active calcium ascorbate 500 mg oral tablet (10 sources) Start: 04-04-2022 End: 06-26-2022 take 1 tablet by mouth once daily Ascorbate Calcium (Vitamin C) 500 mg tablet Discontinued 500 mg PO DAILY April 04, 2022 1:00am June 26, 2022 4:44pm calcium carbonate 1500 mg oral tablet (12 sources) Start: 12-08-2022 End: 10-11-2024 take 1 tablet by mouth once daily Calcium Carbonate 600 mg calcium (1,500 mg) tablet Discontinued 600 mg PO DAILY December 08, 2022 12:00am October 11, 2024 1:27pm take 1 tablet by mouth once lenard y calcium carbonate (CALCIUM 500 ORAL) Take 1 tablet by mouth once daily. Active carbidopa 25 mg oral tablet (11 sources) Aromatic Amino Acid Decarboxylation Inhibitor Start: 07-06-2023 End: 12-29-2023 take 10 mg by mouth twice daily Carbidopa 25 mg tablet Discontinued 10 mg PO TWICE A DAY July 06, 2023 2:10pm December 29, 2023 2:45pm Start: 07-06-2023 take 10 mg by mouth twice lenard y Carbidopa Active 10 MG PO TWICE A DAY July 06, 2023 2:10pm Start: 03-02-2023 End: 07-06-2023 take 1 tablet by mouth twice daily Carbidopa 25 mg tablet Discontinued 25 mg PO TWICE A DAY March 02, 2023 1:00am July 06, 2023 2:11pm carbidopa 10 mg / levodopa 100 mg disintegrating oral tablet (4 sources) Aromatic Amino Acid Decarboxylation Inhibitor, Aromatic Amino Acid Start: 01-11-2024 End: 10-11-2024 Carbidopa-Levodopa 10-100 mg tablet,disintegrating Discontinued 1 {tbl} PO THREE TIMES A DAY January 11, 2024 12:00am October 11, 2024 1:28pm docosahexaenoic acid 120 mg / eicosapentaenoic acid 180 mg oral capsule (9 sources) take 1 capsule by mouth once daily Fish Oil 1000 MG Oral Capsule TAKE 1 CAPSULE Daily Quantity: 0 Refills: 0 Ordered: 24-Mar-2022 DO Active Fish Oil 1000 MG Oral Capsule Quantity: 0 Refills: 0 Ordered: 11-Feb-2022 DO Active [place] 4-Jzv-Ixd-Fish Oil (10 sources) Start: 04-04-2022 End: 12-08-2022 [place] 5-Cwr-Sli-Fish Oil (Fi sh Oil) 300-1,000 mg capsule Discontinued 1 NMA PO DAILY April 04, 2022 1:00am December 08, 2022 11:47am Start: 04-04-2022 End: 12-08-2022 [place] 7-Rvx-Lty-Fish Oil (Fi sh Oil) 300-1,000 mg capsule Discontinued 1 NMA PO DAILY April 04, 2022 12:00am December 08, 2022 10:47am Start: 04-04-2022 End: 12-08-2022 take 300-1000 mg by mouth once daily [place] 8-Ypn-Aaq-Fish Oil (Fish Oil) 300-1,000 mg capsule Discontinued 1 CAP PO DAILY April 04, 2022 12:00am December 08, 2022 10:47am Start: 04-04-2022 End: 12-08-2022 take 300-1000 mg by mouth once daily [place] 9-Tws-Sqr-Fish Oil (Fish Oil) 300-1,000 mg capsule Discontinued 1 CAP PO DAILY April 04, 2022 1:00am December 08, 2022 11:47am doxepin hydrochloride 25 mg oral capsule (6 sources) Tricyclic Antidepressant Start: 03-30-2023 End: 07-06-2023 take 1 capsule by mouth once daily Doxepin 25 mg capsule Discontinued 25 mg PO DAILY March 30, 2023 1:00am July 06, 2023 2:11pm gabapentin 300 mg oral capsule (18 sources) Anti-epileptic Agent Start: 07-06-2023 End: 10-05-2023 take 1 capsule by mouth once daily Gabapentin 300 mg capsule Discontinued 300 mg PO DAILY July 06, 2023 12:00am October 05, 2023 2:02pm Start: 12-30-2018 take 1 capsule by [place] twice daily gabapentin (NEURONTIN) 300 MG capsule Take 300 mg by mouth 2 (two) times a day . 1 12/30/2018 Active gadoterate meglumine (Dotarem) 0.5 mmol/mL contrast injection 15 mL (1 source) Start: 09-06-2024 End: 09-06-2024 inject 15 mL intravenously once 15 mL, intravenous, Once in imaging, Starting on Thu09/06/24 at 0744, For 1 dose, Administer undiluted as rapid I.V. bolus injection loperamide hydrochloride 2 mg oral capsule (6 sources) Opioid Agonist Start: 03-02-2023 End: 03-30-2023 take 1 capsule by mouth every six hours as needed Loperamide 2 mg capsule Discontinued 2 mg PO EVERY 6 HOURS as needed March 02, 2023 1:00am March 30, 2023 3:02pm LORazepam 0.5 mg oral tablet (17 sources) Benzodiazepine Start: 04-04-2022 End: 01-12-2023 take 1 tablet by mouth once daily as needed Lorazepam 0.5 mg tablet Discontinued 0.5 mg PO DAILY as needed April 04, 2022 1:00am January 12, 2023 1:44pm Start: 02-18-2022 take 1 tablet by dahiana th once daily as needed LORazepam 0.5 MG [...] drive for 6 hours after taking medication. magnesium oxide 420 mg oral tablet (6 sources) Start: 03-30-2023 End: 10-05-2023 take 1 tablet by mouth once daily Magnesium Oxide 420 mg tablet Discontinued 420 mg PO DAILY March 30, 2023 1:00am October 05, 2023 2:02pm meloxicam 15 mg oral tablet (1 source) [...] 1 Raheem Nichols Start : 27-Jun-2019 Active Lv-Hrs-Kxxmr-Calcium Carb-K1 (Women's 50 Plus Multivitamin) 400 mcg-500 mg calcium-20 mcg tablet (10 sources) Start: 04-04-2022 End: 03-30-2023 Ul-Cwk-Ayqav-Calcium Carb-K1 (Women's 50 Plus Multivitamin) 400 mcg-500 mg calcium-20 mcg tablet Discontinued {tbl} PO April 04, 2022 1:00am March 30, 2023 3:02pm Start: 04-04-2022 End: 03-30-2023 Mq-Pvn-Lzula-Calcium Carb-K1 (Women's 50 Plus Multivitamin) 400 mcg-500 mg calcium-20 mcg tablet Discontinued {tbl} PO April 04, 2022 12:00am March 30, 2023 2:02pm Start: 04-04-2022 End: 03-30-2023 take 1 tablet by mouth once Pm-Cyn-Dmyzf-Calcium Carb- K1 (Women's 50 Plus Multivitamin) 400 mcg-500 mg calcium-20 mcg tablet Discontinued TABLET PO April 04, 2022 1:00am March 30, 2023 3:02pm Start: 04-04-2022 End: 03-30-2023 take 1 tablet by mouth once To-Bbf-Swisd-Calcium Carb- K1 (Women's 50 Plus Multivitamin) 400 mcg-500 mg calcium-20 mcg tablet Discontinued TABLET PO April 04, 2022 12:00am March 30, 2023 2:02pm Start: 04-04-2022 take 1 tablet by mouth once Mv -Rld-Krcxc-Wfvtlao Carb-K1 (Women's 50 Plus Multivitamin) 400 mcg-500 mg calcium-20 mcg tablet Active TABLET PO April 04, 2022 1:00am [place]-3 Fatty Acids (6 sources) Start: 12-08-2022 End: 01-12-2023 take 1000 mg by mouth once daily [place]-3 Fatty Acids Discontinued 1000 MG PO DAILY December 07, 2022 11:00pm January 12, 2023 12:44pm Start: 12-08-2022 End: 01-12-2023 take 1000 mg by mouth once daily [place]-3 Fatty Acids Discontinued 1000 MG PO DAILY December 08, 2022 12:00am January 12, 2023 1:44pm [place]-3 Fatty Acids 1,000 mg capsule (4 sources) Start: 12-08-2022 End: 01-12-2023 take 1 capsule by mouth once daily [place]-3 Fatty Acids 1,000 mg capsule Discontinued 1000 mg PO DAILY December 08, 2022 12:00am January 12, 2023 1:44pm Start: 12-08-2022 End: 01-12-2023 take 1 capsule by mouth once daily [place]-3 Fatty Acids 1,000 mg capsule Discontinued 1000 mg PO DAILY December 07, 2022 11:00pm January 12, 2023 12:44pm One Daily Multivitamin Women TABS (20 sources) One Daily Multiv itamin Women TABS TAKE 1 TABLET DAILY. Quantity: [...] spasms Quantity: 30 Refills: 0 Ordered: 19-Jan-2020 Jnenifer Garduno PA-C Start : 19-Jan-2020 End : [...] (20 sources) Serotonin Reuptake Inhibitor Start: 07-18-2019 End: 03-02-2023 take 1 tablet by mouth at bedtime as needed Trazodone 50 mg tablet Discontinued 50 mg PO AT BEDTIME as needed January 12, 2023 1:44pm March 02, 2023 12:31pm 24 hr venlafaxine 75 mg extended release oral capsule (20 sources) Serotonin and Norepinephrine Reuptake Inhibitor Start: 12-08-2022 End: 01-05-2023 take 1 capsule by mouth twice daily Venlafaxine 75 mg capsule,extended release 24hr Discontinued 75 mg PO TWICE A DAY December 08, 2022 12:00am January 05, 2023 2:03pm Start: 07-10-2022 take 1 capsule by [facility] every twenty-four hours in the morning venlafaxine XR (Effexor-XR) 75 mg 24 hr capsule Indications: Anxiety state Take 1 capsule (75 mg) by mouth in the morning and 1 capsule (75 mg) before bedtime. 180 capsule 3 07/10/2022 Active Start: 07-07-2022 End: 12-08-2022 take 1 tablet by mouth twice daily Venlafaxine 75 mg tablet Discontinued 75 mg PO TWICE A DAY July 07, 2022 12:00am December 08, 2022 11:52am Start: 04-27-2018 take 1 capsule by mo [facility] twice daily Venlafaxine HCl ER 75 MG Oral Capsule Extended Release 24 Hour Take 1 capsule twice daily Quantity: 180 Refills: 3 Ordered: 21-May-2021 Raheem Nichols MD Start : 27-Apr-2018 Active Start: 01-30-2015 take 1 capsule by mo [facility] once daily venlafaxine (EFFEXOR-XR) 75 MG 24 hr capsule Take 75 mg by mouth daily 11 01/30/2015 Active Problems Active Problems Problem Classification Problem [...] [Personal history of malignant neoplasm of breast] Onset: 07-10-2022 07-10-2022 Episodic Cardiac dysrhythmias (12 sources) Paroxysmal atrial flutter; Translations: [Unspecified atrial flutter] 03-31-2023 Chronic Cardiac dysrhythmias (6 sources) Palpitations; Translations: [Palpitations] 02-24-2023 Episodic Diverticulosis and diverticulitis (20 sources) Diverticulitis of large intestine; Translations: [Diverticulitis of colon (without mention of hemorrhage)] Onset: 07-27-2015 Resolved: 05-21-2021 07-27-2015 Chronic Essential hypertension (1 source) Essential (primary) hypertension; Translations: [Essential (primary) hypertension] Onset: 02-13-2025 Chronic Nonspecific chest pain (20 sources) Central chest pain; Translations: [Chest pain, unspecified] Resolved: 11-12-2020 12-08-2022 Episodic Osteoarthritis (20 sources) Osteoarthritis of hip; Translations: [Osteoarthritis of knee] Onset: 03-02-2015 03-02-2015 Chronic Osteoarthritis (5 sources) Osteoarthritis of right hip joint; Translations: [Osteoarthritis of right knee joint] Onset: 03-02-2015 03-02-2015 Osteoporosis (20 sources) Senile osteoporosis; Translations: [Primary osteoporosis] Onset: 01-22-2012 07-27-2015 Chronic Other aftercare (20 sources) Patient encounter status; Translations: [Long-term (current) use of other medications] 12-08-2022 Episodic Other aftercare (4 sources) Prophylactic aromatase inhibitors given; Translations: [intermediate manager (current) use of aromatase inhibitors] 03-28-2024 Episodic Other and ill-defined heart disease (20 sources) Left ventricular hypertrophy; Translations: [Cardiomegaly] Onset: 06-25-2015 06-25-2015 Chronic Other and ill-defined heart disease (20 sources) Cardiomegaly; Translations: [Cardiomegaly] Onset: 09-25-2015 09-25-2015 Chronic Other and unspecified benign neoplasm (2 sources) Hemangioma of other sites; Translations: [Hemangioma of other sites] Onset: 09-22-2024 Episodic Other circulatory disease (4 sources) Elevated blood pressure; Translations: [Elevated blood-pressure reading, without diagnosis of hypertension] 01-11-2024 Episodic Other complications of ; puerperium affecting management of mother (20 sources) Deliveries by ; Translations: [ delivery, without mention of indication, unspecified as to episode of care or not applicable] Episodic Comment on above: 06/1973; 40 WEEKS; MA LE; 8LBS8; 39 WEEKS; MALE; 8LBS4/1978; 39 WEEKS; 8LBS; Other connective tissue disease (20 sources) History of total hip arthroplasty; Translations: [Presence of right artificial hip joint] Onset: 11-13-2015 11-13-2015 Chronic Other connective tissue disease (1 source) Presence of unspecified artificial hip joint; Translations: [Presence of unspecified artificial hip joint] Onset: 03-05-2022 Chronic Other connective tissue disease (3 sources) Pain in right foot; Translations: [Pain in right foot] Onset: 08-02-2024 08-02-2024 Episodic Other connective tissue disease (1 source) Pain in right foot; Translations: [Pain in right foot] Onset: 08-02-2024 Episodic Other connective tissue disease (4 sources) Plantar fasciitis of left foot; Translations: [Plantar fasciitis of left foot] Onset: 07-09-2018 07-09-2018 Other diseases of bladder and urethra (20 sources) Overactive bladder; Translations: [Overactive bladder] Onset: 03-05-2022 07-10-2022 Chronic Other endocrine disorders (1 source) Menarche; Translations: [History of Menarche] Chronic Other gastrointestinal disorders (20 sources) Irritable bowel syndrome; Translations: [Irritable bowel syndrome] Onset: 07-10-2022 07-10-2022 Chronic Other gastrointestinal disorders (1 source) Irritable bowel syndrome without diarrhea; Translations: [Irritable bowel syndrome without diarrhea] Onset: 02-21-2022 Chronic Other gastrointestinal disorders (20 sources) Personal history of other diseases of the digestive system; Translations: [History of irritable bowel syndrome] Episodic Other gastrointestinal disorders (5 sources) Chronic constipation; Translations: [Constipation, unspecified] Episodic Other hereditary and degenerative nervous system conditions (20 sources) Essential tremor; Translations: [Essential and other specified forms of tremor] Onset: 07-10-2022 07-10-2022 Chronic Other hereditary and degenerative nervous system conditions (1 source) Essential tremor; Translations: [Essential tremor] Onset: 02-21-2022 Chronic Other lower respiratory disease (20 sources) Dyspnea; Translations: [Shortness of breath] Onset: 06-25-2015 06-25-2015 Episodic Other lower respiratory disease (9 sources) Cough; Translations: [Cough] Episodic Other lower respiratory disease (2 sources) Wheezing; Translations: [Wheezing] Episodic Other lower respiratory disease (1 source) Wheezing; Translations: [Wheezing] Onset: 03-25-2022 Episodic Other lower respiratory disease (5 sources) Shortness of breath; Translations: [Shortness of breath] 01-14-2023 Episodic Other nervous system disorders (11 sources) Complex regional pain syndrome; Translations: [Mononeuritis of unspecified site] Chronic Other nervous system disorders (20 sources) Peripheral nerve disease ; Translations: [Unspecified hereditary and idiopathic peripheral neuropathy] Onset: 07-10-2022 07-10-2022 Chronic Other nervous system disorders (20 sources) Entrapment neuropathy of lower limb; Translations: [Lesion of lateral popliteal nerve] Chronic Other nervous system disorders (1 source) Chronic pain syndrome; Translations: [Chronic pain syndrome] Onset: 02-21-2022 Chronic Other nervous system disorders (2 sources) Entrapment neuropathy of left sural nerve; Translations: [Lesion of lateral popliteal nerve, left lower limb] Onset: 07-10-2022 07-10-2022 Chronic Other non-traumatic joint disorders (20 sources) Shoulder pain; Translations: [Pain in joint, shoulder region] Episodic Other non-traumatic joint disorders (9 sources) Chronic ankle pain; Translations: [Pain in joint, ankle and foot] Episodic Other non-traumatic joint disorders (2 sources) Pain in right hip; Translations: [Pain in right hip] Onset: 04-30-2024 Episodic Other non-traumatic joint disorders (3 sources) Pain in left shoulder; Translations: [Pain in joint, shoulder region] Onset: 07-10-2022 07-10-2022 Episodic Other non-traumatic joint disorders (1 source) [...] diseases of skin and subcutaneous tissue] Episodic Other skin disorders (2 sources) Disorder of right lower extremity; Translations: [Localized swelling, mass and lump, right lower limb] Onset: 09-06-2024 09-06-2024 Episodic Other skin disorders (1 source) Localized swelling, mass and lump, right lower limb; Translations: [Localized swelling, mass and lump, right lower limb] Onset: 09-06-2024 Episodic Other upper respiratory disease (10 sources) Hoarse; Translations: [Dysphonia] 01-14-2023 Episodic Other upper respiratory disease (4 sources) Dysphonia; Translations: [Dysphonia] 01-14-2023 Episodic Residual codes; unclassified (20 sources) Past [...] influencing health status] Episodic Residual codes; unclassified (4 sources) Estrogen receptor positive status [ER+]; Translations: [ESTROGEN RECEPTOR POSITIVE STATUS] Onset: 01-29-2022 Episodic Residual codes; unclassified (3 sources) Other specified personal risk factors, not elsewhere classified; Translations: [Oth personal risk factors, not elsewhere classified] Onset: 01-24-2022 Episodic Spondylosis; intervertebral disc disorders; other back problems (20 sources) Cervical spondylosis without myelopathy; Translations: [Lumbar spondylosis] Onset: 03-05-2022 07-10-2022 Chronic Spondylosis; intervertebral disc disorders; other back problems (20 sources) Low back pain; Translations: [Low back pain] Onset: 03-15-2024 03-08-2024 Episodic Thyroid disorders (20 sources) Thyroid nodule; Translations: [Nontoxic uninodular goiter] Onset: 07-27-2015 07-27-2015 Chronic Unclassified (3 sources) Cough, unspecified; Translations: [Cough, unspecified] Onset: 02-12-2022 Unclassified (2 sources) Low back pain, unspecified; Translations: [Low back pain, unspecified] Onset: 03-15-2024 Unclassified (1 source) [place] [facility] Physician Contact Required; Translations: [[place] [facility] Physician Contact Required] Onset: 12-31-2023 Unclassified (1 source) Other intervertebral disc degeneration, lumbar region without mention of lumbar back pain or lower extremity pain; Translations: [Other intervertebral disc degeneration, lumbar region without mention of lumbar back pain or lower extremity pain] Onset: 04-30-2024 Unclassified (1 source) Disorder of right lower extremity 09-06-2024 Past or Other Problems Problem Classification Problem Date Documented Da te Episodic/Chronic Genitourinary symptoms and ill-defined conditions (20 sources) Urinary incontinence; Translations: [Urge incontinence of urine] Resolved: 2 Chronic Nonmalignant breast conditions (4 sources) Unspecified lump in the right breast, lower inner quadrant; Translations: [Unspecified benign mammary dysplasia of right breast] Onset: 2 07-10-2022 Episodic Other aftercare (20 sources) Follow-up status; Translations: [Unspecified follow-up examination] Resolved: 2 Episodic Other aftercare (1 source) Other snf (current) drug therapy; Translations: [Other terminal carman (current) drug therapy] Onset: 2 Episodic Other aftercare (1 source) penitentiary (current) use of aromatase inhibitors; Translations: [penitentiary (current) use of aromatase inhibitors] Onset: 4 Episodic Other bone disease and musculoskeletal deformities (1 source) Other specified disorders of bone density and structure, left ankle and foot; Translations: [Oth disrd of bone density and structure, left ankle and foot] Onset: 2 Episodic Other connective tissue disease (14 sources) Plantar fascial fibromatosis; Translations: [Plantar fasciitis of left foot] Onset: 9 07-09-2018 Episodic Other connective tissue disease (20 sources) Calcaneal spur; Translations: [Calcaneal spur] Resolved: 2 Episodic Other connective tissue disease (20 sources) Plantar fasciitis; Translations: [Plantar fascial fibromatosis] Resolved: 2 Episodic Other connective tissue disease (20 sources) Tendinitis of left rotator cuff; Translations: [Disorders of bursae and tendons in shoulder region, unspecified] Onset: 3 07-10-2022 Episodic Other connective tissue disease (1 source) Pain in left foot; Translations: [Pain in left foot] Onset: 2 Episodic Other connective tissue disease (4 sources) Tendinitis of left rotator cuff; Translations: [Tendinitis of left rotator cuff] Other female genital disorders (20 sources) Stenosis of cervix; Translations: [Stricture and stenosis of cervix] Onset: 3 07-10-2022 Episodic Other gastrointestinal disorders (20 sources) Dysphagia; Translations: [Dysphagia, unspecified] Onset: 6 07-27-2015 Episodic Other gastrointestinal disorders (17 sources) H/O: gastrointestinal disease; Translations: [Personal history of other diseases of digestive system] Resolved: 2 Episodic Other non-traumatic joint disorders (20 sources) 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; Translations: [Pain in joint, pelvic region and thigh] Onset: 3 07-10-2022 Episodic Other nutritional; endocrine; and metabolic disorders [...] specified urinary system disorders] Resolved: 2 Episodic Unclassified (6 sources) Patient encounter status; Translations: [Medication management] Unclassified (4 sources) 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; Translations: [Chronic hip pain after total replacement of right hip joint] Unclassified (1 source) History of clinical finding in subject; Translations: [History of menopause] Unclassified (1 source) Cough, unspecified; Translations: [Cough, unspecified] Onset: 2 Unclassified (1 source) Low back pain, unspecified; Translations: [Low back pain, unspecified] Onset: 4 Unclassified (1 source) [place] [facility] Physician Contact Required; Translations: [[place] [facility] Physician Contact Required] Onset: 4 Unclassified (1 source) Other intervertebral disc degeneration, lumbar region without mention of lumbar back pain or lower extremity pain; Translations: [Other intervertebral disc degeneration, lumbar region without mention of lumbar back pain or lower extremity pain] Onset: 5 NEGATED: Highlighted row has not occurred!Residual codes; unclassified (20 sources) Disease Episodic Results Test Name Value Interpretation Reference Range Facility Oncology Visit Reporton 11-1 Oncology Visit Report [facility] [place] [address] OFFICE VISIT Date of Service: 02/27/25 1313 MR#: [id number] Acct: [id number] Name: CHELA ROJAS Rep #: [id number] : 1945 From: Shelley Arnett MD Age/Sex: 79/F Location: [facility] Status: Signed HPI Subjective Date of Service 02/27/25 Chief Complaint Breast cancer History of Present Illness 79-year-old female with a past medical history notable for LCIS of the right breast in 2015, received tamoxifen prophylaxis for approximately 2 years and with a positive family history for breast cancer (mother and sister with breast cancer in their 70s) was on vigilant screening program with annual mammography. Despite a negative screening mammogram in November 2021, she felt a lump in the right breast and MRI in January 2022 confirmed a ring enhancing right breast mass measuring 1.5 cm in maximum diameter in the inferior medial right breast that prompted a biopsy. January 29, 2022 right breast ultrasound-guided core needle biopsy: Invasive ductal carcinoma, grade 2, ER positive (over 95% strong), MT positive (over 95% moderate to strong) and HER2 low positive (1+). March 05, 2022 patient underwent right partial mastectomy at [facility] pathology showed a single focus of invasive ductal cancer, 1.6 cm in maximum diameter, overall grade 2, no lymphovascular invasion, DCIS present, eventual margin was negative and no axillary staging was done. MammaPrint was low risk (0.227 index). Treatment summary and response: March 05, 2022: Right partial mastectomy, no axillary staging. 05/05/2022 ??? 05/26/2022: received 4256 cGy in 16 fractions to the right breast and right low axilla with a 3D conformal technique. Anastrozole June 2022 Bone support every 6 months started June 2022 [facility] Medical History Arthritis of shoulder Aromatase inhibitor use Palpitations Encounter for education Osteoporosis Hip replacement planned Colonoscopy planned Wheezing Thyroid nodule Tendinitis of left rotator cuff Swallowing disorder 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 myelopathy Peripheral neuropathy Overweight Overactive bladder Lumbar spondylosis Lobular carcinoma in situ (LCIS) of right breast Left shoulder pain IBS (irritable bowel syndrome) Essential tremor Entrapment neuropathy of left sural nerve Dense breast tissue Chronic hip pain after total replacement of right hip joint Cardiac hypertrophy Breast cancer Anxiety Age-related osteoporosis without fracture Malignant neoplasm of lower-inner quadrant of right breast of female, estrogen receptor negative Surgical History History of colonoscopy Hx of tonsillectomy History of partial mastectomy of right breast S/P hip replacement H/O section History of appendectomy Family History Mother Breast cancer Father Depression Sister Breast cancer Aunt Breast cancer maternal Social History household members: spouse and family Smoking Status: Never smoker alcohol intake: current substance use type: does not use ROS Constitutional Constitutional: Reports systems reviewed and no addt'l complaints, except as documented and weight gain; Denies fatigue or fever(s) Eyes Eyes: Reports systems reviewed and no addt'l complaints, except as documented ENT HEENT: Reports systems reviewed and no addt'l complaints, except as documented; Denies mouth lesions Cardiovascular Cardiovascular: Reports systems reviewed and no addt'l complaints, except as documented; Denies chest pain with activity or edema Respiratory/Chest Respiratory/Chest: Reports systems reviewed and no addt'l complaints, except as documented, dyspnea on exertion and other Details: Respiratory symptoms are chronic (years) unchanged ; Denies cough or hemoptysis Gastrointestinal Gastrointestinal: Reports systems reviewed and no addt'l complaints, except as documented; Denies change in bowel habits, hematochezia or melena Genitourinary Genitourinary: Reports systems reviewed and no addt'l complaints, except as documented Musculoskeletal Musculoskeletal: Reports systems reviewed and no addt'l complaints, except as documented, arthralgias and back pain Integumentary Integumentary: Reports systems reviewed and no addt'l complaints, except as documented; Denies new lesions or rash Neurologic Neurologic: Reports systems reviewed and no addt'l complaints, except as documented, tremor(s) and other Details: Treatment is significantly less since she came off venlafaxine ; Denies focal weakness, headache(s) or paresthesias Psychiatric Psychiatric: Reports systems re (more content not included)... Normal [facility] Breast Bilateral W/O and Won 02-20-2025 Breast Bilateral W/O and W [facility] Imaging Services [address] [place] [address] Breast Bilateral W/O and W MR#: [id number] Acct: [id number] Name: CHELA ROJAS Rep #: [id number] : 1945 F 79 From: Amanda Montana PCP: Dr. Craig Ventura MD Status: REG CLI Study: Breast Bilateral W/O and W Date of Exam: 02/20 Exam# [id number] Ordering Dr: Shelley Arnett MD PROCEDURE: BREAST BILATERAL W/O AND W 02/20/2025 REASON FOR EXAM: SCREEN History of right breast cancer. Status post right lumpectomy with radiation therapy. Patient has a sister and mother with a history of breast cancer. High risk. TECHNIQUE: Procedure Code: [id number] Modality: MR Procedure: BREAST BILATERAL W/O AND W CONTRAST: 15 mL of Clariscan COMPARISON: Breast MRI examination dated 02/16/2024 and mammogram dated 07/20/2024 FINDINGS: TISSUE DENSITY: There are scattered areas of fibroglandular density. Background Parenchymal Enhancement: Minimal RIGHT Breast: No suspicious mass or non-mass enhancement. Architectural distortion is seen in the superior lateral aspect of the right breast which does correspond to the previous lumpectomy site. The right breast is smaller in size when compared to the left breast, compatible with the patient's history of prior lumpectomy. LEFT Breast: No suspicious mass or non-mass enhancement. Other Findings: No suspicious axillary or internal mammary lymph nodes. Visualized portions of the thoracic and abdominal viscera are unremarkable. MRI/Breast Bilateral W/O and W IMPRESSION: OVERALL FINAL ASSESSMENT BI-RADS 2: BENIGN RECOMMENDATION: Routine annual MRI follow-up in 1 Year The patient should also return in July 2025 for routine yearly screening mammography. MRI does not replace mammography for breast cancer screening. Reading Location: [id number] CC: Dr. Shelley Arnett MD; Dr. Craig Ventura MD Bankman: Signed Normal [facility] Radiation Oncology Visiton 1 Radiation Oncology Visit [facility] [place] [address] OFFICE VISIT Date of Service: 02/13/25 1259 MR#: [id number] Acct: [id number] Name: CHELA ROJAS Rep #: [id number] : 1945 From: Evgeny Garg DO Age/Sex: 79/F Location: [facility] Status: Signed Intake Vital Signs 08/15/24 13:01 11/28/24 13:08 02/13/25 13:03 Height 5 ft 6 in 5 ft 6 in 5 ft 6 in Weight: 168 lb 4 oz BMI 27.1 BP 135/79 H Blood Pressure Location Lt brachial Position Sitting Respiration 16 Pulse 76 Pulse Source Monitor Temp 97.5 F L Temperature Source Temporal Artery Pulse Oximetry (%) 93 Oxygen Delivery Method room air Intake Is patient in pain?: No Allergies escitalopram (From TellpeaprHashCube) Allergy (Severe, Verified 02/13/25 13:01) Other Medications ???Medication ???Instructions ???Recorded ???Confirmed ???Type cholecalciferol (vitamin D3) 75 75 mcg PO DAILY 04/04/22 02/13/25 History mcg (3,000 unit) tablet metoprolol succinate 25 mg 25 mg PO DAILY 01/12/23 02/13/25 H istory tablet,extended release 24 hr biotin 1,000 mcg chewable tablet 1,000 mcg PO DAILY 11/09/23 History zoledronic acid 4 mg/5 mL mg .Route 11/09/23 02/13/25 Histor y intravenous solution collagen + c 2,500 mg PO .qd 12/29/23 02/13/25 History anastrozole 1 mg tablet 1 mg PO DAILY #90 TABLETS 03/28/24 02/13/25 Rx melatonin 10 mg capsule 10 mg PO HS PRN insomnia 06/13/24 02/13/25 History pregabalin 50 mg capsule (Lyrica) 100 mg PO QDAY 11/28/24 02/13/25 History apixaban 5 mg tablet (Eliquis) 5 mg PO BID #180 tabs 01/18/25 Rx Have you fallen in the past year?: No Central Venous Access Central Venous Access: No PFSH PFSH Medical History (Updated 02/13/25 @ 13:03 by Ariane Pretty) Arthritis of shoulder Aromatase inhibitor use Palpitations Encounter for education Osteoporosis Hip replacement planned Colonoscopy planned Wheezing Thyroid nodule Tendinitis of left rotator cuff Swallowing disorder 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 myelopathy Peripheral neuropathy Overweight Overactive bladder Lumbar spondylosis Lobular carcinoma in situ (LCIS) of right breast Left shoulder pain IBS (irritable bowel syndrome) Essential tremor Entrapment neuropathy of left sural nerve Dense breast tissue Chronic hip pain after total replacement of right hip joint Cardiac hypertrophy Breast cancer Anxiety Age-related osteoporosis without fracture Malignant neoplasm of lower-inner quadrant of right breast of female, estrogen receptor negative Home Medications ???Medication ???Instructions ???Recorded ???Last Taken ???Type cholecalciferol (vitamin D3) 75 75 mcg PO DAILY 04/04/22 Unknown H istory mcg (3,000 unit) tablet metoprolol succinate 25 mg 25 mg PO DAILY 01/12/23 Unknown Hi story tablet,extended release 24 hr biotin 1,000 mcg chewable tablet 1,000 mcg PO DAILY 11/09/23 Unknow n History zoledronic acid 4 mg/5 mL mg .Route 11/09/23 Unknown History intravenous solution collagen + c 2,500 mg PO .qd 12/29/23 Unknown H istory anastrozole 1 mg tablet 1 mg PO DAILY #90 TABLETS 03/28/24 Unknown Rx melatonin 10 mg capsule 10 mg PO HS PRN insomnia 06/13/24 Unknown History pregabalin 50 mg capsule (Lyrica) 100 mg PO QDAY 11/28/24 Unknown H istory apixaban 5 mg tablet (Eliquis) 5 mg PO BID #180 tabs 01/18/25 Unk nown Rx Allergy/AdvReac Type Severity Reaction Status Date / Time escitalopram (From Lexapro) Allergy Severe Other Verified 02/13/25 13:01 Family History Mother Breast cancer Father Depression Sister Breast cancer Aunt Breast cancer maternal Surgical History History of colonoscopy Hx of tonsillectomy History of partial mastectomy of right breast S/P hip replacement H/O section History of appendectomy Social History household members: spouse and family Smoking Status: Never smoker alcohol intake: current substance use type: does not use Diagnosis: Chela Rojas is a 79-year-old female diagnosed with pathologic stage IA (pT1c cN0 pNx Mx) grade 2 invasive ductal carcinoma (ER >95%, MT > 95%, Her2 1+IHC) status post bilateral screening mammography (11/22/2021), bilateral breast MRI with and without contrast (01/24/2022), ultrasound- guided biopsy of the right breast (01/29/2022), and completion of right partial mastectomy (03/05/2022). From 05/05/2022 ??? 05/26/2022 she completed adjuvant radiation to the right breast and low axilla. History of Present Illness: 11/22/2021: Screening mammography was performed.??? This demonstrated scattered fibrogl (more content not included)... Normal [facility] Shoulder min 2 Viewson 01-30 Shoulder min 2 Views [facility] Services [address], [place] [address] Shoulder min 2 Views MR#: [id number] Acct: [id number] Name: CHELA ROJAS Rep #: [id number] : 1945 F 79 From: Jeana Butler PCP: Dr. Craig Ventura MD Status: REG CLI Study: Shoulder min 2 Views Date of Exam: 01/30/25 Exam# [id number] Ordering Dr: Jef Hill MD PROCEDURE: SHOULDER MIN 2 VIEWS 01/30/2025 REASON FOR EXAM: SHOULDER PAIN TECHNIQUE: Procedure Code: RADSH Modality: DX Procedure: SHOULDER MIN 2 VIEWS COMPARISON: None RAD/Shoulder min 2 Views IMPRESSION: No acute fracture or dislocations. Moderate degenerative changes of the left shoulder. No acute soft tissue abnormalities. No radiographic foreign body. Reading Location: [id number] CC: Dr. Jef Hill MD; Dr. Craig Ventura MD Bankman: Signed Normal [facility] CBC W/Diff, Automatedon 10-0 Absolute Lymph 1.44 X10 3/uL Normal 0.83-4.51 [facility] Comment on above: Performed By: #### L 506.1001, L501.9520, L100.0100, L500.4050 #### [facility] Laboratory [address] [place], [address] Absolute Neut 5.0 X10 3/uL Normal 2.0-7.7 [facility] Comment on above: Performed By: #### L 506.1001, L501.9520, L100.0100, L500.4050 #### [facility] [address] [place], [address] Basophils/100 WBC (Bld) 0.4 % Normal 0-1 [facility] Comment on above: Performed By: #### L 506.1001, L501.9520, L100.0100, L500.4050 #### [facility] [address] [place], [address] Eosinophils/100 WBC (Bld) 3.0 % Normal 0-5 [facility] Comment on above: Performed By: #### L 506.1001, L501.9520, L100.0100, L500.4050 #### [facility] [address] [place], [address] Erythrocyte distribution width (RBC) [Ratio] 13.9 % Normal 11.6-14.6 [facility] Comment on above: Performed By: #### L 506.1001, L501.9520, L100.0100, L500.4050 #### [facility] [address] [place], [address] Hematocrit (Bld) [Volume fraction] 45.7 % Normal 37-47 [facility] Comment on above: Performed By: #### L 506.1001, L501.9520, L100.0100, L500.4050 #### [facility] [address] [place], [address] Hemoglobin (Bld) [Mass/Vol] 14.9 g/dL Normal 12.0-15.0 [facility] Comment on above: Performed By: #### L 506.1001, L501.9520, L100.0100, L500.4050 #### [facility] [address] [place], [address] IG% 0.300 Normal 0.0-0.9 [facility] Comment on above: Result Comment: IG% - Immature Granulocytes (promyelocytes, myelocytes and metamyelocytes) > 1% indicates that a LEFT SHIFT is Present. Performed By: #### L 506.1001, L501.9520, L100.0100, L500.4050 #### [facility] [address] [place], [address] Lymphocytes/100 WBC (Bld) 19.6 % Normal 19-41 [facility] Comment on above: Performed By: #### L 506.1001, L501.9520, L100.0100, L500.4050 #### [facility] [address] [place], [address] MCH (RBC) [Entitic mass] 29.4 pg Normal 27.0-32.0 [facility] Comment on above: Performed By: #### L 506.1001, L501.9520, L100.0100, L500.4050 #### [facility] [address] [place], [address] MCHC (RBC) [Mass/Vol] 32.6 g/dL Normal 32-36 [facility] Comment on above: Performed By: #### L 506.1001, L501.9520, L100.0100, L500.4050 #### [facility] [address] [place], [address] MCV (RBC) [Entitic vol] 90.1 fL Normal 81-99 [facility] Comment on above: Performed By: #### L 506.1001, L501.9520, L100.0100, L500.4050 #### [facility] [address] [place], [address] Monocytes/100 WBC (Bld) 8.3 % Normal 0-10 [facility] Comment on above: Performed By: #### L 506.1001, L501.9520, L100.0100, L500.4050 #### [facility] [address] [place], [address] Neutrophils/100 WBC (Bld) 68.4 % Normal 47-70 [facility] Comment on above: Performed By: #### L 506.1001, L501.9520, L100.0100, L500.4050 #### [facility] [address] [place], [address] Nucleated RBC (Bld) [#/Vol] 0 10*3/uL Normal 0-5 [facility] Comment on above: Performed By: #### L 506.1001, L501.9520, L100.0100, L500.4050 #### [facility] [address] [place], [address] Platelet mean volume (Bld) [Entitic vol] 10.6 fL Normal 6.2-12.0 [facility] Comment on above: Performed By: #### L 506.1001, L501.9520, L100.0100, L500.4050 #### [facility] [address] [place], [address] Platelets (Bld) [#/Vol] 229 10*3/uL Normal 150-450 [facility] Comment on above: Performed By: #### L 506.1001, L501.9520, L100.0100, L500.4050 #### [facility] [address] [place], [address] RBC (Bld) [#/Vol] 5.07 10*6/uL Normal 4.2-5.4 [facility] Comment on above: Performed By: #### L 506.1001, L501.9520, L100.0100, L500.4050 #### [facility] [address] [place], [address] RDW SD 46.4 fl High 35.1-43.9 [facility] Comment on above: Performed By: #### L 506.1001, L501.9520, L100.0100, L500.4050 #### [facility] [address] [place], [address] WBC (Bld) [#/Vol] 7.3 10*3/uL Normal 4.4-11.0 [facility] Comment on above: Performed By: #### L 506.1001, L501.9520, L100.0100, L500.4050 #### [facility] [address] [place], [address] [facility] Albumin [Mass/Vol] 4.1 g/dL Normal 3.4-4.8 [facility] Comment on above: Performed By: #### L 506.1001, L501.9520, L100.0100, L500.4050 #### [facility] [address] [place], [address] Albumin/Globulin [Mass ratio] 1.5 {ratio} Normal 0.9-2.4 [facility] Comment on above: Performed By: #### L 506.1001, L501.9520, L100.0100, L500.4050 #### [facility] [address] [place], [address] ALK PHOS 72 U/L Normal 35-104 [facility] Comment on above: Performed By: #### L 506.1001, L501.9520, L100.0100, L500.4050 #### [facility] [address] [place], [address] ALT [Catalytic activity/Vol] 21 U/L Normal <=34 [facility] Comment on above: Performed By: #### L 506.1001, L501.9520, L100.0100, L500.4050 #### [facility] [address] [place], [address] AST [Catalytic activity/Vol] 24 U/L Normal <=31 [facility] Comment on above: Performed By: #### L 506.1001, L501.9520, L100.0100, L500.4050 #### [facility] [address] [place], [address] Bilirubin [Mass/Vol] 0.27 mg/dL Normal 0.00-1.[address] [facility] Comment on above: Performed By: #### L 506.1001, L501.9520, L100.0100, L500.4050 #### [facility] [address] [place], [address] BUN/CRE 24.0 RATIO High 10-20 [facility] Comment on above: Performed By: #### L 506.1001, L501.9520, L100.0100, L500.4050 #### [facility] [address] [place], [address] Calcium [Mass/Vol] 10.0 mg/dL Normal 7.6-11.0 [facility] Comment on above: Performed By: #### L 506.1001, L501.9520, L100.0100, L500.4050 #### [facility] [address] [place], [address] Chloride [Moles/Vol] 105 mmol/L Normal 98-[address] [facility] Comment on above: Performed By: #### L 506.1001, L501.9520, L100.0100, L500.4050 #### [facility] [address] [place], [address] CO2 [Moles/Vol] 25.7 mmol/L Normal 21.0-32.0 [facility] Comment on above: Performed By: #### L 506.1001, L501.9520, L100.0100, L500.4050 #### [facility] [address] [place], [address] Creatinine [Mass/Vol] 0.62 mg/dL Low 0.70-1.20 [facility] Comment on above: Performed By: #### L 506.1001, L501.9520, L100.0100, L500.4050 #### [facility] [address] [place], [address] GAP 9 Normal 5-15 [facility] Comment on above: Performed By: #### L 506.1001, L501.9520, L100.0100, L500.4050 #### [facility] [address] [place], [address] GFR/1.73 sq M.predicted among non-blacks MDRD (S/P/Bld) [Vol rate/Area] 90 mL/min/{1.73_m2} Normal >60 [facility] Comment on above: Result Comment: mL/m in/1.73m2 CKD-EPI Creatinine Equation (2020) Performed By: #### L 506.1001, L501.9520, L100.0100, L500.4050 #### [facility] [address] [place], [address] Globulin (S) [Mass/Vol] 2.6 g/dL Normal 2.2-4.2 [facility] Comment on above: Performed By: #### L 506.1001, L501.9520, L100.0100, L500.4050 #### [facility] [address] [place], [address] Glucose [Mass/Vol] 125 mg/dL High 70-99 [facility] Comment on above: Performed By: #### L 506.1001, L501.9520, L100.0100, L500.4050 #### [facility] [address] [place], [address] Potassium [Moles/Vol] 4.2 mmol/L Normal 3.3-5.1 [facility] Comment on above: Performed By: #### L 506.1001, L501.9520, L100.0100, L500.4050 #### [facility] [address] [place], [address] Sodium [Moles/Vol] 140 mmol/L Normal 133-145 [facility] Comment on above: Performed By: #### L 506.1001, L501.9520, L100.0100, L500.4050 #### [facility] [address] [place], [address] T PROT 6.7 g/dL Normal 5.9-8.4 [facility] Comment on above: Performed By: #### L 506.1001, L501.9520, L100.0100, L500.4050 #### [facility] [address] [place], [address] Urea nitrogen [Mass/Vol] 15 mg/dL Normal 4-19 [facility] Comment on above: Performed By: #### L 506.1001, L501.9520, L100.0100, L500.4050 #### [facility] [address] [place], [address] Thyroid Stim Hormone (TSH)on 01-25-2025 TSH 2.510 uIU/mL Normal 0.300-4.200 [facility] Comment on above: Performed By: #### L 506.1001, L501.9520, L100.0100, L500.4050 #### [facility] [address] [place], [address] Vitamin D,25 Hydroxyon 01-25 Vitamin D 25-OH 29.2 ng/mL Low 30-100 [facility] Comment on above: Result Comment: Katie min D Status Deficiency: <20 ng/mL (50nmol/L) Insufficiency: 20-30 ng/mL (50-75 nmol/L) Sufficiency: 30-100 ng/mL (75-250 nmol/L) Toxicity: >100 ng/mL (>250 nmol/L) Performed By: #### L 506.1001, L501.9520, L100.0100, L500.4050 ####[facility] [address] [place], [address] Basic Metabolic Profile (BMP )on 11-28-2024 BUN/CRE 24.2 RATIO High 10- [facility] Comment on above: Performed By: #### L 500.2500 ####[facility] [address] [place], [address] Calcium [Mass/Vol] 10.3 mg/dL Normal 7.6-11.0 [facility] Comment on above: Performed By: #### L 500.2500 ####[facility] [address] [place], [address] Chloride [Moles/Vol] 105 mmol/L Normal 98-[address] [facility] Comment on above: Performed By: #### L 500.2500 ####[facility] [address] [place], [address] CO2 [Moles/Vol] 23.0 mmol/L Normal 21.0-32.0 [facility] Comment on above: Performed By: #### L 500.2500 ####[facility] [address] [place], [address] Creatinine [Mass/Vol] 0.56 mg/dL Low 0.70-1.20 [facility] Comment on above: Performed By: #### L 500.2500 ####[facility] [address] [place], [address] ECRCL 59.71 ml/min Normal 50-250 [facility] Comment on above: Performed By: #### L 500.2500 ####[facility] [address] [place], [address] GAP 11 Normal 5-15 [facility] Comment on above: Performed By: #### L 500.2500 ####[facility] [address] [place], [address] GFR/1.73 sq M.predicted among non-blacks MDRD (S/P/Bld) [Vol rate/Area] 93 mL/min/{1.73_m2} Normal >60 [facility] Comment on above: Result Comment: mL/m in/1.73m2 CKD-EPI Creatinine Equation (2020) Performed By: #### L 500.2500 ####[facility] [address] [place], [address] Glucose [Mass/Vol] 105 mg/dL High 70-99 [facility] Comment on above: Performed By: #### L 500.2500 ####[facility] [address] [place], [address] Potassium [Moles/Vol] 4.3 mmol/L Normal 3.3-5.1 [facility] Comment on above: Performed By: #### L 500.2500 ####[facility] [address] [place], [place], [address] Sodium [Moles/Vol] 139 mmol/L Normal 133-145 [facility] Comment on above: Performed By: #### L 500.2500 ####[facility] [address] [place], [place], [address] Urea nitrogen [Mass/Vol] 14 mg/dL Normal 4-19 [facility] Comment on above: Performed By: #### L 500.2500 ####[facility] [address] [place], [place], [address] Oncology Visit Reporton 09-19 Oncology Visit Report [facility] [address] [place], [place] [address] OFFICE VISIT Date of Service: 10/11/24 1322 MR#: [id number] Acct: [id number] Name: CHELA ROJAS Rep #: [id number] : 1945 From: Shelley Arnett MD Age/Sex: 79/F [place] [facility] Status: Signed HPI Subjective Date of Service 10/11/24 Chief Complaint Breast cancer History of Present Illness 79-year-old female with a past medical history notable for LCIS of the right breast in 2015, received tamoxifen prophylaxis for approximately 2 years and with a positive family history for breast cancer (mother and sister with breast cancer in their 70s) was on vigilant screening program with annual mammography. Despite a negative screening mammogram in November 2021, she felt a lump in the right breast and MRI in January 2022 confirmed a ring enhancing right breast mass measuring 1.5 cm in maximum diameter in the inferior medial right breast that prompted a biopsy. January 29, 2022 right breast ultrasound-guided core needle biopsy: Invasive ductal carcinoma, grade 2, ER positive (over 95% strong), MT positive (over 95% moderate to strong) and HER2 low positive (1+). March 05, 2022 patient underwent right partial mastectomy at [facility] pathology showed a single focus of invasive ductal cancer, 1.6 cm in maximum diameter, overall grade 2, no lymphovascular invasion, DCIS present, eventual margin was negative and no axillary staging was done. MammaPrint was low risk (0.227 index). Treatment summary and response: March 05, 2022: Right partial mastectomy, no axillary staging. 05/05/2022 ??? 05/26/2022: received 4256 cGy in 16 fractions to the right breast and right low axilla with a 3D conformal technique. Anastrozole June 2022 Bone support every 6 months started June 2022 [facility] Medical History Aromatase inhibitor use Palpitations Encounter for education Osteoporosis Hip replacement planned Colonoscopy planned Wheezing Thyroid nodule Tendinitis of left rotator cuff Swallowing disorder 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 myelopathy Peripheral neuropathy Overweight Overactive bladder Lumbar spondylosis Lobular carcinoma in situ (LCIS) of right breast Left shoulder pain IBS (irritable bowel syndrome) Essential tremor Entrapment neuropathy of left sural nerve Dense breast tissue Chronic hip pain after total replacement of right hip joint Cardiac hypertrophy Breast cancer Anxiety Age-related osteoporosis without fracture Malignant neoplasm of lower-inner quadrant of right breast of female, estrogen receptor negative Surgical History History of colonoscopy Hx of tonsillectomy History of partial mastectomy of right breast S/P hip replacement H/O section History of appendectomy Family History Mother Breast cancer Father Depression Sister Breast cancer Aunt Breast cancer maternal Social History household members: spouse and family Smoking Status: Never smoker alcohol intake: current substance use type: does not use ROS Constitutional Constitutional: Reports systems reviewed and no addt'l complaints, except as documented and weight gain; Denies fatigue or fever(s) Eyes Eyes: Reports systems reviewed and no addt'l complaints, except as documented ENT HEENT: Reports systems reviewed and no addt'l complaints, except as documented; Denies mouth lesions Cardiovascular Cardiovascular: Reports systems reviewed and no addt'l complaints, except as documented; Denies chest pain with activity or edema Respiratory/Chest Respiratory/Chest: Reports systems reviewed and no addt'l complaints, except as documented, dyspnea on exertion and other Details: Respiratory symptoms are chronic (years) unchanged ; Denies cough or hemoptysis Gastrointestinal Gastrointestinal: Reports systems reviewed and no addt'l complaints, except as documented; Denies change in bowel habits, hematochezia or melena Genitourinary Genitourinary: Reports systems reviewed and no addt'l complaints, except as documented Musculoskeletal Musculoskeletal: Reports systems reviewed and no addt'l complaints, except as documented, arthralgias and back pain Integumentary Integumentary: Reports systems reviewed and no addt'l complaints, except as documented; Denies new lesions or rash Neurologic Neurologic: Reports systems reviewed and no addt'l complaints, except as documented, tremor(s) and other Details: Treatment is significantly less since she came off venlafaxine ; Denies focal weakness, headache(s) or paresthesias Psychiatric Psychiatric: Reports systems reviewed and no addt'l com (more content not included)... Normal [facility] MR ANKLE RIGHT W AND WO IV C [facility] 09-06-2024 MR ANKLE RIGHT W AND WO IV CONTRAST Interpreted By: Tiago Quijano and Ebai Jerky STUDY: MRI of the right ankle without and with IV contrast; 09/06/2024 9:00 am INDICATION: Signs/Symptoms:SWELLING MASS AND LUMP RIGHT LOWER LIMB. ,R22.41 Localized swelling, mass and lump, right lower limb COMPARISON: XR FOOT RIGHT 3+ VIEWS 08/02/2024 ACCESSION NUMBER(S): [id number] ORDERING CLINICIAN: AMARILIS GRANADOS TECHNIQUE: MR imaging of the right ankle was obtained with and without administration of intravenous contrast medium. Contrast: 15 mL of intravenous gadolinium was administered. FINDINGS: TENDONS: Mild inframalleolar posterior tibialis tenosynovitis with small volume fluid surrounding the tendon sheath. The extensor tendons are intact and demonstrate a normal course. The flexor tendons are intact and demonstrate a normal course. Segmental split tear of the peroneus brevis tendon with distal reconstitution. Otherwise, the peroneal tendons are intact and demonstrate a normal course. Mild distal Achilles tendinosis with increased intrasubstance thickening and mild loss of the anterior concavity. The plantar aponeurosis is intact. LIGAMENTS: The anterior talofibular, calcaneofibular, and posterior talofibular ligaments are intact. The anterior and posterior tibiofibular ligaments are intact. The deep and superficial components of the deltoid ligament are intact. The spring ligament is intact. JOINTS: There is no dislocation. There is no joint effusion. The articular cartilage of the ankle joint is normal. There is no osteochondral defect in the talar dome. OSSEOUS STRUCTURES: Mild degenerative cystic changes involving the posteromedial aspect of the distal fibular metaphysis. There is no fracture or contusion. There is no marrow replacing lesion. SOFT TISSUES: At the site of the patient's palpable abnormality, there is a homogeneously enhancing, T1 hyperintense and T2 hyperintense 1.1 x 1.0 x 0.7 cm lobulated mass in the superficial medial plantar subcutaneous tissues of the right calcaneus. There is evidence of diffusion restriction. There is relatively pronounced enhancement after the administration of gadolinium. There is suggestion of curvilinear venous structures in intimate association with the lesion. There is no muscle atrophy or tear. The tarsal tunnel is normal. The sinus tarsi is normal with preservation of fat signal. IMPRESSION: 1. Nonspecific soft tissue mass at the plantar foot which correlates to the patient's palpable abnormality. Findings are most favoring a slow flow vascular lesion such as a hemangioma. However, this is nonspecific and either short-term MRI or ultrasound in 6 months or tissue sampling are recommended for further evaluation. Orthopedic oncology consultation may be obtained if felt clinically desirable. 2. Mild posterior tibialis tenosynovitis. 3. Mild Achilles tendinosis. I personally reviewed the images/study and I agree with the findings as stated. This study was interpreted at [place], [place]. MACRO: Critical Finding: Indeterminate soft tissue lesion requiring further evaluation. Notification was initiated on 09/06/2024 at 11:24 am by Tiago Quijano. (-YCF-) Signed by: Tiago Quijano 09/06/2024 11:24 AM Dictation workstation: [id number] [facility] MR Ankle - right WO and W co ntrast Lee 09-06-2024 1. Nonspecific soft tissue mass at the plantar foot which correlates to the patient's palpable abnormality. Findings are most favoring a slow flow vascular lesion such as a hemangioma. However, this is nonspecific and either short-term MRI or ultrasound in 6 months or tissue sampling are recommended for further evaluation. Orthopedic oncology consultation may be obtained if felt clinically desirable. 2. Mild posterior tibialis tenosynovitis. 3. Mild Achilles tendinosis. I personally reviewed the images/study and I agree with the findings as stated. This study was interpreted at [place], [place]. MACRO: Critical Finding: Indeterminate soft tissue lesion requiring further evaluation. Notification was initiated on 09/06/2024 at 11:24 am by Tiago Quijano. (-YCF-) Signed by: Tiago Quijano 09/06/2024 11:24 AM Dictation workstation: [id number] MMODAL Interpreted By: Tiago Melgar and Ebai Jerky STUDY: MRI of the right ankle without and with IV contrast; 09/06/2024 9:00 am INDICATION: Signs/Symptoms:SWELLING MASS AND LUMP RIGHT LOWER LIMB. ,R22.41 Localized swelling, mass and lump, right lower limb COMPARISON: XR FOOT RIGHT 3+ VIEWS 08/02/2024 ACCESSION NUMBER(S): [id number] ORDERING CLINICIAN: AMARILIS GRANADOS TECHNIQUE: MR imaging of the right ankle was obtained with and without administration of intravenous contrast medium. Contrast: 15 mL of intravenous gadolinium was administered. FINDINGS: TENDONS: Mild inframalleolar posterior tibialis tenosynovitis with small volume fluid surrounding the tendon sheath. The extensor tendons are intact and demonstrate a normal course. The flexor tendons are intact and demonstrate a normal course. Segmental split tear of the peroneus brevis tendon with distal reconstitution. Otherwise, the peroneal tendons are intact and demonstrate a normal course. Mild distal Achilles tendinosis with increased intrasubstance thickening and mild loss of the anterior concavity. The plantar aponeurosis is intact. LIGAMENTS: The anterior talofibular, calcaneofibular, and posterior talofibular ligaments are intact. The anterior and posterior tibiofibular ligaments are intact. The deep and superficial components of the deltoid ligament are intact. The spring ligament is intact. JOINTS: There is no dislocation. There is no joint effusion. The articular cartilage of the ankle joint is normal. There is no osteochondral defect in the talar dome. OSSEOUS STRUCTURES: Mild degenerative cystic changes involving the posteromedial aspect of the distal fibular metaphysis. There is no fracture or contusion. There is no marrow replacing lesion. SOFT TISSUES: At the site of the patient's palpable abnormality, there is a homogeneously enhancing, T1 hyperintense and T2 hyperintense 1.1 x 1.0 x 0.7 cm lobulated mass in the superficial medial plantar subcutaneous tissues of the right calcaneus. There is evidence of diffusion restriction. There is relatively pronounced enhancement after the administration of gadolinium. There is suggestion of curvilinear venous structures in intimate association with the lesion. There is no muscle atrophy or tear. The tarsal tunnel is normal. The sinus tarsi is normal with preservation of fat signal. [facility] Tiago Quijano MD - 09/06/2024 Interpreted By: Tiago Quijano and Ebai Jerky STUDY: MRI of the right ankle without and with IV contrast; 09/06/2024 9:00 am INDICATION: Signs/Symptoms:SWELLING MASS AND LUMP RIGHT LOWER LIMB. ,R22.41 Localized swelling, mass and lump, right lower limb COMPARISON: XR FOOT RIGHT 3+ VIEWS 08/02/2024 ACCESSION NUMBER(S): [id number] ORDERING CLINICIAN: AMARILIS GRANADOS TECHNIQUE: MR imaging of the right ankle was obtained with and without administration of intravenous contrast medium. Contrast: 15 mL of intravenous gadolinium was administered. FINDINGS: TENDONS: Mild inframalleolar posterior tibialis tenosynovitis with small volume fluid surrounding the tendon sheath. The extensor tendons are intact and demonstrate a normal course. The flexor tendons are intact and demonstrate a normal course. Segmental split tear of the peroneus brevis tendon with distal reconstitution. Otherwise, the peroneal tendons are intact and demonstrate a normal course. Mild distal Achilles tendinosis with increased intrasubstance thickening and mild loss of the anterior concavity. The plantar aponeurosis is intact. LIGAMENTS: The anterior talofibular, calcaneofibular, and posterior talofibular ligaments are intact. The anterior and posterior tibiofibular ligaments are intact. The deep and superficial components of the deltoid ligament are intact. The spring ligament is intact. JOINTS: There is no dislocation. There is no joint effusion. The articular cartilage of the ankle joint is normal. There is no osteochondral defect in the talar dome. OSSEOUS STRUCTURES: Mild degenerative cystic changes involving the posteromedial aspect of the distal fibular metaphysis. There is no fracture or contusion. There is no marrow replacing lesion. SOFT TISSUES: At the site of the patient's palpable abnormality, there is a homogeneously enhancing, T1 hyperintense and T2 hyperintense 1.1 x 1.0 x 0.7 cm lobulated mass in the superficial medial plantar subcutaneous tissues of the right calcaneus. There is evidence of diffusion restriction. There is relatively pronounced enhancement after the administration of gadolinium. There is suggestion of curvilinear venous structures in intimate association with the lesion. There is no muscle atrophy or tear. The tarsal tunnel is normal. The sinus tarsi is normal with preservation of fat signal. IMPRESSION: 1. Nonspecific soft tissue mass at the plantar foot which correlates to the patient's palpable abnormality. Findings are most favoring a slow flow vascular lesion such as a hemangioma. However, this is nonspecific and either short-term MRI or ultrasound in 6 months or tissue sampling are recommended for further evaluation. Orthopedic oncology consultation may be obtained if felt clinically desirable. 2. Mild posterior tibialis tenosynovitis. 3. Mild Achilles tendinosis. I personally reviewed the images/study and I agree with the findings as stated. This study was interpreted at [place], [place]. MACRO: Critical Finding: Indeterminate soft tissue lesion requiring further evaluation. Notification was initiated on 09/06/2024 at 11:24 am by Tiago Quijano. (-YCF-) Signed by: Tiago Quijaon 09/06/2024 11:24 AM Dictation workstation: [id number] [facility] Work Phone: Radiology Study observation (narrative) [facility] Work Phone: MR Ankle - right WO and W co ntrast IVOrdered By: Tiago Quijano on 09-06-2024 [facility] Work Phone: Radiation Oncology Visiton 0 08-15-2024 Radiation Oncology Visit [place] [address] [place] [address] OFFICE VISIT Date of Service: 08/15/24 5802 MR#: [id number] Acct: [id number] Name: CHELA ROJAS Rep #: [id number] : 1945 From: Evegny Garg DO Age/Sex: 78/F [place] [facility] Status: Signed Intake Vital Signs 11/09/23 13:06 01/11/24 12:59 06/13/24 15:29 08/15/24 13:01 Height 5 ft 6 in 5 ft 6 in 5 ft 6 in 5 ft 6 in Weight: 172 lb 2 oz BMI 27.8 BP 145/88 H Blood Pressure Location Lt brachial Position Sitting Respiration 16 Pulse 83 Pulse Source Monitor Temp 97.1 F L Temperature Source Temporal Artery Pulse Oximetry (%) 95 Oxygen Delivery Method room air Intake Visit Reasons: 4 MONTH F/U BREAST Is patient in pain?: Yes (body aches) Pain scale (1-10): 6 Allergies escitalopram (From TellpeaprHashCube) Allergy (Severe, Verified 08/15/24 13:05) Other Medications ???Medication ???Instructions ???Recorded ???Confirmed ???Type cholecalciferol (vitamin D3) 75 75 mcg PO DAILY 04/04/22 08/15/24 History mcg (3,000 unit) tablet calcium carbonate 600 mg PO DAILY 12/08/22 08/15/24 History metoprolol succinate 25 mg 25 mg PO DAILY 01/12/23 08/15/24 H istory tablet,extended release 24 hr biotin 1,000 mcg chewable tablet 1,000 mcg PO DAILY 11/09/23 History zoledronic acid 4 mg/5 mL mg .Route 11/09/23 08/15/24 Histor y intravenous solution collagen + c 2,500 mg PO .qd 12/29/23 08/15/24 History apixaban 5 mg tablet (Eliquis) 5 mg PO BID #180 tabs 01/11/24 Rx carbidopa 10 mg-levodopa 100 mg 1 tab PO TID 01/11/24 08/15/24 His tory disintegrating tablet anastrozole 1 mg tablet 1 mg PO DAILY #90 TABLETS 03/28/24 08/15/24 Rx melatonin 10 mg capsule 10 mg PO HS PRN 06/13/24 08/15/24 History Have you fallen in the past year?: No PFSH PFSH Medical History Aromatase inhibitor use Palpitations Encounter for education Osteoporosis Hip replacement planned Colonoscopy planned Wheezing Thyroid nodule Tendinitis of left rotator cuff Swallowing disorder 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 myelopathy Peripheral neuropathy Overweight Overactive bladder Lumbar spondylosis Lobular carcinoma in situ (LCIS) of right breast Left shoulder pain IBS (irritable bowel syndrome) Essential tremor Entrapment neuropathy of left sural nerve Dense breast tissue Chronic hip pain after total replacement of right hip joint Cardiac hypertrophy Breast cancer Anxiety Age-related osteoporosis without fracture Malignant neoplasm of lower-inner quadrant of right breast of female, estrogen receptor negative Home Medications ???Medication ???Instructions ???Recorded ???Last Taken ???Type cholecalciferol (vitamin D3) 75 75 mcg PO DAILY 04/04/22 Unknown H istory mcg (3,000 unit) tablet calcium carbonate 600 mg PO DAILY 12/08/22 Unknown H istory metoprolol succinate 25 mg 25 mg PO DAILY 01/12/23 Unknown Hi story tablet,extended release 24 hr biotin 1,000 mcg chewable tablet 1,000 mcg PO DAILY 11/09/23 Unknow n History zoledronic acid 4 mg/5 mL mg .Route 11/09/23 Unknown History intravenous solution collagen + c 2,500 mg PO .qd 12/29/23 Unknown H istory apixaban 5 mg tablet (Eliquis) 5 mg PO BID #180 tabs 01/11/24 Unk nown Rx carbidopa 10 mg-levodopa 100 mg 1 tab PO TID 01/11/24 Unknown Hist ory disintegrating tablet anastrozole 1 mg tablet 1 mg PO DAILY #90 TABLETS 03/28/24 Unknown Rx melatonin 10 mg capsule 10 mg PO HS PRN 06/13/24 Unknown H istory Allergy/AdvReac Type Severity Reaction Status Date / Time escitalopram (From Lexapro) Allergy Severe Other Verified 08/15/24 13:05 Family History Mother Breast cancer Father Depression Sister Breast cancer Aunt Breast cancer maternal Surgical History History of colonoscopy Hx of tonsillectomy History of partial mastectomy of right breast S/P hip replacement H/O section History of appendectomy Social History household members: spouse and family Smoking Status: Never smoker alcohol intake: current substance use type: does not use Diagnosis: Chela Rojas is a 78-year-old female diagnosed with pathologic stage IA (pT1c cN0 pNx Mx) grade 2 invasive ductal carcinoma (ER >95%, MT > 95%, Her2 1+IHC) status post bilateral screening mammography (11/22/2021), bilateral breast MRI with and without contrast (01/24/2022), ultrasound- guided biopsy of the right breast (01/29/2022), and completion of right partial mastectomy (03/05/2022). From 05/05/2022 ??? 05/26/2022 she com (more content not included)... Normal [facility] XR FOOT RIGHT 3+ VIEWSon XR FOOT RIGHT 3+ VIEWS Interpreted By: Kitty Nye, STUDY: Right foot, 3 views. INDICATION: Signs/Symptoms:RIGHT FOOT PAIN/HEEL VARICOSITY COMPARISON: None ACCESSION NUMBER(S): [id number] ORDERING CLINICIAN: AMARILIS GRANADOS FINDINGS: No acute fracture. Pes cavus. Homogeneous soft tissue prominence of the subcutaneous heel.. No significant degenerative changes. IMPRESSION: 1. Homogeneous soft tissue prominence of the subcutaneous heel. This does not have appearance of varicose veins. Further evaluation may be considered with MRI if clinically warranted. 2. Pes cavus. MACRO: None. Signed by: Kitty Nye 08/03/2024 7:15 PM Dictation workstation: [id number] [facility] Absolute lymphocyte countOrd ered By: Craig Ventura on 07-26-2024 Lymphocytes Auto (Unsp spec) [#/Vol] 1.47 10*3/uL 0.83-4.51 [facility] Absolute neutrophil countOrd ered By: Craig Ventura on 07-26-2024 Neutrophils (Bld) [#/Vol] 3.9 10*3/uL 2.0-7.7 [facility] Anion gap in Serum or Plasma Ordered By: Craig Ventura on 07-26-2024 Anion gap [Moles/Vol] 11 mmol/L 5-15 [facility] Automated lymphocyte count a s percentage of total leukocytesOrdered By: Craig Ventura on 07-26-2024 Lymphocytes/100 WBC Auto (Unsp spec) 23.4 % 19-41 [facility] BUN/creatinine ratioOrdered By: Craig Ventura on 07-26-2024 Urea nitrogen/Creatinine [Mass ratio] 21.1 mg/mg High 10-20 [facility] Basophil percentageOrdered B y: Craig Lorenzo on 07-26-2024 Basophils/100 WBC (Bld) 0.3 % 0-1 [facility] Bilirubin, totalOrdered By: Craig Ventura on 07-26-2024 Bilirubin [Mass/Vol] 0.19 mg/dL 0.00-1.[address] [facility] CBC W/Diff, Automatedon Absolute Lymph 1.47 X10 3/uL Normal 0.83-4.51 [facility] Comment on above: Performed By: #### L 100.0100, L506.1001, L500.4050, L501.9520 #### [facility] [address] [place], [address] Absolute Neut 3.9 X10 3/uL Normal 2.0-7.7 [facility] Comment on above: Performed By: #### L 100.0100, L506.1001, L500.4050, L501.9520 #### [facility] [address] [place], [address] Basophils/100 WBC (Bld) 0.3 % Normal 0-1 [facility] Comment on above: Performed By: #### L 100.0100, L506.1001, L500.4050, L501.9520 #### [facility] [address] [place], [address] Eosinophils/100 WBC (Bld) 2.4 % Normal 0-5 [facility] Comment on above: Performed By: #### L 100.0100, L506.1001, L500.4050, L501.9520 #### [facility] [address] [place], [address] Erythrocyte distribution width (RBC) [Ratio] 14.3 % Normal 11.6-14.6 [facility] Comment on above: Performed By: #### L 100.0100, L506.1001, L500.4050, L501.9520 #### [facility] [address] [place], [address] Hematocrit (Bld) [Volume fraction] 47.1 % High 37-47 [facility] Comment on above: Performed By: #### L 100.0100, L506.1001, L500.4050, L501.9520 #### [facility] [address] [place], [address] Hemoglobin (Bld) [Mass/Vol] 15.0 g/dL Normal 12.0-15.0 [facility] Comment on above: Performed By: #### L 100.0100, L506.1001, L500.4050, L501.9520 #### [facility] [address] [place], [address] IG% 0.300 Normal 0.0-0.9 [facility] Comment on above: Result Comment: IG% - Immature Granulocytes (promyelocytes, myelocytes and metamyelocytes) > 1% indicates that a LEFT SHIFT is Present. Performed By: #### L 100.0100, L506.1001, L500.4050, L501.9520 #### [facility] [address] [place], [address] Lymphocytes/100 WBC (Bld) 23.4 % Normal 19-41 [facility] Comment on above: Performed By: #### L 100.0100, L506.1001, L500.4050, L501.9520 #### [facility] [address] [place], [address] MCH (RBC) [Entitic mass] 29.1 pg Normal 27.0-32.0 [facility] Comment on above: Performed By: #### L 100.0100, L506.1001, L500.4050, L501.9520 #### [facility] [address] [place], [address] MCHC (RBC) [Mass/Vol] 31.8 g/dL Low 32-36 [facility] Comment on above: Performed By: #### L 100.0100, L506.1001, L500.4050, L501.9520 #### [facility] [address] [place], [address] MCV (RBC) [Entitic vol] 91.5 fL Normal 81-99 [facility] Comment on above: Performed By: #### L 100.0100, L506.1001, L500.4050, L501.9520 #### [facility] [address] [place], [address] Monocytes/100 WBC (Bld) 11.0 % High 0-10 [facility] Comment on above: Performed By: #### L 100.0100, L506.1001, L500.4050, L501.9520 #### [facility] [address] [place], [address] Neutrophils/100 WBC (Bld) 62.6 % Normal 47-70 [facility] Comment on above: Performed By: #### L 100.0100, L506.1001, L500.4050, L501.9520 #### [facility] [address] [place], [address] Nucleated RBC (Bld) [#/Vol] 0 10*3/uL Normal 0-5 [facility] Comment on above: Performed By: #### L 100.0100, L506.1001, L500.4050, L501.9520 #### [facility] [address] [place], [address] Platelet mean volume (Bld) [Entitic vol] 10.6 fL Normal 6.2-12.0 [facility] Comment on above: Performed By: #### L 100.0100, L506.1001, L500.4050, L501.9520 #### [facility] [address] [place], [address] Platelets (Bld) [#/Vol] 266 10*3/uL Normal 150-450 [facility] Comment on above: Performed By: #### L 100.0100, L506.1001, L500.4050, L501.9520 #### [facility] [address] [place], [address] RBC (Bld) [#/Vol] 5.15 10*6/uL Normal 4.2-5.4 [facility] Comment on above: Performed By: #### L 100.0100, L506.1001, L500.4050, L501.9520 #### [facility] [address] [place], [address] RDW SD 48.6 fl High 35.1-43.9 [facility] Comment on above: Performed By: #### L 100.0100, L506.1001, L500.4050, L501.9520 #### [facility] [address] [place], [address] WBC (Bld) [#/Vol] 6.3 10*3/uL Normal 4.4-11.0 [facility] Comment on above: Performed By: #### L 100.0100, L506.1001, L500.4050, L501.9520 #### [facility] [address] [place], [address] Carbon dioxide, total [Moles /volume] in Central venous bloodOrdered By: Craig Lorenzo on 07-26-2024 CO2 [Moles/Vol] 25.8 mmol/L 21.0-32.0 [facility] Chloride assayOrdered By: Jak Ventura on 07-26-2024 Chloride [Moles/Vol] 104 mmol/L 98-[address] [facility] Comprehensive Metabolic Prof ilon 07-26-2024 Albumin [Mass/Vol] 3.8 g/dL Normal 3.4-4.8 [facility] Comment on above: Performed By: #### L 100.0100, L506.1001, L500.4050, L501.9520 #### [facility] [address] [place], [address] Albumin/Globulin [Mass ratio] 1.8 {ratio} Normal 0.9-2.4 [facility] Comment on above: Performed By: #### L 100.0100, L506.1001, L500.4050, L501.9520 #### [facility] [address] [place], [address] ALK PHOS 78 U/L Normal 35-104 [facility] Comment on above: Performed By: #### L 100.0100, L506.1001, L500.4050, L501.9520 #### [facility] [address] [place], [address] ALT [Catalytic activity/Vol] 6 U/L Normal <=34 [facility] Comment on above: Performed By: #### L 100.0100, L506.1001, L500.4050, L501.9520 #### [facility] [address] [place], [address] AST [Catalytic activity/Vol] 24 U/L Normal <=31 [facility] Comment on above: Performed By: #### L 100.0100, L506.1001, L500.4050, L501.9520 #### [facility] [address] [place], [address] Bilirubin [Mass/Vol] 0.19 mg/dL Normal 0.00-1.[address] [facility] Comment on above: Performed By: #### L 100.0100, L506.1001, L500.4050, L501.9520 #### [facility] [address] [place], [address] BUN/CRE 21.1 RATIO High 10-20 [facility] Comment on above: Performed By: #### L 100.0100, L506.1001, L500.4050, L501.9520 #### [facility] [address] [place], [address] Calcium [Mass/Vol] 10.2 mg/dL Normal 7.6-11.0 [facility] Comment on above: Performed By: #### L 100.0100, L506.1001, L500.4050, L501.9520 #### [facility] [address] [place], [address] Chloride [Moles/Vol] 104 mmol/L Normal 98-[address] [facility] Comment on above: Performed By: #### L 100.0100, L506.1001, L500.4050, L501.9520 #### [facility] [address] [place], [address] CO2 [Moles/Vol] 25.8 mmol/L Normal 21.0-32.0 [facility] Comment on above: Performed By: #### L 100.0100, L506.1001, L500.4050, L501.9520 #### [facility] [address] [place], [address] Creatinine [Mass/Vol] 0.66 mg/dL Low 0.70-1.20 [facility] Comment on above: Performed By: #### L 100.0100, L506.1001, L500.4050, L501.9520 #### [facility] [address] [place], [address] GAP 11 Normal 5-15 [facility] Comment on above: Performed By: #### L 100.0100, L506.1001, L500.4050, L501.9520 #### [facility] [address] [place], [address] GFR/1.73 sq M.predicted among non-blacks MDRD (S/P/Bld) [Vol rate/Area] 90 mL/min/{1.73_m2} Normal >60 [facility] Comment on above: Result Comment: mL/m in/1.73m2 CKD-EPI Creatinine Equation (2020) Performed By: #### L 100.0100, L506.1001, L500.4050, L501.9520 #### [facility] [address] [place], [address] Globulin (S) [Mass/Vol] 2.2 g/dL Normal 2.2-4.2 [facility] Comment on above: Performed By: #### L 100.0100, L506.1001, L500.4050, L501.9520 #### [facility] [address] [place], [address] Glucose [Mass/Vol] 102 mg/dL High 70-99 [facility] Comment on above: Performed By: #### L 100.0100, L506.1001, L500.4050, L501.9520 #### [facility] [address] [place], [address] Potassium [Moles/Vol] 4.5 mmol/L Normal 3.3-5.1 [facility] Comment on above: Performed By: #### L 100.0100, L506.1001, L500.4050, L501.9520 #### [facility] [address] [place], [address] Sodium [Moles/Vol] 141 mmol/L Normal 133-145 [facility] Comment on above: Performed By: #### L 100.0100, L506.1001, L500.4050, L501.9520 #### [facility] [address] [place], [address] T PROT 6.0 g/dL Normal 5.9-8.4 [facility] Comment on above: Performed By: #### L 100.0100, L506.1001, L500.4050, L501.9520 #### [facility] [address] [place], [address] Urea nitrogen [Mass/Vol] 14 mg/dL Normal 4-19 [facility] Comment on above: Performed By: #### L 100.0100, L506.1001, L500.4050, L501.9520 #### [facility] [address] [place], [address] Eosinophil percentageOrdered By: Craig Ventura 07-26-2024 Eosinophils/100 WBC (Bld) 2.4 % 0-5 [facility] Erythrocyte distribution wid th (RBC) [Ratio]Ordered By: Craig Adame07-26-2024 Erythrocyte distribution width (RBC) [Entitic vol] 48.6 fL High 35.1-43.9 [facility] Erythrocyte distribution wid th ratioOrdered By: Craig Adame07-26-2024 Erythrocyte distribution width (RBC) [Ratio] 14.3 % 11.6-14.6 [facility] Erythrocyte distribution wid th standard deviationOrdered By: Craig Adame07-26-2024 Erythrocyte distribution width (RBC) [Ratio] 48.6 fl High 35.1-43.9 [facility] GFR/1.73 sq M.predicted moe g non-blacks MDRD (S/P/Bld) [Vol rate/Area]Ordered By: Craig Ventura 07-26-2024 Estimated GFR (MDRD) Non-Af Amer 90 >60 [facility] Comment on above: mL/min/1.73m2 CKD-EP I Creatinine Equation (2020) Glomerular filtration rate ( GFR) estimation/1.73 sq m using serum, plasma, or whole bOrdered By: Craig Ventura on 07-26-2024 GFR/1.73 sq M.predicted among non-blacks MDRD (S/P/Bld) [Vol rate/Area] 90 mL/min/{1.73_m2} >60 [facility] Comment on above: mL/min/1.73m2 CKD-EP I Creatinine Equation (2020) Hematocrit Auto (Bld) [Volum e fraction]Ordered By: Craig Ventura on 07-26-2024 Hematocrit (Bld) [Volume fraction] 47.1 % High 37-47 [facility] Hemoglobin measurementOrdere d By: Craig Ventura on 07-26-2024 Hemoglobin (Bld) [Mass/Vol] 15.0 g/dL 12.0-15.0 [facility] Immature granulocytes/100 WB C Auto (Bld)Ordered By: Craig Ventura 07-26-2024 Immature granulocytes/100 WBC (Bld) 0.300 % 0.0-0.9 [facility] Comment on above: IG% - Immature Granu locytes (promyelocytes, myelocytes and metamyelocytes) > 1% indicates that a LEFT SHIFT is Present. Laboratory - Chemistry and C hemistry - challengeOrdered By: Craig Ventura 07-26-2024 AST [Catalytic activity/Vol] 24 U/L <32 [facility] Lymphocytes Auto (Unsp spec) [#/Vol]Ordered By: Craig Ventura 07-26-2024 Lymphocytes (Bld) [#/Vol] 1.47 10*3/uL 0.83-4.51 [facility] Lymphocytes/100 WBC Auto (Un sp spec)Ordered By: Craig Ventura 07-26-2024 Lymphocytes/100 WBC (Bld) 23.4 % 19-41 [facility] MCV (mean corpuscular volume ) determinationOrdered By: Craig Ventura 07-26-2024 MCV (RBC) [Entitic vol] 91.5 fL 81-99 [facility] Mean corpuscular hemoglobin (MCH) determinationOrdered By: Craig Ventura on 07-26-2024 MCH (RBC) [Entitic mass] 29.1 pg 27.0-32.0 [facility] Mean corpuscular hemoglobin concentration (MCHC) determinationOrdered By: Craig Ventura on 07-26-2024 MCHC (RBC) [Mass/Vol] 31.8 g/dL Low 32-36 [facility] Mean platelet volume determi nationOrdered By: Craig Ventura on 07-26-2024 Platelet mean volume (Bld) [Entitic vol] 10.6 fL 6.2-12.0 [facility] Monocyte percentageOrdered B y: Craig Ventura on 07-26-2024 Monocytes/100 WBC (Bld) 11.0 % High 0-10 [facility] Neutrophil percentageOrdered By: Craig Ventura on 07-26-2024 Neutrophils/100 WBC (Bld) 62.6 % 47-70 [facility] Nucleated red blood cell per centageOrdered By: Craig Ventura on 07-26-2024 Nucleated RBC/100 WBC (Bld) [Ratio] 0 % 0-5 [facility] Platelet countOrdered By: Jak Ventura on 07-26-2024 Platelets (Bld) [#/Vol] 266 10*3/uL 150-450 [facility] Potassium (Unsp spec) [Mass/ Vol]Ordered By: Craig Ventura 07-26-2024 Potassium [Moles/Vol] 4.5 mmol/L 3.3-5.1 [facility] Potassium measurement (mass/ volume)Ordered By: Craig Ventura on 07-26-2024 Potassium (Unsp spec) [Mass/Vol] 4.5 mmol/L 3.3-5.1 [facility] RBC Auto (Bld) [#/Vol]Ordere d By: Craig Ventura on 07-26-2024 RBC (Bld) [#/Vol] 5.15 10*6/uL 4.2-5.4 [facility] Serum creatinine measurement (mass/volume)Ordered By: Craig Ventura on 07-26-2024 Creatinine [Mass/Vol] 0.66 mg/dL Low 0.70-1.20 [facility] Serum globulin measurementOr dered By: Craig Ventura 07-26-2024 Globulin (S) [Mass/Vol] 2.2 g/dL 2.2-4.2 [facility] Serum glucose measurement (m ass/volume)Ordered By: Craig Ventura on 07-26-2024 Glucose [Mass/Vol] 102 mg/dL High 70-99 [facility] Serum or plasma alanine metzger otransferase (ALT) measurementOrdered By: Craig Ventura on 07-26-2024 ALT [Catalytic activity/Vol] 6 U/L <35 [facility] Serum or plasma albumin deejay urement (mass/volume)Ordered By: Craig Ventura on 07-26-2024 Albumin [Mass/Vol] 3.8 g/dL 3.4-4.8 [facility] Serum or plasma albumin/glob ulin mass ratioOrdered By: Craig Ventura on 07-26-2024 Albumin/Globulin [Mass ratio] 1.8 {ratio} 0.9-2.4 [facility] Serum or plasma alkaline tam sphatase measurementOrdered By: Craig Ventura 07-26-2024 ALP [Catalytic activity/Vol] 78 U/L 35-104 [facility] Serum or plasma calcium deejay urement (mass/volume)Ordered By: Craig Ventura 07-26-2024 Calcium [Mass/Vol] 10.2 mg/dL 7.6-11.0 [facility] Serum or plasma urea nitroge n measurement (mass/volume)Ordered By: Craig Ventura 07-26-2024 Urea nitrogen [Mass/Vol] 14 mg/dL 4-19 [facility] Sodium levelOrdered By: Craig Ventura 07-26-2024 Sodium [Moles/Vol] 141 mmol/L 133-145 [facility] TSH DL <= 0.005 mIU/L QnOrde red By: Craig Ventura on 07-26-2024 Thyroid Stimulating Hormone (TSH) 1.850 uIU/mL 0.300-4.200 [facility] TSH Qn 1.850 uIU/mL 0.300-4.200 [facility] Thyroid Stim Hormone (TSH)on 07-26-2024 TSH 1.850 uIU/mL Normal 0.300-4.200 [facility] Comment on above: Performed By: #### L 100.0100, L506.1001, L500.4050, L501.9520 #### [facility] Laboratory [address] [place], [place], [id number] Total proteinOrdered By: Craig Ventura on 07-26-2024 Protein [Mass/Vol] 6.0 g/dL 5.9-8.4 [facility] Vitamin D, 25-hydroxyOrdered By: Craig Ventura on 07-26-2024 Vitamin D 25-Hydroxy 30.5 ng/mL 30-[address] [facility] Comment on above: Vitamin D StatusDefi ciency: <20 ng/mL (50nmol/L)Insufficiency: 20-30 ng/mL (50-75 nmol/L)Sufficiency: 30-100 ng/mL (75-250 nmol/L)Toxicity: >100 ng/mL (>250 nmol/L) Vitamin D,25 Hydroxyon 07-26 Vitamin D 25-OH 30.5 ng/mL Normal 30-100 [facility] Comment on above: Result Comment: Katie min D Status Deficiency: <20 ng/mL (50nmol/L) Insufficiency: 20-30 ng/mL (50-75 nmol/L) Sufficiency: 30-100 ng/mL (75-250 nmol/L) Toxicity: >100 ng/mL (>250 nmol/L) Performed By: #### L 100.0100, L506.1001, L500.4050, L501.9520 #### [facility] [address] [place], [address] White blood cell (WBC) count Ordered By: Craig Ventura on 07-26-2024 WBC (Bld) [#/Vol] 6.3 10*3/uL 4.4-11.0 [facility] Breast imaging reportOrdered By: Reid Chu on 07-21-2024 Study report [facility] Imaging Services [address] [place], [place] [address] [phone] SCRN MAMM (CAD)W/MEGHANN BILAT MR#: [id number] Acct: [id number] Name: CHELA ROJAS Rep #: [id number] : 1945 F 78 From: Bennett Chu MD PCP: Dr. Craig Ventura MD Status: HARISH COHEN Study:SCRN MAMM (CAD)W/MEGHANN BILAT Date of Exa m: 07/20/24 Exam# [id number] Ordering Dr: Shelley Arnett MD EXAM: SCRN MAMM (CAD)W/MEGHANN BILAT DATE: 07/20/2024 CLINICAL HISTORY: F, Age 78 y/o , ANNUAL SCREENING History of breast cancer. Sister with breast cancer. Mother with breast cancer. TECHNIQUE: Bilateral screening digital breast tomosynthesis with 2D and 3D images. Computeraided detection. COMPARISON: Prior exam(s) dated July 20, 2023.. FINDINGS: TISSUE DENSITY: The breast tissue is composed of scattered area of fibroglandular density. Bilateral Breast Mammographic Findings: No significant masses, calcifications or other abnormalities are identified. Once again, the patient is status post lumpectomy in the deep upper lateral aspect of the right breast. Postoperative scarring. BI/SCRN MAMM (CAD)W/MEGHANN BILAT IMPRESSION: Right Breast: BIRADS 2 BENIGN FINDING. Left Breast: BIRADS 2 BENIGN FINDING. OVERALL FINAL ASSESSMENT: BIRADS 2 BENIGN FINDING RECOMMENDATION: Routine annual follow-up in 1 Year A letter with findings and recommendations will be mailed to the patient. Reading Location: [place] [address] CC: Dr. Shelley Arnett MD; Dr. Craig Ventura MD ~ [place]: Signed [facility] SCRN MAMM (CAD)W/MEGHANN BILATo n 07-20-2024 SCRN MAMM (CAD)W/MEGHANN BILAT [facility] Imaging Services [address] [place] [id number] SCRN MAMM (CAD)W/MEGHANN BILAT MR#: [id number] Acct: [id number] Name: CHELA ROJAS Rep #: [id number] : 1945 F 78 From: Reid martínez MD PCP: Dr. Craig Ventura MD Status: REG CLI Study: SCRN MAMM (CAD)W/MEGHANN BILAT Date of Exam: 06/14 Exam# [id number] Ordering Dr: Shelley Arnett MD EXAM: SCRN MAMM (CAD)W/MEGHANN BILAT DATE: 07/20/2024 CLINICAL HISTORY: F, Age 78 y/o , ANNUAL SCREENING History of breast cancer. Sister with breast cancer. Mother with breast cancer. TECHNIQUE: Bilateral screening digital breast tomosynthesis with 2D and 3D images. Computer aided detection. COMPARISON: Prior exam(s) dated July 20, 2023.. FINDINGS: TISSUE DENSITY: The breast tissue is composed of scattered area of fibroglandular density. Bilateral Breast Mammographic Findings: No significant masses, calcifications or other abnormalities are identified. Once again, the patient is status post lumpectomy in the deep upper lateral aspect of the right breast. Postoperative scarring. BI/SCRN MAMM (CAD)W/MEGHANN BILAT IMPRESSION: Right Breast: BIRADS 2 BENIGN FINDING. Left Breast: BIRADS 2 BENIGN FINDING. OVERALL FINAL ASSESSMENT: BIRADS 2 BENIGN FINDING RECOMMENDATION: Routine annual follow-up in 1 Year A letter with findings and recommendations will be mailed to the patient. Reading Location: [place] [address] CC: Dr. Shelley Arnett MD; Dr. Craig Ventura MD [place]: Signed Normal [facility] Basic Metabolic Profile (BMP )on 06-14-2024 BUN Normal 7-18 [facility] Comment on above: Result Comment: PER ERIC NURSE LABS DONE YESTERDAY NOT NEEDED TODAY Performed By: #### L 500.2500 ####[facility] [address] [place], [place], [id number] BUN/CRE Normal 10-20 [facility] Comment on above: Result Comment: PER ERIC NURSE LABS DONE YESTERDAY NOT NEEDED TODAY Performed By: #### L 500.2500 ####[facility] [address] [place], [place], [id number] CA,Total Normal 8.5-10.1 [facility] Comment on above: Result Comment: PER ERIC NURSE LABS DONE YESTERDAY NOT NEEDED TODAY Performed By: #### L 500.2500 ####[facility] [address] [place], [address] CL Normal 98-107 [facility] Comment on above: Result Comment: PER ERIC NURSE LABS DONE YESTERDAY NOT NEEDED TODAY Performed By: #### L 500.2500 ####[facility] [address] [place], [address] CO2 Normal 21.0-32.0 [facility] Comment on above: Result Comment: PER ERIC NURSE LABS DONE YESTERDAY NOT NEEDED TODAY Performed By: #### L 500.2500 ####[facility] [address] [place], [address] CREAT,SERUM Normal 0.55-1.02 [facility] Comment on above: Result Comment: PER ERIC NURSE LABS DONE YESTERDAY NOT NEEDED TODAY Performed By: #### L 500.2500 ####[facility] [address] [place], [address] eGFR Normal >60 [facility] Comment on above: Result Comment: PER ERIC NURSE LABS DONE YESTERDAY NOT NEEDED TODAY Performed By: #### L 500.2500 ####[facility] [address] [place], [address] EST GFR - AA Normal >60 [facility] Comment on above: Result Comment: PER ERIC NURSE LABS DONE YESTERDAY NOT NEEDED TODAY Performed By: #### L 500.2500 ####[facility] [address] [place], [address] GAP Normal 5-15 [facility] Comment on above: Result Comment: PER ERIC NURSE LABS DONE YESTERDAY NOT NEEDED TODAY Performed By: #### L 500.2500 ####[facility] [address] [place], [address] GLU Normal 74-106 [facility] Comment on above: Result Comment: PER ERIC NURSE LABS DONE YESTERDAY NOT NEEDED TODAY Performed By: #### L 500.2500 ####[facility] [address] [place], [address] Potassium Normal 3.5-5.1 [facility] Comment on above: Result Comment: PER ERIC NURSE LABS DONE YESTERDAY NOT NEEDED TODAY Performed By: #### L 500.2500 ####[facility] [address] [place], [address] Basic Metabolic Profile (BMP) Normal 136-145 [facility] Comment on above: Result Comment: PER ERIC NURSE LABS DONE YESTERDAY NOT NEEDED TODAY Performed By: #### L 500.2500 ####[facility] [address] [place], [address] Absolute lymphocyte countOrd ered By: Daisy Hai on 06-13-2024 Lymphocytes Auto (Unsp spec) [#/Vol] 1.45 10*3/uL 0.83-4.51 [facility] Absolute neutrophil countOrd ered By: Daisy Hai on 06-13-2024 Neutrophils (Bld) [#/Vol] 4.9 10*3/uL 2.0-7.7 [facility] Albumin to globulin ratioOrd ered By: Daisy Hai on 06-13-2024 Albumin/Globulin [Mass ratio] 0.8 {ratio} Low 0.9-2.4 [facility] Automated lymphocyte count a s percentage of total leukocytesOrdered By: Daisy Hai on 06-13-2024 Lymphocytes/100 WBC Auto (Unsp spec) 20.2 % 19-41 [facility] Basophil percentageOrdered B y: Daisy Hai on 06-13-2024 Basophils/100 WBC (Bld) 0.4 % 0-1 [facility] Bilirubin, totalOrdered By: Daisy Hai on 06-13-2024 Bilirubin [Mass/Vol] 0.40 mg/dL 0.20-1.[address] [facility] Comment on above: For patients on eltr ombopag therapy, use of Dimension [place]phz[place] TBIL is not recommended. Blood urea nitrogen (BUN)/cr eatinine ratioOrdered By: Daisy Valles on 06-13-2024 Urea nitrogen/Creatinine [Mass ratio] 24.5 mg/mg High 10-20 [facility] CBC W/Diff, Automatedon 05-22 Absolute Lymph 1.45 X10 3/uL Normal 0.83-4.51 [facility] Comment on above: Performed By: #### L 500.4050, L100.0100 ####[facility] [address] [place], [address] Absolute Neut 4.9 X10 3/uL Normal 2.0-7.7 [facility] Comment on above: Performed By: #### L 500.4050, L100.0100 ####[facility] [address] [place], [address] Basophils/100 WBC (Bld) 0.4 % Normal 0-1 [facility] Comment on above: Performed By: #### L 500.4050, L100.0100 ####[facility] [address] [place], [address] Eosinophils/100 WBC (Bld) 1.1 % Normal 0-5 [facility] Comment on above: Performed By: #### L 500.4050, L100.0100 ####[facility] [address] [place], [address] Erythrocyte distribution width (RBC) [Ratio] 13.8 % Normal 11.6-14.6 [facility] Comment on above: Performed By: #### L 500.4050, L100.0100 ####[facility] [address] [place], [address] Hematocrit (Bld) [Volume fraction] 46.7 % Normal 37-47 [facility] Comment on above: Performed By: #### L 500.4050, L100.0100 ####[facility] [address] [place], [address] Hemoglobin (Bld) [Mass/Vol] 14.9 g/dL Normal 12.0-15.0 [facility] Comment on above: Performed By: #### L 500.4050, L100.0100 ####[facility] [address] [place], [address] IG% 0.400 Normal 0.0-0.9 [facility] Comment on above: Result Comment: IG% - Immature Granulocytes (promyelocytes, myelocytes and metamyelocytes) > 1% indicates that a LEFT SHIFT is Present. Performed By: #### L 500.4050, L100.0100 ####[facility] [address] [place], [address] Lymphocytes/100 WBC (Bld) 20.2 % Normal 19-41 [facility] Comment on above: Performed By: #### L 500.4050, L100.0100 ####[facility] [address] [place], [address] MCH (RBC) [Entitic mass] 29.0 pg Normal 27.0-32.0 [facility] Comment on above: Performed By: #### L 500.4050, L100.0100 ####[facility] [address] [place], [address] MCHC (RBC) [Mass/Vol] 31.9 g/dL Low 32-36 [facility] Comment on above: Performed By: #### L 500.4050, L100.0100 ####[facility] [address] [place], [address] MCV (RBC) [Entitic vol] 91.0 fL Normal 81-99 [facility] Comment on above: Performed By: #### L 500.4050, L100.0100 ####[facility] [address] [place], [address] Monocytes/100 WBC (Bld) 10.4 % High 0-10 [facility] Comment on above: Performed By: #### L 500.4050, L100.0100 ####[facility] [address] [place], [address] Neutrophils/100 WBC (Bld) 67.5 % Normal 47-70 [facility] Comment on above: Performed By: #### L 500.4050, L100.0100 ####[facility] [address] [place], [address] Nucleated RBC (Bld) [#/Vol] 0 10*3/uL Normal 0-5 [facility] Comment on above: Performed By: #### L 500.4050, L100.0100 ####[facility] [address] [place], [address] Platelet mean volume (Bld) [Entitic vol] 10.4 fL Normal 6.2-12.0 [facility] Comment on above: Performed By: #### L 500.4050, L100.0100 ####[facility] [address] [place], [address] Platelets (Bld) [#/Vol] 257 10*3/uL Normal 150-450 [facility] Comment on above: Performed By: #### L 500.4050, L100.0100 ####[facility] [address] [place], [address] RBC (Bld) [#/Vol] 5.13 10*6/uL Normal 4.2-5.4 [facility] Comment on above: Performed By: #### L 500.4050, L100.0100 ####[facility] [address] [place], [address] RDW SD 46.5 fl High 35.1-43.9 [facility] Comment on above: Performed By: #### L 500.4050, L100.0100 ####[facility] [address] [place], [address] WBC (Bld) [#/Vol] 7.2 10*3/uL Normal 4.4-11.0 [facility] Comment on above: Performed By: #### L 500.4050, L100.0100 ####[facility] [address] [place], [address] Carbon dioxide measurementOr dered By: Daisy Valles on 06-13-2024 CO2 [Moles/Vol] 28.0 mmol/L 21.0-32.0 [facility] Chloride measurementOrdered By: Daisy Valles on 06-13-2024 Chloride [Moles/Vol] 107 mmol/L 98-[address] [facility] Comprehensive Metabolic Prof ilon 06-13-2024 Albumin [Mass/Vol] 3.3 g/dL Normal 3.2-5.0 [facility] Comment on above: Performed By: #### L 500.4050, L100.0100 ####[facility] [address] [place], [address] Albumin/Globulin [Mass ratio] 0.8 {ratio} Low 0.9-2.4 [facility] Comment on above: Performed By: #### L 500.4050, L100.0100 ####[facility] [address] [place], [address] ALK P 80 U/L Normal 45-117 [facility] Comment on above: Performed By: #### L 500.4050, L100.0100 ####[facility] [address] [place], [address] ALT [Catalytic activity/Vol] 9 U/L Low 13-56 [facility] Comment on above: Performed By: #### L 500.4050, L100.0100 ####[facility] [address] [place], [address] AST [Catalytic activity/Vol] 20 U/L Normal 15-37 [facility] Comment on above: Performed By: #### L 500.4050, L100.0100 ####[facility] [address] [place], [address] Bilirubin [Mass/Vol] 0.40 mg/dL Normal 0.20-1.[address] [facility] Comment on above: Result Comment: For patients on eltrombopag therapy, use of Dimension [place]phz[place] TBIL is not recommended. Performed By: #### L 500.4050, L100.0100 ####[facility] [address] [place], [address] BUN/CRE 24.5 RATIO High 10-20 [facility] Comment on above: Performed By: #### L 500.4050, L100.0100 ####[facility] [address] [place], [address] CA,Total 10.2 mg/dL High 8.5-10.1 [facility] Comment on above: Performed By: #### L 500.4050, L100.0100 ####[facility] [address] [place], [address] Chloride [Moles/Vol] 107 mmol/L Normal 98-[address] [facility] Comment on above: Performed By: #### L 500.4050, L100.0100 ####[facility] [address] [place], [address] CO2 [Moles/Vol] 28.0 mmol/L Normal 21.0-32.0 [facility] Comment on above: Performed By: #### L 500.4050, L100.0100 ####[facility] [address] [place], [address] Creatinine [Mass/Vol] 0.65 mg/dL Normal 0.55-1.02 [facility] Comment on above: Result Comment: The validity of the calculated GFR GFRAA in patients over 70 years has not been determined. Clinical correlation is essential. Performed By: #### L 500.4050, L100.0100 ####[facility] [address] [place], [address] ECRCL 60.70 ml/min Normal [facility] Comment on above: Performed By: #### L 500.4050, L100.0100 ####[facility] [address] [place], [address] EST GFR - AA 113 mL/min Normal >60 [facility] Comment on above: Result Comment: Afri can [place] GFR Calc Performed By: #### L 500.4050, L100.0100 ####[facility] [address] [place], [address] GAP 7 Normal 5-15 [facility] Comment on above: Performed By: #### L 500.4050, L100.0100 ####[facility] [address] [place], [address] GFR/1.73 sq M.predicted among non-blacks MDRD (S/P/Bld) [Vol rate/Area] 93 mL/min/{1.73_m2} Normal >60 [facility] Comment on above: Result Comment: Non- GFR Calc Performed By: #### L 500.4050, L100.0100 ####[facility] [address] [place], [address] Globulin (S) [Mass/Vol] 3.9 g/dL Normal 2.2-4.2 [facility] Comment on above: Performed By: #### L 500.4050, L100.0100 ####[facility] [address] [place], [address] Glucose [Mass/Vol] 107 mg/dL High 74-106 [facility] Comment on above: Result Comment: Fast ing Glucose result from 100 to 125 mg/dL suggests IMPAIRED HOMEOSTASIS per A.D.A. criteria. Performed By: #### L 500.4050, L100.0100 ####[facility] [address] [place], [address] Potassium [Moles/Vol] 4.3 mmol/L Normal 3.5-5.1 [facility] Comment on above: Performed By: #### L 500.4050, L100.0100 ####[facility] [address] [place], [address] Sodium [Moles/Vol] 142 mmol/L Normal 136-145 [facility] Comment on above: Performed By: #### L 500.4050, L100.0100 ####[facility] [address] [place], [address] T PROT 7.2 g/dL Normal 6.4-8.2 [facility] Comment on above: Performed By: #### L 500.4050, L100.0100 ####[facility] [address] [place], [address] Urea nitrogen [Mass/Vol] 16 mg/dL Normal 7-18 [facility] Comment on above: Performed By: #### L 500.4050, L100.0100 ####[facility] [address] [place], [address] Eosinophil percentageOrdered By: Daisy Valles on 06-13-2024 Eosinophils/100 WBC (Bld) 1.1 % 0-5 [facility] Erythrocyte distribution wid th ratioOrdered By: Daisy Valles on 06-13-2024 Erythrocyte distribution width (RBC) [Ratio] 13.8 % 11.6-14.6 [facility] Erythrocyte distribution wid th standard deviationOrdered By: Daisy Valles on 06-13-2024 Erythrocyte distribution width (RBC) [Entitic vol] 46.5 fL High 35.1-43.9 [facility] Erythrocyte distribution width (RBC) [Ratio] 46.5 fl High 35.1-43.9 [facility] Estimated glomerular filtrat ion rate (GFR) AmericanOrdered By: Daisy Valles on 06-13-2024 Estimated GFR (MDRD) Amer 113 mL/min >60 [facility] Comment on above: GFR Calc Estimation of creatinine charito aranceOrdered By: Daisy Valles on 06-13-2024 Estimated Creatinine Clearance Calc 60.70 ml/min [facility] Glomerular filtration rate ( GFR) estimationOrdered By: Daisy Valles on 06-13-2024 Estimated GFR (MDRD) Non-Af Amer 93 mL/min >60 [facility] Comment on above: Non- GFR Calc GFR/1.73 sq M.predicted among non-blacks MDRD (S/P/Bld) [Vol rate/Area] 93 mL/min/{1.73_m2} >60 [facility] Comment on above: Non- GFR Calc Glucose measurementOrdered B y: Daisy Valles on 06-13-2024 Glucose [Mass/Vol] 107 mg/dL High 74-106 [facility] Comment on above: Fasting Glucose resu lt from 100 to 125 mg/dL suggests IMPAIRED HOMEOSTASIS per A.D.A. criteria. Hematocrit Auto (Bld) [Volum e fraction]Ordered By: Daisy Valles on 06-13-2024 Hematocrit (Bld) [Volume fraction] 46.7 % 37-47 [facility] Hemoglobin measurementOrdere d By: Daisy Valles on 06-13-2024 Hemoglobin (Bld) [Mass/Vol] 14.9 g/dL 12.0-15.0 [facility] Immature granulocytes/100 WB C Auto (Bld)Ordered By: Daisy Valles on 06-13-2024 Immature granulocytes/100 WBC (Bld) 0.400 % 0.0-0.9 [facility] Comment on above: IG% - Immature Granu locytes (promyelocytes, myelocytes and metamyelocytes) > 1% indicates that a LEFT SHIFT is Present. Laboratory - Chemistry and C hemistry - challengeOrdered By: Daisy Valles on 06-13-2024 AST [Catalytic activity/Vol] 20 U/L 15-37 [facility] Lymphocytes Auto (Unsp spec) [#/Vol]Ordered By: Daisy Valles on 06-13-2024 Lymphocytes (Bld) [#/Vol] 1.45 10*3/uL 0.83-4.51 [facility] Lymphocytes/100 WBC Auto (Un sp spec)Ordered By: Daisy Valles on 06-13-2024 Lymphocytes/100 WBC (Bld) 20.2 % 19-41 [facility] MCV (mean corpuscular volume ) determinationOrdered By: Daisy Valles on 06-13-2024 MCV (RBC) [Entitic vol] 91.0 fL 81-99 [facility] Magnetic resonance imaging r eportOrdered By: Akbar Galloway on 06-13-2024 Study report [facility] Imaging Services [address] [place], [place] [address] Spine Lumbar (Routine) MR#: [id number] Acct: [id number] Name: CHELA ROJAS Rep #: [id number] : 1945 F 78 From: Donald Galloway DO PCP: Dr. Craig Ventura MD Status: HARISH COHEN Study:Spine Lumbar (Routine) Date of Exam: 06/13/24 Exam# [id number] Ordering Dr: Craig Ventura MD PROCEDURE: MRI lumbar spine without IV contrast REASON FOR EXAM: Pain, radiculopathy TECHNIQUE: Multisequence multiplanar MR images of the lumbar spine were obtained without the administration of intravenous contrast. Imaging sequences were performed to best display suspected pathology. COMPARISON: None. FINDINGS: Vertebral body heights are within normal limits. Negative for fracture or marrow replacement. Mild levoscoliosis. Moderate multilevel degenerative disc disease. Conus medullaris is intact and terminatesat L1. Moderate paraspinal muscle atrophy. L1-2: Minimal posterior disc bulge. Mild bilateral facet arthrosis. No significant spinal stenosis. Mild bilateral foraminal narrowing. L2-3: Minimal posterior disc bulge. Mild bilateral facet arthrosis. No significant spinal stenosis. Mild bilateral foraminal narrowing. L3-4: Minimal posterior disc bulge. Moderate bilateral facet arthrosis and ligamentum flavum hypertrophy. No significant spinal stenosis. Mild/moderate bilateral foraminal narrowing. L4-5: Posterior disc bulge with small superimposed right central disc protrusionand annular fissure. Moderate bilateral facet arthrosis and ligamentum flavum hypertrophy. Moderate spinal stenosis. Mild bilateral foraminal narrowing. L5-S1: Minimal posterior disc bulge. Moderate bilateral facet arthrosis. Mild circumferential spinal stenosis. Mild left foraminal narrowing. MRI/Spine Lumbar (Routine) IMPRESSION: 1. Acquired moderate spinal stenosis at L4-5 as above. 2. Acquired mild to mild/moderate multilevel foraminal narrowing. Reading Location: [facility] CC: Dr. Craig Ventura MD ~ Bankman: Signed [facility] Mean corpuscular hemoglobin (MCH) determinationOrdered By: Daisy Valles on 06-13-2024 MCH (RBC) [Entitic mass] 29.0 pg 27.0-32.0 [facility] Mean corpuscular hemoglobin concentration (MCHC) determinationOrdered By: Daisy Valles on 06-13-2024 MCHC (RBC) [Mass/Vol] 31.9 g/dL Low 32-36 [facility] Mean platelet volume determi nationOrdered By: Daisy Valles on 06-13-2024 Platelet mean volume (Bld) [Entitic vol] 10.4 fL 6.2-12.0 [facility] Monocyte percentageOrdered B y: Daisy Valles on 06-13-2024 Monocytes/100 WBC (Bld) 10.4 % High 0-10 [facility] Neutrophil percentageOrdered By: Daisy Valles on 06-13-2024 Neutrophils/100 WBC (Bld) 67.5 % 47-70 [facility] Nucleated red blood cell per centageOrdered By: Daisy Valles on 06-13-2024 Nucleated RBC/100 WBC (Bld) [Ratio] 0 % 0-5 [facility] Oncology Visit Reporton 05-22 Oncology Visit Report [facility] [place] [address] OFFICE VISIT Date of Service: 06/13/24 1439 MR#: [id number] Acct: [id number] Name: CHELA ROJAS Rep #: [id number] : 1945 From: Shelley Arnett MD Age/Sex: 78/F Location: [facility] Status: Signed HPI Subjective Date of Service 06/13/24 Chief Complaint Breast cancer History of Present Illness 78-year-old female with a past medical history notable for LCIS of the right breast in 2015, received tamoxifen prophylaxis for approximately 2 years and with a positive family history for breast cancer (mother and sister with breast cancer in their 70s) was on vigilant screening program with annual mammography. Despite a negative screening mammogram in November 2021, she felt a lump in the right breast and MRI in January 2022 confirmed a ring enhancing right breast mass measuring 1.5 cm in maximum diameter in the inferior medial right breast that prompted a biopsy. January 29, 2022 right breast ultrasound-guided core needle biopsy: Invasive ductal carcinoma, grade 2, ER positive (over 95% strong), MT positive (over 95% moderate to strong) and HER2 low positive (1+). March 05, 2022 patient underwent right partial mastectomy at [facility] pathology showed a single focus of invasive ductal cancer, 1.6 cm in maximum diameter, overall grade 2, no lymphovascular invasion, DCIS present, eventual margin was negative and no axillary staging was done. MammaPrint was low risk (0.227 index). Treatment summary and response: March 05, 2022: Right partial mastectomy, no axillary staging. 05/05/2022 ??? 05/26/2022: received 4256 cGy in 16 fractions to the right breast and right low axilla with a 3D conformal technique. Anastrozole June 2022 Bone support every 6 months started June 2022 [facility] Medical History Aromatase inhibitor use Palpitations Encounter for education Osteoporosis Hip replacement planned Colonoscopy planned Wheezing Thyroid nodule Tendinitis of left rotator cuff Swallowing disorder 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 myelopathy Peripheral neuropathy Overweight Overactive bladder Lumbar spondylosis Lobular carcinoma in situ (LCIS) of right breast Left shoulder pain IBS (irritable bowel syndrome) Essential tremor Entrapment neuropathy of left sural nerve Dense breast tissue Chronic hip pain after total replacement of right hip joint Cardiac hypertrophy Breast cancer Anxiety Age-related osteoporosis without fracture Malignant neoplasm of lower-inner quadrant of right breast of female, estrogen receptor negative Surgical History History of colonoscopy Hx of tonsillectomy History of partial mastectomy of right breast S/P hip replacement H/O section History of appendectomy Family History Mother Breast cancer Father Depression Sister Breast cancer Aunt Breast cancer maternal Social History household members: spouse and family Smoking Status: Never smoker alcohol intake: current substance use type: does not use ROS Constitutional Constitutional: Reports systems reviewed and no addt'l complaints, except as documented and weight gain; Denies fatigue or fever(s) Eyes Eyes: Reports systems reviewed and no addt'l complaints, except as documented ENT HEENT: Reports systems reviewed and no addt'l complaints, except as documented; Denies mouth lesions Cardiovascular Cardiovascular: Reports systems reviewed and no addt'l complaints, except as documented; Denies chest pain with activity or edema Respiratory/Chest Respiratory/Chest: Reports systems reviewed and no addt'l complaints, except as documented, dyspnea on exertion and other Details: Respiratory symptoms are chronic (years) unchanged ; Denies cough or hemoptysis Gastrointestinal Gastrointestinal: Reports systems reviewed and no addt'l complaints, except as documented; Denies change in bowel habits, hematochezia or melena Genitourinary Genitourinary: Reports systems reviewed and no addt'l complaints, except as documented Musculoskeletal Musculoskeletal: Reports systems reviewed and no addt'l complaints, except as documented, arthralgias and back pain Integumentary Integumentary: Reports systems reviewed and no addt'l complaints, except as documented; Denies new lesions or rash Neurologic Neurologic: Reports systems reviewed and no addt'l complaints, except as documented, tremor(s) and other Details: Treatment is significantly less since she came off venlafaxine ; Denies focal weakness, headache(s) or paresthesias Psychiatric Psychiatric: Reports systems reviewed and no addt'l com (more content not included)... Normal [facility] Platelet countOrdered By: Demarcus Valles on 06-13-2024 Platelets (Bld) [#/Vol] 257 10*3/uL 150-450 [facility] Potassium measurementOrdered By: Daisy Valles on 06-13-2024 Potassium [Moles/Vol] 4.3 mmol/L 3.5-5.1 [facility] RBC Auto (Bld) [#/Vol]Ordere d By: Daisy CrenshawHai on 06-13-2024 RBC (Bld) [#/Vol] 5.13 10*6/uL 4.2-5.4 [facility] Serum anion gap measurementO rdered By: Daisy CrenshawHai on 06-13-2024 Anion gap [Moles/Vol] 7 mmol/L 5-15 [facility] Serum globulin measurementOr dered By: Daisy Valles on 06-13-2024 Globulin (S) [Mass/Vol] 3.9 g/dL 2.2-4.2 [facility] Serum or plasma alanine metzger otransferase (ALT) measurementOrdered By: Daisy Valles on 06-13-2024 ALT [Catalytic activity/Vol] 9 U/L Low 13-56 [facility] Serum or plasma albumin deejay urement (mass/volume)Ordered By: Daisy Valles on 06-13-2024 Albumin [Mass/Vol] 3.3 g/dL 3.2-5.0 [facility] Serum or plasma alkaline tam sphatase measurementOrdered By: Daisy Valles on 06-13-2024 ALP [Catalytic activity/Vol] 80 U/L 45-117 [facility] Serum or plasma calcium deejay urement (mass/volume)Ordered By: Daisy Valles on 06-13-2024 Calcium [Mass/Vol] 10.2 mg/dL High 8.5-10.1 [facility] Serum or plasma creatinine m easurement (mass/volume)Ordered By: Daisy Valles on 06-13-2024 Creatinine [Mass/Vol] 0.65 mg/dL 0.55-1.02 [facility] Comment on above: The validity of the calculated GFR & GFRAA in patients over 70 years has not been determined. Clinical correlation is essential. Serum or plasma urea nitroge n measurement (mass/volume)Ordered By: Daisy Valles on 06-13-2024 Urea nitrogen [Mass/Vol] 16 mg/dL 7-18 [facility] Sodium levelOrdered By: Daisy Valles on 06-13-2024 Sodium [Moles/Vol] 142 mmol/L 136-145 [facility] Spine Lumbar (Routine)on Spine Lumbar (Routine) [facility] Imaging Services [address] [place], [place] [address] Spine Lumbar (Routine) MR#: [id number] Acct: [id number] Name: CHELA ROJAS Rep #: [id number] : 1945 F 78 From: Akbar [place] PCP: Dr. Craig Ventura MD Status: [facility] Study: Spine Lumbar (Routine) Date of Exam: 06/13/24 Exam# [id number] Ordering Dr: Craig Ventura MD PROCEDURE: MRI lumbar spine without IV contrast REASON FOR EXAM: Pain, radiculopathy TECHNIQUE: Multisequence multiplanar MR images of the lumbar spine were obtained without the administration of intravenous contrast. Imaging sequences were performed to best display suspected pathology. COMPARISON: None. FINDINGS: Vertebral body heights are within normal limits. Negative for fracture or marrow replacement. Mild levoscoliosis. Moderate multilevel degenerative disc disease. Conus medullaris is intact and terminates at L1. Moderate paraspinal muscle atrophy. L1-2: Minimal posterior disc bulge. Mild bilateral facet arthrosis. No significant spinal stenosis. Mild bilateral foraminal narrowing. L2-3: Minimal posterior disc bulge. Mild bilateral facet arthrosis. No significant spinal stenosis. Mild bilateral foraminal narrowing. L3-4: Minimal posterior disc bulge. Moderate bilateral facet arthrosis and ligamentum flavum hypertrophy. No significant spinal stenosis. Mild/moderate bilateral foraminal narrowing. L4-5: Posterior disc bulge with small superimposed right central disc protrusion and annular fissure. Moderate bilateral facet arthrosis and ligamentum flavum hypertrophy. Moderate spinal stenosis. Mild bilateral foraminal narrowing. L5-S1: Minimal posterior disc bulge. Moderate bilateral facet arthrosis. Mild circumferential spinal stenosis. Mild left foraminal narrowing. MRI/Spine Lumbar (Routine) IMPRESSION: 1. Acquired moderate spinal stenosis at L4-5 as above. 2. Acquired mild to mild/moderate multilevel foraminal narrowing. Reading Location: [facility] CC: Dr. Craig Ventura MD Bankman: Signed Normal [facility] Total proteinOrdered By: Tila Valles on 06-13-2024 Protein [Mass/Vol] 7.2 g/dL 6.4-8.2 [facility] White blood cell (WBC) count Ordered By: Daisy Valles on 06-13-2024 WBC (Bld) [#/Vol] 7.2 10*3/uL 4.4-11.0 [facility] Dexa Bone Density Studyon Dexa Bone Density Study [facility] Imaging Services [address] [place] [id number] Dexa Bone Density Study MR#: [id number] Acct: [id number] Name: CHELA ROJAS Rep #: [id number] : 1945 F 78 From: Reid martínez MD PCP: Dr. Craig Ventura MD Status: REG CL Study: Dexa Bone Density Study Date of Exam: 05/10/24 Exam# [id number] Ordering Dr: Daisy Valles PREPARED FOODS TEAM LEADER PREPARED FOODS TEAM LEADER -C [id number] STUDY: DUAL ENERGY X-RAY ABSORPTIOMETRY / DXA REASON FOR EXAM: Female, 78 years old. Osteoporosis TECHNIQUE: Bone Mineral Density (BMD) measurements of lumbar spine and left hip were obtained. COMPARISON: None. FINDINGS: Lumbar Spine (L1-L4): g/cm2 (0.811) / T-score (-1.9) / Z-score (0.7) Findings are suggestive of osteopenia with a moderate fracture risk. Left Femur Total: g/cm2 (0.710) / T-score (-1.9) / Z-score (0.1) Left Femoral Neck: g/cm2 (0.607) / T-score (-2.2) / Z-score (0.1) . BD/Dexa Bone Density Study IMPRESSION: The patient is considered osteopenic as outlined below according to World Jj Organization (WHO) criteria with a high fracture risk. Reference Information: The T-score is the number of standard deviations above or below the standard which is normal for young adults at their peak bone mineral density. The World Health Organization (WHO) interprets the T-scores as follows: Above -1 Normal bone density Between -1 and -2.5 Osteopenia Equal to / or below -2.5 Osteoporosis As a practical clinical guideline, osteopenia may be graded as follows: Mild -1 through -1.5 Moderate -1.6 through -2.0 Severe -2.1 through -2.4 The Z-score is the number of standard deviations above or below age-matched controls. A Z-score of less than -1.5 would be considered abnormal. References: 1. NIH Osteoporosis and Related Bone Diseases www osteo.org 2. International Society for Clinical Densitometry www iscd.org 3. National Osteoporosis Foundation www nof.org Electronically Signed: Reid Chu MD at 14:12 EST , CC: ANA Valles; Dr. Craig Ventura MD Bankman: Signed Normal [facility] ED Prov Noteon 04-30-2024 ED Prov Note ED PROVIDER NOTE [facility] EM[facility] NAME: Chela Rojas AGE: 78 y.o. : 1945 VISIT DATE: 04/30/2024 CSN: [id number] PCP: Craig Ventura Chi, MD Chief Complaint Patient presents with Hip Pain Chief complaint hip pain History of present illness this is 78-year-old female who has a history of a right hip replacement since yesterday she is having inability to ambulate on the hip. She cannot recall any unusual position or fall. Denies any fever chills sore throat cough congestion nausea vomiting diarrhea and is here for assessment the pain is localizing to the right hip just posterior. She also has been receiving therapy for degenerative disc disease of the lumbar spine Past Medical History: Diagnosis Date Anxiety Blood in stool Disorder of thyroid gland Dyspnea Leg weakness Malignant neoplasm of female breast (HCC) right sided Multiple thyroid nodules Numbness of leg Ringing in ears Sore gums Thyroid nodule 2007 Tired Wheezing symptom Past Surgical History: Procedure Laterality Date SECTION CT COLONOSCOPY 07/01/2018 CT COLONOSCOPY EXPLORATORY SURGERY HIP SURGERY Right Family History Problem Relation Age of Onset Cancer Mother Cancer Sister Social History Socioeconomic History Marital status: Tobacco Use Smoking status: Never Smokeless tobacco: Never Substance and Sexual Activity Alcohol use: Yes Alcohol/week: 0.0 standard drinks of alcohol Comment: CURRENT Drug use: No Previous Medications Medication Sig gabapentin (NEURONTIN) 300 MG capsule Take 300 mg by mouth 2 (two) times a day . metoprolol succinate (TOPROL-XL) 25 MG 24 hr tablet Take 25 mg by mouth 3 (three) times a day . venlafaxine (EFFEXOR-XR) 75 MG 24 hr capsule Take 75 mg by mouth daily Allergies Allergen Reactions Escitalopram Other (See Comments) Review of Systems All other systems reviewed and are negative. Patient Vitals for the past 24 hrs: BP Temp Temp src Pulse Resp SpO2 Height Weight 04/30/24 1320 -- -- -- -- -- 97 % -- -- 04/30/24 1301 (!) 142/75 97.7 degrees F (36.5 degrees C) Oral 99 18 -- 5' 6 77.1 kg (170 lb) Physical Exam Vitals and nursing note reviewed. Exam conducted with a underliner present. Constitutional: General: She is in acute distress. Appearance: Normal appearance. She is normal weight. HENT: Head: Normocephalic and atraumatic. Nose: Nose normal. Mouth/Throat: Mouth: Mucous membranes are dry. Eyes: Extraocular Movements: Extraocular movements intact. Pupils: Pupils are equal, round, and reactive to light. Cardiovascular: Rate and Rhythm: Normal rate and regular rhythm. Musculoskeletal: Cervical back: Normal range of motion. Comments: Examination of the right hip reveals decreased range of motion positive tenderness of the trochanteric site. And lumbosacral tenderness Pulmonary: Effort: Pulmonary effort is normal. Abdominal: General: Abdomen is flat. Skin: General: Skin is warm. Capillary Refill: Capillary refill takes less than 2 seconds. Neurological: Mental Status: She is alert. Laboratory & Radiographic Imaging (if done): No results found for this visit on 04/30/24. XR Lumbar Spine 2-3 Views (Standard) Final Result No acute fracture or traumatic malalignment. Other chronic/incidental findings are discussed above. Workstation ID: [id number] XR Hip Right With Pelvis 2-3 Views (Routine) Final Result No acute fracture or traumatic malalignment. Other chronic/incidental findings as discussed above. Workstation ID: [id number] Procedures Medical Decision Making Differential diagnosis Hip dislocation Periprosthetic fracture Lumbar fracture Radiculopathy Degenerative disc disease of the lumbar spine Here with shared decision making shot of Toradol was given x-ray of the right hip was done and lumbar spine spinal series x-rays Amount and/or Complexity of Data Reviewed Radiology: ordered and independent interpretation performed. Details: X-rays were reviewed no fracture dislocation of the hip lumbar spine revealed degenerative disc disease Discussion of management or test interpretation with external provider(s): Walker was given here Clinical Impression: 1. Degenerative disc disease, lumbar 2. Acute pain of right hip ED Disposition ED Disposition Discharge Condition Stable Comment Chela Rojas discharged to home/self care in stable condition. Follow-up Information 1. Antonio Staples MD. Specialty: Orthopedic Surgery [address] [place] [id number] Contact information for after-discharge care Follow-up information has not been specified. New Prescriptions ketorolac (TORADOL) 10 mg tablet Take 1 (one) tablet (10 mg total) by mouth every 6 (six) hours as needed . oxyCODONE-acetaminophen (PERCOCET) 5-325 mg per tablet Take 1 (one) tablet by mouth ev (more content not included)... [facility] XR HIP RIGHT WITH PELVIS 2-3 VIEWS (ROUTINE)on 04-30-2024 XR HIP RIGHT WITH PELVIS 2-3 VIEWS (ROUTINE) EXAMINATION: XR HIP RIGHT WITH PELVIS 2-3 VIEWS (ROUTINE) HISTORY: ORDERING SYSTEM PROVIDED HISTORY: Hip pain, TECHNOLOGIST PROVIDED HISTORY: Illness/Other Reason for exam: R hip pain Cancer History: breast cancer Surgery, RadiationHistory: R total hip 2016 Encounter Type: Initial Additional signs and symptoms: lower back pain ORDERING SYSTEM PROVIDED DIAGNOSIS CODES: COMPARISON: 01/12/2019 FINDINGS: AP view pelvis and 2 views of the right hip obtained. No evidence of acute fracture or dislocation. SI joints appear grossly normal and symmetric. Total right hip arthroplasty without signs of change or loosening. Mild left hip degenerative changes noted. Lumbar spine degenerative changes are partially imaged. IMPRESSION: No acute fracture or traumatic malalignment. Other chronic/incidental findings as discussed above. Workstation ID: [id number] Dictated by: PENELOPE RAMIREZ on Sat Apr 30, 2024 1:57:49 PM EST Transcribed by: PENELOPE RAMIREZ on Sat Apr 30, 2024 1:57:49 PM EST Finalized by: PENELOPE RAMIREZ on Sat Apr 30, 2024 1:57:[address] [facility] Comment on above: Order Comment: Injur y/Trauma or Illness?:Illness/Other How long have you had these symptoms (acute/chronic)?:Acute Reason for exam?:R hip pain History of cancer?:breast cancer Surgeries, chemotherapy, or radiation?:R total hip 2015 Type of Exam?:Initial Additional signs and symptoms?:lower back pain XR LUMBAR SPINE 2-3 VIEWS (S TANDARD)on 04-30-2024 XR LUMBAR SPINE 2-3 VIEWS (STANDARD) EXAMINATION: XR LUMBAR SPINE 2-3 VIEWS (STANDARD) HISTORY: ORDERING SYSTEM PROVIDED HISTORY: lower back pain, TECHNOLOGIST PROVIDED HISTORY: Illness/Other Reason for exam: lower back pain Cancer History: breast cancer Surgery, RadiationHistory: R total hip 2015 Encounter Type: Initial Additional signs and symptoms: R hip pain ORDERING SYSTEM PROVIDED DIAGNOSIS CODES: COMPARISON: None TECHNIQUE: Three views of the lumbar spine. FINDINGS: Postsurgical: None Scoliosis: Slight levoconvex curvature. SI joints: Grossly normal and symmetric. Alignment: Normal lumbar spine alignment. Vertebral body heights: Normal. Endplate degenerative changes: Minimal endplate degenerative changes. Facet degenerative changes: Evidence of at least moderate facet arthropathy on the left at L4-L5/L5-S1. Other comments: Bones appear somewhat osteopenic. IMPRESSION: No acute fracture or traumatic malalignment. Other chronic/incidental findings are discussed above. Workstation ID: [id number] Dictated by: PENELOPE RAMIREZ on Sat Apr 30, 2024 1:58:50 PM EST Transcribed by: PENELOPE RAMIREZ on Sat Apr 30, 2024 1:58:50 PM EST Finalized by: PENELOPE RAMIREZ on Sat Apr 30, 2024 1:58:[address] [facility] Comment on above: Order Comment: Injur y/Trauma or Illness?:Illness/Other How long have you had these symptoms (acute/chronic)?:Acute Reason for exam?:lower back pain History of cancer?:breast cancer Surgeries, chemotherapy, or radiation?:R total hip 2016 Type of Exam?:Initial Additional signs and symptoms?:R hip pain Oncology Visit Reporton Oncology Visit Report [facility] [address] [place] [id number] OFFICE VISIT Date of Service: 03/28/24 1405 MR#: [id number] Acct: [id number] Name: CHELA ROJAS Rep #: [id number] : 1945 From: Daisy Valles NP, NP -C Age/Sex: 78/F Location: [facility] Status: Signed HPI Subjective Date of Service 03/28/24 Chief Complaint Breast cancer History of Present Illness 78-year-old female with a past medical history notable for LCIS of the right breast in 2015, received tamoxifen prophylaxis for approximately 2 years and with a positive family history for breast cancer (mother and sister with breast cancer in their 70s) was on vigilant screening program with annual mammography. Despite a negative screening mammogram in November 2021, she felt a lump in the right breast and MRI in January 2022 confirmed a ring enhancing right breast mass measuring 1.5 cm in maximum diameter in the inferior medial right breast that prompted a biopsy. January 29, 2022 right breast ultrasound-guided core needle biopsy: Invasive ductal carcinoma, grade 2, ER positive (over 95% strong), MT positive (over 95% moderate to strong) and HER2 low positive (1+). March 05, 2022 patient underwent right partial mastectomy at [facility] pathology showed a single focus of invasive ductal cancer, 1.6 cm in maximum diameter, overall grade 2, no lymphovascular invasion, DCIS present, eventual margin was negative and no axillary staging was done. MammaPrint was low risk (0.227 index). Treatment summary and response: March 05, 2022: Right partial mastectomy, no axillary staging. 05/05/2022 ??? 05/26/2022: received 4256 cGy in 16 fractions to the right breast and right low axilla with a 3D conformal technique. Anastrozole June 2022- Bone support every 6 months started June 2022 Interval History Patient is presenting to clinic today for routine 3-month follow-up. Confirms adherence to oral therapy with anastrozole. Requests refill. Hot flashes and musculoskeletal pain are minimal, occur intermittently, and are not limiting her ability to engage in activity. Confirms she is taking calcium and vitamin D as advised. Reports mild SOB with activity, being managed by her dietitian teaching. Specifically denies headaches, weight loss, bone pain, chest pain, palpitations, cough, wheezing, abdominal pain, swelling or pain of her extremities. [facility] Medical History Palpitations Encounter for education Osteoporosis Hip replacement planned Colonoscopy planned Wheezing Thyroid nodule Tendinitis of left rotator cuff Swallowing disorder 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 myelopathy Peripheral neuropathy Overweight Overactive bladder Lumbar spondylosis Lobular carcinoma in situ (LCIS) of right breast Left shoulder pain IBS (irritable bowel syndrome) Essential tremor Entrapment neuropathy of left sural nerve Dense breast tissue Chronic hip pain after total replacement of right hip joint Cardiac hypertrophy Breast cancer Anxiety Age-related osteoporosis without fracture Malignant neoplasm of lower-inner quadrant of right breast of female, estrogen receptor negative Surgical History History of colonoscopy Hx of tonsillectomy History of partial mastectomy of right breast S/P hip replacement H/O section History of appendectomy Family History Mother Breast cancer Father Depression Sister Breast cancer Aunt Breast cancer maternal Social History household members: spouse and family Smoking Status: Never smoker alcohol intake: current substance use type: does not use ROS ROS Narrative Negative except as documented in the interval HPI Intake Vital Signs 12/29/23 14:45 01/11/24 12:59 03/28/24 14:06 03/28/24 14:10 Height 5 ft 6 in 5 ft 6 in 5 ft 6 in 5 ft 6 in Weight: 169 lb 9 oz BMI 27.3 BP 124/81 H Blood Pressure Location Lt brachial Position Sitting Respiration 16 Pulse 95 Pulse Source Monitor Temp 97.4 F L Temperature Source Temporal Artery Pulse Oximetry (%) 95 Oxygen Delivery Method room air Intake Is patient in pain?: No Allergies escitalopram (From Lexapro) Allergy (Severe, Verified 03/28/24 14:09) Other Medications ???Medication ???Instructions ???Recorded ???Confirmed ???Type cholecalciferol (vitamin D3) 75 75 mcg PO DAILY 04/04/22 03/28/24 History mcg (3,000 unit) tablet calcium carbonate 600 mg PO DAILY 12/08/22 03/28/24 History metoprolol succinate 25 mg 25 mg PO DAILY 01/12/23 03/28/24 History tablet,extended release 24 hr biotin 1,000 mcg chewable table (more content not included)... Normal [facility] TISSUE EXAMon 12-30-2023 TISSUE EXAM Surgical Pathology Report Case: [id number] Authorizing Provider: Audi Paris Collected: 12/30/2023 01:45 PM MD Lizeth Ordering Location: [facility] Lab Received: 12/31/2023 09:30 AM Pathologist: Miah Perera DO Specimen: Hand, Right, Excision right palm A. Skin, Right Palm, excision: Lobular capillary hemangioma (Pyogenic granuloma). ? Pyogenic granuloma; throbbing and stinging A. Received in formalin, designated R palm, is 1 white-jay fragment(s) of skin measuring 1.5 x 1.0 x 0.6 cm. Margins inked black. The skin contains a brown, slightly indented, bumpy, ulcerated lesion measuring 0.7 cm in greatest dimension. Serially sectioned and totally submitted in 1 cassette(s). KD Gross examination performed at: [facility] - [address] [place] [address] Microscopic examination is performed. Normal [facility] Comment on above: Performed By: #### [id number] #### LAB [address] [place] [address] Ismael Preciado M.D. [id number] Basophil percentageOrdered B y: Shelley Arnett on 07-10-2023 Chloride [Moles/Vol] 103 mmol/L 98-[address] [facility] Glucose [Mass/Vol] 113 mg/dL 74-106 [facility] Comment on above: Fasting Glucose resu lt from 100 to 125 mg/dL suggests IMPAIRED HOMEOSTASIS per A.D.A. criteria. Potassium [Moles/Vol] 4.2 mmol/L 3.5-5.1 [facility] Sodium [Moles/Vol] 140 mmol/L 136-145 [facility] Laboratory - Chemistry and C hemistry - challengeOrdered By: Shelley Arnett on 07-10-2023 CO2 [Moles/Vol] 32.0 mmol/L 21.0-32.0 [facility] Urea nitrogen/Creatinine [Mass ratio] 20.9 mg/mg 10-20 [facility] No Panel InformationOrdered By: Shelley Arnett on 07-10-2023 Estimated Creatinine Clearance Calc 61.08 ml/min [facility] Estimated GFR (MDRD) Amer 94 mL/min >60 [facility] Comment on above: GFR Calc Estimated GFR (MDRD) Non-Af Amer 77 mL/min >60 [facility] Comment on above: Non- GFR Calc Serum or plasma calcium deejay urement (mass/volume)Ordered By: Shelley Arnett on 07-10-2023 Calcium [Mass/Vol] 10.3 mg/dL 8.5-10.1 [facility] Serum or plasma creatinine m easurement (mass/volume)Ordered By: Shelley Arnett on 07-10-2023 Creatinine [Mass/Vol] 0.77 mg/dL 0.55-1.02 [facility] Comment on above: The validity of the calculated GFR & GFRAA in patients over 70 years has not been determined. Clinical correlation is essential. Serum or plasma urea nitroge n measurement (mass/volume)Ordered By: Shelley Arnett on 07-10-2023 Urea nitrogen [Mass/Vol] 16 mg/dL 7-18 [facility] Thin prep Papanicolaou smear with manual screeningOrdered By: Shelley Arnett on 07-10-2023 Thin prep Papanicolaou smear with manual screening 5 5-15 [facility] Absolute lymphocyte countOrd ered By: Daisy Valles on 07-06-2023 Lymphocytes Auto (Unsp spec) [#/Vol] 1.37 10*3/uL 0.83-4.51 [facility] Automated lymphocyte count a s percentage of total leukocytesOrdered By: Daisy Valles on 07-06-2023 Lymphocytes/100 WBC Auto (Unsp spec) 18.4 % 19-41 [facility] Basophil percentageOrdered B y: Daisy Valles on 07-06-2023 Basophils/100 WBC (Bld) 0.4 % 0-1 [facility] Bilirubin [Mass/Vol] 0.30 mg/dL 0.20-1.[address] [facility] Comment on above: For patients on eltr ombopag therapy, use of Dimension [place] TBIL is not recommended. Eosinophils/100 WBC (Bld) 2.7 % 0-5 [facility] Hemoglobin (Bld) [Mass/Vol] 14.6 g/dL 12.0-15.0 [facility] Monocytes/100 WBC (Bld) 7.5 % 0-10 [facility] Neutrophils (Bld) [#/Vol] 5.3 10*3/uL 2.0-7.7 [facility] Neutrophils/100 WBC (Bld) 70.6 % 47-70 [facility] Protein [Mass/Vol] 7.0 g/dL 6.4-8.2 [facility] WBC (Bld) [#/Vol] 7.4 10*3/uL 4.4-11.0 [facility] Determination of erythrocyte mean corpuscular volume (MCV)Ordered By: Daisy Valles on 07-06-2023 MCV (RBC) [Entitic vol] 92.2 fL 81-99 [facility] Erythrocyte distribution wid th ratioOrdered By: Daisy Valles on 07-06-2023 Erythrocyte distribution width (RBC) [Ratio] 13.4 % 11.6-14.6 [facility] Erythrocyte distribution wid th standard deviationOrdered By: Daisy Valles on 07-06-2023 Erythrocyte distribution width (RBC) [Entitic vol] 46.2 fL 35.1-43.9 [facility] Hematocrit Auto (Bld) [Volum e fraction]Ordered By: Daisy Valles on 07-06-2023 Hematocrit (Bld) [Volume fraction] 46.2 % 37-47 [facility] Immature granulocytes/100 WB C Auto (Bld)Ordered By: Daisyrehana Valles on 07-06-2023 Immature granulocytes/100 WBC (Bld) 0.400 % 0.0-0.9 [facility] Comment on above: IG% - Immature Granu locytes (promyelocytes, myelocytes and metamyelocytes) > 1% indicates that a LEFT SHIFT is Present. Laboratory - Chemistry and C hemistry - challengeOrdered By: Daisy Valles on 07-06-2023 Albumin/Globulin [Mass ratio] 1.0 {ratio} 0.9-2.4 [facility] ALP [Catalytic activity/Vol] 85 U/L 45-117 [facility] ALT [Catalytic activity/Vol] 14 U/L 13-56 [facility] Globulin (S) [Mass/Vol] 3.5 g/dL 2.2-4.2 [facility] Laboratory - Hematology and Cell countsOrdered By: Daisy Valles on 07-06-2023 MCH (RBC) [Entitic mass] 29.1 pg 27.0-32.0 [facility] MCHC (RBC) [Mass/Vol] 31.6 g/dL 32-36 [facility] Nucleated RBC/100 WBC (Bld) [Ratio] 0 % 0-5 [facility] Platelet mean volume (Bld) [Entitic vol] 9.8 fL 6.2-12.0 [facility] Platelets (Bld) [#/Vol] 266 10*3/uL 150-450 [facility] RBC Auto (Bld) [#/Vol]Ordere d By: Daisy Valles on 07-06-2023 RBC (Bld) [#/Vol] 5.01 10*6/uL 4.2-5.4 [facility] Thin prep Papanicolaou smear with manual screeningOrdered By: Daisy Valles on 07-06-2023 Thin prep Papanicolaou smear with manual screening 3.5 g/dL 3.2-5.0 [facility] Thin prep Papanicolaou smear with manual screening 22 U/L 15-37 [facility] Absolute lymphocyte countOrd ered By: Craig Ventura on 06-02-2023 Lymphocytes Auto (Unsp spec) [#/Vol] 0.93 10*3/uL 0.83-4.51 [facility] Automated lymphocyte count a s percentage of total leukocytesOrdered By: Craig Ventura on 06-02-2023 Lymphocytes/100 WBC Auto (Unsp spec) 13.2 % 19-41 [facility] Basophil percentageOrdered B y: Craig Ventura on 06-02-2023 Basophils/100 WBC (Bld) 0.4 % 0-1 [facility] Bilirubin [Mass/Vol] 0.40 mg/dL 0.20-1.[address] [facility] Comment on above: For patients on eltr ombopag therapy, use of Dimension [place] TBIL is not recommended. Chloride [Moles/Vol] 110 mmol/L 98-[address] [facility] Eosinophils/100 WBC (Bld) 1.3 % 0-5 [facility] Glucose [Mass/Vol] 115 mg/dL 74-106 [facility] Comment on above: Fasting Glucose resu lt from 100 to 125 mg/dL suggests IMPAIRED HOMEOSTASIS per A.D.A. criteria. Hemoglobin (Bld) [Mass/Vol] 13.9 g/dL 12.0-15.0 [facility] Monocytes/100 WBC (Bld) 6.7 % 0-10 [facility] Neutrophils (Bld) [#/Vol] 5.5 10*3/uL 2.0-7.7 [facility] Neutrophils/100 WBC (Bld) 78.3 % 47-70 [facility] Potassium [Moles/Vol] 4.3 mmol/L 3.5-5.1 [facility] Protein [Mass/Vol] 6.9 g/dL 6.4-8.2 [facility] Sodium [Moles/Vol] 144 mmol/L 136-145 [facility] WBC (Bld) [#/Vol] 7.0 10*3/uL 4.4-11.0 [facility] Determination of erythrocyte mean corpuscular volume (MCV)Ordered By: Craig Ventura on 06-02-2023 MCV (RBC) [Entitic vol] 92.9 fL 81-99 [facility] Erythrocyte distribution wid th ratioOrdered By: [facility] on 06-02-[facility]23 Erythrocyte distribution width (RBC) [Ratio] 14.0 % 11.6-14.6 [facility] Erythrocyte distribution wid th standard deviationOrdered By: [facility] on 06-02-2023 Erythrocyte distribution width (RBC) [Entitic vol] 48.0 fL 35.1-43.9 [facility] Hematocrit Auto (Bld) [Volum e fraction]Ordered By: [facility] Lorenzo 06-02-2023 Hematocrit (Bld) [Volume fraction] 45.7 % 37-47 [facility] Immature granulocytes/100 WB C Auto (Bld)Ordered By: Craig Lorenzo 06-02-2023 Immature granulocytes/100 WBC (Bld) 0.100 % 0.0-0.9 [facility] Comment on above: IG% - Immature Granu locytes (promyelocytes, myelocytes and metamyelocytes) > 1% indicates that a LEFT SHIFT is Present. Laboratory - Chemistry and C hemistry - challengeOrdered By: [facility] Lorenzo 06-02-2023 Albumin/Globulin [Mass ratio] 1.0 {ratio} 0.9-2.4 [facility] ALP [Catalytic activity/Vol] 77 U/L 45-117 [facility] ALT [Catalytic activity/Vol] 12 U/L 13-56 [facility] CO2 [Moles/Vol] 31.0 mmol/L 21.0-32.0 [facility] Globulin (S) [Mass/Vol] 3.5 g/dL 2.2-4.2 [facility] Urea nitrogen/Creatinine [Mass ratio] 29.9 mg/mg 10-20 [facility] Laboratory - Hematology and Cell countsOrdered By: Craig Ventura 06-02-2023 MCH (RBC) [Entitic mass] 28.3 pg 27.0-32.0 [facility] MCHC (RBC) [Mass/Vol] 30.4 g/dL 32-36 [facility] Nucleated RBC/100 WBC (Bld) [Ratio] 0 % 0-5 [facility] Platelet mean volume (Bld) [Entitic vol] 10.7 fL 6.2-12.0 [facility] Platelets (Bld) [#/Vol] 223 10*3/uL 150-450 [facility] No Panel InformationOrdered By: Craig Ventura on 06-02-2023 Estimated GFR (MDRD) Amer 110 mL/min >60 [facility] Comment on above: GFR Calc Estimated GFR (MDRD) Non-Af Amer 91 mL/min >60 [facility] Comment on above: Non- GFR Calc Vitamin D 25-Hydroxy 33.6 ng/mL [facility] Comment on above: Vitamin D 25(OH) Sta tus Range Deficiency <20 ng/mL (50nmol/L) Insufficiency 20 - 30 ng/mL (50 - 75 nmol/L) Sufficiency 30 - 100 ng/mL (75 - 250 nmol/L) Toxicity >100 ng/mL (>250 nmol/L) RBC Auto (Bld) [#/Vol]Ordere d By: Craig Ventura on 06-02-2023 RBC (Bld) [#/Vol] 4.92 10*6/uL 4.2-5.4 [facility] Serum or plasma calcium deejay urement (mass/volume)Ordered By: Craig Ventura on 06-02-2023 Calcium [Mass/Vol] 10.1 mg/dL 8.5-10.1 [facility] Serum or plasma creatinine m easurement (mass/volume)Ordered By: Craig Ventura 06-02-2023 Creatinine [Mass/Vol] 0.67 mg/dL 0.55-1.02 [facility] Comment on above: The validity of the calculated GFR & GFRAA in patients over 70 years has not been determined. Clinical correlation is essential. Serum or plasma thyroid stim ulating hormone (TSH) measurement (units/volume)Ordered By: Craig Ventura on 06-02-2023 TSH Qn 1.25 uIU/mL 0.358-3.74 [facility] Serum or plasma urea nitroge n measurement (mass/volume)Ordered By: Craig Ventura on 06-02-2023 Urea nitrogen [Mass/Vol] 20 mg/dL 7-18 [facility] Thin prep Papanicolaou smear with manual screeningOrdered By: Craig Ventura on 06-02-2023 Thin prep Papanicolaou smear with manual screening 3.4 g/dL 3.2-5.0 [facility] Thin prep Papanicolaou smear with manual screening 20 U/L 15-37 [facility] Thin prep Papanicolaou smear with manual screening 3 5-15 [facility] Absolute lymphocyte countOrd ered By: Craig Ventura on 01-20-2023 Lymphocytes Auto (Unsp spec) [#/Vol] 1.27 10*3/uL 0.83-4.51 [facility] Basophil percentageOrdered B y: Craig Ventura on 01-20-2023 Basophils/100 WBC (Bld) 0.4 % 0-1 [facility] Bilirubin [Mass/Vol] 0.20 mg/dL 0.20-1.[address] [facility] Comment on above: For patients on eltr ombopag therapy, use of Dimension [place] TBIL is not recommended. Chloride [Moles/Vol] 105 mmol/L 98-[address] [facility] Eosinophils/100 WBC (Bld) 2.4 % 0-5 [facility] Glucose [Mass/Vol] 98 mg/dL 74-106 [facility] Neutrophils (Bld) [#/Vol] 4.9 10*3/uL 2.0-7.7 [facility] Neutrophils/100 WBC (Bld) 69.7 % 47-70 [facility] Potassium [Moles/Vol] 4.2 mmol/L 3.5-5.1 [facility] Protein [Mass/Vol] 7.2 g/dL 6.4-8.2 [facility] Sodium [Moles/Vol] 138 mmol/L 136-145 [facility] WBC (Bld) [#/Vol] 7.0 10*3/uL 4.4-11.0 [facility] Blood erythrocytes count (nu mber/volume)Ordered By: Craig Ventura on 01-20-2023 RBC (Bld) [#/Vol] 4.92 10*6/uL 4.2-5.4 [facility] Blood hemoglobin measurement (mass/volume)Ordered By: Craig Ventura on 01-20-2023 Hemoglobin (Bld) [Mass/Vol] 14.3 g/dL 12.0-15.0 [facility] Blood lymphocytes/100 leukoc ytesOrdered By: Craig Ventura on 01-20-2023 Lymphocytes/100 WBC (Bld) 18.2 % 19-41 [facility] Blood monocytes/100 leukocyt esOrdered By: Craig Ventura on 01-20-2023 Monocytes/100 WBC (Bld) 9.0 % 0-10 [facility] Blood platelet mean volumeOr dered By: Craig Ventura on 01-20-2023 Platelet mean volume (Bld) [Entitic vol] 10.7 fL 6.2-12.0 [facility] Determination of erythrocyte mean corpuscular volume (MCV)Ordered By: Craig Ventura on 01-20-2023 MCV (RBC) [Entitic vol] 94.3 fL 81-99 [facility] Hematocrit Auto (Bld) [Volum e fraction]Ordered By: [facility] Lorenzo on 01-20-2023 Hematocrit (Bld) [Volume fraction] 46.4 % 37-47 [facility] Laboratory - Chemistry and C hemistry - challengeOrdered By: Craig Ventura on 01-20-2023 ALP [Catalytic activity/Vol] 84 U/L 45-117 [facility] ALT [Catalytic activity/Vol] 30 U/L 13-56 [facility] CO2 [Moles/Vol] 30.0 mmol/L 21.0-32.0 [facility] Globulin (S) [Mass/Vol] 3.7 g/dL 2.2-4.2 [facility] Urea nitrogen/Creatinine [Mass ratio] 26.1 mg/mg 10-20 [facility] Laboratory - Hematology and Cell countsOrdered By: Craig Ventura on 01-20-2023 Erythrocyte distribution width (RBC) [Entitic vol] 46.3 fL 35.1-43.9 [facility] Erythrocyte distribution width (RBC) [Ratio] 13.2 % 11.6-14.6 [facility] Immature granulocytes/100 WBC (Bld) 0.300 % 0.0-0.9 [facility] Comment on above: IG% - Immature Granu locytes (promyelocytes, myelocytes and metamyelocytes) > 1% indicates that a LEFT SHIFT is Present. MCH (RBC) [Entitic mass] 29.1 pg 27.0-32.0 [facility] Nucleated RBC/100 WBC (Bld) [Ratio] 0 % 0-5 [facility] MCHC Auto (RBC) [Mass/Vol]Or dered By: Craig Ventura on 01-20-2023 MCHC (RBC) [Mass/Vol] 30.8 g/dL 32-36 [facility] No Panel InformationOrdered By: Craig Ventura on 01-20-2023 Estimated GFR (MDRD) Amer 122 mL/min >60 [facility] Comment on above: GFR Calc Estimated GFR (MDRD) Non-Af Amer 100 mL/min >60 [facility] Comment on above: Non- GFR Calc Hepatitis C Antibody Non-Reactive Nonreactive [facility] Comment on above: Non Reactive: < 0.8 Equivocal: >/= 0.8 to < 1.0 Reactive: >/= 1.0The CDC recommends that a reactive/equivocal HCV antibody result be followed up by the HCV Nucleic Acid Amplificationtest (664289) Thyroid Stimulating Hormone (TSH) 1.81 uIU/mL 0.358-3.74 [facility] Vitamin D 25-Hydroxy 51.9 ng/mL [facility] Comment on above: Vitamin D 25(OH) Sta tus Range Deficiency <20 ng/mL (50nmol/L) Insufficiency 20 - 30 ng/mL (50 - 75 nmol/L) Sufficiency 30 - 100 ng/mL (75 - 250 nmol/L) Toxicity >100 ng/mL (>250 nmol/L) Platelets bldOrdered By: Craig Ventura on 01-20-2023 Platelets (Bld) [#/Vol] 255 10*3/uL 150-450 [facility] Serum or plasma albumin deejay urement (mass/volume)Ordered By: Craig Ventura on 01-20-2023 Albumin [Mass/Vol] 3.5 g/dL 3.2-5.0 [facility] Serum or plasma albumin/glob ulin mass ratioOrdered By: Craig Ventura on 01-20-2023 Albumin/Globulin [Mass ratio] 0.9 {ratio} 0.9-2.4 [facility] Serum or plasma calcium deejay urement (mass/volume)Ordered By: Craig Ventura on 01-20-2023 Calcium [Mass/Vol] 9.9 mg/dL 8.5-10.1 [facility] Serum or plasma creatinine m easurement (mass/volume)Ordered By: Craig Ventura on 01-20-2023 Creatinine [Mass/Vol] 0.61 mg/dL 0.55-1.02 [facility] Comment on above: The validity of the calculated GFR & GFRAA in patients over 70 years has not been determined. Clinical correlation is essential. Serum or plasma urea nitroge n measurement (mass/volume)Ordered By: Craig Ventura on 01-20-2023 Urea nitrogen [Mass/Vol] 16 mg/dL 7-18 [facility] Thin prep Papanicolaou smear with manual screeningOrdered By: Craig Ventura on 01-20-2023 Thin prep Papanicolaou smear with manual screening 20 U/L 15-37 [facility] Thin prep Papanicolaou smear with manual screening 3 5-15 [facility] Absolute lymphocyte countOrd ered By: Shelley Arnett on 10-07-2022 Lymphocytes Auto (Unsp spec) [#/Vol] 1.11 10*3/uL 0.83-4.51 [facility] Basophil percentageOrdered B y: Shelley Arnett on 10-07-2022 Basophils/100 WBC (Bld) 0.4 % 0-1 [facility] Bilirubin [Mass/Vol] 0.40 mg/dL 0.20-1.[address] [facility] Comment on above: For patients on eltr ombopag therapy, use of Dimension [place] TBIL is not recommended. Chloride [Moles/Vol] 105 mmol/L 98-[address] [facility] Eosinophils/100 WBC (Bld) 2.8 % 0-5 [facility] Glucose [Mass/Vol] 98 mg/dL 74-106 [facility] Neutrophils (Bld) [#/Vol] 5.3 10*3/uL 2.0-7.7 [facility] Neutrophils/100 WBC (Bld) 71.2 % 47-70 [facility] Potassium [Moles/Vol] 4.0 mmol/L 3.5-5.1 [facility] Protein [Mass/Vol] 7.0 g/dL 6.4-8.2 [facility] Sodium [Moles/Vol] 140 mmol/L 136-145 [facility] WBC (Bld) [#/Vol] 7.4 10*3/uL 4.4-11.0 [facility] Blood erythrocytes count (nu mber/volume)Ordered By: Shelley Arnett on 10-07-2022 RBC (Bld) [#/Vol] 5.03 10*6/uL 4.2-5.4 [facility] Blood hemoglobin measurement (mass/volume)Ordered By: Shelley Arnett on 10-07-2022 Hemoglobin (Bld) [Mass/Vol] 14.9 g/dL 12.0-15.0 [facility] Blood lymphocytes/100 leukoc ytesOrdered By: Shelley Arnett on 10-07-2022 Lymphocytes/100 WBC (Bld) 15.0 % 19-41 [facility] Blood monocytes/100 leukocyt esOrdered By: [facility] on 10-07-2022 Monocytes/100 WBC (Bld) 10.2 % 0-10 [facility] Blood platelet mean volumeOr dered By: Shelley Arnett on 10-07-2022 Platelet mean volume (Bld) [Entitic vol] 10.7 fL 6.2-12.0 [facility] Determination of erythrocyte mean corpuscular volume (MCV)Ordered By: Shelley Arnett on 10-07-2022 MCV (RBC) [Entitic vol] 92.8 fL 81-99 [facility] Hematocrit Auto (Bld) [Volum e fraction]Ordered By: Shelley Arnett on 10-07-2022 Hematocrit (Bld) [Volume fraction] 46.7 % 37-47 [facility] Laboratory - Chemistry and C hemistry - challengeOrdered By: Shelley Arnett on 10-07-2022 ALP [Catalytic activity/Vol] 63 U/L 45-117 [facility] ALT [Catalytic activity/Vol] 24 U/L 13-56 [facility] CO2 [Moles/Vol] 32.0 mmol/L 21.0-32.0 [facility] Globulin (S) [Mass/Vol] 3.5 g/dL 2.2-4.2 [facility] Urea nitrogen/Creatinine [Mass ratio] 21.4 mg/mg 10-20 [facility] Laboratory - Hematology and Cell countsOrdered By: Shelley Arnett on 10-07-2022 Erythrocyte distribution width (RBC) [Entitic vol] 46.1 fL 35.1-43.9 [facility] Erythrocyte distribution width (RBC) [Ratio] 13.5 % 11.6-14.6 [facility] Immature granulocytes/100 WBC (Bld) 0.400 % 0.0-0.9 [facility] Comment on above: IG% - Immature Granu locytes (promyelocytes, myelocytes and metamyelocytes) > 1% indicates that a LEFT SHIFT is Present. MCH (RBC) [Entitic mass] 29.6 pg 27.0-32.0 [facility] East Nucleated RBC/100 WBC (Bld) [Ratio] 0 % 0-5 [facility] MCHC Auto (RBC) [Mass/Vol]Or dered By: Shelley Arnett on 10-07-2022 MCHC (RBC) [Mass/Vol] 31.9 g/dL 32-36 [facility] No Panel InformationOrdered By: Shelley Arnett on 10-07-2022 Estimated Creatinine Clearance Calc 44.10 ml/min [facility] Estimated GFR (MDRD) Amer 104 mL/min >60 [facility] Comment on above: GFR Calc Estimated GFR (MDRD) Non-Af Amer 86 mL/min >60 [facility] Comment on above: Non- GFR Calc Platelets bldOrdered By: Jefe Arnett on 10-07-2022 Platelets (Bld) [#/Vol] 211 10*3/uL 150-450 [facility] Serum or plasma albumin deejay urement (mass/volume)Ordered By: Shelley Arnett on 10-07-2022 Albumin [Mass/Vol] 3.5 g/dL 3.2-5.0 [facility] Serum or plasma albumin/glob ulin mass ratioOrdered By: Shelley Arnett on 10-07-2022 Albumin/Globulin [Mass ratio] 1.0 {ratio} 0.9-2.4 [facility] Serum or plasma calcium deejay urement (mass/volume)Ordered By: Shelley Arnett on 10-07-2022 Calcium [Mass/Vol] 10.1 mg/dL 8.5-10.1 [facility] Serum or plasma creatinine m easurement (mass/volume)Ordered By: Shelley Arnett on 10-07-2022 Creatinine [Mass/Vol] 0.70 mg/dL 0.55-1.02 [facility] Comment on above: The validity of the calculated GFR & GFRAA in patients over 70 years has not been determined. Clinical correlation is essential. Serum or plasma urea nitroge n measurement (mass/volume)Ordered By: Shelley Arnett on 10-07-2022 Urea nitrogen [Mass/Vol] 15 mg/dL 7-18 [facility] Thin prep Papanicolaou smear with manual screeningOrdered By: Shelley Arnett on 10-07-2022 Thin prep Papanicolaou smear with manual screening 19 U/L 15-37 [facility] Thin prep Papanicolaou smear with manual screening 3 5-15 [facility] No Panel InformationOrdered By: Shelley Arnett on 06-26-2022 Miscellaneous Test Comment MAILED SPECIMEN [facility] Phone Note - Heme Onc-TRANSF ER OF CAREon 05-26-2022 Phone Note - Heme Onc-TRANSFER OF CARE Phone Call Information: Patient Demographics: Name: CHELA ROJAS Date: 1945 Address: [address] [place], [place] [id number] Date and Time: 26-May-2022 Caller Information: call from Call From: patient Primary Phone Number: [phone] Reason for Call: Reason for CallTRANSFER OF CARE Team Communication: Team Communications: Pt called to cancel her upcoming appt with dr luis. pt wants to keep all her care in one place. She is getting radiation at [facility] will continue her f/u's there. Dr Luis [...] 24-Oct-2019 11:35 N/A Electronic Signatures: Yaquelin Morrison (UMANG) (Signed 26-May-2022 15:44) Authored: Phone Call Information, Outpatient Medication Profile, Allergies, Results Last Updated: 26-May-2022 15:44 by Yaquelin Morrison (UMANG) [facility] AMB - Narrative Note-Distres s Screen Follow Upon 04-04-2022 AMB - Narrative Note-Distress Screen Follow Up Discipline and Description: Discipline: Distress Screen Follow Up Description: Social Work Note 04/04/2022 TIARA left a vm for patient to explain social work services to her. She was encouraged to contact this administrative underwriter so resources can be discussed. RN made a referral to [facility]. TIARA will remain available to assist patient. Rhoda Nguyễn MSW, PRINT MACHINE OPERATOR doc halo/vocera Electronic Signatures: Rhoda Nguyễn (TIARA) (Signed 04-Apr-2022 15:56) Authored: Discipline and Description Last Updated: 04-Apr-2022 15:56 by Rhoda Nguyễn) [facility] AMB - Narrative Note-Distres s Screen Follow Upon 04-03-2022 AMB - Narrative Note-Distress Screen Follow Up Discipline and Description: Discipline: Distress Screen Follow Up Topic: scored a 8 Description: pts concerns were discussed with dr luis at todays visit. referral to [facility] Send Note Using Auto Fax: Note Recipients: Electronic Signatures: Yaquelin Morrison (UMANG) (Signed 03-Apr-2022 15:03) Authored: Discipline and Description, To Send Document via Auto Fax Last Updated: 03-Apr-2022 15:03 by Yaquelin Morrison) [facility] Note - Heme Onc-New V [facility] 04-03-2022 Clinic Note - Heme Onc-New Visit [...] right breast (LCIS) diagnosed via biopsy in 2015 s/p 3 years of chemopreventative Tamoxifen stopped [...] , grade 1-2 , ER positive (>95%), MT positive (>95%) and Her 2 negative she [...] sons and one daughter 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 [facility] Clinic Note - Intakeon 04-03 Clinic Note - [...] interventions Electronic Signatures: Ana Cristina Prasad (REBEKA VILLALOBOS) (Signed 03-Apr-2022 14:39) Authored: Patient Visit Information, Vital Signs, Allergies, Outpatient Medication Profile, Notification, Travel History, Falls Last Updated: 03-Apr-2022 14:39 by Ana Cristina Prasad (REBEKA VILLALOBOS) [facility] Post Op (Breast Surgery)on 05-28-2021 Post Op (Breast Surgery) *Diagnoses/Problems Assessed Malignant neoplasm of lower-inner quadrant of right breast of female, estrogen receptor positive (174.3,V86.0) (C50.311,Z17.0) *Orders Malignant neoplasm of lower-inner quadrant of right breast of female, estrogen receptor positive Medical Oncology Referral Evaluation and Treatment Evaluate AND Treat adjuvant endocrine tx pT1cN0 right breast cancer ER/MT + Her2- low risk luminal A Status: Hold For - Scheduling,Retrospective Authorization Requested for: [id number] Ordered;For: Malignant neoplasm of lower-inner quadrant of [...] and rad/onc for recommendations for adjuvant treatment. Chela lives in the [place] area and will see Dr. Luis. Will be due for mammogram in November. She can follow with me for same day imaging or in [place] with Dr. Luis whichever she prefers. given location of her tumor and difficulty to visualize on mammogram she will need clinical breast exams in addition to imaging as part of surveillance. Provider Impressions 1. right breast IDC g1-2 ER 95% MT 95% HER2- at 5:00 7cmFN measuring 1.6cm on final pathology s/p right partial mastectomy -[id number] stage Ia *Chief Complaint post op History of Present IllnessCHELA ROJAS is a 76 year female who presents today at the request of Altagracia Arellano for newly diagnosed right breast cancer. Family history of breast cancer, personal history of biopsy with atypia being followed with enhanced screening. Mammogram in November benign. MRI breast 01/24/2022 with a suspicious right breast mass inferior medial measuring 1.5cm. no axillary adenopathy. 2nd look U/S and biopsy recommended. right U/S biopsy 5:00 7cmFN IDC g1-2 ER 95% MT 95% HER2-. Of note, biopsy clip and [...] Personal h (more content not included)... Normal [facility] Office Visiton 03-24-2022 Follow-up visit Diagnoses/Problems Encounter for preventive health examination (V70.0) (Z00.00) Wheezing (786.07) (R06.2) Orders Anxiety state Renew: LORazepam 0.5 MG Oral Tablet (Ativan); TAKE 1 TABLET Daily prn Wheezing Start: Albuterol Sulfate HFA 108 (90 Base) MCG/ACT Inhalation Aerosol Solution; INHALE 2 PUFFS 4 times daily as needed for wheezing or shortness of brath Complete PFT w/o ABG; Status:Hold For - Scheduling; Requested for:[id number]; Patient Discussion/Summary Likely asthma mild persistent Incentive spirometry PFT Albuterol HFA Chief Complaint breathing issue History of Present Illness1 year of shortness of breath Reported to Dr Arellano and breast cancer doctor when she had surgery Noted wheezing and given a nebulizer treatment. [place] better even the next morning. Was also [...] (V13.3) (Z87.2) History of menopause (V49.81) (Z78.0) 1996 History of screening mammography (V15.89) (Z92.89) Resolved [...] right ventura (more content not included)... Normal [facility] Tobacco Screening.on Fall risk assessment a) No falls within the last year -[facility] Work Phone: Tobacco use status CP b) No -[facility] Work Phone: No Panel Informationon 03-05 Normal -[facility] Work Phone: -[facility] Work Phone: Order Reconciliationon 03-05 Order Reconciliation [...] OralClinician Notes: Anali-operative order ONLY 05-Mar-2022 10:39 hydrocodone-acetaminophe n 5 mg-325 mg oral tablet 1 tab(s) orally every 6 hours, As Needed -Pain - 05-Mar-2022 10:49 Prescription is created for hydrocodone-acetaminophe n 5 mg-325 mg oral tablet HYDROmorphone Injectable [...] PONV, first lineClinician Notes: Anali-operative order ONLY 16-Nov-2022 10:39 Ondansetron Injectable is not required Promethazine [...] Discharge Reconc (more content not included)... Normal [facility] Patient Profile - Preop v3on 03-05-2022 Patient Profile - Preop v3 Patient Profile - Preop: Initial Info: Patient DemographicsName: CHELA ROJAS Date: 1945 Address: [address] [place] [address] Primary Phone [phone] Instructions Givenappropriate clothing, bring glasses/contacts case, bring list of medications, bring responsible adult as the driver license agent (procedure may be cancelled if no driver license agent), center location, insurance information, remove jewerly/piercings Prep Instructions Reviewedn/a How to be AddressedSHARON Spoken Language PreferredEnglish Source of Informationpatient; family Stated Reason for AdmissionBREAST CANCER.rt partial mastectomy [facility] [phone] Limitations on Visitors/Phone Callsnone Medications Brought to Hospitalno General Health: Weight in kg72.8 kilogram(s) Weight in bhz088.4 pound(s) Weight Methodactual (measured) Scale Typechair Height in feet5 feet Height in inches6.97 inch(es) Height in cm170.1 centimeter(s) Height Methodstated BMI (kg/m2)25.16 square meter Patient or Family Member Reaction to Anesthesiano previous reaction Blood Avoidance/Restrictionsno ne Previous Transfusion Reactionnot applicable Health Mgmt: Symptoms/Conditions Managed at Homesee list Barriers to Managing Healthnone Relationship/Environ: Lives Withspouse; adult child(wally) Living Arrangementshouse Resource/Environmental Concernsnone Anticipated Transition [place] Anticipated at Transitionnone Tobacco Use: Tobacco Useno Pre-op Checklist: Arrival [id number] Procedure Typert partial mastectomy NPOyes Last Food [id number] 18:30 Last Clear Fluid [id number] 05:15 ID Band On Patientpatient ID (name), [...] Lexapro: Drug, Unknown, Active Electronic Signatures: Helga England (UMANG) (Signed 05-Mar-2022 08:51) Authored: Initial Info, General Health, Health Mgmt, Relationship/Environ, Tobacco Use, Pre-op Checklist, Additional Information Last Updated: 05-Mar-2022 08:51 by Helga England (UMANG) [facility] RAD BREAST EXAM SPECIMENon 1 05-05-2021 RAD BREAST EXAM SPECIMEN Patient Name: CHELA ROJAS STUDY: RAD BREAST EXAM SPECIMEN; 03/05/2022 10:24 am ACCESSION NUMBER(S): [id number] ORDERING CLINICIAN: SHERYL INGRAM INDICATION: Right breast mass localization. FINDINGS: The specimen radiograph demonstrates the mass of concern and associated biopsy marker in the tissues. IMPRESSION: Status post surgical excision of Right breast mass localization. I personally reviewed the images/study and I agree with the findings as stated by plant operations vice president Wu Bejarano MD. Electronically signed by: ZACHERY BURGOS MD [facility] Surgical Pathology Depar tmenton 03-05-2022 [facility] Surgical Pathology Department Name CHELA ROJAS Pathologist: ALEXIS RUCKER MD Date of Procedure: 03/05/2022 Date Received: 03/05/2022 Date Reported 03/20/2022 Submitting Physician: SHERYL INGRAM DO Location: [facility] Copy To/Referring/Attending: SHERYL INGRAM DO Other External # FINAL DIAGNOSIS A. RIGHT [...] REPORT Invasive Breast Cancer Staging According to [place] Joint Committee on Cancer Staging Manual 8th [...] per 10 HPF (score = 1) Total Daksha Score: Grade II: 6 - 7 points [...] pM: Unknown Estrogen Receptor: See prior report: [id number], positive >95% Progesterone Receptor: See prior report: [id number], positive >95% HER2: See prior report: [id number], negative Biopsy site change: Yes [facility] Breast: Invasive Additional Testing: Tumor Block: A4 [id number] Electronically Signed Out By ALEXIS RUCKER MD/DEMI By the signature on this report, the individual or group listed as making the Final Interpretation/Diagnosis certifies that they have reviewed this case. Diagnostic interpretation performed at [facility] [address] [facility]. [facility] [address] Clinical History: Right partial mastectomy, C50.311 A) [...] gel capsule (more content not included)... Normal [facility] Comment on above: Performed By: #### U HCS #### [facility] Surgical Pathology Department [address] [place] [facility] [place] [address] BASIC METABOLIC PANELon 11-0 Anion gap [Moles/Vol] 7 mmol/L Low 10 - 20 [facility] Comment on above: Performed By: #### B MP #### [address] [address] Calcium [Mass/Vol] 9.9 mg/dL Normal 8.6 - 10.3 [facility] Comment on above: Performed By: #### B MP #### [address] [address] Chloride [Moles/Vol] 103 mmol/L Normal 98 - 107 [facility] Comment on above: Performed By: #### B MP #### [address] [address] Creatinine [Mass/Vol] 0.71 mg/dL Normal 0.50 - 1.05 [facility] Comment on above: Performed By: #### B MP #### [address] [address] GFR/1.73 sq M.predicted among non-blacks MDRD (S/P/Bld) [Vol rate/Area] 88 mL/min/{1.73_m2} Normal >90 [facility] Comment on above: Result Comment: CALC ULATIONS OF ESTIMATED GFR ARE PERFORMED USING THE 2020 CKD-EPI STUDY REFIT EQUATION WITHOUT THE RACE VARIABLE FOR THE IDMS-TRACEABLE CREATININE METHODS. https://jasn.asnjournals.org/content/early/ASN.71824 83558 Performed By: #### B MP #### [address] [place] [address] Glucose [Mass/Vol] 76 mg/dL Normal 74 - 99 [facility] Comment on above: Performed By: #### B MP #### [address] [place] [address] HCO3 (Bld) [Moles/Vol] 34 mmol/L High 21 - 32 [facility] Comment on above: Performed By: #### B MP #### [address] [address] Potassium [Moles/Vol] 4.4 mmol/L Normal 3.5 - 5.3 [facility] Comment on above: Performed By: #### B MP #### [address] [address] Sodium [Moles/Vol] 140 mmol/L Normal 136 - 145 [facility] Comment on above: Performed By: #### B MP #### [address] [address] Urea nitrogen [Mass/Vol] 15 mg/dL Normal 6 - 23 [facility] Comment on above: Performed By: #### B MP #### [address] [address] CBCon 02-21-2022 Erythrocyte distribution width (RBC) [Ratio] 13.2 % Normal 11.5 - 14.5 [facility] Comment on above: Performed By: #### C BC #### [address] [address] Hematocrit (Bld) [Volume fraction] 48.2 % High 36.0 - 46.0 [facility] Comment on above: Performed By: #### C BC #### [address] [address] Hemoglobin (Bld) [Mass/Vol] 14.9 g/dL Normal 12.0 - 16.0 [facility] Comment on above: Performed By: #### C BC #### [address] [address] MCHC (RBC) [Mass/Vol] 30.9 g/dL Low 32.0 - 36.0 [facility] Comment on above: Performed By: #### C BC #### [address] [address] MCV (RBC) [Entitic vol] 93 fL Normal 80 - 100 [facility] Comment on above: Performed By: #### C BC #### [address] [address] NUCLEATED RBC 0.0 /100 WBC Normal 0.0 - 0.0 [facility] Comment on above: Performed By: #### C BC #### [address] [address] Platelets (Bld) [#/Vol] 229 10*3/uL Normal 150 - 450 [facility] Comment on above: Performed By: #### C BC #### [address] [address] RBC 5.19 x10E12/L Normal 4.00 - 5.20 [facility] Comment on above: Performed By: #### C BC #### [address] [address] WBC (Bld) [#/Vol] 7.2 10*3/uL Normal 4.4 - 11.3 [facility] Comment on above: Performed By: #### C BC #### [address] [address] Electrocardiogram 12 Leadon 02-21-2022 Electrocardiogram 12 Lead Ventricular Rate 65 Atrial Rate 65 P-R Interval 140 QRS Duration 82 Q-T Interval 402 QTC Calculation(Bazett) 418 P [place] -10 R [place] -20 T [place] -4 QRS Count 10 Q Onset 216 P Onset 146 P Offset 182 T Offset 417 QTC Fredericia 412 Diagnosis Class Borderline Normal Diagnosis Normal sinus rhythm Leftward axis Otherwise normal ECG No previous ECGs available Confirmed by Akbar Monique ([id number]) on 02/26/2022 8:37:29 PM Normal [facility] Laboratory - Chemistry and C hemistry - challengeon 02-21-2022 Anion gap [Moles/Vol] 7 mmol/L below low threshold 10 - 20 [facility] Work Phone: Calcium [Mass/Vol] 9.9 mg/dL 8.6 - 10.3 [facility] Work Phone: Chloride [Moles/Vol] 103 mmol/L 98 - 107 [facility] Work Phone: CO2 [Moles/Vol] 34 mmol/L above high threshold 21 - 32 [facility] Work Phone: Creatinine [Mass/Vol] 0.71 mg/dL See Below [facility] Work Phone: Comment on above: Reference Range: 0.5 0 - 1.05 Glucose [Mass/Vol] 76 mg/dL 74 - 99 [facility] Work Phone: Potassium [Moles/Vol] 4.4 mmol/L 3.5 - 5.3 [facility] Work Phone: Sodium [Moles/Vol] 140 mmol/L 136 - 145 [facility] Work Phone: Urea nitrogen [Mass/Vol] 15 mg/dL 6 - 23 [facility] Work Phone: Laboratory - Hematology and Cell countson 02-21-2022 Erythrocyte distribution width (RBC) [Ratio] 13.2 % See Below [facility] Work Phone: Comment on above: Reference Range: 11. 5 - 14.5 Hematocrit (Bld) [Volume fraction] 48.2 % above high threshold See Below [facility] Work Phone: Comment on above: Reference Range: 36. 0 - 46.0 Hemoglobin (Bld) [Mass/Vol] 14.9 g/dL See Below [facility] Work Phone: Comment on above: Reference Range: 12. 0 - 16.0 MCHC (RBC) [Mass/Vol] 30.9 g/dL below low threshold See Below [facility] Work Phone: Comment on above: Reference Range: 32. 0 - 36.0 MCV (RBC) [Entitic vol] 93 fL 80 - 100 [facility] Work Phone: Platelets (Bld) [#/Vol] 229 10*3/uL 150 - 450 [facility] Work Phone: RBC (Bld) [#/Vol] 5.19 {x10E12/L} See Below MP -[facility] Work Phone: Comment on above: Reference Range: 4.0 0 - 5.20 WBC (Bld) [#/Vol] 7.2 10*3/uL 4.4 - 11.3 [facility] Work Phone: No [facility] Informationon 02-21 88 {mL/min/1.73m2} >90 [facility] Work Phone: Comment on above: CALCULATIONS OF RESHMA MATED GFR ARE PERFORMED USING THE 2020 CKD-EPI STUDY REFIT EQUATION WITHOUT THE RACE VARIABLE FOR THE IDMS-TRACEABLE CREATININE METHODS.https://jasn.asnjournals.org/content//A SN.3427428204 0.0 {/100_WBC} 0.0 - 0.0 [facility] Work Phone: https://MUSEXPRDWE B01: 8080/musescripts/museweb .dll?RetrieveTestByDateT jack?NylxhiqUJ=[email or web address]& Date=07-29-2021&Time=13% 3a42%3a45%3a00&TestType= ECG&Site=12&OutputType=P DF&Ext=PDF [facility] Work Phone: Normal sinus rhythm [facility] Work Phone: Borderline Normal [facility] Work Phone: [phone] [facility] Work Phone: [phone] [facility] Work Phone: [phone] [facility] Work Phone: 146 1 [facility] Work Phone: [phone] 1 [facility] Work Phone: 10 1 [facility] Work Phone: -4 1 [facility] Work Phone: -20 1 [facility] Work Phone: -10 1 [facility] Work Phone: [phone] [facility] Work Phone: [phone] [facility] Work Phone: 82 1 [facility] Work Phone: 140 1 [facility] Work Phone: 65 1 [facility] Work Phone: Initial Visit (Breast Surger y)on 02-13-2022 Initial Visit (Breast Surgery) No report was sent Normal [facility] Initial Visit (Breast Surgery) Diagnoses/Problems Assessed Malignant [...] 1. right breast IDC g1-2 ER 95% MT 95% HER2- at 5:00 7cmFN measuring 1.5cm -xQ4S4T2 stage Ia Chief Complaint newly diagnosed right [...] biopsy 5:00 7cmFN IDC g1-2 ER 95% MT 95% HER2-. Of note, biopsy clip and [...] of right (more content not included)... Normal [facility] CHEST 2 VIEW PA AND LATon CHEST 2 VIEW PA AND LAT Patient Name: CHELA ROJAS STUDY: CHEST 2 VIEW PA AND LAT; 02/12/2022 12:27 pm INDICATION: cough R05.9: Cough in adult patient. COMPARISON: 10/24/2019 ACCESSION NUMBER(S): [id number] ORDERING CLINICIAN: FINDINGS: There is no focal lung consolidation or effusion. There is no edema. The cardiac silhouette is within normal limits for size. IMPRESSION: No acute cardiopulmonary process. Electronically signed by: LISANDRO WATKINS MD [facility] Radiologyon 02-12-2022 XR Chest 2 Views Normal [facility] Work Phone: Follow Up (General [...] understands this would be most likely at [place] which would give her more reconstructive options or to see Dr. Sheryl Ingram up at [facility]. 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 Review of Systems Constitutional: [...] breast can (more content not included)... Normal [facility] Tobacco Screening.on 022 Fall risk assessment a) No falls within the last year [facility] Work Phone: Tobacco use status CP b) No [facility] Work Phone: CLIP IMAGING DURING BREAST B [...] right breast; R BREAST LUMP. ACCESSION NUMBER(S): [id number]; [id number] ORDERING CLINICIAN: ALTAGRACIA ARELLANO FINDINGS: PREPROCEDURAL CONSULTATION: [...] Dr. Ji, a radiology nurse and an histology technologist were present. PROCEDURE: Rescanning of the right [...] PLACEMENT. Electronically signed by: YAW JI MD [facility] Panel Informationon 01-29 Please click on the link to view the study images Normal [facility] Work Phone: [facility] Work Phone: [facility] Work Phone: [facility] Work Phone: [facility] Surgical Pathology Depar tmenton 01-29-2022 [facility] Surgical Pathology Department Name CHELA ROJAS Pathologist: CANDIDO RUIZ MD Date of Procedure: 01/29/2022 Date Received: 01/29/2022 Date Reported 02/04/2022 Submitting Physician: ALTAGRACIA ARELLANO MD Location: [facility] Other External # Procedures/Addenda Present FINAL DIAGNOSIS A. RIGHT BREAST MASS, ULTRASOUND GUIDED CORE NEEDLE BIOPSY: -- INVASIVE DUCTAL CARCINOMA, GRADE 1-2, SEE NOTE. Note: Immunostains for p63 and [facility] show absent myoepithelial cell layer supporting the diagnosis. In this limited sample, the invasive carcinoma measures up to 1.0 cm in greatest dimension. ER, MT and HER2 will be reported in an addendum. Interpretation performed at: [facility] Department of Pathology [address] [place], [place] [address] Electronically Signed Out By CANDIDO RUIZ MD/DANDRE By the signature on this report, the individual or group listed as making the Final Interpretation/Diagnosis certifies that they have reviewed this case. Diagnostic interpretation performed at [address] [place] [address] Addendum/Procedures: Special Oncology Report Date Ordered: 02/04/2022 Status: Signed Out Date Complete: 02/04/2022 Date Reported: 02/04/2022 Addendum Diagnosis Surgical/Block Number: [id number] Specimen Site: Right breast mass Specimen [...] This specimen has been sent for the [employer] MammaPrint assay. Results will be reported in a separate addendum. RANGES FOR INTERPRETATION: For ER/MT: Ranges for interpretation: Invasive carcinoma cells exhibiting greater than or equal to 10% nuclear staining are considered POSITIVE. Invasive carcinoma cells exhibiting less than 10%, but greater than or equal to 1% are considered LOW POSITIVE. Invasive carcinoma cells exhibiting less than 1% staining are considered NEGATIVE. (Reference: Arch Pathol Lab Med. doi:10.5858/arpa. 7020-7508-4P) The stated steroid receptor activity was derived [...] cells. All tests are performed using a [place] [employer] HER-2/gus (4B5) rabbit monoclonal primary antibody on formalin fixed, paraffin embedded tissue, unless otherwise noted. Only invasive carcinoma is evaluated using the ASCO/CAP scoring system (Arch Pathol Lab Med 2018; 142: 4970-3027) unless otherwise specified. External cell culture and tissue controls stain appropriately. Electronically Signed Out By CANDIDO RUIZ MD/DANDRE By the signature on this report, the individual or group listed as making the Final Interpretation/Diagnosis certifies that they have reviewed this case. Addendum signed out at [facility] [id number] [facility]. [facility] [address]. Special Oncology Report With Image Date Ordered: 02/11/2022 Status: Signed Out Date Complete: 02/11/2022 Date Reported: 02/11/2022 Addendum Diagnosis A complete MammaPrint test result issued by [employer]([place], [place]) is on file in the Department of Anatomic Pathology at [facility]. MAMMAPRINT SUMMARY OF RESULTS: LOW RISK MAMMAPRINT [...] CANDIDO ANDERSON (more content not included)... Normal [facility] Comment on above: Performed By: #### U HCS #### [facility] Surgical Pathology Department [address] [facility] [address] ULTRASOUND GUIDED BREAST BIO PSY WITH CLIPon [...] right breast; R BREAST LUMP. ACCESSION NUMBER(S): [id number]; [id number] ORDERING CLINICIAN: ALTAGRACIA ARELLANO FINDINGS: PREPROCEDURAL CONSULTATION: [...] Dr. Ji, a radiology nurse and an histology technologist were present. PROCEDURE: Rescanning of the right [...] PLACEMENT. Electronically signed by: YAW JI MD [facility] Ultrasound Limited [place] 01-29-2022 MG Breast Screening Please click on the link to view the study images Normal [facility] Work Phone: BR MRI BREAST BILATERAL WITH CONTRAST FULL PROTOCOLon 01-24-2022 BR MRI BREAST BILATERAL WITH CONTRAST FULL PROTOCOL Patient Name: CHELA ROJAS STUDY: MRI BREAST BILATERAL WITH CONTRAST FULL PROTOCOL; 01/24/2022 2:10 pm ACCESSION NUMBER(S): [id number] ORDERING CLINICIAN: ALTAGRACIA ARELLANO INDICATION: Right breast biopsy for ADH COMPARISON: Mammogram 11/21/2021. TECHNIQUE: Using a dedicated breast coil, STIR axial and T1-weighted fat saturation axial images of the breasts were obtained, the latter both before and after intravenous administration of Gadolinium DTPA. On an independent workstation, 3-D images were formulated using ClacendixaCAD including time enhancement curves, subtraction images and [...] Recommended. Electronically signed by: SHMUEL EUCEDA MD [facility] MRI Breast Bilateral with co ntrast full protocolon 01-24-2022 MRI Breast Bilateral with contrast full protocol Normal [facility] Work Phone: Follow Up (General Surgery)o n 11-29-2021 Follow Up (General Surgery) Diagnoses/Problems At high risk for breast cancer (V49.89) (Z91.89) Encounter for screening mammogram for breast cancer (V76.12) (Z12.31) Orders At high risk for breast cancer Follow-up visit in 1 year Outpatient Follow-up Status: Hold For - Scheduling Requested for: [id number] Ordered Stat;For: At high risk for breast cancer; Ordered By: Altagracia Arellano Performed: Due: 18Mar2022 Encounter for screening mammogram for breast cancer Mamm - Screening Mammogram w/ Tomosynthesis; Status:Active; Requested for:[id number]; Perform: Radiology Services Imaging;Ordered; For:Encounter for screening [...] (V13.3) (Z87.2) History of menopause (V49.81) (Z78.0) 1996 History of screening mammography (V15.89) (Z92.89) Resolved [...] Surgical History (more content not included)... Normal [facility] Tobacco Screening.on 022 Fall risk assessment a) No falls within the last year [facility] Work Phone: Tobacco use status CPHS b) No [facility] Work Phone: Mamm - Screening Mammogram w / Tomosynthesison 11-21-2021 MG Breast Screening Normal [facility] Work Phone: Office Visit ([facility])on 11-21-2021 Follow-up visit Diagnoses/Problems Overweight with body [...] Status: Hold For - Scheduling Requested for: [id number] Chief Complaint 6 mth ov, wants to [...] - has been JOSE RAMON since 2016. [place] actually to be precancer. Mammogram in 11/21/21 [...] 2019 Histo (more content not included)... Normal [facility] Tobacco Screening.on 022 Tobacco use status HS b) No -[facility] Work Phone: BASIC METABOLIC PANELon 08-0 Anion gap [Moles/Vol] 9 mmol/L Low 10 - 20 [facility] Comment on above: Performed By: #### B MP #### [address] [address] Calcium [Mass/Vol] 9.6 mg/dL Normal 8.6 - 10.3 [facility] Comment on above: Performed By: #### B MP #### [address] [address] Chloride [Moles/Vol] 107 mmol/L Normal 98 - 107 [facility] Comment on above: Performed By: #### B MP #### [address] [address] Creatinine [Mass/Vol] 0.80 mg/dL Normal 0.50 - 1.05 [facility] Comment on above: Performed By: #### B MP #### [address] [address] GFR/1.73 sq M.predicted among non-blacks MDRD (S/P/Bld) [Vol rate/Area] 76 mL/min/{1.73_m2} Normal >90 [facility] Comment on above: Result Comment: CALC ULATIONS OF ESTIMATED GFR ARE PERFORMED USING THE 2020 CKD-EPI STUDY REFIT EQUATION WITHOUT THE RACE VARIABLE FOR THE IDMS-TRACEABLE CREATININE METHODS. https://jasn.asnjournals.org/content//ASN.32673 71738 Performed By: #### B MP #### [address] [address] Glucose [Mass/Vol] 104 mg/dL High 74 - 99 [facility] Comment on above: Performed By: #### B MP #### [address] [address] HCO3 (Bld) [Moles/Vol] 29 mmol/L Normal 21 - 32 [facility] Comment on above: Performed By: #### B MP #### [address] [address] Potassium [Moles/Vol] 4.6 mmol/L Normal 3.5 - 5.3 [facility] Comment on above: Result Comment: MILD HEMOLYSIS DETECTED. The result may be falsely elevated due to hemolysis or other interferents. Clinical correlation is recommended. Repeat testing may be considered. Performed By: #### B MP #### [address] [address] Sodium [Moles/Vol] 140 mmol/L Normal 136 - 145 [facility] Comment on above: Performed By: #### B MP #### [address] [address] Urea nitrogen [Mass/Vol] 13 mg/dL Normal 6 - 23 [facility] Comment on above: Performed By: #### B MP #### [address] [address] Laboratory - Chemistry and C hemistry - challengeon 11-18-2021 Anion gap [Moles/Vol] 9 mmol/L below low threshold 10 - 20 [facility] Work Phone: Calcium [Mass/Vol] 9.6 mg/dL 8.6 - 10.3 [facility] Work Phone: Chloride [Moles/Vol] 107 mmol/L 98 - 107 [facility] Work Phone: CO2 [Moles/Vol] 29 mmol/L 21 - 32 [facility] Work Phone: Creatinine [Mass/Vol] 0.80 mg/dL See Below [facility] Work Phone: Comment on above: Reference Range: 0.5 0 - 1.05 Glucose [Mass/Vol] 104 mg/dL above high threshold 74 - 99 [facility] Work Phone: Potassium [Moles/Vol] 4.6 mmol/L 3.5 - 5.3 [facility] Work Phone: Comment on above: MILD HEMOLYSIS DETEC HERNAN. The result may be falsely elevated due tohemolysis or other interferents. Clinical correlation is recommended.Repeat testing may be considered. Sodium [Moles/Vol] 140 mmol/L 136 - 145 [facility] Work Phone: TSH Qn 5.54 m[IU]/L above high threshold See Below [facility] Work Phone: Comment on above: Reference Range: 0.4 4 - 3.98 TSH testing is performed using different testing methodology at [facility] than at other [facility]. Direct result comparisons should only be made within the same method. Urea nitrogen [Mass/Vol] 13 mg/dL 6 - 23 [facility] Work Phone: No Panel Informationon 11-18 76 {mL/min/1.73m2} >90 [facility] Work Phone: Comment on above: CALCULATIONS OF RESHMA MATED GFR ARE PERFORMED USING THE 2020 CKD-EPI STUDY REFIT EQUATION WITHOUT THE RACE VARIABLE FOR THE IDMS-TRACEABLE CREATININE METHODS.https://jasn.asnjournals.org/content/22/A SN.5554313537 T4 - Free Thyroxine, Serumon 11-18-2021 Free T4 [Mass/Vol] 0.73 ng/dL See Below [facility] Work Phone: Comment on above: Reference Range: 0.6 1 - 1.12 Thyroxine Free testing is performed using different testing methodology at [facility] than at other [facility]. Direct result comparisons should only be made [...] THYROXINE,FREE 0.73 ng/dL Normal 0.61 - 1.12 [facility] Comment on above: Result Comment: Thyr oxine Free testing is performed using different testing methodology at [facility] than at other [facility]. Direct result comparisons should only be made [...] draw. Performed By: #### T 4FRE #### [address] [address] TSH WITH REFLEX TO FREE T4 I F ABNORMALon 11-18-2021 TSH Qn 5.54 m[IU]/L High 0.44 - 3.98 [facility] Comment on above: Result Comment: TSH testing is performed using different testing methodology at [facility] than at other [facility]. Direct result comparisons should only be made within the same method. Performed By: #### T HYDS #### [address] [address] VITAMIN B12on 11-18-2021 Cobalamin (Vitamin B12) [Mass/Vol] 234 pg/mL Normal 211 - 911 [facility] Comment on above: Performed By: #### V TB12 #### [address] [address] Vitamin B12, Serumon 08-01-2 022 Cobalamin (Vitamin B12) [Mass/Vol] 234 pg/mL 211 - 911 -[facility] Work Phone: Office Visiton 08-21-2021 Follow-up visit Chief Complaint cira History of Present IllnessAge-related osteoporosis - she [...] - has been JOSE RAMON since 2015. [facility] actually to be precancer. Mammogram in 11/19/20 [...] (Z87.19) History (more content not included)... Normal [facility] Tobacco Screening.on 022 Fall risk assessment a) No falls within the last year [facility] Work Phone: Tobacco use status CPHS b) No [facility] Work Phone: FOOT COMPLETE, MIN 3 VIEWSon 05-27-2021 FOOT COMPLETE, MIN 3 VIEWS Patient Name: CHELA ROJAS STUDY: FOOT; COMPLETE, MIN 3 VIEWS; 05/27/2021 12:11 pm INDICATION: foot pain. COMPARISON: None. ACCESSION NUMBER(S): [id number] ORDERING CLINICIAN: BERTA HEREDIA TECHNIQUE: 3 radiographs [...] abnormality. Electronically signed by: ELVA EDUARDO MD [facility] Office Visiton 05-21-2021 Follow-up visit Diagnoses/Problems [...] - has been JOSE RAMON since 2015. [facility] actually to be precancer. Mammogram in 11/19/20 [...] been to Dr Nava. Will send to [facility]. Irritable bowel syndrome - has been managed [...] wellness vis (more content not included)... Normal [facility] Tobacco Screening.on 022 Adult depression screening assessment No [facility] Work Phone: Fall risk assessment a) No falls within the last year [facility] Work Phone: Tobacco use status CPHS b) No [facility] Work Phone: Laboratory - Chemistry and C hemistry - challengeon 12-21-2020 Anion gap [Moles/Vol] 8 mmol/L below low threshold 10 - 20 [facility] Work Phone: Calcium [Mass/Vol] 9.3 mg/dL 8.6 - 10.3 [facility] Work Phone: Chloride [Moles/Vol] 107 mmol/L 98 - 107 [facility] Work Phone: CO2 [Moles/Vol] 30 mmol/L 21 - 32 [facility] Work Phone: Creatinine [Mass/Vol] 0.58 mg/dL See Below [facility] Work Phone: Comment on above: Reference Range: 0.5 0 - 1.05 Glucose [Mass/Vol] 93 mg/dL 74 - 99 [facility] Work Phone: Potassium [Moles/Vol] 4.0 mmol/L 3.5 - 5.3 [facility] Work Phone: Sodium [Moles/Vol] 141 mmol/L 136 - 145 [facility] Work Phone: TSH Qn 2.66 m[IU]/L See Below [facility] Work Phone: Comment on above: Reference Range: 0.4 4 - 3.98 TSH testing is performed using different testing methodology at [facility] than at other [facility]. Direct result comparisons should only be made within the same method. Urea nitrogen [Mass/Vol] 12 mg/dL [facility] Work Phone: No Panel Informationon 12-21 >60 >60 [facility] Work Phone: Comment on above: CALCULATIONS OF RESHMA MATED GFR ARE PERFORMED USING THE MDRD STUDY EQUATION FOR THE IDMS-TRACEABLE CREATININE METHODS. CLIN CHEM 2007;53:766-72 Tobacco Screening.on Fall risk assessment b) One or more fall s in the last year [facility] Work Phone: Tobacco use status CPHS b) No [facility] Work Phone: Mamm - Screening Mammogram w / Tomosynthesison 11-19-2020 MG Breast Screening Normal [facility] Work Phone: Tobacco Screening.on 021 Fall risk assessment b) One or more fall s in the last year [facility] Work Phone: Tobacco use status CPHS b) No [facility] Work Phone: Otheron 10-12-2019 XR Ankle 3 views Interpreted by: ELLIE ALBERT10/12/19 15:13MRN: [id number] Name: CHELA ROJAS STUDY:ANKLE, COMPLETE, MIN 3 VIEWS; Left; 10/12/2019 11:25 am INDICATION:pain. COMPARISON:None. ORDERING CLINICIAN:RAHEEM NICHOLS FINDINGS:LEFT ANKLE-AP, LATERAL AND OBLIQUE VIEWSThe lateral and medial malleoli are intact. The ankle mortise isnormal in width. A calcaneal spur is present. IMPRESSION:No acute disease. Electronically signed by: TENA ALBERT 10/12/19 15:13 Normal [facility] Work Phone: Auto Diffon 01-17-2019 Basophils (Bld) [#/Vol] 0.0 E3/mcL Normal 0.0-0.2 [facility] Comment on above: Order Comment: Order Added by Discern Expert. Performed By: #### 2 [id number] ####T[address] [place] [address] Basophils/100 WBC (Bld) 0.8 % Normal 0.0-2.0 [facility] Comment on above: Order Comment: Order Added by Discern Expert. Performed By: #### 2 632374 ####T[address] [place] [address] Eos Absolute 0.3 E3/mcL Normal 0.0-0.7 [facility] Comment on above: Order Comment: Order Added by Discern Expert. Performed By: #### 2 095443 ####T[address] [place] [address] Eosinophils/100 WBC (Bld) 5.3 % Normal 0.0-11.0 [facility] Comment on above: Order Comment: Order Added by Discern Expert. Performed By: #### 2 080092 ####T[address] [place] [address] Lymphocytes (Bld) [#/Vol] 1.3 E3/mcL Normal 1.2-3.4 [facility] Comment on above: Order Comment: Order Added by Dnuia Expert. Performed By: #### 2 392494 ####[address] [place] [address] Lymphocytes/100 WBC (Bld) 22.4 % Normal 20.0-55.0 [facility] Comment on above: Order Comment: Order Added by Discern Expert. Performed By: #### 2 274169 ####[address] [place] [address] [place] Absolute 0.4 E3/mcL Normal 0.0-0.7 [facility] Comment on above: Order Comment: Order Added by Discern Expert. Performed By: #### 2 469417 ####TOI [address] [place] [address] Monocytes/100 WBC (Bld) 6.1 % Normal 0.0-10.0 [facility] Comment on above: Order Comment: Order Added by Discern Expert. Performed By: #### 2 986975 ####T[address] [place] [address] Neutro Absolute 3.7 E3/mcL Normal 1.4-6.5 [facility] Comment on above: Order Comment: Order Added by Discern Expert. Performed By: #### 2 953749 ####[address] [place] [address] Neutro Auto 65.4 % Normal 37.0-75.0 [facility] Comment on above: Order Comment: Order Added by Discern Expert. Performed By: #### 2 357009 ####[address] [place] [address] CBC w/ Auto Diffon 9 Erythrocyte distribution width (RBC) [Ratio] 14.4 % Normal 11.5-14.5 [facility] Comment on above: Performed By: #### 2 191538 #### TIO [address] [place] [id number] Hematocrit (Bld) [Volume fraction] 44.8 % Normal 36.0-48.0 [facility] Comment on above: Performed By: #### 2 059060 #### T[address] [place] [address] Hemoglobin (Bld) [Mass/Vol] 14.7 g/dL Normal 12.0-16.0 [facility] Comment on above: Performed By: #### 2 542593 #### TIO [address] [place] [address] MCH (RBC) [Entitic mass] 29.3 pg Normal 27.0-31.0 [facility] Comment on above: Performed By: #### 2 825927 #### TIO [address] [place] [address] MCHC (RBC) [Mass/Vol] 32.7 g/dL Low 33.0-37.0 [facility] Comment on above: Performed By: #### 2 091979 #### T[address] [place] [address] MCV (RBC) [Entitic vol] 89.6 fL Normal 78.0-100.0 [facility] Comment on above: Performed By: #### 2 302449 #### [address] [place] [address] Platelet mean volume (Bld) [Entitic vol] 8.9 fL Normal 7.4-11.0 [facility] Comment on above: Performed By: #### 2 572498 #### TIO RemHemo [facility] [place] [address] Platelets (Bld) [#/Vol] 232 E3/mcL Normal 130-400 [facility] Comment on above: Performed By: #### 2 025902 #### TIO RemHemo [facility] [place] [address] RBC (Bld) [#/Vol] 5.00 E6/mcL Normal 3.90-5.40 [facility] Comment on above: Performed By: #### 2 663523 #### TIO RemHemo [facility] [place] [address] WBC (Bld) [#/Vol] 5.7 E3/mcL Normal 3.6-11.0 [facility] Comment on above: Performed By: #### 2 111849 #### TIO RemHemo [address] [place] [address] CRPon 01-17-2019 CRP [Mass/Vol] 0.23 mg/dL Normal 0.00-1.00 [facility] Comment on above: Performed By: #### 2 458738 ####T[address] [place] [address] Sed Rate Automatedon 01-17- 019 Sed Rate Automated 24 mm/hr Normal [facility] Comment on above: Result Comment: AGE- SPECIFIC REFERENCE RANGES FOR SEDIMENTATION RATE AUTOMATED REFERENCE RANGE - MM/HR AGE MEN WOMEN 0-2 0-2 - PUBERTY 3-13 3-13 PUBERTY - 50 YRS 0-15 0-20 > 50 YRS 0-20 0-30 Performed By: #### 1 [id number] ####TIO Hematology Manual [address] [place] [address] RtzV0mtf 12-30-2018 HbA1c (Bld) [Mass fraction] 5.5 % Normal 4.0-6.3 [facility] Comment on above: Performed By: #### 3 [id number] #### TIO Chemistry Manual [address] [place] [address] Vit B12on 12-30-2018 Cobalamin (Vitamin B12) [Mass/Vol] 267 pg/mL Normal 180-914 [facility] Comment on above: Performed By: #### 2 381736 #### TIO RemChem [address] [place] [id number] XR HIP RIGHT 2-3 VIEWS (ROUT INE)on [...] ThuJan 12, 2019 2:43:03 PM EDT Normal [facility] Comment on above: Order Comment: Injur [...] D;Screening Report STUDY: Digital mammography screening with meghann; 11/15/2018 11:46 am ACCESSION NUMBER(S): [id number] ORDERING CLINICIAN: Altagracia Arellano INDICATION: Screening. COMPARISON: [...] am Signed by: Yaw Ji MD Technologist: Assessment: BI-RADS Category 2-Benign finding Recommendation: Normal interval follow-up Normal [facility] XR FOOT LEFT 2 VIEWSon 03-16 XR FOOT LEFT 2 VIEWS 2 views left foot r eveal small calcaneal spur toward the plantar fascia and no other abnormalities Dictated by: AUDI RENNER on ThuMar 16, 2018 5:10:31 PM EST Transcribed by: AUDI RENNER on ThuMar 16, 2018 5:10:31 PM EST Finalized by: AUDI RENNER on ThuMar 16, 2018 5:10:31 PM EST Normal [facility] Auto Diffon 03-09-2018 Basophils (Bld) [#/Vol] 0.1 E3/mcL Normal 0.0-0.2 [facility] Comment on above: Order Comment: Order Added by Discern Expert. Performed By: #### 2 [id number] #### TIO [address]emo [address] [place] [address] Basophils/100 WBC (Bld) 1.0 % Normal 0.0-2.0 [facility] Comment on above: Order Comment: Order Added by Discern Expert. Performed By: #### 2 130019 #### TIO [address]emo [address] [place] [address] Eos Absolute 0.2 E3/mcL Normal 0.0-0.7 [facility] Comment on above: Order Comment: Order Added by Discern Expert. Performed By: #### 2 240832 #### TIO RemHemo [address] [place] [address] Eosinophils/100 WBC (Bld) 3.7 % Normal 0.0-11.0 [facility] Comment on above: Order Comment: Order Added by Discern Expert. Performed By: #### 2 004580 #### TIO RemHemo [address] [place] [address] Lymphocytes (Bld) [#/Vol] 1.6 E3/mcL Normal 1.2-3.4 [facility] Comment on above: Order Comment: Order Added by Discern Expert. Performed By: #### 2 956680 #### TIO RemHemo [address] [place] [address] Lymphocytes/100 WBC (Bld) 25.6 % Normal 20.0-55.0 [facility] Comment on above: Order Comment: Order Added by Discern Expert. Performed By: #### 2 098764 #### TIO [address] [place] [address] [place] Absolute 0.6 E3/mcL Normal 0.0-0.7 [facility] Comment on above: Order Comment: Order Added by Discern Expert. Performed By: #### 2 817432 #### TIO [address] [place] [address] Monocytes/100 WBC (Bld) 9.5 % Normal 0.0-10.0 [facility] Comment on above: Order Comment: Order Added by Discern Expert. Performed By: #### 2 726034 #### TIO [address]emo [address] [place] [address] Neutro Absolute 3.9 E3/mcL Normal 1.4-6.5 [facility] Comment on above: Order Comment: Order Added by Discern Expert. Performed By: #### 2 754021 #### TIO [address] [place] [address] Neutro Auto 60.2 % Normal 37.0-75.0 [facility] Comment on above: Order Comment: Order Added by Discern Expert. Performed By: #### 2 378121 #### TIO [address] [place] [address] BMPon 03-09-2018 Anion gap [Moles/Vol] 7 mmol/L Low - [facility] Comment on above: Performed By: #### 2 370826 #### TIO Datalink [address] [place] [address] Calcium [Mass/Vol] 9.4 mg/dL Normal 8.6-10.3 [facility] Comment on above: Performed By: #### 2 742445 #### TIO Datalink [address] [place] [address] Chloride [Moles/Vol] 105 mmol/L Normal 98-107 [facility] Comment on above: Performed By: #### 2 117391 #### TIO Datalink [address] [place] [address] CO2 [Moles/Vol] 31.0 mmol/L Normal 21.0-32.0 [facility] Comment on above: Performed By: #### 2 465840 #### TIO Datalink [address] [place] [address] Creatinine [Mass/Vol] 0.7 mg/dL Normal 0.5-1.1 [facility] Comment on above: Performed By: #### 2 880411 #### TIO Datalink [address] [place] [address] Glucose [Mass/Vol] 95 mg/dL Normal 70-99 [facility] Comment on above: Performed By: #### 2 362543 #### TIO Datalink [address] [place] [address] Potassium [Moles/Vol] 4.2 mmol/L Normal 3.5-5.3 [facility] Comment on above: Performed By: #### 2 038028 #### TIO [employer] [address] [place] [address] Sodium [Moles/Vol] 139 mmol/L Normal 136-145 [facility] Comment on above: Performed By: #### 2 766947 #### TIO [employer] [address] [place], [place] [address] Urea nitrogen [Mass/Vol] 14 mg/dL Normal 6-23 [facility] Comment on above: Performed By: #### 2 713732 #### [facility] [employer] [address] [place], [place] [address] Urea nitrogen/Creatinine [Mass ratio] 20.0 ratio Normal 5.4-30.0 [facility] Comment on above: Performed By: #### 2 [id number] #### [facility] [employer] [address] [place], [place] [address] CBC w/ Auto Diffon 8 Erythrocyte distribution width (RBC) [Ratio] 14.0 % Normal 11.5-14.5 [facility] Comment on above: Performed By: #### 2 [id number] #### [facility] [employer] [address] [place] [address] [id number] Hematocrit (Bld) [Volume fraction] 45.1 % Normal 36.0-48.0 [facility] Comment on above: Performed By: #### 2 [id number] #### [facility] [employer] [address] [place] [address] 96611 Hemoglobin (Bld) [Mass/Vol] 14.5 g/dL Normal 12.0-16.0 [facility] Comment on above: Performed By: #### 2 [id number] #### [facility] [employer] [address] [place] [address] 66335 MCH (RBC) [Entitic mass] 29.6 pg Normal 27.0-31.0 [facility] Comment on above: Performed By: #### 2 [id number] #### [facility] [employer] [address] [place] [address] 41105 MCHC (RBC) [Mass/Vol] 32.3 g/dL Low 33.0-37.0 [facility] Comment on above: Performed By: #### 2 [id number] #### [facility] [employer] [address] [place] [address] MCV (RBC) [Entitic vol] 91.6 fL Normal 78.0-100.0 [facility] Comment on above: Performed By: #### 2 [id number] #### [facility] [place] [address] Platelet mean volume (Bld) [Entitic vol] 9.0 fL Normal 7.4-11.0 [facility] Comment on above: Performed By: #### 2 [id number] #### [facility] [place] [address] Platelets (Bld) [#/Vol] 242 E3/mcL Normal 130-400 [facility] Comment on above: Performed By: #### 2 [id number] #### [facility] [employer] [address] [place] [address] 61726 RBC (Bld) [#/Vol] 4.92 E6/mcL Normal 3.90-5.40 [facility] Comment on above: Performed By: #### 2 [id number] #### [facility] [place] [address] WBC (Bld) [#/Vol] 6.4 E3/mcL Normal 3.6-11.0 [facility] Comment on above: Performed By: #### 2 [id number] #### [facility] [place] [address] eGFRon 03-09-2018 GFR/1.73 sq M predicted among non-blacks MDRD (S/P/Bld) [Vol rate/Area] mL/min/{1.73_m2} Normal [facility] Comment on above: Order Comment: Order added by Discern Expert. Performed By: #### 1 [id number] #### [facility] [employer] [address] [place] [address] US Pelvis Non-OB Completeon 03-01-2018 US Pelvis Non-OB Complete Exam Date/Time: 03/01/2018 11:38 EST Reason for Exam: THICKENED ENDOMETRIUM;Other (please specify) Report STUDY: US Pelvis Non-OB Complete; US Transvaginal Non-OB 03/01/2018 11:38 am INDICATION: 72 y/o F with Other (please specify). COMPARISON: None. ACCESSION NUMBER(S): [id number]; [id number] ORDERING CLINICIAN: Cory Rosen TECHNIQUE: Routine ultrasound [...] Other (please specify). COMPARISON: None. ACCESSION NUMBER(S): [id number]; [id number] ORDERING CLINICIAN: Cory Rosen TECHNIQUE: Routine ultrasound [...] pm Signed by: Cora Keene MD Technologist: [facility] Vital Signs Date Time Vital Sign Value Performing Clinician Facility 10-11-2024 13:23-0400 Body height 167.[address] Craig Ventura MD Work Phone: 4(592)673-661273 [place] [address] 10-11-2024 13:23-0400 Body mass index (BMI) [Ratio] 27.3 kg/m2 Dr. Craig Ventura MD Work Phone: 2(195)036-685954 [address] 10-11-2024 13:23-0400 Body temperature 97.9 [degF] Dr. Craig Ventura MD Work Phone: [facility] 10-11-2024 13:23-0400 Body weight 76.[address] Craig Ventura MD Work Phone: 2(200)113-123754 [address] 10-11-2024 13:23-0400 Diastolic blood pressure 72 mm[Hg] Dr. Craig Ventura MD Work Phone: [facility] 10-11-2024 13:23-0400 Heart rate 77 /min Dr. Craig Ventura MD Work Phone: [facility] 10-11-2024 13:23-0400 Respiratory rate 18 /min Dr. Craig Ventura MD Work Phone: [facility] 10-11-2024 13:23-0400 SaO2% (BldA) [Mass fraction] 94 % Dr. Craig Ventura MD Work Phone: [facility] 10-11-2024 13:23-0400 Systolic blood pressure 128 mm[Hg] Dr. Craig Ventura MD Work Phone: 3(656)164-028508 [place] [address] 08-15-2024 13:01-0400 Body mass index (BMI) [Ratio] 27.8 kg/m2 Dr. Craig Ventura MD Work Phone: 8(243)688-376808 [place] [address] 08-15-2024 13:01-0400 Body temperature 97.1 [degF] Dr. Craig Ventura MD Work Phone: 7(452)257-664308 [place] [address] 08-15-2024 13:01-0400 Body weight 78.[address] Craig Ventura MD Work Phone: 7(742)914-353308 [place] [address] 08-15-2024 13:01-0400 Diastolic blood pressure 88 mm[Hg] Dr. Craig Ventura MD Work Phone: 3(078)905-735508 [place] [address] 08-15-2024 13:01-0400 Heart rate 83 /min Dr. Craig Ventura MD Work Phone: 4(017)562-785508 [place] [address] 08-15-2024 13:01-0400 Respiratory rate 16 /min Dr. Craig Ventura MD Work Phone: 8(375)891-474608 [place] [address] 08-15-2024 13:01-0400 SaO2% (BldA) [Mass fraction] 95 % Dr. Craig Ventura MD Work Phone: 3(418)217-504608 [place] [address] 08-15-2024 13:01-0400 Systolic blood pressure 145 mm[Hg] Dr. Craig Ventura MD Work Phone: 1(434)585-413308 [place] [address] 06-13-2024 16:12-0500 Diastolic blood pressure 77 mm[Hg] Dr. Craig Ventura MD Work Phone: 3(164)782-698908 [place] [address] 06-13-2024 16:12-0500 Heart rate 66 /min Dr. Craig Ventura MD Work Phone: 2(311)805-642208 [place] [address] 06-13-2024 16:12-0500 Respiratory rate 16 /min Dr. Craig Ventura MD Work Phone: 5(960)204-854308 [place] [address] 06-13-2024 16:12-0500 Systolic blood pressure 141 mm[Hg] Dr. Craig Ventura MD Work Phone: 1(578)874-450708 [place] [address] 06-13-2024 15:29-0500 Body height 167.[address] Craig Ventura MD Work Phone: 5(364)759-081473 [place] [address] 06-13-2024 15:29-0500 Body mass index (BMI) [Ratio] 27.8 kg/m2 Dr. Craig Ventura MD Work Phone: 1(687)871-570973 [place] [address] 06-13-2024 15:29-0500 Body weight 78.[address] Craig Ventura MD Work Phone: 7(116)882-858808 [place] [address] 06-13-2024 14:46-0500 Body mass index (BMI) [Ratio] 27.8 kg/m2 Dr. Craig Ventura MD Work Phone: 7(915)211-329208 [place] [address] 06-13-2024 14:46-0500 Body temperature 97.3 [degF] Dr. Craig Ventura MD Work Phone: 5(929)543-197008 [place] [address] 06-13-2024 14:46-0500 Body weight 78.[address] Craig Ventura MD Work Phone: 8(747)356-362573 [place] [address] 06-13-2024 14:46-0500 Diastolic blood pressure 84 mm[Hg] Dr. Craig Ventura MD Work Phone: 3(880)973-176308 [place] [address] 06-13-2024 14:46-0500 Heart rate 93 /min Dr. Craig Ventura MD Work Phone: 3(283)809-653473 [place] [address] 06-13-2024 14:46-0500 Respiratory rate 16 /min Dr. Craig Ventura MD Work Phone: 4(782)995-495973 [place] [address] 06-13-2024 14:46-0500 SaO2% (BldA) [Mass fraction] 93 % Dr. Craig Ventura MD Work Phone: 3(921)891-926773 [place] [address] 06-13-2024 14:46-0500 Systolic blood pressure 122 mm[Hg] Dr. Craig Ventura MD Work Phone: 7(946)140-755173 [place] [address] 03-28-2024 14:10-0500 Body mass index (BMI) [Ratio] 27.3 kg/m2 Dr. Craig Ventura MD Work Phone: 8(094)875-888573 [place] [address] 03-28-2024 14:10-0500 Body temperature 97.4 [degF] Dr. Craig Ventura MD Work Phone: [facility] 03-28-2024 14:10-0500 Body weight 76.[address] Craig Ventura MD Work Phone: [facility] 03-28-2024 14:10-0500 Diastolic blood pressure 81 mm[Hg] Dr. Craig Ventura MD Work Phone: 0(513)897-948073 [place] [address] 03-28-2024 14:10-0500 Heart rate 95 /min Dr. Craig Ventura MD Work Phone: 2(721)722-485573 [place] [address] 03-28-2024 14:10-0500 Respiratory rate 16 /min Dr. Craig Ventura MD Work Phone: 8(251)791-744273 [place] [address] 03-28-2024 14:10-0500 SaO2% (BldA) [Mass fraction] 95 % Dr. Craig Ventura MD Work Phone: [facility] 03-28-2024 14:10-0500 Systolic blood pressure 124 mm[Hg] Dr. Craig Ventura MD Work Phone: [facility] 07-10-2023 13:53-0400 Body temperature 97.9 [degF] Dr. Craig Ventura Work Phone: [facility] 07-10-2023 13:53-0400 Diastolic blood pressure 79 mm[Hg] Dr. Craig Ventura Work Phone: [facility] 07-10-2023 13:53-0400 Heart rate 68 /min Dr. Craig Ventura Work Phone: [facility] 07-10-2023 13:53-0400 Respiratory rate 16 /min Dr. Craig Ventura Work Phone: [facility] 07-10-2023 13:53-0400 SaO2% (BldA) [Mass fraction] 95 % Dr. Craig Ventura Work Phone: [facility] 07-10-2023 13:53-0400 Systolic blood pressure 137 mm[Hg] Dr. Craig Ventura Work Phone: [facility] 07-10-2023 12:23-0400 Body height 167.[address] Craig Ventura Work Phone: [facility] 07-06-2023 15:30-0400 Body mass index (BMI) [Ratio] 26.8 kg/m2 Dr. Craig Ventura Work Phone: 0(027)039-067373 [place] [address] 07-06-2023 15:30-0400 Body weight 75.[address] Craig Ventura Work Phone: 6(601)308-203573 [place] [address] 07-06-2023 14:34-0400 Body mass index (BMI) [Ratio] 26.8 kg/m2 Dr. Craig Ventura Work Phone: 5(073)822-561973 [place] [address] 07-06-2023 14:34-0400 Body temperature 97.8 [degF] Dr. Craig Ventura Work Phone: 5(486)431-398973 [place] [address] 07-06-2023 14:34-0400 Body weight 75.[address] Craig Ventura Work Phone: 9(708)325-983154 [address] 07-06-2023 14:34-0400 Diastolic blood pressure 89 mm[Hg] Dr. Craig Ventura Work Phone: 1(661)773-078673 [place] [address] 07-06-2023 14:34-0400 Heart rate 74 /min Dr. Craig Ventura Work Phone: [facility] 07-06-2023 14:34-0400 Respiratory rate 18 /min Dr. Craig Ventura Work Phone: [facility] 07-06-2023 14:34-0400 SaO2% (BldA) [Mass fraction] 92 % Dr. Craig Ventura Work Phone: 8(477)444-127073 [place] [address] 07-06-2023 14:34-0400 Systolic blood pressure 147 mm[Hg] Dr. Craig Ventura Work Phone: 8(560)343-423373 [place] [address] 07-06-2023 14:09-0400 Body mass index (BMI) [Ratio] 26.8 kg/m2 Dr. Craig Ventura Work Phone: [facility] 07-06-2023 14:09-0400 Body temperature 97.8 [degF] Dr. Craig Ventura Work Phone: [facility] 07-06-2023 14:09-0400 Diastolic blood pressure 89 mm[Hg] Dr. Craig Ventura Work Phone: [facility] 07-06-2023 14:09-0400 Heart rate 74 /min Dr. Craig Ventura Work Phone: [facility] 07-06-2023 14:09-0400 Respiratory rate 18 /min Dr. Craig Ventura Work Phone: [facility] 07-06-2023 14:09-0400 SaO2% (BldA) [Mass fraction] 92 % Dr. Craig Ventura Work Phone: [facility] 07-06-2023 14:09-0400 Systolic blood pressure 147 mm[Hg] Dr. Craig Ventura Work Phone: [facility] 03-30-2023 13:57-0500 Body height 167.[address] Craig Ventura Work Phone: 9(966)336-434973 [place] [address] 03-30-2023 13:57-0500 Body mass index (BMI) [Ratio] 25.7 kg/m2 Dr. Craig Ventura Work Phone: [facility] 03-30-2023 13:57-0500 Body temperature 97.6 [degF] Dr. Craig Ventura Work Phone: [facility] 03-30-2023 13:57-0500 Body weight 72.[address] Craig Ventura Work Phone: [facility] 03-30-2023 13:57-0500 Diastolic blood pressure 80 mm[Hg] Dr. Craig Ventura Work Phone: [facility] 03-30-2023 13:57-0500 Heart rate 79 /min Dr. Craig Ventura Work Phone: 2(059)680-817373 [place] [address] 03-30-2023 13:57-0500 Respiratory rate 18 /min Dr. Craig Ventura Work Phone: [facility] 03-30-2023 13:57-0500 SaO2% (BldA) [Mass fraction] 97 % Dr. Craig Ventura Work Phone: [facility] 03-30-2023 13:57-0500 Systolic blood pressure 133 mm[Hg] Dr. Craig Ventura Work Phone: 2(894)772-374273 [place] [address] 03-02-2023 11:32-0500 Body mass index (BMI) [Ratio] 25.2 kg/m2 Dr. Craig Ventura Work Phone: 0(526)139-821973 [place] [address] 03-02-2023 11:32-0500 Body temperature 98.4 [degF] Dr. Craig Ventura Work Phone: 2(533)040-269873 [place] [address] 03-02-2023 11:32-0500 Body weight 70.[address] Craig Ventura Work Phone: 4(993)766-235473 [place] [address] 03-02-2023 11:32-0500 Diastolic blood pressure 92 mm[Hg] Dr. Craig Ventura Work Phone: 3(142)960-408973 [place] [address] 03-02-2023 11:32-0500 Heart rate 77 /min Dr. Craig Ventura Work Phone: 6(543)592-068773 [place] [address] 03-02-2023 11:32-0500 Respiratory rate 16 /min Dr. Craig Ventura Work Phone: 0(552)990-953473 [place] [address] 03-02-2023 11:32-0500 SaO2% (BldA) [Mass fraction] 93 % Dr. Craig Ventura Work Phone: 8(728)006-012173 [place] [address] 03-02-2023 11:32-0500 Systolic blood pressure 148 mm[Hg] Dr. Craig Ventura Work Phone: 9(553)870-374073 [place] [address] 02-23-2023 07:56-0500 Body mass index (BMI) [Ratio] 24.2 kg/m2 Dr. Craig Ventura Work Phone: 7(637)462-917173 [place] [address] 02-23-2023 07:56-0500 Body temperature 96.4 [degF] Dr. Craig Ventura Work Phone: 1(017)853-725473 [place] [address] 02-23-2023 07:56-0500 Body weight 68.[address] Craig Ventura Work Phone: 1(254)506-796273 [place] [address] 02-23-2023 07:56-0500 Diastolic blood pressure 65 mm[Hg] Dr. Craig Ventura Work Phone: 9(900)780-939008 [place] [address] 02-23-2023 07:56-0500 Heart rate 78 /min Dr. Craig Ventura Work Phone: 2(399)383-233608 [place] [address] 02-23-2023 07:56-0500 Respiratory rate 18 /min Dr. Craig Ventura Work Phone: 0(996)298-782008 [place] [address] 02-23-2023 07:56-0500 SaO2% (BldA) [Mass fraction] 96 % Dr. Craig Ventura Work Phone: 5(172)767-839373 [place] [address] 02-23-2023 07:56-0500 Systolic blood pressure 103 mm[Hg] Dr. Craig Ventura Work Phone: 3(894)226-135008 [place] [address] 02-10-2023 13:12-0400 Body height 167.[address] Craig Ventura Work Phone: 4(904)980-469608 [place] [address] 02-10-2023 13:12-0400 Body weight 71.[address] Craig Ventura Work Phone: 1(644)698-390873 [place] [address] 02-10-2023 13:12-0400 Heart rate 98 /min Dr. Craig Ventura Work Phone: 2(308)988-268173 [place] [address] 02-10-2023 13:12-0400 SaO2% (BldA) [Mass fraction] 96 % Dr. Carig Ventura Work Phone: 3(743)823-479108 [place] [address] 01-14-2023 06:41-0400 Body mass index (BMI) [Ratio] 25.2 kg/m2 Dr. Craig Ventura Work Phone: 3(085)401-171173 [place] [address] 01-14-2023 06:41-0400 Body temperature 96.7 [degF] Dr. Craig Ventura Work Phone: [facility] 01-14-2023 06:41-0400 Body weight 70.[address] Craig Ventura Work Phone: [facility] 01-14-2023 06:41-0400 Diastolic blood pressure 78 mm[Hg] Dr. Craig Ventura Work Phone: 0(912)548-933473 [place] [address] 01-14-2023 06:41-0400 Heart rate 76 /min Dr. Craig Ventura Work Phone: 4(063)279-777873 [place] [address] 01-14-2023 06:41-0400 Respiratory rate 18 /min Dr. Craig Ventura Work Phone: 9(701)724-111373 [place] [address] 01-14-2023 06:41-0400 SaO2% (BldA) [Mass fraction] 97 % Dr. Craig Ventura Work Phone: 9(374)154-321973 [place] [address] 01-14-2023 06:41-0400 Systolic blood pressure 152 mm[Hg] Dr. Craig Ventura Work Phone: 0(894)008-150454 [address] 01-12-2023 13:40-0400 Body mass index (BMI) [Ratio] 25.3 kg/m2 Dr. Craig Ventura Work Phone: 2(476)172-471054 [address] 01-12-2023 13:40-0400 Body weight 71.[address] Craig Ventura Work Phone: 0(737)045-731473 [place] [address] 01-12-2023 13:40-0400 Diastolic blood pressure 68 mm[Hg] Dr. Craig Ventura Work Phone: 3(976)792-011373 [place] [address] 01-12-2023 13:40-0400 Heart rate 68 /min Dr. Craig Ventura Work Phone: [facility] 01-12-2023 13:40-0400 Respiratory rate 18 /min Dr. Craig Ventura Work Phone: [facility] 01-12-2023 13:40-0400 Systolic blood pressure 123 mm[Hg] Dr. Craig Ventura Work Phone: 4(004)655-249073 [place] [address] 01-05-2023 14:45-0400 Body mass index (BMI) [Ratio] 25.4 kg/m2 Dr. Craig Ventura Work Phone: [facility] 01-05-2023 14:45-0400 Body weight 71.[address] Craig Ventura Work Phone: [facility] 01-05-2023 14:00-0400 Body mass index (BMI) [Ratio] 25.4 kg/m2 Dr. Craig Ventura Work Phone: [facility] 01-05-2023 14:00-0400 Body temperature 97.4 [degF] Dr. Craig Ventura Work Phone: [facility] 01-05-2023 14:00-0400 Body weight 71.[address] Craig Ventura Work Phone: [facility] 01-05-2023 14:00-0400 Diastolic blood pressure 83 mm[Hg] Dr. Craig Ventura Work Phone: [facility] 01-05-2023 14:00-0400 Heart rate 67 /min Dr. Craig Ventura Work Phone: [facility] 01-05-2023 14:00-0400 Respiratory rate 15 /min Dr. Craig Ventura Work Phone: [facility] 01-05-2023 14:00-0400 SaO2% (BldA) [Mass fraction] 97 % Dr. Craig Ventura Work Phone: [facility] 01-05-2023 14:00-0400 Systolic blood pressure 147 mm[Hg] Dr. Craig Ventura Work Phone: [facility] 03-24-2022 13:34-0500 Body height 167.64 cm Raheem Nichols Work Phone: [facility] Work Phone: 03-24-2022 13:34-0500 Body mass index (BMI) [Ratio] 26.31 kg/m2 Raheem Nichols Work Phone: [facility] Work Phone: 03-24-2022 13:34-0500 Body surface area Derived from formula 1.83 m2 Raheem O Nichols Work Phone: [facility] Work Phone: 03-24-2022 13:34-0500 Body weight 73.94 kg Raheem O Nichols Work Phone: [facility] Work Phone: 03-24-2022 13:34-0500 Diastolic blood pressure 86 mm[Hg] Raheem O Nichols Work Phone: [facility] Work Phone: 03-24-2022 13:34-0500 Heart rate 80 /min Raheem O Nichols Work Phone: [facility] Work Phone: 03-24-2022 13:34-0500 SaO2% (BldA) [Mass fraction] 92 % Raheem O Nichols Work Phone: [facility] Work Phone: 03-24-2022 13:34-0500 Systolic blood pressure 128 mm[Hg] Raheem O Nichols Work Phone: [facility] Work Phone: 02-11-2022 13:21-0400 Body height 167.64 cm Raheem O Nichols Work Phone: [facility] Work Phone: 02-11-2022 13:21-0400 Body mass index (BMI) [Ratio] 25.66 kg/m2 Raheem O Nichols Work Phone: [facility] Work Phone: 02-11-2022 13:21-0400 Body surface area Derived from formula 1.81 m2 Raheem O Nichols Work Phone: [facility] Work Phone: 02-11-2022 13:21-0400 Body weight 72.12 kg Raheem O Nichols Work Phone: [facility] Work Phone: 02-11-2022 13:21-0400 Diastolic blood pressure 86 mm[Hg] Raheem O Nichols Work Phone: -[facility] Work Phone: 02-11-2022 13:21-0400 Heart rate 77 /min Raheem O Nichols Work Phone: -[facility] Work Phone: 02-11-2022 13:21-0400 Systolic blood pressure 138 mm[Hg] Raheem O Nichols Work Phone: -[facility] Work Phone: 11-29-2021 10:55-0400 Body height 167.64 cm Raheem O Nichols Work Phone: -[facility] Work Phone: 11-29-2021 10:55-0400 Body mass index (BMI) [Ratio] 25.72 kg/m2 Raheem O Nichols Work Phone: -[facility] Work Phone: 11-29-2021 10:55-0400 Body surface area Derived from formula 1.82 m2 Raheem O Nichols Work Phone: -[facility] Work Phone: 11-29-2021 10:55-0400 Body weight 72.29 kg Raheem O Nichols Work Phone: -[facility] Work Phone: 11-29-2021 10:55-0400 Diastolic blood pressure 92 mm[Hg] Raheem O Nichols Work Phone: -[facility] Work Phone: 11-29-2021 10:55-0400 Heart rate 68 /min Raheem O Nichols Work Phone: -[facility] Work Phone: 11-29-2021 10:55-0400 Systolic blood pressure 142 mm[Hg] Raheem O Nichols Work Phone: -[facility] Work Phone: 11-21-2021 13:19-0400 Body height 165.1 cm Raheem O Nichols Work Phone: -[facility] Work Phone: 11-21-2021 13:19-0400 Body mass index (BMI) [Ratio] 27.21 kg/m2 Raheem O Nichols Work Phone: -[facility] Work Phone: 11-21-2021 13:19-0400 Body surface area Derived from formula 1.82 m2 Raheem O Nichols Work Phone: -[facility] Work Phone: 11-21-2021 13:19-0400 Body weight 74.16 kg Raheem O Nichols Work Phone: -[facility] Work Phone: 11-21-2021 13:19-0400 Diastolic blood pressure 80 mm[Hg] Raheem O Nichols Work Phone: -[facility] Work Phone: 11-21-2021 13:19-0400 Heart rate 57 /min Raheem O Nichols Work Phone: -[facility] Work Phone: 11-21-2021 13:19-0400 Systolic blood pressure 122 mm[Hg] Raheem O Nichols Work Phone: -[facility] Work Phone: 08-21-2021 08:28-0400 Body height 165.1 cm Raheem O Nichols Work Phone: [facility] Work Phone: 08-21-2021 08:28-0400 Body mass index (BMI) [Ratio] 26.46 kg/m2 Raheem O Nichols Work Phone: [facility] Work Phone: 08-21-2021 08:28-0400 Body surface area Derived from formula 1.79 m2 Raheem O Nichols Work Phone: [facility] Work Phone: 08-21-2021 08:28-0400 Body weight 72.12 kg Raheem O Nichols Work Phone: [facility] Work Phone: 08-21-2021 08:28-0400 Diastolic blood pressure 78 mm[Hg] Raheem O Nichols Work Phone: [facility] Work Phone: 08-21-2021 08:28-0400 Heart rate 68 /min Raheem O Nichols Work Phone: [facility] Work Phone: 08-21-2021 08:28-0400 Systolic blood pressure 122 mm[Hg] Raheem O Nichols Work Phone: [facility] Work Phone: 05-21-2021 13:15-0500 Body height 165.1 cm Raheem O Nichols Work Phone: [facility] Work Phone: 05-21-2021 13:15-0500 Body mass index (BMI) [Ratio] 26.79 kg/m2 Raheem O Nichols Work Phone: [facility] Work Phone: 05-21-2021 13:15-0500 Body surface area Derived from formula 1.8 m2 Raheem O Nichols Work Phone: [facility] Work Phone: 05-21-2021 13:15-0500 Body weight 73.03 kg Raheem O Nichols Work Phone: [facility] Work Phone: 05-21-2021 13:15-0500 Diastolic blood pressure 72 mm[Hg] Raheem O Nichols Work Phone: [facility] Work Phone: 05-21-2021 13:15-0500 Heart rate 72 /min Raheem O Nichols Work Phone: [facility] Work Phone: 05-21-2021 13:15-0500 Systolic blood pressure 128 mm[Hg] Raheem O Nichols Work Phone: [facility] Work Phone: 12-21-2020 11:59-0400 Diastolic blood pressure 89 mm[Hg] Raheem O Nichols Work Phone: [facility] Work Phone: 12-21-2020 11:59-0400 Systolic blood pressure 127 mm[Hg] Raheem O Nichols Work Phone: [facility] Work Phone: 12-21-2020 11:40-0400 Body height 165.1 cm Raheem O Nichols Work Phone: [facility] Work Phone: 12-21-2020 11:40-0400 Body mass index (BMI) [Ratio] 26.46 kg/m2 Raheem O Nichols Work Phone: [facility] Work Phone: 12-21-2020 11:40-0400 Body surface area Derived from formula 1.79 m2 Raheem O Nichols Work Phone: [facility] Work Phone: 12-21-2020 11:40-0400 Body weight 72.12 kg Raheem O Nichols Work Phone: [facility] Work Phone: 12-21-2020 11:40-0400 Diastolic blood pressure 82 mm[Hg] Raheem O Nichols Work Phone: [facility] Work Phone: 12-21-2020 11:40-0400 Heart rate 68 /min Raheem O Nichols Work Phone: [facility] Work Phone: 12-21-2020 11:40-0400 Systolic blood pressure 131 mm[Hg] Raheem O Nichols Work Phone: [facility] Work Phone: 11-12-2020 13:12-0400 Body height 165.1 cm Raheem O Nichols Work Phone: [facility] Work Phone: 11-12-2020 13:12-0400 Body mass index (BMI) [Ratio] 26.79 kg/m2 Raheem O Nichols Work Phone: [facility] Work Phone: 11-12-2020 13:12-0400 Body surface area Derived from formula 1.8 m2 Raheem O Nichols Work Phone: [facility] Work Phone: 11-12-2020 13:12-0400 Body weight 73.03 kg Raheem O Nichols Work Phone: [facility] Work Phone: 11-12-2020 13:12-0400 Diastolic blood pressure 76 mm[Hg] Raheem O Nichols Work Phone: [facility] Work Phone: 11-12-2020 13:12-0400 Heart rate 74 /min Raheem Nichols Work Phone: [facility] Work Phone: 11-12-2020 13:12-0400 SaO2% (BldA) [Mass fraction] 96 % Raheem Babcocker Work Phone: [facility] Work Phone: 11-12-2020 13:12-0400 Systolic blood pressure 106 mm[Hg] Raheem Babcocker Work Phone: [facility] Work Phone: 05-14-2020 17:41-0500 BMI (Body Mass Index) 26.96 kg/m2 Jennifer [facility] Work Phone: 05-14-2020 17:41-0500 Body weight 73.48 kg Jennifer [facility] Work Phone: 05-14-2020 17:41-0500 BP Diastolic 80 mm[Hg] Jennifer [facility] Work Phone: Comment on above: Location: [facility]; 05-14-2020 17:41-0500 BP Systolic 130 mm[Hg] Jennifer [facility] Work Phone: Comment on above: Location: [facility]; 05-14-2020 17:41-0500 BSA (Body Surface Area) 1.81 m2 Jennifer [facility] Work Phone: 05-14-2020 17:41-0500 Height 165.1 cm Jennifer [facility] Work Phone: 05-14-2020 17:41-0500 Pulse (Heart Rate) 80 /min Jennifer [facility] Work Phone: 06-27-2019 12:22-0400 BMI (Body Mass Index) 27.79 kg/m2 Raheem Nichols [facility] Work Phone: 06-27-2019 12:22-0400 Body weight 75.75 kg Raheem Nichols [facility] Work Phone: 06-27-2019 12:22-0400 BP Diastolic 72 mm[Hg] Raheem Nichols [facility] Work Phone: Comment on above: Location: [facility]; 06-27-2019 12:22-0400 BP Systolic 124 mm[Hg] Raheem Nichols [facility] Work Phone: Comment on above: Location: [facility]; 06-27-2019 12:22-0400 BSA (Body Surface Area) 1.83 m2 Raheem Nichols [facility] Work Phone: 06-27-2019 12:22-0400 Height 165.1 cm Raheem Nichols [facility] Work Phone: 06-27-2019 12:22-0400 Pulse (Heart Rate) 72 /min Raheem Nichols [facility] Work Phone: Encounters Encounter Date Encounter Type Care Provider Facility Start: 02-27-2025 End: 02-27-2025 ambulatory Shelley Arnett Facility:[facility] Start: 02-20-2025 End: 02-20-2025 ambulatory Shelley Arnett Facility:[facility] Start: 02-13-2025 End: 02-13-2025 ambulatory Evgeny Garg Facility:[facility] Start: 01-30-2025 End: 01-30-2025 ambulatory Jef Lewison Facility:[facility] Start: 01-25-2025 End: 01-25-2025 ambulatory Craig Chi Lorenzo Facility:[facility] Start: 11-28-2024 ambulatory Shelley Arnett Facili ty:[facility] Start: 10-11-2024 End: 10-11-[address] Shelley Arnett MD -[facility] Work Phone: Start: 10-11-2024 End: 10-11-[address] Craig Ventura MD Work Phone: [facility] Work Phone: Start: 09-[facility] Start: 09-06-2024 End: 09-06-2024 Subsequent hospital visit by physician Ananda Mri [facility] Comment on above: Localized swelling, mass and lump, right lower limb Start: 09-06-2024 End: 09-06-2024 ambulatory [facility] Start: 08-15-2024 End: 08-15-[address] Evgeny Garg DO -[facility] Work Phone: Start: 08-15-2024 End: 08-15-2024 ambulatory Craig Chi Lorenzo Facility[facility] Start: 08-02-2024 End: 08-02-2024 Subsequent hospital visit by physician Ananda X-Ray 1 [facility] Comment on above: Pain in right foot Start: 08-02-2024 End: 08-02-2024 ambulatory [facility] Start: 07-26-2024 End: 07-26-[address] Craig Ventura MD Work Phone: [facility] Work Phone: Start: 07-26-2024 End: 07-26-[address] Craig Ventura MD -Laboratory Work Phone: Start: 07-26-2024 End: 07-26-2024 ambulatory Craig Chi Lorenzo Facility:[facility] Start: 07-20-2024 End: 07-20-[address] Craig Ventura MD Work Phone: [facility] Work Phone: Start: 07-20-2024 End: 07-20-[address] Shelley Arnett MD -Outpatient Breast Imaging Work Phone: Start: 07-20-2024 End: 07-20-2024 ambulatory Craig Chi Lorenzo Facility:[facility] Start: 06-13-[address] Jovanni Arnett MD -[facility] Start: 06-13-2024 End: 06-13-[address] Craig Ventura MD Work Phone: [facility] Work Phone: Start: 06-13-2024 End: 06-13-[address] Shelley Arnett MD -[facility] Work Phone: Start: 06-13-2024 End: 06-13-2024 ambulatory Craig Artem Ventura Facility:[facility] Start: 05-10-2024 End: 05-10-2024 Patient encounter procedure Daisy PEREZ -Outpatient Bone Densitometry Work Phone: Start: 05-10-2024 End: 05-10-2024 ambulatory Craig Chi Lorenzo Facility:[facility] Start: 04-30-2024 End: 04-30-2024 Emergency department patient visit [facility] Start: 04-15-2024 End: 04-19-2024 ambulatory Craig Ventura MD [facility]: [facility] Comment on above: Acute bilateral low back pain with sciatica, sciatica laterality unspecified (Primary Dx) Start: 04-11-2024 End: 04-15-2024 ambulatory Craig Ventura MD Work Phone: [facility] Comment on above: Low back pain with s ciatica, sciatica laterality unspecified, unspecified back pain laterality, unspecified chronicity (Primary Dx) Start: 04-08-2024 End: 04-12-2024 ambulatory Craig Ventura MD Work Phone: [facility] Comment on above: Acute bilateral low back pain with sciatica, sciatica laterality unspecified (Primary Dx) Start: 04-05-2024 End: 04-09-2024 ambulatory Craig Ventura MD Work Phone: [facility] Comment on above: Low back pain with s ciatica, sciatica laterality unspecified, unspecified back pain laterality, unspecified chronicity (Primary Dx) Start: 03-31-2024 End: 04-04-2024 ambulatory Craig Ventura MD Work Phone: [facility] Comment on above: Bilateral low back p ain with sciatica, sciatica laterality unspecified, unspecified chronicity (Primary Dx) Start: 03-29-2024 End: 04-02-2024 ambulatory Craig Ventura MD Work Phone: [facility] Comment on above: Low back pain (Prima ry Dx) Start: 03-28-2024 End: 03-28-2024 Patient encounter procedure Daisy PEREZ -[facility] Work Phone: Start: 03-28-2024 End: 03-28-2024 ambulatory Craig Ventura Facility[facility] Start: 03-25-2024 End: 03-29-2024 ambulatory Craig Ventura MD Work Phone: [facility] Comment on above: Low back pain (Prima ry Dx) Start: 03-22-2024 End: 03-26-2024 ambulatory Craig Ventura MD Work Phone: [facility] Comment on above: Low back pain (Prima ry Dx) Start: 03-15-2024 End: 03-19-2024 ambulatory Craig Ventura MD Work Phone: [facility] Comment on above: Low back pain Start: 03-08-2024 End: 03-08-2024 Transcribe Orders Craig Ventura MD Work Phone: [facility] Comment on above: Low back pain (Prima ry Dx) Start: 12-31-2023 End: 12-31-2023 ambulatory [facility] Start: 07-20-2023 End: 07-20-[address] Craig Ventura Work Phone: [facility] Work Phone: Start: 07-20-2023 End: 07-20-[address] Craig Ventura Work Phone: [facility]-Outpatient Breast Imaging Work Phone: Start: 07-10-[address] Craig biggs Work Phone: [facility] Start: 07-06-2023 End: 07-06-[address] Craig Ventura Work Phone: [facility] Work Phone: Start: 06-02-2023 End: 06-02-[address] Craig Ventura Work Phone: [facility] Work Phone: Start: 06-02-2023 End: 06-02-[address] Craig Ventura Work Phone: [facility]-Laboratory, Phy Office [address] [place] [address] Start: 03-30-2023 End: 03-30-[address] Craig Ventura Work Phone: [facility] Work Phone: Start: 03-08-2023 End: 03-08-2023 Non-patient / Non-visit Dr. Craig Ventura Work Phone: [facility] Work Phone: Start: 03-08-[address] Craig soriano Work Phone: [facility]-Cardiovascula r Services Work Phone: Start: 03-02-2023 End: 03-02-[address] Craig Ventura Work Phone: [facility] Work Phone: Start: 02-24-2023 End: 02-24-[address] Craig Ventura Work Phone: [facility] Work Phone: Start: 02-23-2023 End: 02-23-[address] Craig Ventura Work Phone: [facility]-Pulmonary Medicine [facility] Work Phone: Start: 02-16-2023 Non-patient / Non-visit Dr. Jak Ventura Work Phone: [facility] Work Phone: Start: 02-16-2023 Non-patient / Non-visit Dr. Jak Ventura Work Phone: [facility] Work Phone: Start: 02-16-2023 Non-patient / Non-visit Dr. Jak Ventura Work Phone: [facility] Start: 02-16-2023 End: 02-16-[address] Craig Ventura Work Phone: [facility] Work Phone: Start: 02-16-2023 End: 02-16-[address] Craig Ventura Work Phone: [facility]-Cardiovascula r Services Work Phone: Start: 02-12-2023 End: 02-12-[address] Craig Ventura Work Phone: [facility] Work Phone: Start: 02-12-2023 End: 02-12-[address] Craig Ventura Work Phone: [facility] Work Phone: Start: 02-12-2023 Non-patient / Non-visit Dr. Jak Ventura Work Phone: [facility] Start: 02-11-2023 End: 02-11-[address] Craig Ventura Work Phone: [facility] Work Phone: Start: 02-11-2023 End: 02-11-[address] Craig Ventura Work Phone: [facility]-Pulmonary Services/Neurology Work Phone: Start: 02-11-2023 Non-patient / Non-visit Dr. Jak Ventura Work Phone: [facility] Start: 02-10-2023 End: 02-10-[address] Craig Ventura Work Phone: [facility] Work Phone: Start: 02-10-2023 End: 02-10-[address] Craig Ventura Work Phone: [facility] Work Phone: Start: 01-20-2023 End: 01-20-[address] Craig Ventura Work Phone: [facility]-Laboratory, Phy Office 3rd Cor Start: 01-14-2023 End: 01-14-[address] Craig Ventura Work Phone: [facility]-Pulmonary Medicine [facility] Work Phone: Start: 01-12-2023 End: 01-12-[address] Craig Ventura Work Phone: [facility] Work Phone: Start: 01-05-[address] Craig biggs Work Phone: [facility] Start: 01-05-2023 End: 01-05-[address] Craig Ventura Work Phone: [facility] Work Phone: Start: 12-10-2022 Non-patient / Non-visit Dr. Jak Ventura Work Phone: [facility] Work Phone: Start: 10-30-2022 End: 10-30-[address] Craig Ventura Work Phone: [facility] Work Phone: Start: 04-03-[address] Raheem Nichols Facility:[id number] Start: 03-27-2022 Postop follow up vis it related to original px Raheem Nichols Work Phone: [facility] Work Phone: Start: 03-27-[address] [facility] Facility :[id number] Start: 03-25-2022 PFT, Provider: FLORIDALMA MCFARLANE PFT ROOM,[place] [address], Status: Pen, Time: 12:00 PM Raheem Nichols Work Phone: [facility] Work Phone: Start: 03-25-[address] Raheem Nichols Facility:[id number] Start: 03-24-2022 Office outpatient vi sit 15 minutes Raheem Nichols Work Phone: [facility] Work Phone: Start: 03-24-2022 ambulatory Raheem Nichols Facil ity:[id number] Start: 03-20-2022 Chart Update [facility] Work [facility]: Start: 03-05-2022 End: 03-05-[address] [facility] Facility:[id number] Start: 02-21-[address] Raheem Ncihols Facility:[id number] Start: 02-21-2022 Encounter for preprocedural cardiovascular examination [facility] Start: 02-21-2022 Encounter for preprocedural laboratory examination [facility] Start: 02-18-2022 AUDIT Raheem Nichols Work Phone: [facility] Work Phone: Start: 02-13-2022 NPV, Provider: Sheryl Ingram, Status: Pen, Time: 3:00 PM Raheem Nichols Work Phone: [facility] Work Phone: Start: 02-13-[address] Raheem Nichols Facility:[id number] Start: 02-13-2022 Office consultation new/estab patient 80 min Raheem Nichols [facility] Work [facility]: Start: 02-12-2022 ambulatory Altagracia Lim cility:[id number] Start: 02-11-2022 ambulatory Raheem Nichols Facil ity:[id number] Start: 02-11-2022 Office outpatient vi sit 15 minutes Raheem Nichols Work Phone: [facility] Work Phone: Start: 02-04-2022 ambulatory Raheem Nichols Facil ity:[id number] Start: 01-29-2022 ambulatory Altagracia Lim cility:[id number] Start: 01-24-2022 Chart Update Raheem Nichols Work Phone: [facility] Work Phone: Start: 01-24-2022 ambulatory Altagracia Lim cility:[id number] Start: 12-12-2021 AUDIT Raheem Nichols Work Phone: [facility] Work Phone: Start: 11-29-2021 Office outpatient vi sit 15 minutes Raheem Nichols Work Phone: [facility] Work Phone: Start: 11-29-2021 Patient encounter procedure Raheem Nichols Work Phone: [facility] Work Phone: Start: 11-29-2021 ambulatory Raheem Nichols Facil ity:[id number] Start: 11-24-2021 Chart Update Raheem Babcocker Work Phone: [facility] Work Phone: Start: 11-21-2021 ambulatory Raheem Nichols Facil ity:[id number] Start: 11-21-2021 ambulatory Altagracia Lim cility:[id number] Start: 11-18-2021 Chart Update Raheem Babcocker Work Phone: [facility] Work Phone: Start: 08-21-2021 Office outpatient vi sit 25 minutes Raheem Nan Babcocker Work Phone: [facility] Work Phone: Start: 08-21-2021 ambulatory Raheem Nichols Facil ity:[id number] Start: 05-27-[address] Berta Hunter Facility:[id number] Start: 05-21-2021 Office outpatient vi sit 25 minutes Raheem O Nichols Work Phone: [facility] Work Phone: Start: 12-21-2020 Patient encounter procedure Raheem Babcocker Work Phone: [facility] Work Phone: Start: 11-21-2020 Chart Update Raheem Babcocker Work Phone: [facility] Work Phone: Start: 11-12-2020 Office outpatient vi sit 25 minutes Raheem O Nichols Work Phone: [facility] Work Phone: Start: 05-26-2020 End: 05-26-2020 Orders Only Yadi Calzada Work Phone: [facility] Start: 05-14-2020 Patient encounter procedure Jennifer Garduno [facility] Work Phone: Start: 01-19-2020 Patient encounter procedure Jennifer Garduno [facility] Work Phone: Start: 12-15-2019 Patient encounter procedure Jennifer Garduno [facility] [employer] Phone: Start: 12-12-2019 Patient encounter procedure Jennifer Garduno [facility] [employer] Phone: Start: 12-07-2019 Patient encounter procedure Jennifer Garduno [facility] Work Phone: Start: 11-25-2019 Patient encounter procedure Jennifer Garduno [facility] Work Phone: Start: 11-17-2019 Patient encounter procedure Jennifer Garduno [facility] [employer] Phone: Start: 11-08-2019 Patient encounter procedure Jennifer Garduno [facility] [employer] Phone: Start: 11-02-2019 Patient encounter procedure Jennifer Garduno [facility] Phone: Start: 10-20-2019 Patient encounter procedure Jennifer Garduno [facility] [employer] Phone: Start: 06-27-2019 Patient encounter procedure Raheem Nichols [facility] Phone: Start: 05-10-2019 Patient encounter procedure Raheem Nichols [facility] [employer] Phone: Start: 03-30-2019 Patient encounter procedure Raheem Nichols [facility] Phone: Start: 02-07-2019 Patient encounter procedure Raheem Nichols [facility] [employer] Phone: Start: 01-26-2019 End: 01-26-2019 Patient encounter procedure AUDI ZAPATA [facility] Start: 01-26-2019 End: 01-26-2019 Office outpatient visit 10 minutes Audi Renner Work Phone: [facility] Comment on above: Pain of right hip william int (Primary Dx) Start: 01-12-2019 End: 01-16-2019 Patient encounter procedure AUDI RENNER [facility] Start: 12-28-2018 End: 12-28-2018 Patient encounter procedure AUDI RENNER [facility] Start: 07-09-2018 End: 07-09-2018 Patient encounter procedure Amos Nava Work Phone: [facility] Comment on above: Plantar fasciitis of left foot Start: 07-05-2018 End: 07-05-2018 Patient encounter procedure Amos Nava Work Phone: [facility] Comment on above: Plantar fasciitis of left foot Start: 06-29-2018 End: 06-29-2018 Patient encounter procedure Amos Nava Work Phone: [facility] Comment on above: Plantar fasciitis of left foot Start: 06-28-2018 End: 06-28-2018 Documentation procedure Linda Glez [facility] Start: 06-28-2018 End: 06-28-2018 Patient encounter procedure Amos Wilkes Nava Work Phone: [facility] Comment on above: Plantar fasciitis of left foot Start: 06-25-2018 Patient encounter procedure Amos Nava Facility:[facility] Start: 06-23-2018 End: 06-23-2018 Patient encounter procedure Amos Nava Work Phone: [facility] Start: 03-16-2018 End: 03-16-2018 Patient encounter procedure AUDI RENNER [facility] Start: 03-26-2017 Office outpatient vi sit 10 minutes Audi Renner Work Phone: [facility] Cancer cervix - scre ening done Jennifer [facility] Work Phone: Comment on above: 11/02/2017; WNL; Encounter for gynecological examination (general) (routine) without abnormal findings Raheem Nichols Work Phone: [facility] Work Phone: Comment on above: 11/02/2017; WNL; Menarche Jennifer [facility] Work Phone: Comment on above: AGE 12; Patient encounter procedure Jennifer Garduno PA-C [facility] Work Phone: End: 05-21-2021 Patient encounter procedure Raheem Nichols Work Phone: -[facility] Work Phone: Procedures Date Procedure Procedure Detail Performing Clinician Start: 09-06-2024 Mri any jt lower ext rem w/o & w/contrast matrl Amarilis Lam Fareeddeepthi DPM Work Phone: Start: 07-26-2024 Vitamin D, 25-hydrox y measurement Dr. Craig Ventura MD Work Phone: Comment on above: Vitamin D StatusDefi ciency: <20 ng/mL (50nmol/L)Insufficiency: 20-30 ng/mL (50-75 nmol/L)Sufficiency: 30-100 ng/mL (75-250 nmol/L)Toxicity: >100 ng/mL (>250 nmol/L) Start: 07-20-2024 Screening mammography Carrie Ventura MD Work Phone: Start: 06-13-[address] Craig Ventura MD Work Phone: Start: 06-13-2024 Measurement of renal function Dr. Craig Ventura MD Work Phone: Comment on above: GFR Calc Start: 06-13-2024 MRI of lumbar spine Dr. Craig Ventura MD Work Phone: Start: 05-10-2024 Dual energy X-ray absorptiometry Dr. Craig Ventura MD Work Phone: Start: 07-20-2023 Screening mammography Carrie Ventura Work Phone: Start: 02-16-2023 Radionuclide imaging of perfusion of myocardium under exercise stress Dr. Craig Ventura Work Phone: Start: 02-12-2023 MRI of bilateral ventura asts with contrast Dr. Craig Venutra Work Phone: Start: 01-20-2023 Diagnostic radiograp hy of abdomen, decubitus and erect Dr. Craig Ventura Work Phone: Start: 03-05-2022 Partial mastectomy Thanh Nichols Work [...] Raheem Nichols End: 11-23-2019 Nerve block anesthesia Jenniferverenice Garduno Prosthetic arthropla sty of the hip Raheem Nichols Tonsillectomy Raheem Nichols Total replacement of hip Kp Nichols Work Phone: Plan of Treatment Date Care Activity Detail Author Start: 04-23-2024 Screening for osteoporosis Bone Density Scan [facility] Start: 04-15-2024 End: 04-15-2024 ambulatory [facility] Start: 04-11-2024 End: 04-11-2024 ambulatory [facility] Start: 04-08-2024 End: 04-08-2024 ambulatory 04/08/2024 11:30 AM EST Treatment [facility] [address] [place] [address] Craig Ventura Chi, MD [address] [facility] [address] [place] [address] Nithya Huynh PTA [facility] Start: 04-05-2024 End: 04-05-2024 ambulatory [facility] Start: 03-31-2024 End: 03-31-[address] [facility] Start: 03-29-2024 End: 03-29-2024 ambulatory 03/29/2024 1:45 PM EST Treatment [facility] [address] [place] [address] Craig Ventura Chi, MD [address] [facility] [address] [place] [address] Kathryn Alexis, PT [facility] Start: 03-25-2024 End: 03-25-[address] [facility] Start: 03-22-2024 End: 03-22-2024 ambulatory 03/22/2024 4:45 PM EST Treatment [facility] [address] [place] [address] Craig Ventura Chi, MD [address] [facility] [place] [address] Nithya Huynh PTA Discharge Disposition: Home [facility] Start: 03-15-2024 End: 03-15-2024 ambulatory 03/15/2024 2:30 PM EST Evaluation [facility] [address] [place] [address] Craig Ventura Chi, MD [address] [facility] [address] [facility] [place] [address] Kathryn Alexis, PT Discharge Disposition: Home [facility] Start: 01-22-2024 Medicare Annual Wellness Visit Medicare Annual Wellness Visit (AWV) [facility] Start: 12-20-2023 COVID-19 Vaccine ( season) COVID-19 Vaccine ( season) [facility] Start: 12-20-2023 COVID-19 Vaccine ( season) COVID-19 Vaccine () [facility] Start: 12-20-2023 COVID-19 Vaccine ( season) COVID-19 Vaccine ( season) [facility] Start: 12-20-2023 Influenza vaccination Influenza Vacc ine (#1) [facility] Start: 02-12-2023 MR Breast - bilatera l WO and W contrast IV [facility] Start: 02-12-2023 MRI of bilateral breasts with contrast Breast Bilateral W/O and W [facility] Start: 11-28-2022 FUV, Provider: Altagracia Arellano, Status: Pen, Time: 10:00 AM FUV, Provider: Altagracia Arellano, Status: Pen, Time: 10:00 AM -[facility] Work Phone: Start: 10-31-2022 Patient referral [facility] Work Phone: Start: 05-27-2022 EPV, Provider: Raheem Nichols, Status: Pen, Time: 1:00 PM EPV, Provider: Raheem Nichols, Status: Pen, Time: 1:00 PM [facility] Work Phone: Start: 03-27-2022 FUV, Provider: Sheryl Ingram, Status: Pen, Time: 1:30 PM FUV, Provider: Sheryl Ingram, Status: Pen, Time: 1:30 PM -[facility] Work Phone: Start: 03-24-2022 EPVSICK, Provider: Raheem Nichols, Status: Pen, Time: 1:30 PM EPVSICK, Provider: Raheem Nichols, Status: Pen, Time: 1:30 PM -[facility] Work Phone: Start: 03-20-2022 FUV, Provider: Sheryl Ingram, Status: Pen, Time: 1:00 PM FUV, Provider: Sheryl Ingram, Status: Pen, Time: 1:00 PM -[facility] Work Phone: Start: 03-05-2022 [facility], Provider: Sheryl Ingram, Status: Pen, Time: 9:30 AM [facility], Provider: Sheryl Ingram, Status: Pen, Time: 9:30 AM [facility] Work Phone: Start: 03-05-2022 [facility], Provider: Sheryl Ingram, Status: Pen, Time: 7:30 AM [facility], Provider: Sheryl Ingram, Status: Pen, Time: 7:30 AM [facility] Work Phone: Start: 11-29-2021 FUV, Provider: Altagracia Arellano, Status: Pen, Time: 10:30 AM FUV, Provider: Altagracia Arellano, Status: Pen, Time: 10:30 AM [facility] Work Phone: Start: 11-21-2021 EPV, Provider: Raheem Nichols, Status: Pen, Time: 1:00 PM EPV, Provider: Raheem Nichols, Status: Pen, Time: 1:00 PM [facility] Work Phone: Start: 05-21-2021 EPV, Provider: Raheem Nichols, Status: Pen, Time: 1:00 PM EPV, Provider: Raheem Nichols, Status: Pen, Time: 1:00 PM [facility] Work Phone: Start: 03-12-2021 FUV, Provider: Altagracia Arellano, Status: Pen, Time: 10:00 AM FUV, Provider: Altagracia Arellano, Status: Pen, Time: 10:00 AM [facility] Work Phone: Start: 11-27-2020 FUV, Provider: Altagracia Arellano, Status: Pen, Time: 1:30 PM FUV, Provider: Altagracia Arellano, Status: Pen, Time: 1:30 PM [facility] Work Phone: Start: 2020 Respiratory Syncytia l Virus Immunization: Risk, 60-74 Risk, or 75+ (1 - 1-dose 75+ series) Respiratory Syncytial Virus Immunization: Risk, 60-74 Risk, or 75+ (1 - 1-dose 75+ series) [facility] Start: 06-29-2020 Administration of herpes zoster vaccine Zoster Vaccines (3 of 3) [facility] Start: 12-20-2019 Influenza vaccinatio n given Sequential Influenza Vaccine (#1) [facility] Start: 12-19-2018 Influenza vaccinatio n given SEQUENTIAL INFLUENZA VACCINE (#1) [facility] Start: 07-09-2018 End: 07-09-2018 Treatment 07/09/2018 Treatment Rehabilitation Amos Nava, LORAM [address] [place] [address] [phone] Nith[facility] Huynh [facility] Start: 07-07-2018 End: 07-07-2018 Treatment 07/07/2018 Treatment Rehabilitation Amos Nava DPM [address] [place] [address] [phone] Nithya Huynh [facility] Start: 07-05-2018 End: 07-05-2018 Treatment 07/05/2018 Treatment Amos Duvall DPM [address] [place] [address] [phone] Linda Glez, [facility] Start: 07-02-2018 End: 07-02-2018 Treatment 07/02/2018 Treatment Rehabilitation Amos Nava DPM [address] [place] [address] [phone] Yadi Hallman [facility] Start: 06-29-2018 End: 06-29-2018 Treatment 06/29/2018 Treatment Rehabilitation Amos Nava DPM [address] [place] [address] [phone] Linda Glez, [facility] Start: 06-28-2018 End: 06-28-2018 Treatment 06/28/2018 Treatment Rehabilitation Amos Nava DPM [address] [place] [address] [phone] Yadi Hallman PTA [facility] Start: 12-19-2017 Influenza vaccinatio n given SEQUENTIAL INFLUENZA VACCINE (#1) [facility] Start: 12-30-2016 Pneumococcal vaccination PNEUMOCOCCAL VACCINE AGE 65+ (2 of 2 - PPSV23) [facility] Work Phone: Start: 12-19-2016 Influenza vaccination SEQUENTI AL INFLUENZA VACCINE (#1) [facility] Work Phone: Start: 2010 Fall risk assessment [facility] Start: 2010 Pneumococcal vaccination PNEUMOCOCCAL VACCINE AGE 65+ (1 of 2 - PCV13) [facility] Start: 2005 Zoster vaccine hzv l zaheer for subcutaneous use ZOSTER VACCINE [facility] Work Phone: Start: 08-30-1995 Administration of herpes zoster vaccine ZOSTER VACCINES (1 of 2) [facility] Start: 08-30-1995 Screening for malign ant neoplasm of colon [facility] Start: 1985 Screening for malign ant neoplasm of breast Mammogram [facility] Start: 08-30-1967 DTaP/Tdap/Td Vaccine s (1 - Tdap) DTaP/Tdap/Td Vaccines (1 - Tdap) [facility] Start: 08-30-1963 Hepatitis C antibody , confirmatory test Hepatitis C Screening [facility] Start: 08-30-1963 Hepatitis C screening Hepatitis C Sc reening [facility] Start: 1961 COVID-19 Vaccine (1 of 2) COVID-19 Vaccine (1 of 2) [facility] Start: 1957 Adolescent depressio n screening assessment Depression Screening (PHQ9) [facility] Start: 1957 Depression screening using PHQ-9 (Patient Health Questionnaire 9) score Depression Screening/Follow-Up (PHQ-2/9) [facility] Start: 1948 History and physical examination, annual for health maintenance Wellness Visit [facility] Start: 1948 Medicare Wellness Visit Medicare Wel lness Visit [facility] Start: 1945 Depression screening using PHQ-9 (Patient Health Questionnaire 9) score DEPRESSION SCREENING (PHQ9) [facility] Start: 1945 Fall risk assessment Falls Risk Asse ssment [facility] Start: 1945 Hepatitis C antibody , confirmatory test HEPATITIS C SCREENING [facility] Start: 1945 Lipid panel Lipid Panel [facility] Start: 1945 Physical therapy management PT Plan of Care [facility] Start: 1945 Protein mass conc [facility] Start: 1945 Screening for malign ant neoplasm of colon Colorectal Cancer Screening: Colonoscopy [facility] Start: 1945 Screening mammography Mammogram [facility] Start: 1945 HEPATITIS C SCREENING HEPATITIS C SC REENING [facility] Work Phone: Start: 1945 Screening colonoscopy COLONOSCOPY [facility] Work Phone: Start: 1945 End: 1945 Screening for osteoporosis DEXA SCAN [facility] Start: 1945 End: 1945 Tetanus vaccination [facility] MG Breast - bilatera l Screening [facility] MG Breast - bilatera l Screening [facility] Patient referral [facility] Work Phone: End: 08-02-2024 XR Foot - right 3 Views [facility] Work Phone: Comment on above: Once for 1 Occurrenc es starting 08/02/2024 until 08/02/2024 XR Hip Right 2-3 Vie ws (Routine) [facility] Work Phone: NEGATED: Highlighted row has been ruled out! Planned Goals not documented [facility] Work Phone: Immunizations Immunization Date Immunization Notes Care Provider Fa cility 04-16-2022 Moderna COVID-19 vaccine, bivalent, blue cap/sequeira label *Check age/dose* [address] Work Phone: 01-27-2022 Fluzone High-Dose Quadrivalent 0.7 ML Intramuscular Suspension Prefilled Syringe Raheem Nichols Work Phone: [facility] Work Phone: Comment on above: Series: 01-27-2022 influenza virus vacc ine, unspecified formulation Craig Ventura MD Work Phone: [facility] 03-01-2021 Moderna COVID-19 Vac cine 100 MCG/0.5ML Intramuscular Suspension Raheem Nichols Work Phone: [facility] Work Phone: 01-25-2021 Fluzone High-Dose Quadrivalent 0.7 ML Intramuscular Suspension Prefilled Syringe Raheem Nichols Work Phone: [facility] Work Phone: 01-25-2021 influenza, seasonal, injectable Raheem Nichols Work Phone: [facility] Work Phone: Comment on above: Series: 07-13-2020 Moderna COVID-19 Vac cine 100 MCG/0.5ML Intramuscular Suspension Raheem Nichols Work Phone: [facility] Work Phone: 06-15-2020 Moderna COVID-19 Vac cine 100 MCG/0.5ML Intramuscular Suspension Raheem Nichols Work Phone: [facility] Work Phone: 05-04-2020 zoster vaccine recombinant [address] Work Phone: 05-04-2020 zoster vaccine, live Jennifer Garduno [facility] Work Phone: Comment on above: Series: 01-20-2020 Fluad Quadrivalent 0 .5 ML Intramuscular Prefilled Syringe Raheem Nichols Work Phone: [facility] Work Phone: 01-20-2020 influenza, high dose seasonal, preservative-free Jennifer Garduno [facility] Work Phone: Comment on above: Series: 01-20-2020 zoster vaccine recombinant Raheem Nichols Work Phone: [facility] Work Phone: 01-20-2020 influenza, seasonal, injectable Jennifer Garduno [facility] Work Phone: 01-30-2019 Seasonal trivalent influenza vaccine, adjuvanted, preservative free Raheem Nichols Work Phone: [facility] Work Phone: 01-18-2019 influenza, high dose seasonal, preservative-free Raheem Nichols [facility] Work Phone: Comment on above: Series: 04-27-2018 pneumococcal conjuga te vaccine, 13 valent; Translations: [PCV 13, pneumococcal conjugate vaccine, 13 valent] Raheem Nichols [facility] Work Phone: Comment on above: Series: 01-21-2018 influenza virus vacc ine, unspecified formulation; Translations: [influenza virus vaccine, unspecified formulation] Raheem Nichols [facility] Work Phone: Comment on above: Series: 01-21-2018 influenza, high dose seasonal, preservative-free [address] Work Phone: 01-25-2017 influenza, high dose seasonal, preservative-free Raheem Nichols Work Phone: [facility] Work Phone: 01-21-2015 influenza, high dose seasonal, preservative-free Raheem Nichols Work Phone: [facility] Work Phone: 09-14-2013 measles, mumps and rubella virus vaccine Raheem Nichols Work Phone: [facility] Work Phone: 02-18-2011 zoster vaccine, live Raheem Nichols [facility] Work Phone: Comment on above: Series: 02-13-2011 pneumococcal polysaccharide vaccine, 23 valent Raheem Nichols [facility] Work Phone: Comment on above: Series: Payers Date Payer Category Payer Medicare (Managed Care) [employer] [id number] 2023 Medicare PPO [employer] MEDICARE P [place] (PPO) [id number] 2022 Private Health Insurance [id number] 2022 Self-pay 2014 Managed Care (unspecified) [facility] [id number] 2014 Unknown MMO [employer] [place] TR[place] xxxxxxx 2014-Present xxxxxxx [id number] 2014 Unknown M[place] [place] [id number] 2014-Present [id number]. [id number] 2014 Unknown [id number] 2.16.840.1.384606.3.249.13 2010 Medicare [id number] 2.16.840.1.255319.3.249.13 2010 Medicare MEDICARE MEDICAR E PART A & B xxxxxxxxxxx 2010-Present [place] xxxxxxxxxxx [id number] 2010 Medicare MEDICARE MEDICAR E PART A & B [id number] 2010-Present [place] [id number]. [id number] 2010 Medicare MEDICARE PART A & B PART A CLAIMS [address] [address] [place] [address] [id number]. [id number] 2010 Medicare [id number] 1945 Unknown [id number] 2.16.840.1.220111.3.579.2. 1945 Unknown [id number] 2.16.840.1.020523.3.579.2. 1945 Unknown [id number] 2.16.840.1.811991.3.579.2. 1945 Unknown [id number] 2.16.840.1.516530.3.579.2. 1945 Unknown [id number] 2.16.840.1.136185.3.579.2. 1945 Unknown [id number] 2.16.840.1.538927.3.579.2. 1945 Unknown [id number] 2.16.840.1.137904.3.579.2. 1068 1945 Unknown [id number] 2.16.840.1.480388.3.579.2. 1068 1945 Unknown [id number] 2.16.840.1.113021.3.579.2. 1068 1945 Unknown [id number] 2.16.840.1.308378.3.579.2. 1068 1945 Unknown [id number] 2.16.840.1.087233.3.579.2. 1068 1945 Unknown [id number] 2.16.840.1.030632.3.579.2. 1068 1945 Unknown [id number] 2.16.840.1.225148.3.579.2. 1068 1945 Unknown [id number] 2.16.840.1.956525.3.579.2. 1945 Unknown [id number] 2.16.840.1.835085.3.579.2. 1945 Unknown [id number] 2.16.840.1.049988.3.579.2. 356 1945 Unknown [id number] 2.16.840.1.471227.3.579.2. 1945 Unknown [id number] 2.16.840.1.482496.3.579.2. 1945 Unknown [id number] 2.16.840.1.970835.3.579.2. 1945 Unknown [id number] 2.16.840.1.047448.3.579.2. 1068 1945 Unknown [id number] 2.16.840.1.007968.3.579.2. 1068 1945 Unknown [id number] 2.16.840.1.007066.3.579.2. 1068 1945 Unknown [id number] 2.16840.1.695875.3.579.2. 1068 1945 Unknown [id number] 2.16.840.1.683965.3.579.2 1945 Unknown [id number] 2.16.840.1.180866.3.579.2 1945 Unknown [id number] 2.16.840.1.193593.3.579.2. 1945 Unknown [id number] 2.16.840.1.017811.3.579.2 1945 Unknown [id number] 2.16.840.1.943644.3.579.2. 1945 Unknown [id number] 2.16.840.1.783926.3.579.2 1945 Unknown [id number] 2.16.840.1.015925.3.579.2. 1945 Unknown [id number] 2.16.840.1.712387.3.579.2. 903 1945 Unknown [id number] 2.16.840.1.985746.3.579.2. 903 1945 Unknown [id number] 2.16.840.1.991260.3.579.2. 903 1945 Unknown [id number] 2.16.840.1.534249.3.579.2. 902 1945 Unknown [id number] 2.16.840.1.507817.3.579.2. 1243 1945 Unknown [id number] 2.16.840.1.438570.3.579.2. 1243 1945 Unknown [id number] 2.16.840.1.702210.3.579.2. 1243 Unknown Unknown [id number] 2.16.840.1.562788.3.579.2. 462 Unknown [id number] 2.16.840.1.243891.3.579.2. 462 Unknown [id number] 2.16.840.1.870845.3.579.2. 462 Unknown [id number] 2.16.840.1.904713.3.579.2. 462 Unknown [id number] 2.16.840.1.737943.3.579.2. 462 Unknown [id number] 2.16.840.1.079085.3.579.2. 462 Unknown [id number] 2.16.840.1.935293.3.579.2. 462 Unknown [id number] 2.16.840.1.516032.3.579.2. 462 Unknown [id number] 2.16.840.1.892366.3.579.2. 462 Unknown [id number] 2.16.840.1.888556.3.579.2. 462 Unknown [id number] 2.16.840.1.778833.3.579.2. 462 Unknown [id number] 2.16.840.1.249580.3.579.2. 462 Unknown [id number] 2.16.840.1.004708.3.579.2. 462 Unknown [id number] 2.16.840.1.856251.3.579.2. 462 Social History Date Type Detail Facility Start: 03-26-2017 End: 02-23-2023 Tobacco smoking status NHIS Never smoker [facility] Start: 1945 Sex Assigned At Not on file [facility] Work Phone: Start: 12-28-2018 End: 01-26-2019 Tobacco use and exposure Never used [facility] Start: 01-26-2019 End: 03-29-2024 Alcohol intake Current drinker of alcohol (finding) [facility] Start: 01-26-2019 End: 03-29-2024 Drinks beer Drinks beer [facility] Work Phone: Start: 01-14-2023 End: 02-23-2023 Tobacco smoking status NHIS Unknown if ever smoked [facility] Start: 1945 Sex Assigned At Female [facility] Start: 09-19-2018 End: 03-29-2024 Tobacco use panel [facility] Start: 03-16-2018 Gender identity Identifies as female gender (finding) [facility] Start: 03-16-2018 Sexual orientation Heterosexual (fin ding) [facility] Start: 06-23-2024 End: 07-29-2024 Sex Female (finding) [facility] Start: 07-23-2024 End: 09-06-2024 Exposure to SARS-CoV-2 (event) Not sure [facility] NEGATED: Highlighted row - - [facility] Work Phone: Functional Status Date Assessment Result Facility NEGATED: Highlighted row Functional performance Functional status health issues are not documented Disease [facility] Work Phone: Mental Status Date Assessment Result Facility 06-13-2024 Cognitive function Voice/Name [facility] Work Phone: 07-10-2023 Cognitive function Awake;Alert;A [employer] te;Follows Commands [facility] Work Phone: 01-05-2023 Cognitive function Awake;Alert;A [employer] te;Follows Commands [facility] Work Phone: NEGATED: Highlighted row Cognitive function [Interpretation] Cognitive status health issues are not documented Disease [facility] Work Phone: Clinical Notes 11-14-2019 to 10-11-2024 Note Date & Type Note Facility 10-11-2024 Progress note [facility] 10-11-2024 Progress note Note Date/Time October 11, 2024 2:08pm [facility] [address] [address] OFFICE VISIT Date of Service: 10/11/24 1322 MR#: [id number] Acct: [id number] Name: KIRANCHELA Edison Rep #: [id number] : 1945 From: Shelley ramírez MD Age/Sex: 79/F [place] [facility] Status: Signed HPI Subjective Date of Service 10/11/24 Chief Complaint Breast cancer History of Present Illness 79-year-old female with a past medical history notable for LCIS of the right breast in 2015, received tamoxifen prophylaxis for approximately 2 years and with a positive family history for breast cancer (mother and sister with breast cancer in their 70s) was on vigilant screening program with annual mammography. Despite a negative screening mammogram in November 2021, she felt a lump in the right breast and MRI in January 2022 confirmed a ring enhancing right breast mass measuring 1.5 cm in maximum diameter in the inferior medial right breast that prompted a biopsy. January 29, 2022 right breast ultrasound-guided core needle biopsy: Invasive ductal carcinoma, grade 2, ER positive (over 95% strong), MT positive (over 95% moderate to strong) and HER2 low positive (1+). March 05, 2022 patient underwent right partial mastectomy at [facility] pathology showed a single focus of invasive ductal cancer, 1.6 cm in maximum diameter, overall grade 2, no lymphovascular invasion, DCIS present, eventual margin was negative and no axillary staging was done. MammaPrint was low risk (0.227 index). Treatment summary and response: March 05, 2022: Right partial mastectomy, no axillary staging. 05/05/2022 ? 05/26/2022: received 4256 cGy in 16 fractions to the right breast and right low axilla with a 3D conformal technique. Anastrozole June 2022 Bone support every 6 months started June 2022 [facility] Medical History Aromatase inhibitor use Palpitations Encounter for education Osteoporosis Hip replacement planned Colonoscopy planned Wheezing Thyroid nodule Tendinitis of left rotator cuff Swallowing disorder 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 myelopathy Peripheral neuropathy Overweight Overactive bladder Lumbar spondylosis Lobular carcinoma in situ (LCIS) of right breast Left shoulder pain IBS (irritable bowel syndrome) Essential tremor Entrapment neuropathy of left sural nerve Dense breast tissue Chronic hip pain after total replacement of right hip joint Cardiac hypertrophy Breast cancer Anxiety Age-related osteoporosis without fracture Malignant neoplasm of lower-inner quadrant of right breast of female, estrogen receptor negative Surgical History History of colonoscopy Hx of tonsillectomy History of partial mastectomy of right breast S/P hip replacement H/O section History of appendectomy Family History Mother Breast cancer Father Depression Sister Breast cancer Aunt Breast cancer maternal Social History household members: spouse and family Smoking Status: Never smoker alcohol intake: current substance use type: does not use ROS Constitutional Constitutional: Reports systems reviewed and no addt'l complaints, except as documented and weight gain; Denies fatigue or fever(s) Eyes Eyes: Reports systems reviewed and no addt'l complaints, except as documented ENT HEENT: Reports systems reviewed and no addt'l complaints, except as documented; Denies mouth lesions Cardiovascular Cardiovascular: Reports systems reviewed and no addt'l complaints, except as documented; Denies chest pain with activity or edema Respiratory/Chest Respiratory/Chest: Reports systems reviewed and no addt'l complaints, except as documented, dyspnea on exertion and other Details: Respiratory symptoms are chronic (years) unchanged ; Denies cough or hemoptysis Gastrointestinal Gastrointestinal: Reports systems reviewed and no addt'l complaints, except as documented; Denies change in bowel habits, hematochezia or melena Genitourinary Genitourinary: Reports systems reviewed and no addt'l complaints, except as documented Musculoskeletal Musculoskeletal: Reports systems reviewed and no addt'l complaints, except as documented, arthralgias and back pain Integumentary Integumentary: Reports systems reviewed and no addt'l complaints, except as documented; Denies new lesions or rash Neurologic Neurologic: Reports systems reviewed and no addt'l complaints, except as documented, tremor(s) and other Details: Treatment is significantly less since she came off venlafaxine ; Denies focal weakness, headache(s) or paresthesias Psychiatric Psychiatric: Reports systems reviewed and no addt'l complaints, except as documented Endocrine Endocrinology: Reports systems reviewed and no addt'l complaints, except as documented, flushing and other Details: Hot flashes are tolerable Hematologic/Lymphatic Hematologic/Lymphatic: Reports systems reviewed and no addt'l complaints, exceptas documented; Denies easy bleeding, easy bruising or lymphadenopathy Allergic/Immunologic Allergic/Immunologic: Reports systems reviewed and no addt'l complaints, except as documented Intake Vital Signs 06/13/24 14:46 08/15/24 13:01 10/11/24 13:23 Height 5 ft 6 in 5 ft 6 in 5 ft 6 in Weight: 78.075 kg 76.884 kg BMI 27.8 27.3 BP 145/88 H 128/72 H Blood Pressure Location Lt brachial Lt brachial Position Sitting Sitting Respiration 16 18 Pulse 83 77 Pulse Source Monitor Monitor Temp 97.1 F L 97.9 F Temperature Source Temporal Artery Temporal Artery Pulse Oximetry (%) 95 94 Oxygen Delivery Method room air room air Intake Is patient in pain?: No Allergies escitalopram (From Lexapro) Allergy (Severe, Verified 10/11/24 13:26) Other Medications ?Medication ?Instructions ?Recorded ?Confirmed ?Type cholecalciferol (vitamin D3) 75 75 mcg PO DAILY 10/11/24 History mcg (3,000 unit) tablet metoprolol succinate 25 mg 25 mg PO DAILY 01/12/23 History tablet,extended release 24 hr biotin 1,000 mcg chewable tablet 1,000 mcg PO DAILY 10/11/24 History zoledronic acid 4 mg/5 mL mg .Route 11/09/23 10/11/24 History intravenous solution collagen + c 2,500 mg PO .qd 12/29/23 History apixaban 5 mg tablet (Eliquis) 5 mg PO BID #180 tabs 0 01/11/24 10/11/24 Rx anastrozole 1 mg tablet 1 mg PO DAILY #90 TABLETS 10/11/24 Rx melatonin 10 mg capsule 10 mg PO HS PRN 06/13/24 History Have you fallen in the past year?: No Exam Physical Exam Const alert, oriented x3 and no apparent distress General Appearance: cooperative and comfortable Coding Level of Care Code Off vis,est,level 4 Exam Problem Focused Diagnoses Malignant neoplasm of lower-inner quadrant of right breast of female, estrogen receptor positive C50.311; Z17.0 Breast location: lower inner quadrant of breast Estrogen receptor status: positive Patient sex: female Assessment and Plan Assessment and Plan (1) Breast cancer, right breast: Status: Chronic Qualifiers: Breast location: lower inner quadrant of breast Estrogen receptor status: positive Patient sex: female Qualified Code(s): C50.311 - Malignant neoplasm of lower-inner quadrant of right female breast; Z17.0 - Estrogen receptor positive status [ER+] Plan 79-year-old female with clinical stage I (T1c, NX, M0) invasive ductal cancer of the right breast ER positive (over 95% strong, MT positive over 95% moderate to strong, HER2/gus low 1+), MammaPrint low risk, not seen on screening mammography, felt by patient and then confirmed by breast MRI. Patient is status post right partial mastectomy, no pathologic axillary staging was done (surgery was at [facility]) and received adjuvant radiation to the remaining right breast and right low axilla April through May 2022 at [facility]. Started adjuvant hormonal therapy with anastrozole June 2022. Worsening of musculoskeletal pains reported but at this time manageable with [id number] Tylenol/Motrin. Strong family history of breast cancer involving both mother and sister in their 70s. Genetic testing June 2022 (Jeff) Negative Chronic comorbid conditions: Hypertension, osteoporosis (according to patient by bone density 2021) and degenerative joint disease. Plan: Based on NCCN guidelines and up-to-date review of early-stage invasive ductal cancer recommend: 1. Continue systemic adjuvant hormonal therapy with an aromatase inhibitor for at least 5 years. Main side effects with emphasis on musculoskeletal pain hot flashes, bone loss, reviewed. 2. With established diagnosis of osteoporosis, in addition to vitamin D and calcium (patient is on) she started bone supportive therapy with zoledronic acid every 6 months. 3. Genetic testing completed. 4. Screening, alternating breast MRI and mammograms every 6 months (cancer was not visualized on mammogram but was on MRI) Impression and recommendations discussed with patient . October 11, 2024 visit was virtual Shelley Arnett MD Supervisor [employer], [facility] Divisions of Medical Oncology & Hematology Department of Internal Medicine [place] [id number] This note was generated using a voice recognition system software. Although it was reviewed by the author prior to finalization, it may still contain incorrect words, spelling, and punctuation that were not noted when reviewing prior to saving. If a clinically significant typo or inaccurately typed phrase is noted, please notify the author. Clinical Quality Measures Falls Risk Screening/Assistive Devices Have you fallen in the past year?: No 10/11/24 1408 <Electronically signed by Shelley bolton MD> Date _ Shelley Arnett MD Cosigner Signature: Date (if applicable) CC: ~ [facility] Work Phone: 1(903) 719-972202-24-2025 Evaluation note* Diagnosis Onset Date Resolution Status Admit Date Breast cancer, right breast chronic June 13, 2024 11:57am [facility] Work Phone: 1(556) 592-190502-24-2025 Evaluation note* Diagnosis Onset Date Resolution Status Admit Date Breast cancer, right breast chronic June 13, 2024 11:57am Breast cancer, right breast chronic August 15, 2024 12:44pm Breast cancer, right breast chronic October 11, 2024 1:17pm [facility] Work Phone: [phone]) 217-905912-27-2024 History of Present illness Narrative* Radha aPtel PTA - 04/15/2024 11:30 AM EST [facility] DAILY TREATMENT NOTE Today's Date 04/15/2024 Patient Name: Chela Rojas Date of : 1945 Current Visit #: 9 Authorized Visits: 199 Case Name: Low Back Pain History: Pre-Treatment Pain Scale: 5 Symptoms: stabilized Functional Diagnosis: 1. Acute bilateral low back pain with sciatica, sciatica laterality unspecified Clinical Information: Subjective: Pt reports some increased soreness from standing over verna but min soreness after LV. She would like to be placed on hold and FU with referring provider. Notes her strength, endurance and ease with ADL's has improved but she is still having constant sx's in LB and feet Objective 1 Pt reports she is able to amb for 10 min with min difficulty 2 Pt demos min difficulty with reciprocal stair amb 3 Pt reports and demos increased posture awareness 4 Pt reports avg pain of 5/10 in LB, still has constant numbness in her feet 5 Pt demos less than 25% loss of lumbar side gliding 6 FOTO = 52 7 Pt reports ind with HEP Treatments: Physical Therapy Exercise Log - 04/15/24 1132 OTHER Precautions/Contraindications Supervising PT: Vince - progress core stability and monitor leg length Notes visit 8 [phone] Therapeutic Exercise (59867) Intervention 5 min walk in clinic Parameters Standing HS, calf, lunge stretch 20''x3 each Intervention Anti rotation press L3 2 x 10 B Parameters Blaze Pods SLS (UE distraction) x4 rounds Intervention Step up with june 6''x 10 B Parameters EOB hip flexor stretch x 1min B Intervention Seated QL stretch 10''x 5 Parameters Access Code: [email or web address] URL: [email or web address] Date: 03/15/2024 Prepared by: Kathryn Alexis Exercises - Supine Lower Trunk Rotation - 2 x daily - 10 reps - 5 seconds hold - Supine Posterior Pelvic Tilt - 2 x daily - 10 reps - 5 seconds hold - Supine March with Abdominal Bracing - 2x daily - 2 sets - 20 reps - Hip Flexor Stretch at Edge of Bed - 2 x daily - 3 reps - 20 seconds hold - Supine Nerve [place] - 2 x daily - 15 reps - 3 seconds hold - Left Standing Lateral Shift Correction at Wall - Hold - 2 x daily - 5 reps - 10 seconds hold PT Treatment Times Therex Total Time 40 Direct Treatment Time 40 Goals: Physical Therapy Ortho Goals: MOBILITY: Patient will be able to ambulate for 1 hour in community without difficulty in 6 weeks. MOBILITY: Patient will be able to ascend/descend stairs reciprocally without difficulty in 4 weeks. CHANGING MAINTAINING POSITON: Patient will be able to stand for 30 minutes to perform ADL's, IADL'sand housekeeping tasks w/o difficulty in 4 weeks IMPAIRMENT: Patient will demonstrate improved postural awareness in PT sessions to facilitate mechanical alignment and function in 3 weeks. IMPAIRMENT: Improve pain from 8/10 to <4/10 during prolonged standing, lifting/carrying and forward bending in 6 weeks IMPAIRMENT: Improve AROM of Bilateral Lumbar Sidegliding from 75% movement loss to 25% movement loss or less in 6 weeks. OTHER: Patient will increase FOTO score from 54 to at least 70 to show MDC/MCII and expected functional outcome in 6 weeks. OTHER: Patient will be able to properly demonstrate independence with HEP in 1 week. Patient Education: Verbal HEP with patient verbalized understanding. Post-Treatment Pain Scale: 5 Assessment: Patient had an expected response to treatment. Skilled Intervention demonstrated by modifications of treatment per exercise log including assessment of patient's response and safety interventions per exercise log. Progress towards goals as expected. Plan for Next Visit: Hold Radha Patel PTA STATE LICENSE, [id number] documented in this [id number] History of Present illness Narrative* Radha Patel PTA - 04/11/2024 11:30 AM EST [facility] DAILY TREATMENT NOTE Today's Date 04/11/2024 Patient Name: Chela Rojas Date of : 1945 Current Visit #: 8 Authorized Visits: 199 Case Name: Low Back Pain History: Pre-Treatment Pain Scale: 1 Symptoms: stabilized Functional Diagnosis: 1. Low back pain with sciatica, sciatica laterality unspecified, unspecified back pain laterality, unspecified chronicity Clinical Information: Subjective: Pt reports some general muscle soreness today but min pain Objective Added SLS with distraction Treatments: Physical Therapy Exercise Log - 04/11/24 1136 OTHER Precautions/Contraindications Supervising PT: Vince - progress core stability and monitor leg length Notes visit 7 [phone] Therapeutic Exercise (68944) Intervention 5 min walk in clinic Parameters Standing HS, calf, lunge stretch 20''x3 each Intervention Anti rotation press L3 2 x 10 B Parameters Blaze Pods SLS (UE distraction) x4 rounds Intervention Step up with june 6''x 10 B Parameters EOB hip flexor stretch x 1min B Intervention Seated QL stretch 10''x 5 Parameters -- Parameters Access Code: [email or web address] URL: [email or web address] Date: 03/15/2024 Prepared by: Kathryn Alexis Exercises - Supine Lower Trunk Rotation - 2 x daily - 10 reps - 5 seconds hold - Supine Posterior Pelvic Tilt - 2 x daily - 10 reps - 5 seconds hold - Supine March with Abdominal Bracing - 2x daily - 2 sets - 20 reps - Hip Flexor Stretch at Edge of Bed - 2 x daily - 3 reps - 20 seconds hold - Supine Nerve [place] - 2 x daily - 15 reps - 3 seconds hold - Left Standing Lateral Shift Correction at Wall - Hold - 2 x daily - 5 reps - 10 seconds hold PT Treatment Times Therex Total Time 39 Direct Treatment Time 39 Total Treatment Time 39 Goals: Physical Therapy Ortho Goals: MOBILITY: Patient will be able to ambulate for 1 hour in community without difficulty in 6 weeks. MOBILITY: Patient will be able to ascend/descend stairs reciprocally without difficulty in 4 weeks. CHANGING MAINTAINING POSITON: Patient will be able to stand for 30 minutes to perform ADL's, IADL'sand housekeeping tasks w/o difficulty in 4 weeks IMPAIRMENT: Patient will demonstrate improved postural awareness in PT sessions to facilitate mechanical alignment and function in 3 weeks. IMPAIRMENT: Improve pain from 8/10 to <4/10 during prolonged standing, lifting/carrying and forward bending in 6 weeks IMPAIRMENT: Improve AROM of Bilateral Lumbar Sidegliding from 75% movement loss to 25% movement loss or less in 6 weeks. OTHER: Patient will increase FOTO score from 54 to at least 70 to show MDC/MCII and expected functional outcome in 6 weeks. OTHER: Patient will be able to properly demonstrate independence with HEP in 1 week. Patient Education: Verbal HEP with patient verbalized understanding. Post-Treatment Pain Scale: 1 Assessment: Patient had an expected response to treatment. Skilled Intervention demonstrated by modifications of treatment per exercise log including assessment of patient's response and safety interventions per exercise log. Progress towards goals as expected. Plan for Next Visit: Treatment Visit with focus on progressing as tolerated Radha Patel PTA STATE LICENSE, [id number] documented in this [id number] History of Present illness Narrative* Radha Patel PTA - 04/08/2024 11:30 AM EST [facility] DAILY TREATMENT NOTE Today's Date 04/08/2024 Patient Name: Chela Rojas Date of : 1945 Current Visit #: 7 Authorized Visits: 199 Case Name: Low Back Pain History: Pre-Treatment Pain Scale: 2 Symptoms: stabilized Functional Diagnosis: 1. Acute bilateral low back pain with sciatica, sciatica laterality unspecified Clinical Information: Subjective: Pt reports low pain today and min soreness after LV Objective Continued with stability and mobility Treatments: Physical Therapy Exercise Log - 04/08/24 1131 OTHER Precautions/Contraindications Supervising PT: Vince - evelia core stability and monitor leg length Notes visit 6 [phone] Therapeutic Exercise (80580) Intervention 6 min walk in clinic Parameters Seated QL stretch 10''x 5 Intervention Anti rotation press L3 2 x 10 B Parameters Standing At counter, fwd reaching 5lbs 30''x2 Intervention Step up with june 6''x 10 B Parameters Standing HS, calf, lunge stretch 20''x3 each Intervention SLS x 1min B Parameters EOB hip flexor stretch x 1min B Parameters Access Code: [email or web address] URL: [email or web address] Date: 03/15/2024 Prepared by: Kathryn Alexis Exercises - Supine Lower Trunk Rotation - 2 x daily - 10 reps - 5 seconds hold - Supine Posterior Pelvic Tilt - 2 x daily - 10 reps - 5 seconds hold - Supine March with Abdominal Bracing - 2x daily - 2 sets - 20 reps - Hip Flexor Stretch at Edge of Bed - 2 x daily - 3 reps - 20 seconds hold - Supine Nerve [place] - 2 x daily - 15 reps - 3 seconds hold - Left Standing Lateral Shift Correction at Wall - Hold - 2 x daily - 5 reps - 10 seconds hold PT Treatment Times Therex Total Time 42 Direct Treatment Time 42 Total Treatment Time 42 Goals: Physical Therapy Ortho Goals: MOBILITY: Patient will be able to ambulate for 1 hour in community without difficulty in 6 weeks. MOBILITY: Patient will be able to ascend/descend stairs reciprocally without difficulty in 4 weeks. CHANGING MAINTAINING POSITON: Patient will be able to stand for 30 minutes to perform ADL's, IADL'sand housekeeping tasks w/o difficulty in 4 weeks IMPAIRMENT: Patient will demonstrate improved postural awareness in PT sessions to facilitate mechanical alignment and function in 3 weeks. IMPAIRMENT: Improve pain from 8/10 to <4/10 during prolonged standing, lifting/carrying and forward bending in 6 weeks IMPAIRMENT: Improve AROM of Bilateral Lumbar Sidegliding from 75% movement loss to 25% movement loss or less in 6 weeks. OTHER: Patient will increase FOTO score from 54 to at least 70 to show MDC/MCII and expected functional outcome in 6 weeks. OTHER: Patient will be able to properly demonstrate independence with HEP in 1 week. Patient Education: Verbal HEP with patient verbalized understanding. Post-Treatment Pain Scale: 2 Assessment: Patient had an expected response to treatment. Skilled Intervention demonstrated by modifications of treatment per exercise log including assessment of patient's response and safety interventions per exercise log. Progress towards goals as expected. Plan for Next Visit: Treatment Visit with focus on progressing as tolerated Radha Patel PTA STATE LICENSE, [id number] documented in this [id number] History of Present illness Narrative* Radha Patel PTA - 04/05/2024 11:30 AM EST [facility] DAILY TREATMENT NOTE Today's Date 04/05/2024 Patient Name: Chela Rojas Date of : 1945 Current Visit #: 6 Authorized Visits: 199 Case Name: Low Back Pain History: Pre-Treatment Pain Scale: 3 Symptoms: stabilized Functional Diagnosis: 1. Low back pain with sciatica, sciatica laterality unspecified, unspecified back pain laterality, unspecified chronicity Clinical Information: Subjective: Pt reports she is feeling good today, min soreness after LV lasting for 24 hours. States she is compliant with stretches at home and would like to continue core stability and strength Objective Reviewed standing - half kneeling transfers and added anti rotation press Treatments: Physical Therapy Exercise Log - 04/05/24 1130 OTHER Precautions/Contraindications Supervising PT: Vince - progress core stability and monitor leg length Notes visit 5 [phone] Therapeutic Exercise (95821) Intervention scifit L3 x 5' Parameters Seated QL stretch 10''x 5 Intervention Standing HS, calf, lunge stretch 20''x3 each Parameters Step up with june 4''x 10 B Intervention Anti rotation press L3 x 10 B Parameters Standing At counter, fwd reaching 4lbs x 20 Intervention Scifit stepper (30 seconds faster then 2 min slower) x 5 min total Parameters Standing - half kneeling transfers to mat x 3 B Parameters Access Code: [email or web address] URL: [email or web address] Date: 03/15/2024 Prepared by: Kathryn Alexis Exercises - Supine Lower Trunk Rotation - 2 x daily - 10 reps - 5 seconds hold - Supine Posterior Pelvic Tilt - 2 x daily - 10 reps - 5 seconds hold - Supine June with Abdominal Bracing - 2x daily - 2 sets - 20 reps - Hip Flexor Stretch at Edge of Bed - 2 x daily - 3 reps - 20 seconds hold - Supine Nerve [place] - 2 x daily - 15 reps - 3 seconds hold - Left Standing Lateral Shift Correction at Wall - Hold - 2 x daily - 5 reps - 10 seconds hold PT Treatment Times Therex Total Time 40 Direct Treatment Time 40 Total Treatment Time 40 Goals: Physical Therapy Ortho Goals: MOBILITY: Patient will be able to ambulate for 1 hour in community without difficulty in 6 weeks. MOBILITY: Patient will be able to ascend/descend stairs reciprocally without difficulty in 4 weeks. CHANGING MAINTAINING POSITON: Patient will be able to stand for 30 minutes to perform ADL's, IADL'sand housekeeping tasks w/o difficulty in 4 weeks IMPAIRMENT: Patient will demonstrate improved postural awareness in PT sessions to facilitate mechanical alignment and function in 3 weeks. IMPAIRMENT: Improve pain from 8/10 to <4/10 during prolonged standing, lifting/carrying and forward bending in 6 weeks IMPAIRMENT: Improve AROM of Bilateral Lumbar Sidegliding from 75% movement loss to 25% movement loss or less in 6 weeks. OTHER: Patient will increase FOTO score from 54 to at least 70 to show MDC/MCII and expected functional outcome in 6 weeks. OTHER: Patient will be able to properly demonstrate independence with HEP in 1 week. Patient Education: Verbal HEP with patient verbalized understanding. Post-Treatment Pain Scale: 3 Assessment: Patient had an expected response to treatment. Skilled Intervention demonstrated by modifications of treatment per exercise log including assessment of patient's response and safety interventions per exercise log. Progress towards goals as expected. Plan for Next Visit: Treatment Visit with focus on progressing as tolerated Radha Patel PTA STATE LICENSE, [id number] documented in this [id number] History of Present illness Narrative* Radha Patel PTA - 03/31/2024 11:30 AM EST [facility] DAILY TREATMENT NOTE Today's Date 03/31/2024 Patient Name: Chela Rojas Date of : 1945 Current Visit #: 5 Authorized Visits: 199 Case Name: Low Back Pain History: Pre-Treatment Pain Scale: 1 Symptoms: stabilized Functional Diagnosis: 1. Bilateral low back pain with sciatica, sciatica laterality unspecified, unspecified chronicity Clinical Information: Subjective: Pt reports low pain and she is feeling good with stretches, she would like to improve her standing and walking endurance Objective Moved to standing hip and LE stretches, walking intervals and sink press with medball Treatments: Physical Therapy Exercise Log - 03/31/24 1119 OTHER Precautions/Contraindications Supervising PT: Vince - progress core stability and monitor leg length Notes visit 4 [id number] Therapeutic Exercise (10024) Intervention scifit L3 x 5' Parameters side glide at wall (left side to wall) 10''x 5 Intervention Standing HS, calf, lunge stretch 20''x3 each Parameters Step up with june 4''x 10 B Intervention Walking intervals (1min fast walk, 3 min rest) x 3 rounds Parameters Standing At counter, fwd reaching 2,4lbs x 10 each Intervention -- Parameters -- Intervention -- Parameters -- Intervention -- Parameters -- Intervention -- Parameters Access Code: [email or web address] URL: [email or web address] Date: 03/15/2024 Prepared by: Kathryn Alexis Exercises - Supine Lower Trunk Rotation - 2 x daily - 10 reps - 5 seconds hold - Supine Posterior Pelvic Tilt - 2 x daily - 10 reps - 5 seconds hold - Supine June with Abdominal Bracing - 2x daily - 2 sets - 20 reps - Hip Flexor Stretch at Edge of Bed - 2 x daily - 3 reps - 20 seconds hold - Supine Nerve [place] - 2 x daily - 15 reps - 3 seconds hold - Left Standing Lateral Shift Correction at Wall - Hold - 2 x daily - 5 reps - 10 seconds hold PT Treatment Times Therex Total Time 40 Direct Treatment Time 40 Goals: Physical Therapy Ortho Goals: MOBILITY: Patient will be able to ambulate for 1 hour in community without difficulty in 6 weeks. MOBILITY: Patient will be able to ascend/descend stairs reciprocally without difficulty in 4 weeks. CHANGING MAINTAINING POSITON: Patient will be able to stand for 30 minutes to perform ADL's, IADL'sand housekeeping tasks w/o difficulty in 4 weeks IMPAIRMENT: Patient will demonstrate improved postural awareness in PT sessions to facilitate mechanical alignment and function in 3 weeks. IMPAIRMENT: Improve pain from 8/10 to <4/10 during prolonged standing, lifting/carrying and forward bending in 6 weeks IMPAIRMENT: Improve AROM of Bilateral Lumbar Sidegliding from 75% movement loss to 25% movement loss or less in 6 weeks. OTHER: Patient will increase FOTO score from 54 to at least 70 to show MDC/MCII and expected functional outcome in 6 weeks. OTHER: Patient will be able to properly demonstrate independence with HEP in 1 week. Patient Education: Verbal HEP with patient verbalized understanding. Post-Treatment Pain Scale: 1 Assessment: Patient had an expected response to treatment. Skilled Intervention demonstrated by modifications of treatment per exercise log including assessment of patient's response and safety interventions per exercise log. Progress towards goals as expected. Plan for Next Visit: Treatment Visit with focus on progressing as tolerated aRdha Patel PTA STATE LICENSE, [id number] documented in this [id number] History of Present illness Narrative* Wally HuynheeMODESTA - 03/29/2024 1:45 PM EST [facility] DAILY TREATMENT NOTE Today's Date 03/29/2024 Patient Name: Chela Rojas Date of : 1945 Current Visit #: 4 Authorized Visits: 199 Case Name: Low Back Pain History: Pre-Treatment Pain Scale: 0 Symptoms: gradually improved Functional Diagnosis: 1. Low back pain Clinical Information: Subjective: She is feeling good today but still can't stand for 30 min in the kitchen for ADL's Objective added lunges into BOSU with good tolerance Treatments: Physical Therapy Exercise Log - 03/29/24 1426 OTHER Precautions/Contraindications Supervising PT: Vince - progress core stability and monitor leg length Notes visit 3: 1:45-2:25 Therapeutic Exercise (71282) Intervention scifit 5' lv 2 Parameters LTR x10 Intervention PPTs x10 Parameters right hip flexor stretch w/ left SKTC x5 Intervention supine sciatic nerve glides x5 Parameters abd marching x10 Intervention side glide at wall (left side to wall) Parameters provided left long axis distraction - improved leg length to equal and pt reported relief Intervention supine piriformis stretches x5 Parameters supine HS stretches x5 Intervention supine quad sets x10 Parameters supine hip abd/add GTB x20 Intervention Lunge into BOSU x10 Parameters Access Code: [email or web address] URL: [email or web address] Date: 03/15/2024 Prepared by: Kathryn Alexis Exercises - Supine Lower Trunk Rotation - 2 x daily - 10 reps - 5 seconds hold - Supine Posterior Pelvic Tilt - 2 x daily - 10 reps - 5 seconds hold - Supine March with Abdominal Bracing - 2x daily - 2 sets - 20 reps - Hip Flexor Stretch at Edge of Bed - 2 x daily - 3 reps - 20 seconds hold - Supine Nerve [place] - 2 x daily - 15 reps - 3 seconds hold - Left Standing Lateral Shift Correction at Wall - Hold - 2 x daily - 5 reps - 10 seconds hold PT Treatment Times Therex Total Time 40 Direct Treatment Time 40 Total Treatment Time 40 Goals: Physical Therapy Ortho Goals: MOBILITY: Patient will be able to ambulate for 1 hour in community without difficulty in 6 weeks. MOBILITY: Patient will be able to ascend/descend stairs reciprocally without difficulty in 4 weeks. CHANGING MAINTAINING POSITON: Patient will be able to stand for 30 minutes to perform ADL's, IADL'sand housekeeping tasks w/o difficulty in 4 weeks IMPAIRMENT: Patient will demonstrate improved postural awareness in PT sessions to facilitate mechanical alignment and function in 3 weeks. IMPAIRMENT: Improve pain from 8/10 to <4/10 during prolonged standing, lifting/carrying and forward bending in 6 weeks IMPAIRMENT: Improve AROM of Bilateral Lumbar Sidegliding from 75% movement loss to 25% movement loss or less in 6 weeks. OTHER: Patient will increase FOTO score from 54 to at least 70 to show MDC/MCII and expected functional outcome in 6 weeks. OTHER: Patient will be able to properly demonstrate independence with HEP in 1 week. Patient Education: Quality of movement with patient demonstrated understanding. Post-Treatment Pain Scale: 0 Assessment: Patient had an expected response to treatment. Skilled Intervention demonstrated by modifications of treatment per exercise log including increased load and safety interventions per exercise log. Progress towards goals as expected. Plan for Next Visit: Treatment Visit with focus on stretches Nithya Huynh PTA STATE LICENSE, [id number] documented in this [id number] Evaluation note* Diagnosis Onset Date Resolution Status Admit Date Breast cancer, right breast chronic March 28, 2024 1:57pm Osteoporosis chronic March 1:57pm Breast cancer, right breast chronic June 13, 2024 11:57am [facility] Work Phone: 1([phone]) 255-496712-06-2024 History of Present illness Narrative* Nithya Huynh PTA - 03/25/2024 4:00 PM EST [facility] TREATMENT NOTE Today's Date 03/25/2024 Patient Name: Chela Rojas Date of : 1945 Current Visit #: 3 Authorized Visits: 199 Case Name: Low Back Pain History: Pre-Treatment Pain Scale: 2 Symptoms: gradually improved Functional Diagnosis: 1. Low back pain Clinical Information: Subjective: Her LB is feeling pretty good today Objective added hip abd/add with good tolerance Treatments: Physical Therapy Exercise Log - 03/25/24 1639 OTHER Precautions/Contraindications Supervising PT: Vince - evelia core stability and monitor leg length Notes visit 2: 4:00-4:38 Therapeutic Exercise (24744) Intervention scifit 5' lv 2 Parameters LTR x10 Intervention PPTs x10 Parameters right hip flexor stretch w/ left SKTC x5 Intervention supine sciatic nerve glides x5 Parameters abd marching x10 Intervention side glide at wall (left side to wall) Parameters provided left long axis distraction - improved leg length to equal and pt reported relief Intervention supine piriformis stretches x5 Parameters supine HS stretches x5 Intervention supine quad sets x10 Parameters supine hip abd/add GTB x20 Parameters Access Code: [email or web address] URL: [email or web address] Date: 03/15/2024 Prepared by: Kathryn Alexis Exercises - Supine Lower Trunk Rotation - 2 x daily - 10 reps - 5 seconds hold - Supine Posterior Pelvic Tilt - 2 x daily - 10 reps - 5 seconds hold - Supine March with Abdominal Bracing - 2x daily - 2 sets - 20 reps - Hip Flexor Stretch at Edge of Bed - 2 x daily - 3 reps - 20 seconds hold - Supine Nerve [place] - 2 x daily - 15 reps - 3 seconds hold - Left Standing Lateral Shift Correction at Wall - Hold - 2 x daily - 5 reps - 10 seconds hold PT Treatment Times Therex Total Time 38 Direct Treatment Time 38 Total Treatment Time 38 Goals: Physical Therapy Ortho Goals: MOBILITY: Patient will be able to ambulate for 1 hour in community without difficulty in 6 weeks. MOBILITY: Patient will be able to ascend/descend stairs reciprocally without difficulty in 4 weeks. CHANGING MAINTAINING POSITON: Patient will be able to stand for 30 minutes to perform ADL's, IADL'sand housekeeping tasks w/o difficulty in 4 weeks IMPAIRMENT: Patient will demonstrate improved postural awareness in PT sessions to facilitate mechanical alignment and function in 3 weeks. IMPAIRMENT: Improve pain from 8/10 to <4/10 during prolonged standing, lifting/carrying and forward bending in 6 weeks IMPAIRMENT: Improve AROM of Bilateral Lumbar Sidegliding from 75% movement loss to 25% movement loss or less in 6 weeks. OTHER: Patient will increase FOTO score from 54 to at least 70 to show MDC/MCII and expected functional outcome in 6 weeks. OTHER: Patient will be able to properly demonstrate independence with HEP in 1 week. Patient Education: Quality of movement with patient demonstrated understanding. Post-Treatment Pain Scale: 2 Assessment: Patient had an expected response to treatment. Skilled Intervention demonstrated by modifications of treatment per exercise log including increased load and safety interventions per exercise log. Progress towards goals as expected. Plan for Next Visit: Treatment Visit with focus on pain control Nithya Huynh PTA STATE LICENSE, [id number] documented in this [id number] History of Present illness Narrative* Nithya Huynh PTA - 03/22/2024 4:45 PM EST [facility] TREATMENT NOTE Today's Date 03/22/2024 Patient Name: Chela Rojas Date of : 1945 Current Visit #: 2 Authorized Visits: 199 Case Name: Low Back Pain History: Pre-Treatment Pain Scale: 4 Symptoms: stabilized Functional Diagnosis: 1. Low back pain Clinical Information: Subjective: she is compliant with HEP with good understanding. Objective increased HS tightness on L with stretches. Treatments: Physical Therapy Exercise Log - 03/22/24 1722 OTHER Precautions/Contraindications Supervising PT: Vince - evelia core stability and monitor leg length Notes visit 1: 4:45-5:22 Therapeutic Exercise (11964) Parameters LTR x10 Intervention PPTs x10 Parameters right hip flexor stretch w/ left SKTC x5 Intervention supine sciatic nerve glides x5 Parameters abd marching x10 Intervention side glide at wall (left side to wall) Parameters provided left long axis distraction - improved leg length to equal and pt reported relief Intervention supine piriformis stretches x5 Parameters supine HS stretches x5 Intervention supine quad sets x10 Parameters Access Code: [email or web address] URL: [email or web address] Date: 03/15/2024 Prepared by: Kathryn Alexis Exercises - Supine Lower Trunk Rotation - 2 x daily - 10 reps - 5 seconds hold - Supine Posterior Pelvic Tilt - 2 x daily - 10 reps - 5 seconds hold - Supine March with Abdominal Bracing - 2x daily - 2 sets - 20 reps - Hip Flexor Stretch at Edge of Bed - 2 x daily - 3 reps - 20 seconds hold - Supine Nerve [place] - 2 x daily - 15 reps - 3 seconds hold - Left Standing Lateral Shift Correction at Wall - Hold - 2 x daily - 5 reps - 10 seconds hold PT Treatment Times Therex Total Time 37 Direct Treatment Time 37 Total Treatment Time 37 Goals: Physical Therapy Ortho Goals: MOBILITY: Patient will be able to ambulate for 1 hour in community without difficulty in 6 weeks. MOBILITY: Patient will be able to ascend/descend stairs reciprocally without difficulty in 4 weeks. CHANGING MAINTAINING POSITON: Patient will be able to stand for 30 minutes to perform ADL's, IADL'sand housekeeping tasks w/o difficulty in 4 weeks IMPAIRMENT: Patient will demonstrate improved postural awareness in PT sessions to facilitate mechanical alignment and function in 3 weeks. IMPAIRMENT: Improve pain from 8/10 to <4/10 during prolonged standing, lifting/carrying and forward bending in 6 weeks IMPAIRMENT: Improve AROM of Bilateral Lumbar Sidegliding from 75% movement loss to 25% movement loss or less in 6 weeks. OTHER: Patient will increase FOTO score from 54 to at least 70 to show MDC/MCII and expected functional outcome in 6 weeks. OTHER: Patient will be able to properly demonstrate independence with HEP in 1 week. Patient Education: Quality of movement with patient demonstrated understanding. Post-Treatment Pain Scale: 3 Assessment: Patient had an expected response to treatment. Skilled Intervention demonstrated by modifications of treatment per exercise log including increased load and safety interventions per exercise log. Progress towards goals as expected. Plan for Next Visit: Treatment Visit with focus on stretches and pain control Nithya Huynh PTA STATE LICENSE, [id number] documented in this [id number] History of Present illness Narrative* Kathryn Alexis, PT - 03/15/2024 2:30 PM EST [facility] Evaluation Today's Date 03/15/2024 Patient Name: Chela Rojas Date of : 1945 Case Name: Low Back Pain Functional Diagnosis: 1. Low back pain Clinical Information: Subjective Referring Diagnosis: Low Back Pain Follow Up With Physician: July 2024. History of Present Illness Subjective History: Pt reports c/o chronic centralized low back pain. She states sx began about oneyear ago with radicular in the left leg. She is now experiencing radiculopathy bilaterally and states her feet are often numb. She reports limited standing tolerance and is often feels off balance and has to watch her feet when walking. Previous Imaging: X-ray Pain Scale Pain location: lumbar spine Average Pain: 6/10 Pain at highest: 8/10 Aggravating factors: prolonged standing and walking (static standing is worse), bending, lifting/carrying, prolonged counter top/table top activity Easing factors: rest/sitting, Tylenol/Ibuprofen prn 24 Hour Symptom Behavior Morning Pain: sudden Afternoon Pain: better End of day pain: worse Personal Goals: Manage pain Improve standing and activity tolerance Return to prior level of function Functional Mobility Status Functional Limitations: standing and limited mobility Current Mobility Status: Home: no device Community: no device Bed Transfer: independent Car Transfer: independent Current Activity Level: active Social Support: Caodaism, social, or cultural considerations to be made aware of before starting treatment: No Home Environment Current Home Environment: Setup: multi-level house Activities of Daily Living: independent with all Instrumental Activities of Daily Livingto be assessed Sleep Assessment Preferred sleep position: on side (right side with pillow between the knees) Sleep disturbance: Sleep Disturbance Red Flags: None Comments: Barriers to Care: None Caodaism, social, or cultural considerations to be made aware of before starting treatment: No Lumbar Spine Asymmetrics: Leg length: left shorter and right longer about 1 inch - possible upslip Trunk AROM: Baseline pain level and symptom location: 5/10 centralized to lower lumbar region Movement Loss % of Loss Description Flexion 0% no pain Extension 0% no pain - more stiff compared to flexion Side Gliding R 75% no pain Side Gliding L 75% no pain Dermatomes Sensation: grossly intact Muscle Strength:WFL Special Tests SLR Right: no SLR R Left: no SLR L Scour Negative Left KEYUR negative bilat. SIJ dysfunction: SIJ Dysfunction Palpation/ Tenderness: Tenderness at bilat. SIJs Left iliac crest and PSIS elevated compared to the right in standing FOTO Score: 54 Treatments: Physical Therapy Exercise Log - 03/15/24 9313 OTHER Precautions/Contraindications Supervising PT: Vince - progress core stability and monitor leg length Notes Eval: 2:32 - 3:10 Therapeutic Exercise ([id number]) Intervention initial HEP: Parameters LTR Intervention PPTs Parameters right hip flexor stretch w/ left SKTC Intervention supine sciatic nerve glides Parameters abd marching Intervention side glide at wall (left side to wall) Parameters provided left long axis distraction - improved leg length to equal and pt reported relief Parameters Access Code: [email or web address] URL: [email or web address] Date: 03/15/2024 Prepared by: Kathryn Alexis Exercises - Supine Lower Trunk Rotation - 2 x daily - 10 reps - 5 seconds hold - Supine Posterior Pelvic Tilt - 2 x daily - 10 reps - 5 seconds hold - Supine March with Abdominal Bracing - 2x daily - 2 sets - 20 reps - Hip Flexor Stretch at Edge of Bed - 2 x daily - 3 reps - 20 seconds hold - Supine Nerve [place] - 2 x daily - 15 reps - 3 seconds hold - Left Standing Lateral Shift Correction at Wall - Hold - 2 x daily - 5 reps - 10 seconds hold PT Treatment Times Total Treatment Time 38 Goals: Physical Therapy Ortho Goals: MOBILITY: Patient will be able to ambulate for 1 hour in community without difficulty in 6 weeks. MOBILITY: Patient will be able to ascend/descend stairs reciprocally without difficulty in 4 weeks. CHANGING MAINTAINING POSITON: Patient will be able to stand for 30 minutes to perform ADL's, IADL'sand housekeeping tasks w/o difficulty in 4 weeks IMPAIRMENT: Patient will demonstrate improved postural awareness in PT sessions to facilitate mechanical alignment and function in 3 weeks. IMPAIRMENT: Improve pain from 8/10 to <4/10 during prolonged standing, lifting/carrying and forward bending in 6 weeks IMPAIRMENT: Improve AROM of Bilateral Lumbar Sidegliding from 75% movement loss to 25% movement loss or less in 6 weeks. OTHER: Patient will increase FOTO score from 54 to at least 70 to show MDC/MCII and expected functional outcome in 6 weeks. OTHER: Patient will be able to properly demonstrate independence with HEP in 1 week. CPT Code 18730 Low 89019 Moderate 62761 High History 0 1-2 3+ Comorbidities: anxiety and thyroid disorder, Personal factors: chronicity or severity of the current condition Examination of body systems (elements of body structures & functions, activity limitations, and/or participation restrictions) 1-2 elements 3+ elements 4+ elements See below clinical impression Clinical Presentation Stable Evolving Unstable As evidenced by reproduction of or changes in symptoms with certain movements and pt report of overall worsening of symtpoms over time Decision Making Low (FOTO >/= 69) Moderate (FOTO 34 - 68) High (FOTO </= 33) FOTO score= 54 Pt is a 78 y.o. female who presents to PT services with c/o chronic low back pain. Upon assessment,pt has been found with the following impairments: impaired posture, decreased ROM, decreased strength, pain, and Numbness/tingling. 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 The pt would benefit from skilled PT services focused on the above listed impairments and limitations in order to safely progress ptto their desired level of function. Pt to be discharged from OP PT services if/when goals are met, if they fail to make progress with conservative management in PT, if their level of progress plateaus, or if they do not maintain compliance with attendance or HEP. At this time, it is my clinical judgment that services are medically necessary. Plan of Care Frequency of Visits: 2 times per week Duration: 6 weeks Interventions: Therapeutic Exercise (87872), Neuromuscular Re-Education (88152), Manual Therapy (15490), Therapeutic/ Functional Activities (24261), Gait Training (95672), and Hot/Cold Pack (74488) Rehab Potential: good Patient Education Provided Pt was educated on the benefits of therapy and importance of compliance with sessions and HEP for rehabilitation. Pt was also educated on treatment diagnosis, POC, and frequency/duration of treatment. Kathryn Alexis PT State License, [id number] documented in this [id number] Procedure [facility]10-25-2023 Procedure [facility]12-15-2022 Note Clinic Note: Education Assessment: Learning BarriersNo barriers TaughtPatient Nursing Note: Nursing Notept set up for a dexa scan 04/11 at [facility]- instructed on prep. referral to Radiation at [facility]- they will call pt to schedule. rtc for f/u after radiation is complete 05/16 at 10am Electronic Signatures: Yaquelin Morrison (RN) (Signed 03-Apr-2022 15:30) Authored: Education Assessment, Nursing Note Last Updated: 03-Apr-2022 15:30 by Yaquelin Morrison (RN)[facility]12-12-2022 VirgilJESSENIA Hogan RUSTYHANANE was presented at Breast Tumor Board Conference Conference [...] and DCIS Breast prognostic indicators: ER: Positive MT: Positive HER: Negative Breast laterality: Right Stage: Clinical stage: cT1c cN0 cM0 stage IA. Path stage: pT1c pNX cM0. Recommendations Hormonal: Aromatase Inhibitor Radiation therapy: Postop Radiation (consider) Referrals Med Onc (Dr. Luis) Cancer Staging: Breast AJCC Edition: 7th (AJCC), Diagnosis Date: 27-Dec-2015, 0- RIGHT LCIS, Tis N0 M0 Disclaimer [facility] tumor board recommendations represent the consensus opinion of physicians present at a weekly patient care conference. The treating [facility] physician is not always present, and many of the physicians formulating the recommendation have not personally seen or examined the patient under discussion. It is understood that the treating [facility] physician considers the expertise of the Tumor [...] Updated: 31-Mar-2022 13:28 by Queenie Howard (PT REG)[facility]12-05-2022 History of Present illness Narrative* 1 year of shortness of breath * Reported to Dr Arellano and breast cancer doctor when she had surgery * Noted wheezing and given a nebulizer treatment. * [facility] better even the next morning. * Was also given an incentive spirometer * She is noting wheezing * Gets coughing spells. * Has no SN, RN, PND. * Some thickness in the throat. * She has not had a recent breathing test * She had CBC a couple years ago with normal differential * Anxiety is doing better as she gets over the shock of the cancer. She is needing another RX for now. * I have personally reviewed the patients OARRS report. This report is filed in the EHR. I have considered the risks of abuse, addiction and diversion. I believe it is clinically appropriate to continue to prescribe this medication. [facility] Work Phone: 1(183) 639-927511-16-2022 NotePROCEDURE DETAILS Preoperative Diagnosis: Malignant neoplasm of lower-inner quadrant of right female breast, C50.311 Postoperative Diagnosis: Malignant neoplasm of lower-inner quadrant of right female breast, C50.311 Surgeon: Sheryl Ingram Resident/Fellow/Other Iron Cutter: Yadi Alfaro Procedure: 1. PARTIAL MASTECTOMY: RIGHT [...] Last Updated: 05-Mar-2022 10:56 by Sheryl Ingram ()[facility] 03-05-2022 NoteHistory & Physical Reviewed: I have reviewed the History and Physical [...] Completion Last Updated: 05-Mar-2022 09:13 by Sheryl Ingram ()[facility] 11-18-2021 History of Present illness Narrative* CHELA ROJAS is a 76 year female who presents today at the request of Altagracia Arellano for newly diagnosed right breast cancer. * Family history of breast cancer, personal history of biopsy with atypia being followed with enhanced screening. * Mammogram in [place] benign. MRI breast 01/24/2022 with a suspicious right breast mass inferior medial measuring 1.5cm. no axillary adenopathy. 2nd look U/S and biopsy recommended. * right U/S biopsy 5:00 7cmFN IDC g1-2 ER 95% MT 95% HER2-. Of note, biopsy clip and massnot visualized on post biopsy mammogram due to location of mass along IMF. * She denies any additional breast masses, skin thickening, erythema, nipple retraction or nipple discharge. * Prior breast history includes: * - breast biopsy: prior right breast excisional biopsy with atypia * - breast surgery: right breast exicisonal biopsy * - breast cancer: no * Last mammogram: November 2021 benign * Menarche: 11 * AFLB: 27 * Menopause: 51 * HRT: no * Family history: mother with breast cancer at 75. sister with breast cancer at 79. No genetics. [employer] Work Phone: 1(585) 677-485908-01-2022 History of Present illness Narrative* CHELA ROJAS is a 76 year female who presents today at the request of Altagracia Arellano for newly diagnosed right breast cancer. * Family history of breast cancer, personal history of biopsy with atypia being followed with enhanced screening. * Mammogram in November benign. MRI breast 01/24/2022 with a suspicious right breast mass inferior medial measuring 1.5cm. no axillary adenopathy. 2nd look U/S and biopsy recommended. * right U/S biopsy 5:00 7cmFN IDC g1-2 ER 95% MT 95% HER2-. Of note, biopsy clip and massnot visualized on post biopsy mammogram due to location of mass along IMF. * She denies any additional breast masses, skin thickening, erythema, nipple retraction or nipple discharge. * Prior breast history includes: * - breast biopsy: prior right breast excisional biopsy with atypia * - breast surgery: right breast exicisonal biopsy * - breast cancer: no * Last mammogram: November 2021 benign * Menarche: 11 * AFLB: 27 * Menopause: 51 * HRT: no * Family history: mother with breast cancer at 75. sister with breast cancer at 79. No genetics. [employer] Work Phone: 1([phone]) 849-621108-01-2022 History of Present illness Narrative* CHELA ROJAS is a 76 year female who presents today at the request of Altagracia Arellano for newly diagnosed right breast cancer. * Family history of breast cancer, personal history of biopsy with atypia being followed with enhanced screening. * Mammogram in November benign. MRI breast 01/24/2022 with a suspicious right breast mass inferior medial measuring 1.5cm. no axillary adenopathy. 2nd look U/S and biopsy recommended. * right U/S biopsy 5:00 7cmFN IDC g1-2 ER 95% MT 95% HER2-. Of note, biopsy clip and massnot visualized on post biopsy mammogram due to location of mass along IMF. * She denies any additional breast masses, skin thickening, erythema, nipple retraction or nipple discharge. * Prior breast history includes: * - breast biopsy: prior right breast excisional biopsy with atypia * - breast surgery: right breast exicisonal biopsy * - breast cancer: no * Last mammogram: November 2021 benign * Menarche: 11 * AFLB: 27 * Menopause: 51 * HRT: no * Family history: mother with breast cancer at 75. sister with breast cancer at 79. No genetics. [employer] Work Phone: [phone]) 435-104508-01-2022 History of Present illness Narrative* CHELA ROJAS is a 76 year female who presents today at the request of Altagracia Arellano for newly diagnosed right breast cancer. * Family history of breast cancer, personal history of biopsy with atypia being followed with enhanced screening. * Mammogram in November benign. MRI breast 01/24/2022 with a suspicious right breast mass inferior medial measuring 1.5cm. no axillary adenopathy. 2nd look U/S and biopsy recommended. * right U/S biopsy 5:00 7cmFN IDC g1-2 ER 95% MT 95% HER2-. Of note, biopsy clip and massnot visualized on post biopsy mammogram due to location of mass along IMF. * 03/05/2022 right partial mastectomy tumor 1.6cm, margins negative (>2mm). * She denies any additional breast masses, skin thickening, erythema, nipple retraction or nipple discharge. * Prior breast history includes: * - breast biopsy: prior right breast excisional biopsy with atypia * - breast surgery: right breast exicisonal biopsy * - breast cancer: no * Last mammogram: November 2021 benign * Menarche: 11 * AFLB: 27 * Menopause: 51 * HRT: no * Family history: mother with breast cancer at 75. sister with breast cancer at 79. No genetics. [employer] Work Phone: [phone]) 193-228908-01-2020 History of Present illness Narrative* Age- related osteoporosis - she is on vitamin D in winter with calcium , BD in November, was a bit worse and FRAX was 18 and 6%. Declined Boniva * Anxiety state - some marital issues last year settled. Trazodone helps with rest, sadness and lack of motivation she had last year. Effexor at bid * Breast cancer - has been [facility] since 2016. [facility] actually to be precancer. Mammogram in 11/19/20 was good. No hormonal therapy at present. No lumps * Cardiac hypertrophy - she is on metoprolol for this at 25 tid. Tried off of it in 2019. Some fluttering so went to tid. To ER on October 2019 with chest pain, sweating and nausea. Subsequent stress testnormal. Since that spell no recurrence. Still has the fluttering. * Essential tremor - She was recommended to go back on primidone but had the bad dreams. Discussed Botox. Not really planning to do that. She would prefer to just live with it for now. No change with Toprol tid. OK to write and eat. Has voice tremor. * Heel spur and plantar fasciitis and cervical [...] been to Dr Nava. Will send to [facility]. * Irritable bowel syndrome - has been managed with diet and stress reduction. This may be the pain that she felt was diverticulitis * Right hip pain - has had Bone scan suggesting possible loosening. But Dr Renner felt tendonitis. That is doing better but flares at times. * CRPS/ Peripheral neuropathy/lumbar spondylosis - feels like it is related to her low back burning and pinching. Stretching helps. Tingling in left arm for about 3 weeks and still better today. Feet burn all the time. Walking barefoot feels good * Stenosis of cervix - needed pap in OR and fine. No bleeding so no further paps needed. * Swallowing disorder - about the same. Takes small fiber and water. No better with expectorant. Sipswater. A lot of thick mucus. * Thyroid nodule - no temp intolerance, constipation, hair loss, fatigue TSH 4.26 last year * Bladder spasms - saw Dr Delonte Shukla. Considered a medication and just observing. Did not feel a cystocele. Occasional leakage * Mammogram 11/19/20 * DEXA 11/17/19 - * Colonoscopy 07/01/18 -[facility] Work Phone: [phone] History of Present illness Narrative* Age- related osteoporosis - she is on vitamin D in winter with calcium , BD in November, was a bit worse and FRAX was 18 and 6%. Declined Boniva * Anxiety state - some marital issues last year settled. Trazodone helps with rest, sadness and lack of motivation she had last year. Effexor at bid. but feels like she tries to control the tremor and will lock up, drop things. The two issues seem to feed each other. Has done some Yoga. Will work on p rogressive relaxation. * Breast cancer - has been JOSE [facility]ON since 2016. [facility] actually to be precancer. Mammogram in 11/19/20 was good. No hormonal therapy at present. No lumps * Cardiac hypertrophy - she is on metoprolol for this at 25 tid. Tried off of it in 2019. Some fluttering so went to tid. To ER on October 2019 with chest pain, sweating and nausea. Subsequent stress testnormal. Since that spell no recurrence. Still has the fluttering on occasion * Essential tremor - She was recommended to go back on primidone but had the bad dreams. Discussed Botox. Not really planning to do that. She would prefer to just live with it for now. No change with Toprol tid. OK to write and eat. Has voice tremor. See discussion above about locking up. Has to workto talk clearly. * Heel spur and plantar fasciitis and cervical [...] Stretching. Has been to Dr. Keys and pa. * Irritable bowel syndrome - has been managed with diet and stress reduction. This may be the pain that she felt was diverticulitis * Right hip pain - has had Bone scan suggesting possible loosening. But Dr Renner felt tendonitis. That is doing better but flares at times. * CRPS/ Peripheral neuropathy/lumbar spondylosis - feels like it is related to her low back burning and pinching. Stretching helps. Tingling in left arm for about 3 weeks and still better today. Feet burn all the time. Walking barefoot feels good * Stenosis of cervix - needed pap in OR and fine. No bleeding so no further paps needed. * Swallowing disorder - about the same. Takes small fiber and water. No better with expectorant. Sipswater. A lot of thick mucus. * Thyroid nodule - no temp intolerance, constipation, hair loss, fatigue TSH 4.26 last year * Bladder spasms - saw Dr Delonte Shukla. Considered a medication and just observing. Did not feel a cystocele. Occasional leakage * Mammogram 11/19/20 * DEXA 11/17/19 - * Colonoscopy 07/01/18 [facility] Work Phone: [phone] History of Present illness Narrative* Age- related osteoporosis - she is on vitamin D in winter with calcium , BD in 2019 was a bit worse and FRAX was 18 and 6%. Declined Boniva * Anxiety state - some marital issues last year settled. Trazodone helps with rest, sadness and lack of motivation she had last year. . Effexor at bid * Breast cancer - has been [facility] since 2016. [facility] actually to be precancer. Mammogram in October 2019 and due in November. . Dr Zaidi will no longer follow. * Cardiac hypertrophy - she is on metoprolol for this at 25 tid. Tried off of it last year. Some fluttering so went to tid. To ER on October 2019 with chest pain, sweating and nausea. Subsequent stress test normal. Since that spell no recurrence. Still has the fluttering. * Diverticulitis large intestine - intermittent RLQ pain. No blood or melena. Scope in June 2018. * Essential tremor - She was recommended to go back on primidone but had the bad dreams. Discussed Botox. Not really planning to do that. She would prefer to just live with it for now. No change with Toprol tid. OK to write and eat. Has voice tremor. * Heel spur and plantar fasciitis and cervical spondylosis. That is better but has the pain in distalfoot so had an injection by Dr Reardon. Has had PT for this which helped the ankle tightness. Getting burning in the legs .Getting puffy ankles. No sweaty feet. Has low back pain into the thighs. Keeps awake at hs. Uses Biofreeze. She is holding on further injections in the feet or back. XRay of neck with arthritis. Stretching * Irritable bowel syndrome - has been managed with diet and stress reduction. This may be the pain that she felt was diverticulitis * Right hip pain - has had Bone scan suggesting possible loosening. But Dr Renner felt tendonitis. That is doing better * CRPS/ Peripheral neuropathy - feels like it is related to her low back burning and pinching. Stretching helps. Tingling in left arm for about 3 weeks and some better today. Feet burn all the time. Walking barefoot feels good * Stenosis of cervix - needed pap in OR and fine * Swallowing disorder - about the same. Takes small fiber and water. No better with expectorant. Sipswater. A lot of thick mucus. * Thyroid nodule - no temp intolerance, constipation, hair loss, fatigue TSH 4.26 last year * Bladder spasms - saw Dr Delonte Shukla. Considered a medication and just observing. Did not feel a cystocele. * Had visceral hemorrhage in left eye a couple weeks ago. * Mammogram 11/17/19 - ordered * DEXA 11/17/19 - * Colonoscopy 07/01/18 [facility] Work Phone: Evaluation note* Diagnosis Onset Date Resolution Status Breast cancer, right breast chronic Breast cancer, right breast chronic Chest pain acute Hoarseness of voice acute SOB (shortness of breath) ac antoine [facility] Work Phone: Evaluation note* Diagnosis Onset Date Resolution Status SOB (shortness of breath) ch ronic Breast cancer, right breast chronic Breast cancer, right breast chronic [facility] Work Phone: Evaluation note* Diagnosis Onset Date Resolution Status Breast cancer, right breast chronic Breast cancer, right breast chronic Breast cancer, right breast chronic [facility] Work Phone: evaluation note* Diagnosis Dyspnea Other dyspnea and respiratory abnormality LVH (left ventricular hypertrophy) Cardiomegaly Preop cardiovascular exam Pre-operative cardiovascular examination LVH (left ventricular hypertrophy)- Primary Cardiomegaly Osteoarthritis of right hip, unspecified osteoarthritis type Low back pain- Primary Lumbago [facility] Diagnosis Dyspnea Other dyspnea and respiratory abnormality LVH (left ventricular hypertrophy) Cardiomegaly Preop cardiovascular exam Pre-operative cardiovascular examination LVH (left ventricular hypertrophy)- Primary Cardiomegaly Osteoarthritis of right hip, unspecified osteoarthritis type Low back pain Lumbago [facility] Diagnosis Dyspnea Other dyspnea and respiratory abnormality LVH (left ventricular hypertrophy) Cardiomegaly Preop cardiovascular exam Pre-operative cardiovascular examination LVH (left ventricular hypertrophy)- Primary Cardiomegaly Osteoarthritis of right hip, unspecified osteoarthritis type Low back pain- Primary Lumbago [facility] Diagnosis Dyspnea Other dyspnea and respiratory abnormality LVH (left ventricular hypertrophy) Cardiomegaly Preop cardiovascular exam Pre-operative cardiovascular examination LVH (left ventricular hypertrophy)- Primary Cardiomegaly Osteoarthritis of right hip, unspecified osteoarthritis type Low back pain- Primary Lumbago [facility] Diagnosis Dyspnea Other dyspnea and respiratory abnormality LVH (left ventricular hypertrophy) Cardiomegaly Preop cardiovascular exam Pre-operative cardiovascular examination LVH (left ventricular hypertrophy)- Primary Cardiomegaly Osteoarthritis of right hip, unspecified osteoarthritis type Low back pain- Primary Lumbago [facility] Diagnosis Dyspnea Other dyspnea and respiratory abnormality LVH (left ventricular hypertrophy) Cardiomegaly Preop cardiovascular exam Pre-operative cardiovascular examination LVH (left ventricular hypertrophy)- Primary Cardiomegaly Osteoarthritis of right hip, unspecified osteoarthritis type Bilateral low back pain with sciatica, sciatica laterality unspecified, unspecified chronicity- Primary [facility]* Diagnosis Dyspnea Other dyspnea and respiratory abnormality LVH (left ventricular hypertrophy) Cardiomegaly Preop cardiovascular exam Pre-operative cardiovascular examination LVH (left ventricular hypertrophy)- Primary Cardiomegaly Osteoarthritis of right hip, unspecified osteoarthritis type Low back pain with sciatica, sciatica laterality unspecified, unspecified back pain laterality, unspecified chronicity- Primary [facility] Diagnosis Dyspnea Other dyspnea and respiratory abnormality LVH (left ventricular hypertrophy) Cardiomegaly Preop cardiovascular exam Pre-operative cardiovascular examination LVH (left ventricular hypertrophy)- Primary Cardiomegaly Osteoarthritis of right hip, unspecified osteoarthritis type Acute bilateral low back pain with sciatica, sciatica laterality unspecified- Primary [facility] Diagnosis Dyspnea Other dyspnea and respiratory abnormality LVH (left ventricular hypertrophy) Cardiomegaly Preop cardiovascular exam Pre-operative cardiovascular examination LVH (left ventricular hypertrophy)- Primary Cardiomegaly Osteoarthritis of right hip, unspecified osteoarthritis type Low back pain with sciatica, sciatica laterality unspecified, unspecified back pain laterality, unspecified chronicity- Primary [facility] Diagnosis Dyspnea Other dyspnea and respiratory abnormality LVH (left ventricular hypertrophy) Cardiomegaly Preop cardiovascular exam Pre-operative cardiovascular examination LVH (left ventricular hypertrophy)- Primary Cardiomegaly Osteoarthritis of right hip, unspecified osteoarthritis type Acute bilateral low back pain with sciatica, sciatica laterality unspecified- Primary [facility] Diagnosis Pain in right foot Pain in soft tissues of limb documented in this encounter [facility] Work Phone: Evaluation note* Diagnosis Localized swelling, mass and lump, right lower limb documented in this encounter [facility] Work Phone: History of Present illness Narrative* The patient is being seen for the subsequent annual wellness visit. * Past Medical, Surgical and Family History: reviewed and updated in chart. * Medications and Supplements: Medications and supplements, including calcium and vitamins reviewed and updated in chart. * No, the patient is not using opioids. * Patient Self Assessment of Health Status: excellent. * Tobacco use: Non-User The patient has never smoked cigarettes. * Alcohol use: The patient reports drinking 2 drinks per month. * Illicit drug use: Non-User * Current diet: well balanced diet, Heart Healthy Diet, does consume adequate fluids and does consumecaffeine. * Exercise Frequency: infrequently. * Depression/Suicide Screening: . * During the past 2 weeks, the patient has not felt down, depressed or hopeless. * During the past 2 weeks, the patient has not felt little interest or pleasure in doing things. * Hearing Impairment: none. * Cognitive Impairment: No cognitive impairment observed. * Bathing: performs independently. * Dressing: performs independently. * Walking: performs independently. * Toileting: performs independently. * Feeding: performs independently. * Personal Hygiene: performs independently. * Managing Finances: performs independently. * Shopping: performs independently. * Managing Medications: performs independently. * Housework / Basic Home Maintenance: performs independently. * Handling Transportation: performs independently. * Preparing Meals: performs independently. * Using the Telephone/ Communication Devices: performs independently. * Falls Risk Screening:. CHELA has not fallen in the last 6 months. * Home safety risk factors: none. * Patient presents to the clinic today for Annual Medicare Wellness Visit and has the following concern(s): None. * She is feeling well in her usual state health. Denies recent illnesses. No change in interval history since last office visit. She reports eating healthy well-balanced diet and doing strengthening exercises. She takes her medications as prescribed. She is independent in her IADLs and ADLs. [facility] Work Phone: Instructions* Name Dates Details Instructions not documented [id number] Work Phone: reason for referral (narrative)[facility] for [facility] Work [facility]: Reason for visit Narrative* Imaging (Routine) - Authorized Specialty Diagnoses / Procedures Referred By Gerry t Referred To Contact Radiology Diagnoses Pain in right foot Procedures XR foot right 3+ views Amarilis Granados DPM [address] [place] [address] Phone: tel: fax: Referral ID Status Reason Start Date Expiration Date Visits Requested Visits Authorized [id number] Authorized Perform Procedure 08/02/2024 08/02/2025 1 1 [facility] Work Phone: Reason for visit Narrative* Imaging (Routine) - Authorized Specialty Diagnoses / Procedures Referred By Gerry t Referred To Contact Radiology Diagnoses Localized swelling, mass and lump, right lower limb Procedures MR ankle right w and wo IV contrast Amarilis Granados DPM [address] [place] [address] Phone: tel: fax: Referral ID Status Reason Start Date Expiration Date Visits Requested Visits Authorized [id number] Authorized Perform Procedure 09/01/2024 09/01/2025 1 1 [facility] Work Phone: Assessments Diagnosis Status post total hip replac ement, right - Primary Diagnosis Plantar fasciitis of left foot Diagnosis Plantar fasciitis of left foot Diagnosis Plantar fasciitis of left foot Diagnosis Plantar fasciitis of left foot Diagnosis Pain of right hip joint- Primary Advance Directives No Advanced Directives Records FoundDocuments on File Type Date Recorded Patient Concept Artist Expl anation Advance Directives and Livin g Will 06/22/2018 1:23 PM Documents on File Type Date Recorded Patient Concept Artist Expl anation Living Will 09/06/2015 Summary Purpose Family History No Family History [...] malignant neoplasm of breast: Sister(V16.3, Z80.3) Status:Active Relationship Condition Age at Onset Recorded Date/T jack mother Malignant neoplasm of breast Unknown father Depression Unknown sister Malignant neoplasm of breast Unknown aunt Malignant neoplasm of breast Unknown History of Present Illness * Linda Glez, PT - 06/28/2018 9:20 AM EDT Goals added from evaluation. in this encounter* Latoya Hallmanissa, [employer] - 06/28/2018 1:00 PM EDT [facility] DAILY TREATMENT NOTE Today's Date [...] ROM, states she feels she hit the wall. Pt requested Ultra sound per M.D. Order, Objective Pt completed ex log, non-pitting edema noted to lateral foot . Added US to decrease inflammation and increase ROM. Treatments: Physical Therapy Exercise Log - 06/28/18 1305 Therapeutic Exercise (59183) Intervention Towel stretch - sitting Parameters 3' Intervention [place] poultry picker Parameters x1 (entire bowl) Intervention towel [...] and AROM Yadi Hallman PTA STATE LICENSE, [id number] in this encounter* Linda Glez, PT - 06/29/2018 1:00 PM EDT [facility] DAILY TREATMENT NOTE Today's Date [...] Exercise Log - 06/29/18 1306 Therapeutic Exercise (44475) Intervention Towel stretch - sitting Parameters 4x30 Intervention [place] poultry picker Parameters x1 (entire bowl) Intervention towel [...] as able. Linda Glez PT State License, [id number] in this encounter* Linda Glez, DELORIS - 07/05/2018 1:00 PM EDT [facility] DAILY TREATMENT NOTE Today's Date [...] Treatments: Physical Therapy Exercise Log - 07/05/18 7458 Therapeutic Exercise (99224) Intervention [place] poultry picker x1 (entire bowl) Parameters Incline Board [...] and strength. Linda Glez, DELORIS State License, [id number] in this encounter* DeorodneyNithya, [employer] - 07/09/2018 1:00 PM EDT [facility] DAILY TREATMENT NOTE Today's Date 07/09/2018 Patient Name: Chela Rojas Date of : 1945 Current Visit #: 5 Authorized Visits: 9 Case Name: Therapy Plantar Fasciitis of L Foot History: Pre-Treatment Pain Scale: 2 Symptoms: gradually improved Functional Diagnosis: SNOMED CT(R) 1. Plantar fasciitis of left foot PLANTAR FASCIITIS OF LEFT FOOT Clinical Information: Subjective: [facility] and had some discomfort after that but rolled it out after she got home and the pain went away. Objective Reviewed HEP and goals. Pt. Met all goals. Treatments: Physical Therapy Exercise Log - 07/09/18 1428 Therapeutic Exercise (93431) Intervention Towel stretch - sitting Parameters 4x30 Intervention [place] poultry picker x1 (entire bowl) Intervention towel scrunches [...] expectations. Plan for Next Visit: Discharge Nithya Huynh PTA STATE LICENSE, [id number] in this encounter* Audi Renner MD - 01/26/2019 1:40 PM EDT Dictation on: 01/26/2019 1:43 PM by: AUDI RENNER [[id number]] documented in this encounter Reason for Referral Status Reason Specialty Diagnoses / Procedures Referred By Contact Referred To Contact Authorized Physical Therapy / Rehabilitation Diagnoses Plantar fasciitis of left foot Amos Nava, GRACIELA [place] [address] Chief Complaint medckMedicare wellness annual exam subsequentmedckmedcknewly diagnosed right breast cancernewly diagnosed right breast cancernewly diagnosed right breast cancerbreathing issuepost op Chief Complaint and Reason for Visit Chief Complaint 4 month breast Amb Documentation 3 MO - NO LABS - PROLIA BREAST CA EST CHRONIC SOB SHORTNESS OF BREATH SHORTNESS OF BREATH SHORTNESS OF BREATH SHORTNESS OF BREATH Malignant neoplasm of unspecified site of right fe CHEST PAIN Amb Documentation Amb Documentation Reason for Visit Breast cancer, right breast Breast cancer, right breast Chest pain Hoarseness of voice SOB (shortness of breath) Chief Complaint SHORTNESS OF BREATH SHORTNESS OF BREATH SHORTNESS OF BREATH SHORTNESS OF BREATH Malignant neoplasm of unspecified site of right fe CHEST PAIN Amb Documentation Amb Documentation 6 wk FU irregular HR in Pulmonary today L.L 4 MONTH F/U BREAST Palpitations, periods of irregular heartbeat 30 DAY MONITOR 3 MO - NO LABS Reason for Visit SOB (shortness of br eath) Breast cancer, right breast Breast cancer, right breast Chief Complaint 3 MO - NO LABS 4 MONTH F/U BREAST 3MO LABS PROLIA BREAST CA SCREENING Reason for Visit Breast cancer, right breast Breast cancer, right breast Breast cancer, right breast Chief Complaint Admit Date 3 MO - NO LABS March 28, 2024 1 :57pm OSTEOPOROSIS May 10, 2024 1 2:47pm LBP June 13, 2024 11:55am 2 MO - LABS - ZOMETA June 13, 2024 11:57am BREAST CA June 13, 2024 1:45pm Reason for Visit Admit Date Breast cancer, right breast March 1:57pm Osteoporosis March 28, 2024 1 :57pm Breast cancer, right breast May 11:57am Chief Complaint Admit Date 3 MO - NO LABS March 28, 2024 1 :57pm OSTEOPOROSIS May 10, 2024 1 2:47pm LBP June 13, 2024 11:55am 2 MO - LABS - ZOMETA June 13, 2024 11:57am BREAST CA June 13, 2024 1:45pm SCREENING July 20, 2024 1:43 pm Chief Complaint Admit Date OSTEOPOROSIS May 10, 2024 1 2:47pm LBP June 13, 2024 11:55am 2 MO - LABS - ZOMETA June 13, 2024 11:57am BREAST CA June 13, 2024 1:45pm SCREENING July 20, 2024 1:43 pm Reason for Visit Admit Date Breast cancer, right breast May 11:57am Chief Complaint Admit Date LBP June 13, 2024 11:55am 2 MO - LABS - ZOMETA June 13, 2024 11:57am BREAST CA June 13, 2024 1:45pm SCREENING July 20, 2024 1:43 pm 4 MONTH F/U BREAST August 15, 2024 12: 44pm 4 MO - NO LABS October 11, 2024 1:17 pm Reason for Visit Admit Date Breast cancer, right breast May 11:57am Breast cancer, right breast August 15, 2024 12:44pm Breast cancer, right breast October 11, 2 025 1:17pm Additional Source Comments INFORMATION SOURCE (unrecogn ized section and content) DATE CREATED AUTHOR 06/27/2018 [facility] DATE CREATED AUTHOR AUTHOR'S ORGANIZ ATION 01/19/2019 [facility] DATE CREATED AUTHOR AUTHOR'S ORGANIZ ATION 01/26/2019 [facility] DATE CREATED AUTHOR AUTHOR'S ORGANIZ ATION 03/28/2022 [employer] DATE CREATED AUTHOR AUTHOR'S ORGANIZ ATION 04/10/2022 [facility] DATE CREATED AUTHOR AUTHOR'S ORGANIZ ATION 05/27/2022 [facility] DATE CREATED AUTHOR AUTHOR'S ORGANIZ ATION 07/23/2022 [facility] DATE CREATED AUTHOR AUTHOR'S ORGANIZ ATION 04/20/2024 [facility] DATE CREATED AUTHOR AUTHOR'S ORGANIZ ATION 05/04/2024 [facility] DATE CREATED AUTHOR AUTHOR'S ORGANIZ ATION 09/29/2024 [facility] DATE CREATED AUTHOR AUTHOR'S ORGANIZ ATION 03/02/2025 [facility] Reason for Visit (unrecogniz ed section and content) Reason Comments Physical Therapy Specialty Diagnoses / Procedures Referred By Contac t Referred To Contact Rehabilitation Diagnoses Low back pain Craig Ventura Chi, MD [address] [place] [address] Phone: tel: fax: [facility] [address] [place] [address] Phone: tel: fax: Referral ID Status Reason Start Date Expiration Date V isits Requested Visits Authorized [id number] Pending Review 03/08/2024 03/08/2025 9 199 Reason Comments Physical Therapy Status Reason Specialty Diagnoses / Procedures Referred By Contact Referred To Contact Authorized Physical Therapy / Rehabilitation Diagnoses Plantar fasciitis of left foot Nava, Amos Chung, DPM [address] [place] [address] Status Reason Specialty Diagnoses / Procedures Referred By Contact Referred To Contact Authorized Physical Therapy / Rehabilitation Diagnoses Plantar fasciitis of left foot Elijah Amos Chung, LORAM [address] [place] [address] Reason Comments Results review labs & bone s can Referral ID Status Reason Start Date Expiration Date V isits Requested Visits Authorized [id number] Authorized 03/08/2024 03/08/2025 9 199 Care Teams (unrecognized sec tion and content) Team Status: Active Member Role Status Dates Dr. Craig Ventura MD Primary Care Provider Active Team Status: Inactive Member Role Status Dates Dr. Shelley Arnett MD Attending Provider Active Team Status: Inactive Member Role Status Dates Dr. Evgeny Garg DO Attending Provider Active Team Status: Inactive Member Role Status Dates Dr. Colten Vasquez DO Attending Provider Active Dr. Craig Ventura MD Primary Care Provider, Referring Provider Active Team Status: Inactive Member Role Status Dates Dr. Brandon Meza MD Attending Provider Active Dr. Craig Ventura MD Primary Care Provider Active Dr. Shelley Arnett MD Referring Provider Active Team Status: Active Member Role Status Dates Radha Chance Attending Provider Active Team Status: Active Member Role Status Dates Dr. Craig Ventura MD Primary Care Provider Active Dr. Colten Vasquez DO Referring Provider, Other Provide r Active Dr. Dean Donovan MD Attending Provider Active Team Status: Active Member Role Status Dates Dr. Craig Ventura MD Primary Care Provider Active Dr. Brandon Meza MD Attending Provider Active Team Status: Active Member Role Status Dates Dr. Craig Ventura MD Primary Care Provider Active Len [employer] TEAM LEADER, PREPARED FOODS TEAM LEADER-C Attending Provider Active Team Status: Active Member Role Status Dates Dr. Evgeny Garg DO Attending Provider, Referring P rovider Active Team Status: Active Member Role Status Dates Dr. Craig Ventura MD Primary Care Provider Active Dr. Colten Vasquez DO Attending Provider, Referring Pro vider Active Team Status: Inactive Member Role Status Dates Dr. Craig Ventura MD Primary Care Provider, Attending Provider Active Team Status: Inactive Member Role Status Dates Dr. Evgeny Garg DO Attending Provider, Referring P rovider Active Dr. Craig Ventura MD Primary Care Provider Active Team Status: Active Member Role Status Dates Dr. Craig Ventura MD Primary Care Provider Active Dr. Brandon Meza MD Attending Provider, Referring Pro vider Active Team Status: Inactive Member Role Status Dates Dr. Craig Ventura MD Primary Care Provider Active Dr. Colten Vasquez DO Attending Provider, Referring Pro vider Active Team Status: Inactive Member Role Status Dates Dr. Craig Ventura MD Primary Care Provider Active Dr. Brandon Meza MD Attending Provider, Referring Pro vider Active Team Status: Inactive Member Role Status Dates Daisy Valles PREPARED [employer]S TEAM LEADER, PREPARED FO[employer]S TEAM LEADER-C Attending Provider Active Dr. Craig Ventura MD Primary Care Provider, Referring Provider Active Team Status: Inactive Member Role Status Dates Dr. Craig Ventura MD Primary Care Provider, Referring Provider Active Jemima Cabrera PREPARED FOODS TEAM LEADER, PREPARED FOODS TEAM LEADER-C Attending Provider Active Team Status: Inactive Member Role Status Dates Dr. Craig Ventura MD Primary Care Provider, Referring Provider Active Len Forbes PREPARED FOODS TEAM LEADER, PREPARED FOODS TEAM LEADER-C Attending Provider Active Team Status: Inactive Member Role Status Dates Dr. Craig Ventura MD Primary Care Provider, Referring Provider Active Dr. Evgeny Garg DO Attending Provider Active Team Status: Active Member Role Status Dates Dr. Craig Ventura MD Primary Care Provider Active Dr. Brandon Meza MD Attending Provider Active Len Forbes NP, PRE[employer] TEAM LEADER-C Referring Provider Active Team Status: Active Member Role Status Dates Dr. Brandon Meza MD Attending Provider Active Dr. Craig Ventura MD Primary Care Provider Active Team Status: Inactive Member Role Status Dates Dr. Craig Ventura MD Primary Care Provider Active Dr. Evgeny Garg DO Attending Provider Active Team Status: Inactive Member Role Status Dates Dr. Craig Ventura MD Primary Care Provider, Referring Provider Active Dr. Shelley Arnett MD Attending Provider Active Team Status: Active Member Role Status Dates Dr. Evgeny Garg DO Attending Provider, Referring P yuniorder Active Dr. Craig Ventura MD Primary Care Provider Active Team Status: Inactive Member Role Status Dates Dr. Shelley Arnett MD Attending Provider, Referrin g Provider Active Dr. Craig Ventura MD Primary Care Provider Active System Auditor Relationship Specialty Start Date End Date Raheem Nichols MD [address] [place] [id number] PCP - General Family Medicine 02/09/15 System Auditor Relationship Specialty Start Date End Date Raheem Nichols MD [address] [place] [id number] PCP - General Family Medicine 02/09/15 System Auditor Relationship Specialty Start Date End Date Raheem Nichols MD [address] [place] [id number] PCP - General Family Medicine 02/09/15 System Auditor Relationship Specialty Start Date End Date Raheem Nichols MD [address] [place] [id number] PCP - General Family Medicine 02/09/15 System Auditor Relationship Specialty Start Date End Date Raheem Nichols MD [address] [place] [address] PCP - General Family Medicine 02/09/15 System Auditor Relationship Specialty Start Date End Date Raheem Nichols MD [address] [place] [address] PCP - General Family Medicine 02/09/15 System Auditor Relationship Specialty Start Date End Date Raheem Nichols MD [address] [place] [address] PCP - General Family Medicine 02/09/15 System Auditor Relationship Specialty Start Date End Date Raheem Nichols MD [address] [place] [address] PCP - General Family Medicine 02/09/15 System Auditor Relationship Specialty Start Date End Date Raheem Nichols MD [address] [place] [address] PCP - General Family Medicine 02/09/15 System Auditor Relationship Specialty Start Date End Date Raheem Nichols MD [address] [place] [address] PCP - General Family Medicine 02/09/15 Team Status: Inactive Member Role Status Dates Dr. Craig Ventura MD Primary Care Provider Active Start: March 28, 2024 End: March 28, 2024 Dr. Craig Ventura MD Referring Provider Active Start: March 28, 2024 End: March 28, 2024 Daisy Valles NP, PREPARED [employer]ODS TEAM LEADER-C Attending Provider Active Start: March 28, 2024 End: March 28, 2024 Team Status: Inactive Member Role Status Dates Dr. Craig Ventura MD Primary Care Provider Active Start: May 10, 2024 End: May 10, 2024 Daisy Hai PREPARED FOODS TEAM LEADER, PREPARED FOODS TEAM LEADER-C Attending Provider Active Start: May 10, 2024 End: May 10, 2024 Daisy Valles PREPARED FOODS TEAM LEADER, PREPARED FOODS TEAM LEADER-C Referring Provider Active Start: May 10, 2024 End: May 10, 2024 Team Status: Inactive Member Role Status Dates Dr. Craig Ventura MD Primary Care Provider Active Start: June 13, 2024 End: June 13, 2024 Dr. Craig Ventura MD Attending Provider Active Start: June 13, 2024 End: June 13, 2024 Dr. Craig Ventura MD Referring Provider Active Start: June 13, 2024 End: June 13, 2024 Team Status: Inactive Member Role Status Dates Dr. Craig Ventura MD Primary Care Provider Active Start: June 13, 2024 End: June 13, 2024 Dr. Craig Ventura MD Referring Provider Active Start: June 13, 2024 End: June 13, 2024 Dr. Shelley Arnett MD Attending Provider Active Start: June 13, 2024 End: June 13, 2024 Team Status: Active Member Role Status Dates Dr. Evgeny Garg DO Referring Provider Active Start: June 13, 2024 Dr. Craig Ventura MD Primary Care Provider Active Start: June 13, 2024 Dr. Shelley Arnett MD Attending Provider Active Start: June 13, 2024 Team Status: Inactive Member Role Status Dates Dr. Craig Ventura MD Primary Care Provider Active Start: July 20, 2024 End: July 20, 2024 Dr. Shelley Arnett MD Attending Provider Active Start: July 20, 2024 End: July 20, 2024 Dr. Shelley Arnett MD Referring Provider Active Start: July 20, 2024 End: July 20, 2024 Team Status: Inactive Member Role Status Dates Dr. Craig Ventura MD Primary Care Provider Active Start: July 26, 2024 End: July 26, 2024 Dr. Craig Ventura MD Attending Provider Active Start: July 26, 2024 End: July 26, 2024 Dr. Craig Ventura MD Referring Provider Active Start: July 26, 2024 End: July 26, 2024 System Auditor Relationship Specialty Start Date End Date Leonides Ventura MD [address] [facility] [address] [address] PCP - General Gerontology 08/02/24 System Auditor Relationship Specialty Start Date End Date Leonides Ventura MD [address] [address] [address] PCP - General Gerontology 08/02/24 Team Status: Inactive Member Role Status Dates Dr. Craig Ventura MD Primary Care Provider Active Start: August 15, 2024 End: August 15, 2024 Dr. Craig Ventura MD Referring Provider Active Start: August 15, 2024 End: August 15, 2024 Dr. Evgeny Garg DO Attending Provider Active Start: August 15, 2024 End: August 15, 2024 Team Status: Inactive Member Role Status Dates Dr. Craig Ventura MD Primary Care Provider Active Start: October 11, 2024 End: October 11, 2024 Dr. Craig Ventura MD Referring Provider Active Start: October 11, 2024 End: October 11, 2024 Dr. Shelley Arnett MD Attending Provider Active Start: October 11, 2024 End: October 11, 2024 Goals (unrecognized section and content) Goals may be documented in a n alternate sectionGoals may be documented in an alternate sectionGoals may be documented in an alternate sectionGoals may be documented in an alternate sectionGoals may be documented in an alternate sectionGoals may be documented in an alternate sectionGoals may be documented in an alternate sectionGoals may be documented in an alternate sectionGoals may be documented in an alternate sectionGoals may be documented in an alternate section FOR RECORDS PERTAINING TO PATIENTS WHO ARE [...] BE BASED ON THE PRIMARY CLINICAL RECORDS. [employer] [facility] provides no warranty or guarantee of the accuracy or completeness of information in this document.
== END | disposition home or self-care (01) ==
LOC: LAB 14:50
PROVIDERS: PCP Family Medicine Geriatric Medicine; Referring Provider Nurse Practitioner Family; Visit Provider Nurse Practitioner Family
DX: R06.02 Shortness of breath (principal); I48.92 Unspecified atrial flutter; R03.0 Elevated blood-pressure reading, without diagnosis of hypertension
CPT/HCPCS: 36415; 80048; 83880; 85025